=== PATIENT | female | born 1955 | race Caucasian/White ===

== ENCOUNTER 2020-08-07 00:27 | Outpatient (CLI) | payer BC, SELFPAY ==
[2020-08-07 18:26] LABS: SARS-CoV-2 RNA PCR Negative
== END 2020-08-07 00:28 | disposition home or self-care (01) ==
LOC: ANHCOVIDDT 00:27
PROVIDERS: Family Provider Family Medicine; PCP Family Medicine; Visit Provider Internal Medicine Gastroenterology
DX: Z01.812 Encounter for preprocedural laboratory examination (principal); Z20.822 Contact with and (suspected) exposure to COVID-19
CPT/HCPCS: C9803; U0003; U0005

== ENCOUNTER 2020-08-10 01:24 | Day surgery (SDC) | payer BC, SELFPAY ==
[2020-07-31 13:25] VITALS: BMI 30.2
[2020-08-10 12:37] VITALS: BP 141/86; PULSE 97; RESP 15; TEMP 36.9; O2SAT 96
[2020-08-10] MEDS: LACTATED RINGERS 1,000 ML 150 ML IV CONT (12:52)
[2020-08-10 13:03] LABS: Glucose Point of Care 240 (65-105)
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
[2020-08-10 15:33] VITALS: BP 84/48; PULSE 72; RESP 20; O2SAT 96
[2020-08-10 15:43] VITALS: BP 98/51; PULSE 72; RESP 20; O2SAT 95
[2020-08-10 15:44] LABS: Glucose Point of Care 175 (65-105)
[2020-08-10 15:53] VITALS: BP 117/73; PULSE 75; RESP 19; O2SAT 97
[2020-08-10 16:00] VITALS: BP 137/78; PULSE 74; RESP 20; O2SAT 97
== END 2020-08-10 16:08 | disposition home or self-care (01) ==
PROVIDERS: Family Provider Family Medicine; PCP Family Medicine; Visit Provider Internal Medicine Gastroenterology
PROC: 0DJD8ZZ Inspection of Lower Intestinal Tract, Via Natural or Artificial Opening Endoscopic (ICD-10-PCS; CPT 45378; principal; 2020-08-10 14:30)
DX: Z12.11 Encounter for screening for malignant neoplasm of colon (principal); D12.2 Benign neoplasm of ascending colon; K64.8 Other hemorrhoids; I10 Essential (primary) hypertension; E11.9 Type 2 diabetes mellitus without complications; K21.9 Gastro-esophageal reflux disease without esophagitis; K58.9 Irritable bowel syndrome, unspecified; F32.9 Major depressive disorder, single episode, unspecified; Z79.4 Long term (current) use of insulin; Z79.84 Long term (current) use of oral hypoglycemic drugs; F17.210 Nicotine dependence, cigarettes, uncomplicated
CPT/HCPCS: 45385; 88305; J2704; J7120

== ENCOUNTER 2020-09-27 15:10 | Outpatient (CLI) | payer BC, SELFPAY | END 2020-09-27 15:11 | disposition home or self-care (01) | LOC: ANHCOVIDVC 15:10 | PROVIDERS: PCP Family Medicine | DX: Z23 Encounter for immunization (principal) | CPT/HCPCS: 0001A; 91300 ==

== ENCOUNTER 2020-10-18 14:41 | Outpatient (CLI) | payer BC, SELFPAY | END 2020-10-18 14:42 | disposition home or self-care (01) | LOC: ANHCOVIDVC 14:41 | PROVIDERS: PCP Family Medicine | DX: Z23 Encounter for immunization (principal) | CPT/HCPCS: 0002A; 91300 ==

== ENCOUNTER 2022-01-17 13:56 | Outpatient (CLI) | payer SELFPAY ==
[2022-01-17 14:24] LABS: Alanine Aminotransferase 29 U/L (6-35); Albumin Level 4.6 g/dL (3.5-5.1); Alkaline Phosphatase 107 U/L (38-126); Anion Gap 6 mmol/L (8-16); Aspartate Amino Transferase 28 U/L (14-36); Bilirubin,Total 0.2 mg/dL (0.2-1.3); Blood Urea Nitrogen 12 mg/dL (7-17); Calcium 9.3 mg/dL (8.4-10.2); Carbon Dioxide 29 mmol/L (22-30); Chloride 103 mmol/L (98-107); Cholesterol 185 mg/dL (0-200); Estimated Glomerular Filt Rate 38; Glucose 197 mg/dL (65-110); HDL Direct 39 mg/dL; Potassium 3.8 mmol/L (3.4-5.0); Sodium 138 mmol/L (137-145); Triglycerides 178 mg/dL (<150)
[2022-01-17 14:36] LABS: LDL Cholesterol Direct 95 mg/dL
[2022-01-17 14:41] LABS: Creatinine Urine 80.4 mg/dL
[2022-01-17 14:50] LABS: MALB Creatinine Ratio 56.3 mg/g (0-30); Microalbumin Urine Random 45.3 mg/L (0-16.7)
[2022-01-17 18:13] LABS: Hemoglobin A1C 8.3 % (<5.7)
== END 2022-01-17 13:57 | disposition home or self-care (01) ==
LOC: ANHLAB 13:58
PROVIDERS: PCP Family Medicine; Visit Provider Physician Assistant
DX: Z13.1 Encounter for screening for diabetes mellitus (principal); E11.9 Type 2 diabetes mellitus without complications; Z79.4 Long term (current) use of insulin; I10 Essential (primary) hypertension; Z13.220 Encounter for screening for lipoid disorders
CPT/HCPCS: 36415; 80053; 80061; 82043; 83036

== ENCOUNTER 2023-05-21 14:45 | Outpatient (RCR) | payer MEDICARE, MEDICAID, SELFPAY ==
[2023-04-16 13:25] VITALS: BMI 32.6
[2023-04-16 13:30] VITALS: BMI 32.6
[2023-05-06 13:30] VITALS: BMI 32.3
[2023-05-06 13:41] VITALS: BMI 32.3
[2023-05-21 14:05] VITALS: BMI 31.6; BMI 32.3
== END 2023-06-30 09:34 | disposition home or self-care (01) ==
LOC: ANHDMC 14:45
PROVIDERS: PCP Family Medicine; Visit Provider Family Medicine
DX: E11.9 Type 2 diabetes mellitus without complications (principal); Z71.89 Other specified counseling; Z71.3 Dietary counseling and surveillance
CPT/HCPCS: 97802; 97803; G0108

== ENCOUNTER 2024-01-29 10:08 | Outpatient (CLI) | payer MEDICARE, SELFPAY ==
--- NOTE | ~2024-01-29 | MMUS_ITS ---
EXAMINATION: MM diagnostic troy RT w ken, US axilla RT HISTORY: Palpable right axillary mass. TECHNIQUE: Additional 3-D tomosynthesis images of the right breast were performed and synthetic 2-D i mages were generated. CAD analysis was submitted and interpreted. High resolution right axillary ultr asound was performed. COMPARISON: Screening mammogram dated 03/12/2010 BREAST PARENCHYMAL COMPOSITION: Not dense: There are scattered areas of fibroglandular density. FINDINGS: MAMMOGRAPHIC FINDINGS: There are 2 masses in the axillary tail of the right breast the largest of which located superiorly a nd laterally contains spiculations and measures approximately 2.7 cm. ULTRASOUND: Right axillary ultrasound: At 10:00, 10 cm from the nipple, there is an irregular shaped heterogeneou s hypoechoic mass measuring 2.9 x 2.2 x 2.3 cm with internal vascularity and mixed posterior attenuat ion. There is a nearby 2 x 1.4 x 1.1 cm hypoechoic vascular mass at 10:00, 8 cm from the nipple with parallel orientation, mixed posterior attenuation. IMPRESSION: 1. Masses in the right axillary tail, the largest of which measures 2.9 cm with spiculated margins. 2. Ultrasound-guided right breast biopsies recommended. BI-RADS category 5, highly suggestive of malignancy. Reviewed, dictated and finalized at location B. IMPRESSION: 1. Masses in the right axillary tail, the largest of which measures 2.9 cm with spiculated margins. 2. Ultrasound-guided right breast biopsies recommended. BI-RADS category 5, highly suggestive of malignancy.
== END 2024-01-29 10:09 ==
LOC: MICIMG 10:15
PROVIDERS: PCP Family Medicine; Visit Provider Student in an Organized Health Care Education/Training Program
DX: R92.8 Other abnormal and inconclusive findings on diagnostic imaging of breast (principal); N63.0 Unspecified lump in unspecified breast
CPT/HCPCS: 76882; 77061; 77065; G0279

== ENCOUNTER 2024-02-17 14:08 | Outpatient (CLI) | payer MEDICARE, SELFPAY ==
--- NOTE | ~2024-02-17 | MM_ITS ---
MM post biopsy diagnostic RT 02/17/2024 15:56 Indication: Status post right axillary biopsies Procedure: Digital diagnostic right mammogram Comparison: 01/29/2024 Findings: Status post recent right breast biopsy with tissue marker placement and 2 separate masses i n the right axillary tail located at 10:00, 10 cm from the nipple and 10:00, 8 cm from the nipple. Impression: 1: Status post recent right axillary biopsies. Please refer to procedural report for details. Reviewed, dictated and finalized at location B. Impression: 1: Status post recent right axillary biopsies. Please refer to procedural repor t for details.
--- NOTE | 2024-02-18 14:03 | W.PM.PROC2 ---
Procedure Note - Detailed Date of Procedure 02/18/24 Pre-op Diagnosis palpable right breast mass Post-op Diagnosis Same Procedure Performed US guided biopsy of right breast mass at 10 o'clock 10cm from the nipple US guided biopsy of right breast mass at 10 o'clock 8cm from the nipple Surgeon Jackie Moreira MD Anesthesia Other (lidocaine with epinephrine) Description of Procedure Risk of the procedure were discussed with the patient which included but not limited to risk of bleeding, infection, possible need for repeat biopsy or additional procedures in the future, bruising, hematoma,etc. Benefits and alternatives to procedure were discussed as well. Consent was obtained and a time out was performed. The right breast mass number 1 was identified using the US at 10 o'clock position 10 cm from the nipple, and lidocaine with epinephrine was used to anesthetize the skin and tissue surrounding the mass under US guidance. A 10g vacuum assisted device was used to obtain 4 core biopsy specimens under US guidance. An Inrad tissue marker clip was then placed at the biopsy site under US guidance. Pressure was held over the area for 10 minutes with excellent hemostasis. The right breast mass number 2 was identified using the US at 10 o'clock position 8 cm from the nipple, and lidocaine with epinephrine was used to anesthetize the skin and tissue surrounding the mass under US guidance. A 10g vacuum assisted device was used to obtain 4 core biopsy specimens under US guidance. An Inrad tissue marker clip was then placed at the biopsy site under US guidance. Pressure was held over the area for 10 minutes with excellent hemostasis. Core needle specimens were sent to pathology in formalin. Patient tolerated the procedure well with no immediate complications. A post-procedure right mammogram was obtained to confirm the tissue marker clip placement. Estimated Blood Loss 3 Pathology Yes Complications No immediate complications [facility] Billing Surgery - Charge Forward: Surgery Billing (CPT 78046, 13450)
== END 2024-02-17 14:09 | disposition home or self-care (01) ==
LOC: ANHIMG 14:08
PROVIDERS: PCP Family Medicine; Visit Provider Surgery
DX: D05.11 Intraductal carcinoma in situ of right breast (principal)
CPT/HCPCS: 19083; 19084; 77065; 88305; 88360; 88365; A4648

== ENCOUNTER 2024-03-16 12:01 | Outpatient (CLI) | payer MEDICARE, SELFPAY ==
--- NOTE | ~2024-03-16 | MR_ITS ---
MR breast BI wo/w con 03/16/2024 13:24 CDT INDICATION: Malignant neoplasm of the right breast TECHNIQUE: MRI of the breasts perform using standard protocol pre-and post IV contrast with the follo wing sequences: Axial T2 STIR, axial T1, axial vibrant T1 with fat suppression precontrast and multip hasic postcontrast. 15 cc of MultiHance administered intravenously. COMPARISON: Comparison to multiple prior studies sequentially, with oldest reviewed study dated 01/28. FINDINGS: Precontrast sequences demonstrate abnormal conglomerate mass in the left axillary tail with heterogeneous appearance characterize is T1 hypointense with areas of septated T2 hypointensity. The re is brisk rapid washout enhancement. This conglomerate mass measures 5.6 x 3.7 x 4.9 cm located upp er outer quadrant at 11:00 posteriorly 8 cm posterior to the nipple. Margins are irregular with multi ple satellite nodules nearby, likely representing metastatic lymph nodes. There is mild background pa renchymal enhancement. LEFT BREAST: No signal abnormalities on precontrast sequences. There is mild background parenchymal enhancement. No enhancing lesions following contrast administration. No areas of enhancement meeti ng threshold criteria on CAD analysis. No evidence of signal abnormalities in the axillary or inter nal mammary node distributions.] IMPRESSION: 1: Right breast: Large conglomerate mass upper outer quadrant of the right breast posteriorly at 11: 00 measuring 5.6 x 3.7 x 4.9 cm, consistent with known malignancy. Multiple small enhancing satellite nodules are noted, likely metastatic lymph nodes. BI-RADS category 6- Known biopsy proven malignancy : Appropriate action should be taken. 2: Left breast: Negative. No evidence of malignancy. BI-RADS category 1. Recommend annual mammogr aphy follow-up. Reviewed, dictated and finalized at location B. IMPRESSION: 1: Right breast: Large conglomerate mass upper outer quadrant of the right arcelia ast posteriorly at 11:00 measuring 5.6 x 3.7 x 4.9 cm, consistent with known ma lignancy. Multiple small enhancing satellite nodules are noted, likely metastat ic lymph nodes. BI-RADS category 6- Known biopsy proven malignancy: Appropriate action should be taken. 2: Left breast: Negative. No evidence of malignancy. BI-RADS category 1. Re commend annual mammography follow-up.
== END 2024-03-16 12:02 | disposition home or self-care (01) ==
PROVIDERS: PCP Family Medicine; Visit Provider Surgery
DX: N63.11 Unspecified lump in the right breast, upper outer quadrant (principal)
CPT/HCPCS: 77049; 99212; A9577; C8908; G0463

== ENCOUNTER 2024-04-07 10:14 | Outpatient (CLI) | payer MEDICARE, SELFPAY ==
[2024-04-07 11:09] LABS: Anion Gap 8 mmol/L (4-12); Blood Urea Nitrogen 19 mg/dL (7-17); Calcium 9.4 mg/dL (8.4-10.2); Carbon Dioxide 33 mmol/L (22-30); Chloride 94 mmol/L (98-107); Estimated Glomerular Filt Rate 38; Glucose 275 mg/dL (65-110); Potassium 3.1 mmol/L (3.4-5.0); Sodium 135 mmol/L (137-145)
== END 2024-04-07 10:15 | disposition home or self-care (01) ==
PROVIDERS: Anesthesiology; PCP Family Medicine; Visit Provider Surgery
DX: Z01.818 Encounter for other preprocedural examination (principal); C50.911 Malignant neoplasm of unspecified site of right female breast
CPT/HCPCS: 36415; 80048; 86850; 86900; 86901

== ENCOUNTER 2024-04-12 00:10 | Day surgery (SDC) | payer MEDICARE, SELFPAY ==
[2024-04-09 13:54] VITALS: BMI 30.7
--- NOTE | 2024-04-09 14:30 | PC.NURSE ---
Report to the Outpatient Waiting Room, entrance under the green pavilion located off [facility], at time ___11:15AM__ on date _04/12/24. Planned Procedure Time: ____1:15PM____.? Time changes happen often and if your time is changed the preop area will call you the afternoon before. - You and your visitor will be asked to self-screen and do not enter if you have any COVID symptoms. Please call surgeon if you need to reschedule. - A mask is optional within the hospital at this time. Patients may have clear liquids (water, carbonated beverages, clear teas, apple juice) until 3 hours prior to surgery with a maximum of 20 ounces. - No food from midnight until time of surgery and no smoking. Take only the following medications with a SIP of water on the morning of surgery: ___AMLODIPINE, BUPROPION, CARVEDILOL, PREGABALIN, 1/2 DOSE AM INSULIN(2.5 UNITS) DO NOT STOP ANY OF YOUR OTHER PRESCRIPTION MEDICATIONS PRIOR TO SURGERY EXCEPT THE FOLLOWING Medications to discontinue per physician NONE Date to take last dose Please no make-up, nail nepali, hairspray, perfume, deodorant, or body powder the day of surgery.? No jewelry (including any body piercings) or valuables the day of surgery, leave them at home.? Please take a shower or bath the night before, or the morning of, surgery with an antibacterial soap.? Wear comfortable, loose fitting clothing.? - Jewelry must be removed prior to entering the operating room.? Rings and piercings that are not removed may be cut off. - The hospital will not accept responsibility for valuables.? - Please leave all valuables, including medications, at home the day of surgery. If you are going home after surgery, a licensed power screwdriver operator must drive you home.? - NO public transportation without another adult if you receive anesthesia. - We recommend that an adult stay with you for 24 hours following discharge. - We also recommend that you do not drive, make important decision, drink alcoholic beverages, or take any drugs that were not prescribed by your health care provider for at least 24 hours after your discharge time. Follow any additional instructions given to you from your surgeon. Telephone instructions given to PATIENT'S SISTER-PAVITHRA and asked if any additional questions and then verbalized understanding. Patient advised to call surgeon office or pre surgery nurse liaison [phone] if any additional questions.
[2024-04-12] VITALS (7 sets, daily range): BP systolic 100–121; BP diastolic 53–75; PULSE 65–72; RESP 12–18; TEMP 36.3; O2SAT 92–99
--- NOTE | ~2024-04-12 | XR_ITS ---
EXAMINATION: XR fl guide central line place DATE: 04/12/2024 15:23 INDICATION: Port placement. TECHNIQUE: A single intraoperative fluoroscopic view of the chest was obtained. I was not present. Fl uoroscopy exposure time was 41 seconds. COMPARISON: None. FINDINGS: There is a left subclavian port with tip at superior cavoatrial junction. There are changes of anterior fusion procedure in cervical spine. IMPRESSION: 1. Port tip at superior cavoatrial junction. Reviewed, dictated and finalized at location A.
--- NOTE | ~2024-04-12 | XR_ITS ---
EXAMINATION: XR chest port-a-cath/central DATE: 04/12/2024 15:56 INDICATION: Port placement. TECHNIQUE: A single frontal view of the chest was obtained. COMPARISON: None. FINDINGS: There are airspace opacities in left perihilar region and left lower lung zone. No pleural effusion or pneumothorax. The heart size is normal. There are changes of anterior fusion procedure in cervical spine. Surgical clips in the right upper quadrant are likely from cholecystectomy. There is a left subclavian port with tip in proximal right atrium. IMPRESSION: 1. Port tip in proximal right atrium. 2. Airspace opacities in left perihilar region and left lower lung zone, consistent with atelectasis versus pneumonia. Reviewed, dictated and finalized at location A. IMPRESSION: 1. Port tip in proximal right atrium. 2. Airspace opacities in left perihilar region and left lower lung zone, consis tent with atelectasis versus pneumonia.
[2024-04-12] MEDS: LACTATED RINGERS 1,000 ML 30 ML IV CONT ×2 (11:45→15:41)
[2024-04-12 12:02] LABS: Glucose Point of Care 211 mg/dl (65-105)
[2024-04-12 12:05] LABS: Basophils Absolute Auto 0.1 K/mm3 (0.0-0.1); Basophils Percent Auto 0.6 % (0.2-1.2); Eosinophils Absolute Auto 0.3 K/mm3 (0-0.3); Eosinophils Percent Auto 2.6 % (0-4.4); Hematocrit 42.3 % (37.0-47.0); Hemoglobin 14.6 g/dL (12.0-15.0); Immature Granulocyte Absolute 0.03 K/mm3 (0.00-0.031); Immature Granulocyte Percent A 0.2 % (0-0.5); Lymphocytes Absolute Auto 2.59 K/mm3 (0.9-3.2); Lymphocytes Percent Auto 21.4 % (18.3-44.2); Mean Corpuscular HGB Conc 34.5 g/dl (32-36); Mean Corpuscular Hemoglobin 31.7 pg (26-34); Mean Corpuscular Volume 91.8 fl (80-100); Mean Platelet Volume 9.4 fl (7.4-10.4); Monocytes Absolute Auto 0.9 K/mm3 (0.1-0.6); Monocytes Percent Auto 7.8 % (2.6-8.5); Neutrophils Absolute Auto 8.2 K/mm3 (1.3-6.7); Neutrophils Percent Auto 67.4 % (45.5-73.1); Platelet Count Result 231 k/mm3 (150-375); Red Blood Count 4.61 M/mm3 (4.2-5.4); Red Cell Distribution Width 13.3 % (11.5-14.5); White Blood Count 12.1 K/mm3 (4.5-10.0)
[2024-04-12 12:16] LABS: INR 0.9; Prothrombin Time 12.9 Seconds (11.1-14.7)
[2024-04-12 12:17] LABS: Partial Thromboplastin Time 24.9 Seconds (22.3-36.8)
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
--- NOTE | 2024-04-12 12:45 | WPDHPUPDATE1 ---
History and Physical Update Update Date/Time: 04/12/24 12:45 History and Physical has been reviewed, including an updated exam of the patient. There are NO changes in the patient's condition. Risks, benefits, and alternatives have been discussed and questions answered. Patient agrees to proceed with procedure.
--- NOTE | 2024-04-12 13:36 | WPDANESEPPF ---
Anes - Initial Pre Proc Eval Procedure: Operation Date: 04/12/24 13:15 Proposed Procedures p Insertion Lizeth Cath - Mumtaz Thompson MD Date/Time: 04/12/24 13:36 Surgeon: Mumtaz Thompson MD Pre Op Diagnosis: malignant neoplasm of upper outer Patient Data Age: 68 Gender: F Height: 1.5 m Weight: 69 kg Last Vital Signs Temp 36.3 C L 04/12/24 12:54 Pulse 72 04/12/24 12:54 BP 116/75 04/12/24 12:54 Pulse Ox 99 04/12/24 12:54 O2 Del Method Room Air 04/12/24 12:54 Allergies Allergy/AdvReac Type Severity Reaction Status Date / Time lisinopril Allergy Severe Swelling Verified 04/09/24 13:43 of Lip/Tongue/Throat codeine Allergy Unknown Agitated Verified 04/09/24 13:43 ramipril Allergy Unknown Swelling Verified 04/09/24 13:43 of Lip/Tongue/Throat Sulfa (Sulfonamide Allergy Unknown Agitated Verified 04/09/24 13:43 Antibiotics) adhesive AdvReac Intermediate rash, Verified 04/09/24 13:43 redness at site Home Medications Medication Instructions Recorded Confirmed Type blood-glucose meter #1 ea 03/06/23 04/08/24 Rx lancets #200 ea 03/06/23 04/08/24 Rx simvastatin 40 mg tablet (Zocor) 40 mg PO DAILY #90 tabs 06/30/23 04/09/24 Rx amlodipine 10 mg tablet See Rx Instructions .Route 07/02/23 04/09/24 Rx .COMPLEX #30 ea bupropion HCl 150 mg 24 hr tablet, 150 mg PO QAM #30 tabs 07/02/23 04/09/24 Rx extended release (Wellbutrin XL) insulin lispro-aabc 100 unit/mL 5 unit (0.05 mL) subcut TID #15 mL 08/06/23 04/09/24 Rx subcutaneous pen (Lyumjelamine NazarioikPen U-100 Insulin) pen needle, diabetic 31 gauge x #100 ea 08/06/23 04/08/24 Rx 1/4 (1st Tier Unifine Pentips) blood-glucose meter,continuous #1 ea 12/24/23 04/08/24 Rx (FreeStyle Triston 3 [place]) blood-glucose sensor ([place]ibernateryle #6 ea 02/02/24 04/08/24 Rx Triston 3 Sensor device) blood sugar diagnostic (OneTouch #100 ea 03/17/24 04/08/24 Rx Verio test strips) tolnaftate 1 % topical solution 1 drp topical QHS #45 mL 03/17/24 04/09/24 Rx insulin glargine 100 unit/mL 50 unit subcut HS 04/05/24 04/09/24 History subcutaneous solution (Lantus U-100 Insulin) potassium chloride 20 mEq 20 meq PO DAILY #30 tabs 04/07/24 04/09/24 Rx tablet,extended release carvedilol 6.25 mg tablet 6.25 mg PO BID 04/09/24 04/09/24 History hydrochlorothiazide 25 mg tablet 25 mg PO QAM 04/09/24 04/09/24 History pregabalin 50 mg capsule 50 mg PO TID 04/09/24 04/09/24 History quetiapine 25 mg tablet 50 mg PO HS 04/09/24 04/09/24 History Laboratory Tests 04/12/24 04/12/24 11:58 12:02 WBC 12.1 H K/mm3 (4.5-10.0) RBC 4.61 M/mm3 (4.2-5.4) Hgb 14.6 g/dL (12.0-15.0) Hct 42.3 % (37.0-47.0) MCV 91.8 fl (80-100) MCH 31.7 pg (26-34) MCHC 34.5 g/dl (32-36) RDW 13.3 % (11.5-14.5) Plt Count 231 k/mm3 (150-375) MPV 9.4 fl (7.4-10.4) Immature Gran % (Auto) 0.2 % (0-0.5) Neut % (Auto) 67.4 % (45.5-73.1) Lymph % (Auto) 21.4 % (18.3-44.2) Centre % (Auto) 7.8 % (2.6-8.5) Eos % (Auto) 2.6 % (0-4.4) Baso % (Auto) 0.6 % (0.2-1.2) Lymph # (Auto) 2.59 K/mm3 (0.9-3.2) Centre # (Auto) 0.9 H K/mm3 (0.1-0.6) Eos # (Auto) 0.3 K/mm3 (0-0.3) Baso # (Auto) 0.1 K/mm3 (0.0-0.1) Abs Immat Gran (auto) 0.03 K/mm3 (0.00-0.031) Absolute Neuts (auto) 8.2 H K/mm3 (1.3-6.7) Absolute Nucleated RBC 0.000 K/mm3 (0.0-0.012) Nucleated RBC % 0.0 % (0.0-0.2) PT 12.9 Seconds (11.1-14.7) INR 0.9 APTT 24.9 Seconds (22.3-36.8) POC Capillary Glucose 211 H mg/dl (65-105) Patient hx anesthesia problems: none Family hx anesthesia problems: none Results Review: All pre-operative results and documents have been reviewed as part of the pre-operative evaluation. [facility] Past Medical History Medical History (Reviewed
[2024-04-12] MEDS: ceFAZolin 2 GM/D5W 50 ML 2 GM/50 ML BAG IVPB (14:27)
[2024-04-12] MEDS: HEPARIN SODIUM 5,000 UNITS/ML VIAL 5000 UNITS IRRIGATION (15:01)
[2024-04-12] MEDS: HEPARIN SODIUM 1,000 UNITS/ML VIAL 1000 UNITS IV PUSH (15:01)
[2024-04-12] MEDS: LIDO 1%/EPINEPHRINE 1:100,000 20 ML VIAL 30 ML INFILTRATE (15:19)
--- NOTE | 2024-04-12 15:35 | W.PM.PROC2 ---
Procedure Note - Detailed Date of Procedure 04/12/24 Pre-op Diagnosis Invasive right breast cancer Post-op Diagnosis Same Procedure Performed Placement of left subclavian vein single-lumen port a catheter with intraoperative fluoroscopy Surgeon Mumtaz Thompson MD Director Corporate Communications Malathi Stark, CERTIFIED MEDICAL TECHNICIAN ASSISTANT Anesthesia MAC Indications Patient is a 68-year-old female who recently was diagnosed with invasive right breast cancer. The tumor is fairly large and so after Oncotype testing it was recommend that she get neoadjuvant chemotherapy before definitive surgical management. She presents now for placement of a marina catheter to administer chemotherapy. Findings None significant Description of Procedure After informed consent was obtained patient brought to the operating room she was placed supine position and LMA anesthesia was administered. The bilateral upper anterior neck and chest was then prepped and draped usual sterile fashion. Time-out was then performed correctly identifying the patient as well as the procedure to be performed. She was given perioperative IV antibiotics. Approach placement of the marina catheter in the left subclavian vein due to the fact that her breast cancer is the right side. 1% lidocaine mixed with 0.5% Marcaine with epinephrine was injected below the medial 3rd of the left clavicle. A transverse incision was then made this area the scalpel the dissection was carried down through the subcu tissues with electrocautery. I then created a subcutaneous port pocket just below the incision in the subcutaneous tissues. Then with the patient in the head-down Trendelenburg position I then used a long 18gauge needle to cannulate the left subclavian vein without any difficulty. There was prompt return of dark venous appearing blood. A guidewire was advanced through the needle into the left subclavian vein subsequent down into the superior vena cava. Intraoperative fluoroscopy was then used to verify that the tip of the guidewire was in the proper position in the right atrium. I then advanced a dilator and breakaway sheath over the guidewire. The guidewire and dilator were removed leaving the sheath in place a single-lumen 9.6 [place] silastic catheter was then advanced through the sheath into the left subclavian vein subsequent down into the superior vena cava. The sheath was then torn away leaving the catheter in place. Intraoperative fluoroscopy was used to visualize the tip of the catheter and then I pulled back on the catheter externals the chest wall to the catheter tip was in the distal superior vena cava. The catheter was then cut to the appropriate length at the skin level and then attached to the titanium Smart Port. The Smart port was then secured the subcutaneous port pocket on 3 sides utilizing 3-0 Prolene sutures. The port pocket was then irrigated sterile saline solution hemostasis was good. I then accessed the port and aspirated blood easily and was flushed with heparinized saline solution. I then close incision utilizing interrupted 3-0 Vicryl sutures in the subcutaneous tissues. The skin edges were then approximated utilizing a running subcuticular 4-0 Monocryl suture. The incision was then cleaned the skin glue was applied. The port was then accessed percutaneously and again edwadr back blood easily and was flushed with 5000units of IV heparin. The patient tolerated the procedure well no complications. All sponges, needles, and instrument counts were correct at the end procedure. EBL was _10_cc. The patient was awakened and taken to recovery in stable and satisfactory condition. Chest x-ray to verify final placement the tip of the catheter and rule out iatrogenic pneumothorax is pending at time of dictation. Implants 9.6 [place] single-lumen silastic catheter attached to titanium Smart port via left subclavian vein. Estimated Blood Loss 10 Drains No Packing No Pathology None sent Complications No immediate complications C
[2024-04-12 16:13] LABS: Glucose Point of Care 220 mg/dl (65-105)
--- NOTE | 2024-04-12 16:14 | SUR.PHASEII ---
Dr. Alexander notified of BGL of 220; no new orders
--- NOTE | 2024-04-12 16:32 | SUR.PHASEII ---
This RN spoke with Dr. Thompson regarding CXR results. Per Jay placement of port tip in proximal right atrium is okay since patient had no ectopy in OR and that RN may proceed with discharge. Dr Thompson also notified of CXR results stating air space opacities in left perihilar region and left lower lung zone, consistent with atelectesis vs pneumonia . Per Jay, patient is to follow up with PCP for any related pulmonary symptoms.
== END 2024-04-12 17:50 | disposition home or self-care (01) ==
PROVIDERS: PCP Family Medicine; Visit Provider Surgery
PROC: (CPT 36561; principal; 2024-04-12 13:15)
DX: C50.411 Malignant neoplasm of upper-outer quadrant of right female breast (principal); R91.8 Other nonspecific abnormal finding of lung field; I10 Essential (primary) hypertension; E11.9 Type 2 diabetes mellitus without complications; K21.9 Gastro-esophageal reflux disease without esophagitis; K58.9 Irritable bowel syndrome, unspecified; F39 Unspecified mood [affective] disorder; F32.A Depression, unspecified; F17.210 Nicotine dependence, cigarettes, uncomplicated; E66.9 Obesity, unspecified; Z68.30 Body mass index [BMI] 30.0-30.9, adult; Z79.4 Long term (current) use of insulin; Z98.890 Other specified postprocedural states; Z98.51 Tubal ligation status; Z90.49 Acquired absence of other specified parts of digestive tract; Z86.010 Personal history of colon polyps; Z80.3 Family history of malignant neoplasm of breast; Z82.49 Family history of ischemic heart disease and other diseases of the circulatory system
CPT/HCPCS: 36561; 36415; 77001; 80048; 82948; 85025; 85610; 85730; 86850; 86900; 86901; C1788; J0690; J1100; J1644; J1885; J2003; J2405; J2704; J3010; J7030; J7120

== ENCOUNTER 2024-04-27 10:56 | Outpatient (RCR) | payer MEDICARE, SELFPAY | END 2024-07-12 09:37 | disposition home or self-care (01) | LOC: ANHDMC 10:56 | PROVIDERS: PCP Family Medicine; Visit Provider Family Medicine | DX: E11.22 Type 2 diabetes mellitus with diabetic chronic kidney disease (principal); Z71.89 Other specified counseling | CPT/HCPCS: G0108 ==

== ENCOUNTER 2024-07-22 14:58 | Outpatient (CLI) | payer MEDICARE, SELFPAY ==
[2024-07-22 16:53] LABS: Add Urine Microscopic? YES; Appearance Urine Cloudy (Clear); Bacteria Urine 3+ /hpf; Bilirubin Urine Negative (Negative); Blood Urine Negative (Negative); Color Urine Yellow (Yellow); Glucose Urine UA Negative (Negative); Ketones Urine Negative (Negative); Leukocyte Esterase Ur 2+ LEU/UL (Negative); Nitrate Urine Negative (Negative); Non Pathogenic Casts 0-2; Protein Urine Negative (Negative); RBC Urine 0-2 /hpf (0-2); Specific Grav Ur 1.013 (1.001-1.035); Squamous Epithelial Cell Urine Moderate /hpf (Few); Urobilinogen Urine 0.2 mg/dL (<2.0); WBC Urine >100 /hpf (0-3); pH Urine 5.5 (5.0-9.0)
== END 2024-07-22 14:59 | disposition home or self-care (01) ==
LOC: ANHLAB 14:59
PROVIDERS: PCP Family Medicine; Visit Provider Internal Medicine Hematology & Oncology
DX: R30.0 Dysuria (principal)
CPT/HCPCS: 81001; 87086

== ENCOUNTER 2024-08-01 17:43 | Emergency (ER) | payer MEDICARE, SELFPAY ==
--- NOTE | ~2024-08-01 | XR_ITS ---
EXAM: XR foot LT min 3V DATE: 08/01/2024 19:06 HISTORY: Left dorsal foot pain . COMPARISON: None available. FINDINGS: Normal mineralization. No fracture or dislocation. No lytic or blastic lesion. Mild degene rative change at the first MTP joint. Mild plantar and moderate Achilles enthesopathy. No erosion or periosteal change. Soft tissues within normal limits. IMPRESSION: No acute osseous finding in the left foot. Reviewed, dictated and finalized at location K. LANE CHARTER CLERK
[2024-08-01 17:47] VITALS: BP 98/50; PULSE 94; RESP 18; TEMP 36.4; O2SAT 97
[2024-08-01] MEDS: ACETAMINOPHEN 500 MG TABLET 1000 MG PO (19:18)
[2024-08-01 19:20] VITALS: BP 121/74; PULSE 90; RESP 16; O2SAT 97
[2024-08-01 19:20] LABS: Hematocrit 31.6 % (37.0-47.0); Hemoglobin 10.2 g/dL (12.0-15.0); Mean Corpuscular HGB Conc 32.3 g/dl (32-36); Mean Corpuscular Hemoglobin 32.2 pg (26-34); Mean Corpuscular Volume 99.7 fl (80-100); Mean Platelet Volume 10.7 fl (7.4-10.4); Platelet Count Result 183 k/mm3 (150-375); Red Blood Count 3.17 M/mm3 (4.2-5.4); Red Cell Distribution Width 18.8 % (11.5-14.5); White Blood Count 29.4 K/mm3 (4.5-10.0)
[2024-08-01 19:32] LABS: Alanine Aminotransferase 22 U/L (6-35); Albumin Level 3.9 g/dL (3.5-5.1); Alkaline Phosphatase 104 U/L (38-126); Anion Gap 9 mmol/L (4-12); Aspartate Amino Transferase 30 U/L (14-36); Bilirubin,Total 0.4 mg/dL (0.2-1.3); Blood Urea Nitrogen 18 mg/dL (7-17); Calcium 8.9 mg/dL (8.4-10.2); Carbon Dioxide 30 mmol/L (22-30); Chloride 97 mmol/L (98-107); Estimated Glomerular Filt Rate 47; Glucose 246 mg/dL (65-110); Potassium 3.3 mmol/L (3.4-5.0); Sodium 136 mmol/L (137-145); Uric Acid 8.3 mg/dL (2.5-7.5)
[2024-08-01 19:48] LABS: Band Neutrophils Percent 6 % (0-6); Eosinophils Absolute Manual 0.29 K/mm3 (0.02-0.50); Eosinophils Percent Manual 1 % (0-4); Lymphocytes Absolute Manual 1.76 K/mm3 (1.1-4.5); Monocytes Absolute Manual 3.23 K/mm3 (0.1-0.90); Monocytes Percent Manual 11 % (3-9); Neutrophils Percent Manual 76 % (46-73); Platelet Estimate Adequate (Adequate); Schistocytes None Seen; Total Cells Counted 100
[2024-08-01 19:49] LABS: Anisocytosis 3+; Polychromasia 1+
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
[2024-08-01] MEDS: CLINDAMYCIN HCL 150 MG CAP 450 MG PO (20:49)
--- OUTSIDE RECORDS SUMMARY | 2024-08-05 10:51 | XMS_ITS | CONTINUITY OF CARE DOCUMENT ---
Author Name joselo, joselo Address Unknown Organization [facility] Address [address] [address] [address] [facility] [address] [place] [address] Phone [phone] Care Team Providers Care Blogs Manager Name Role Phone Iftikhar KEE, Nirav Unavailable MAGEN HERZOG MD Unavailable MAGEN HERZOG MD Unavailable [phone] PROBLEMS Condition Status Date Provider Notes Breast cancer active Tru Le Renal insufficiency active Elezaar Kimbrough Carotid bruits, bilateral completed 09/01 - Nirav Buitrago MD PVC's rare completed - Nirav Buitrago MD Hyperlipidemia active Eleazar Kimbrough Hypokalemia 3.0 07/2020 completed 9 - Nirav Buitrago MD Diabetes mellitus, type 2 active Albania valladares MD Obesity active Albania Lopes MD Shortness of breath--stress nuc nl, echo ef nl, 02/2024 active Tru Le Palpitations active Albania Lopes MD Leg pain, bilateral completed - Nirav Buitrago MD Fibromyalgia active Albania Lopes MD Headaches active Albania Lopes MD Fatigue active Albania Lopes MD Tobacco abuse active Albania Lopes MD Family history of CAD active Albania grant MD Hypertension active Albania Lopes MD ENCOUNTERS Date Type Provider Location Encounter Diag nosis 03/08 - 03/08 In-person encounter Office Visit Nirav Buitrago MD [facility] Shortness of breath--stress nuc nl, echo ef nl, reast cancer 02/10 - 02/10 In-person encounter Office Visit Nirav Buitrago MD [facility] Leg pain, bilateralHypokalemia 3.0 1PVC's rareCarotid bruits, bilateral 09/01 - 09/01 In-person encounter Office Visit Albania Lopes MD [facility] HyperlipidemiaRenal insufficiency 08/11 - 08/11 In-person encounter Office Visit Albania Lopes MD [facility] Shortness of breath--stress nuc nl, echo ef nl, 02/2024 - 11/01 In-person encounter Office Visit Albania Lopes MD [facility] HypertensionShortness of breath--stress nuc nl, echo ef nl, 02/2024ObesityDiabetes mellitus, type 2 09/27 - 10/03 In-person encounter Office Visit Albania Lopes MD [facility] HypertensionFamily history of CADTobacco abuseFatigueHeadachesFibromyalgiaPalpitations VITAL SIGNS Date Observation Value Provider Body Mass Index (Ratio) 30.90 kg/m2 Iliana ssa Puhse pulse rate 76 /min Genesis Hinojosa oxygen saturation, oximetry 96 % Genesis Hinojosa blood pressure, cuff size regular Nas Hinojosa blood pressure, diastolic 72 mm[Hg] Nas Hinojosa blood pressure, systolic 110 mm[Hg] Surendra Hinojosa weight E&M 153 [lb_av] Genesis Hinojosa respiratory rate E&M 12 /min Genesis Hinojosa height E&M 59 [in_i] Genesis Hinojosa Body Mass Index (Ratio) 31.50 kg/m2 Ascencion Buitrago MD blood pressure, diastolic 94 mm[Hg] Lisa nkLogic blood pressure, systolic 130 mm[Hg] Autumn kLogic weight E&M 156 [lb_av] Zuleyka Isauro height E&M 59 [in_i] Zuleyka Isauro blood pressure, cuff size regular Va lersharonda Isauro blood pressure, diastolic 94 mm[Hg] Va lerie Isauro blood pressure, systolic 130 mm[Hg] Tory maddi Isauro pulse rate 77 /min Zuleyka Isauro oxygen saturation, oximetry 96 % Zuleyka Isauro respiratory rate E&M 12 /min Zuleyka Isauro Body Mass Index (Ratio) 30.49 kg/m2 Taew on blood pressure, cuff size regular Ke rri Sladeuelauren blood pressure, diastolic 66 mm[Hg] Ke rri Sladeuenenfelder blood pressure, systolic 120 mm[Hg] Mckay ri Nnamdi oxygen saturation, oximetry 96 % Sobia Nnamdi respiratory rate E&M 16 /min Sobia Benedict leone pulse rate 71 /min Sobia Christy mehtaer weight E&M 151 [lb_av] Sobia Christy mehtaer height E&M 59 [in_i] Sobia Christy lder Body Mass Index (Ratio) 30.70 kg/m2 Taew on blood pressure, diastolic 85 mm[Hg] Fe leonarda Donnelly blood pressure, systolic 126 mm[Hg] Chin icia Donnelly oxygen saturation, oximetry 97 % Wendy Donnelly pulse rate 72 /min Wendy Donnelly respiratory rate E&M 16 /min Wendy Donnelly temperature E&M 97.3 [degF] Wendy Donnelly weight E&M 152 [lb_av] Wendy Andrzej height E&M 59 [in_i] Wendy Donnelly Body Mass Index (Ratio) 30.90 kg/m2 Wilian Webber blood pressure, cuff size regular Amanda gambino Josh blood pressure, diastolic 80 mm[Hg] Lara Josh blood pressure, systolic 140 mm[Hg] Kathleen jhonny Moreno oxygen saturation, oximetry 97 % Cha Josh respiratory rate E&M 16 /min Chaolinda Moreno pulse rate 92 /min Cha Josh weight E&M 153 [lb_av] Cha Moreno height E&M 59 [in_i] Cha Josh Body Mass Index (Ratio) 29.65 kg/m2 Wilian Webber blood pressure, resting Yes Katherine Najera blood pressure, diastolic 89 mm[Hg] Chiquita Najera blood pressure, systolic 163 mm[Hg] Kelly Najera oxygen saturation, oximetry 98 % Sylvia Najera respiratory rate E&M 18 /min Emerald Najera pulse rate 88 /min Sylvia kirkland weight E&M 146.8 [lb_av] Sylvia hawthorne height E&M 59 [in_i] Sylvia kirkland ALLERGIES Allergy Name Onset Date Reaction Criticality Status RAMIPRIL High Criticality active LISINOPRIL High Criticality active WET GRASS High Criticality active ADHESIVE TAPE High Criticality activ e CODEINE High Criticality active ARB Angioedema Angioedema High Criticali ty active BRANDON INHIBITORS Angioedema Angioedema High Criti cality active RESULTS Date Observation Value Provider Reference Range Interpretation Location 0 alanine aminotransferase (SGPT), serum 19 1/L [facility] 0-32 0 aspartate aminotransferase (SGOT), serum 21 1/L [facility] 0-40 0 alkaline phosphatase, serum 99 1/L [facility] 39-117 0 bilirubin, serum, total <0.2 mg/dL [facility] 0.0-1.2 0 albumin/globulin ratio, serum 2.0 [facility] 1.2-2.2 0 globulin, serum 2.2 [facility] 1.5-4.5 0 albumin, serum 4.4 g/dL [facility] 3.8-4.8 0 protein, total, serum 6.6 g/dL [facility] 6.0-8.5 0 calcium, serum 9.9 mg/dL [facility] 8.7-10.3 0 carbon dioxide, venous blood 26 mmol/L [facility] 20-29 0 chloride, serum 97 mmol/L [facility] 96-106 0 potassium, serum 3.9 mmol/L [facility] 3.5-5.2 0 sodium, serum 141 mmol/L [facility] 046-811 5832/02/2 0 urea nitrogen/creatinine ratio, serum 9 [facility] 12-28 Low 0 eGFR if 38 mL/min/{1 .73_m2} [facility] >59 Low 0 eGFR if not 33 mL/min/{1 .73_m2} [facility] >59 Low 0 creatinine, serum 1.67 mg/dL [facility] 0.57-1.00 High 0 urea nitrogen, blood 15 mg/dL [facility] 8-27 0 blood glucose, random 254 mg/dL [facility] 65-99 High 0 lipoprotein, beta, serum, point, quantitative, calculated 143 mg/dL [facility] 0-99 High 0 HDL cholesterol, serum 41 mg/dL [facility] >39 0 triglyceride, serum, random 145 mg/dL [facility] 0-149 0 cholesterol, serum 210 mg/dL [facility] 100-199 High 0 free thyroxine index 2.6 [facility] 1.2-4.9 0 triiodothyronine resin uptake 27 % [facility] 24-39 0 thyroxine, serum, total 9.5 ug/dL [facility] 4.5-12.0 0 thyroid stimulating hormone, serum 1.530 u[IU]/mL [facility] 0.450-4.500 0 hemoglobin A1C, blood, as % of total hemoglobin 9.4 % [facility] 4.8-5.6 High 0 lipoprotein, beta, serum, point, quantitative, calculated 167 mg/dL [facility] 0-99 High 0 HDL cholesterol, serum 34 mg/dL [facility] >39 Low 0 triglyceride, serum, random 368 mg/dL [facility] 0-149 High 0 cholesterol, serum 272 mg/dL [facility] 100-199 High 0 platelet count 311 X10E3/UL [facility] 132-024 3677/01/3 0 red blood cell distribution width 14.2 % [facility] 11.7-15.4 0 mean corpuscular hemoglobin concentration, RBC 34.4 G/DL [facility] 31.5-35.7 0 mean corpuscular hemoglobin, RBC 29.2 pg [facility] 26.6-33.0 0 mean corpuscular volume, RBC 85 fL [facility] 79-97 0 hematocrit, blood 42.2 % [facility] 34.0-46.6 0 hemoglobin, blood 14.5 g/dL [facility] 11.1-15.9 0 erythrocyte (RBC) count 4.97 X10E6/UL [facility] 3.77-5.28 0 leukocyte count, blood 10.5 X10E3/UL [facility] 3.4-10.8 0 alanine aminotransferase (SGPT), serum 20 1/L [facility] 0-32 0 aspartate aminotransferase (SGOT), serum 24 1/L [facility] 0-40 0 alkaline phosphatase, serum 97 1/L [facility] 39-117 0 bilirubin, serum, total 0.3 mg/dL [facility] 0.0-1.2 0 albumin/globulin ratio, serum 1.5 [facility] 1.2-2.2 0 globulin, serum 2.8 [facility] 1.5-4.5 0 albumin, serum 4.3 g/dL [facility] 3.8-4.8 0 protein, total, serum 7.1 g/dL [facility] 6.0-8.5 0 calcium, serum 9.2 mg/dL [facility] 8.7-10.3 0 carbon dioxide, venous blood 25 mmol/L [facility] 20-29 0 chloride, serum 95 mmol/L [facility] 96-106 Low 0 potassium, serum 3.0 mmol/L [facility] 3.5-5.2 Low 0 sodium, serum 138 mmol/L [facility] 098-965 6374/01/3 0 urea nitrogen/creatinine ratio, serum 12 [facility] 12-28 0 eGFR if 47 mL/min/{1 .73_m2} [facility] >59 Low 0 eGFR if not 41 mL/min/{1 .73_m2} [facility] >59 Low 0 creatinine, serum 1.39 mg/dL [facility] 0.57-1.00 High 0 urea nitrogen, blood 16 mg/dL [facility] 8-27 0 blood glucose, random 277 mg/dL [facility] 65-99 High HISTORY OF MEDICATION USE Medication Status Instructions Dates Provider Indications Com ments Easy Touch 31 gauge x 1/4 needle active USE THREE TIMES DAILY WITH INSULIN PEN Tru Ahmedzai hydrochlorothiazide 25 mg tablet active Tru Ahmedzai Lantus U-100 Insulin 100 unit/mL solution active 45 units daily Zuleyka Isauro Lyumjev KwikPen U-100 Insulin 100 unit/mL insulin pen active 5 units three times a day Zuleyka Isauro bupropion HCl 150 mg tablet extended release 24 hr active 1 pill daily Zuleyka Isauro simvastatin 40 mg tablet active 1 pill daily Zuleyka Isauro Klor-Con M20 20 mEq tablet,ER particles/crystals active Take 1 tablet by mouth once a day 10/12 Albania Lopes MD magnesium oxide 400 mg (241.3 mg magnesium) tablet completed Take 1 tablet by mouth twice a day 10/12 - 02/10 Zuleyka Isauro atorvastatin 40 mg tablet completed Take 1 tablet by mouth once daily 07/23 - 10/07 Abiola Bañuelos NP carvedilol 6.25 mg tablet active Take 1 twice a day Sobia Coto #180, 90 days supply, Filled 1 quetiapine 50 mg tablet completed Take 1 once a day 08/17 - 02/10 Zuleyka Isauro #30, 30 days supply, Filled 1 escitalopram oxalate 10 mg tablet completed Take 1.5 once a day 08/17 - 02/10 Zuleyka Isauro #45, 32 days supply, Filled MULTIVITAMINS ORAL CAPSULE completed 1 tablet once a day 09/01 - 02/10 Zuleyka Isauro Vitamin B-12 1,000 mcg tablet completed 1 tablet once a day 09/01 - 02/10 Zuleyka Box cholecalciferol (vitamin D3) 125 mcg (5,000 unit) capsule completed 1 tablet by mouth once a day 09/01 - 02/10 Zuleyka Box atorvastatin 40 mg tablet completed one tab daily 08/14 - 07/23 Albania Lopes MD Klor-Con M20 20 mEq tablet,ER particles/crystals completed 1 tablet once a day 08/14 - 10/12 Albania Lopes MD magnesium oxide 400 mg (241.3 mg magnesium) tablet completed 1 tablet twice a day 08/11 - 10/12 Eleazar Kimbrough DILTIAZEM HCL 90 MG ORAL TABLET completed One tablet three times daily 09/27 - 08/11 Eleazar Kimbrough CLONIDINE HCL TABLET completed One tablet at bedtime 09/27 - 07/23 Cha Moreno aspirin 81 mg tablet,delayed release (DR/EC) active 1 tablet by mouth once a day Sylvia Najera MELOXICAM 15 MG ORAL TABLET completed once daily - 08/14 Albania Lopes MD Lyrica 50 mg capsule active 1 capsule b y mouth three times a day Zuleyka Box venlafaxine 75 mg capsule,extended release 24hr completed 2 tablet once a day 10/18 - 02/10 Zuleyka Box amlodipine 10 mg tablet active 1 tablet once a day 10/18 Albania Lopes MD OMEPRAZOLE 20 MG ORAL CAPSULE DELAYED RELEASE completed ONE TAB. DAILY - 07/23 Sobia Coto hydrochlorothiazide 25 mg tablet completed 1 tablet once a day - 02/10 Zuleyka Box metformin 500 mg tablet completed 2 once a day - 02/10 Zuleyka Box SOCIAL HISTORY Date Observation Value Provider smoking/tobacco cess ation, patient education and counseling yes Tru Le number of years as a smoker 30 a Tru Le smoking, date started 1986 Tru garcia smoking history, tot al pack/day 1 Tru Le cigarette use yes Tru Le smoking status Current every day smoker R lexy Le smoking/tobacco cess ation, patient education and counseling yes Tru Le number of years as a smoker 30 a Tru Le smoking, date started 1986 Tru garcia smoking history, tot al pack/day 1 Tru Le cigarette use yes Tru Le smoking status Current every day smoker R lexy Le social history E&M S moking History: P atelias currently smokes every day. P atient has been counseled to quit. Eleazar Kimbrough social history reviewed E&M revi ewed - no changes required Eleazar Kimbrough smoking/tobacco cess ation, patient education and counseling yes Sobia Coto number of years as a smoker 30 a Sobia Coto smoking, date started 1986 Sobia Coto smoking history, tot al pack/day 1 Sobia Coto cigarette use yes Sobia Gallegos dion smoking status Current every day smoker K henrry Coto social history E&M S moking History: P atient currently smokes every day. P atient has been counseled to quit. Eleazar Kimbrough social history reviewed E&M revi ewed - no changes required Eleazar Kimbrough smoking/tobacco cess ation, patient education and counseling yes Wendy Donnelly number of years as a smoker 30 a Wendy Donnelly smoking, date started 1986 Felici a Donnelly smoking history, tot al pack/day 1 Wendy Donnelly cigarette use yes Wendy Donnelly smoking status Current every day smoker Luz Donnelly social history reviewed E&M revi ewed - no changes required Carlos Webber smoking/tobacco cess ation, patient education and counseling yes Cha Moreno number of years as a smoker 30 a Cha Moreno smoking, date started 1986 Cha Moreno smoking history, tot al pack/day 1 Cha Moreno cigarette use yes Cha Moreno smoking status Current every day smoker L micha Moreno smoking, date started 1986 Gillian Lopez social history reviewed E&M revi ewed - no changes required Carlos [facility] social history E&M Smoking Histo ry: P atient currently smokes every day. P atient has been counseled to quit. Carlos Webber smoking/tobacco cess ation, patient education and counseling yes Carlos [facility] number of years as a smoker 30 a Sylvia Najera smoking history, tot al pack/day 1 SylviaDior Najera cigarette use yes Sylvia Fernandez christoph smoking status Current every day smoker Juan Carlos Najera FAMILY HISTORY Family Member Condition Father Family History of Co ronary Artery Disease: Full Brother Family History of Co ronary Artery Disease: Full Brother Family History of Di abetes: INSURANCE PROVIDERS Payer name Policy type / Coverage type [place] [employer] ID [facility] Other [facility] Other [facility] Other [id number] (PPO C-SNP) Commercial insurance company [id number] ADVANCE DIRECTIVES Name Date DISCUSSED - NO DECISION MADE TREATMENT PLAN Date Name Performer Cardiology:This visi t has been a part of the consistent, comprehensive, and ongoing management of the chronic medical condition(s) listed above for the patient. BP today: 110/72 P rior BP: 130/94 (02/11/2024) Labs Reviewed: C reat: 1.67 (09/02/2020) C hol: 210 (09/02/2020) HDL: 41 (09/02/2020) LDL: 143 (09/02/2020) T (09/02/2020) Her updated medication list for this problem includes: Hydrochlorothiazide 25 Mg Tablet (Hydrochlorothiazide) Carvedilol 6.25 Mg Tablet (Carvedilol) ..... Take 1 twice a day Amlodipine 10 Mg Tablet (Amlodipine) ..... 1 tablet once a day Aspirin 81 Mg Tablet,delayed Release (dr/ec) (Aspirin) ..... 1 tablet by mouth once a day Nirav Buitrago MD Cardiology Tru elbert Cardiology: H er updated medication list for this problem includes: Lantus U-100 Insulin 100 Unit/ml Solution (Insulin glargine) ..... 45 units daily Kiara Patel U-100 Insulin 100 Unit/ml Insulin Pen (Insulin lispro-[facility]) ..... 5 units three times a day Aspirin 81 Mg Tablet,delayed Release (dr/ec) (Aspirin) ..... 1 tablet by mouth [facility] a [facility]: H er updated medication list for this problem includes: Simvastatin 40 Mg Tablet (Simvastatin) ..... [address] [facility] Cardiology: H er updated medication list for this problem includes: Hydrochlorothiazide 25 Mg Tablet (Hydrochlorothiazide) Carvedilol 6.25 Mg Tablet (Carvedilol) ..... Take 1 twice a day Amlodipine 10 Mg Tablet (Amlodipine) ..... 1 tablet once a day Aspirin 81 Mg Tablet,delayed Release (dr/ec) (Aspirin) ..... 1 tablet by mouth once a day [facility] Cardiology: B P today: 110/72 P rior BP: 130/94 (02/11/2024) Labs Reviewed: C reat: 1.67 (09/02/2020) C hol: 210 (09/02/2020) HDL: 41 (09/02/2020) LDL: 143 (09/02/2020) T (09/02/2020) Her updated medication list for this problem includes: Hydrochlorothiazide 25 Mg Tablet (Hydrochlorothiazide) Carvedilol 6.25 Mg Tablet (Carvedilol) ..... Take 1 twice a day Amlodipine 10 Mg Tablet (Amlodipine) ..... 1 tablet once a day Aspirin 81 Mg Tablet,delayed Release (dr/ec) (Aspirin) ..... 1 tablet by mouth once a day [facility]: H er updated medication list for this problem includes: Simvastatin 40 Mg Tablet (Simvastatin) ..... [address] [facility] Card[facility]: B P today: 130/94 P rior BP: 120/66 (09/01/2020) Labs Reviewed: C reat: 1.67 (09/02/2020) C hol: 210 (09/02/2020) HDL: 41 (09/02/2020) LDL: 143 (09/02/2020) T (09/02/2020) The following medications were removed from the medication list: Hydrochlorothiazide 25 Mg Tablet (Hydrochlorothiazide) ..... 1 tablet once a day Her updated medication list for this problem includes: Hydrochlorothiazide 25 Mg Tablet (Hydrochlorothiazide) Carvedilol 6.25 Mg Tablet (Carvedilol) ..... Take 1 twice a day Amlodipine 10 Mg Tablet (Amlodipine) ..... 1 tablet once a day Aspirin 81 Mg Tablet,delayed Release (dr/ec) (Aspirin) ..... 1 tablet by mouth once a [facility]: O rders: C omplete Echo (05765) S tress Regadenoson (CPT-10383) H gb: 14.5 (08/12/2020) HCT: 42.2 (08/12/2020) Platelets: 311 X10E3/UL (08/12/2020) R BC: 4.97 X10E6/UL (08/12/2020) WBC: 10.5 X10E3/UL (08/12/2020) B UN: 15 (09/02/2020) Creat: 1.67 (09/02/2020) Glucose: 254 (09/02/2020) N a+: 141 (09/02/2020) K+: 3.9 (09/02/2020) Cl: 97 (09/02/2020) SGOT (AST): 21 (09/02/2020) SGPT (ALT): 19 (09/02/2020) TSH: 1.530 (08/12/2020) T4 (total): 9.5 (08/12/2020) Truuday Herrera Cardiology: H er updated medication list for this problem includes: Lantus U-100 Insulin 100 Unit/ml Solution (Insulin glargine) ..... 45 units daily Lyumjelamine Kwikpen U-100 Insulin 100 Unit/ml Insulin Pen (Insulin lispro-aabc) ..... 5 units three times a day Aspirin 81 Mg Tablet,delayed Release (dr/ec) (Aspirin) ..... 1 tablet by mouth once a day Truuday Le [facility] Electrophysiology Fo llow up 12: O rders: C arotid Duplex Bilateral (CPT-71223) 9 9212 Minor 10-19min (CPT-38830) Eleazar Kimbrough Electrophysiology Fo llow up 12: H er updated medication list for this problem includes: Atorvastatin Calcium 40 Mg Oral Tablet (Atorvastatin calcium) ..... One tab daily Orders: L IPID PANEL (9138) M AGNESIUM (622) Eleazar Kimbrough Electrophysiology Fo llow up 12: S he is allergic to BRANDON/ARB, angioedema. H er updated medication list for this problem includes: Aspirin Adult Low Dose 81 Mg Oral Tablet Delayed Release (Aspirin) ..... One tab by mouth daily Metformin Hcl 500 Mg Oral Tablet (Metformin hcl) ..... 2 in am, 2 in pm Eleazar Kimbrough Electrophysiology Fo llow up 12: O rders: C OMPREHENSIVE METABOLIC PANEL, W/EGFR (51111) K idney Ultrasound (CPT-80249) Eleazar Kimbrough Electrophysiology Fo llow up 12:Rhythm: Sinus Rhythm M inimum Heart Rate was 53bpm, Average Heart Rate was 68bpm, and Maximum Heart RAte was 103bpm. V entricular Ectopy was noted as 975 isolated beats, 3 episodes of Ventricular Trigeminy was noted. S upraVentricular Ectopy was noted as 28 beats, with 2 SV-Runs, the longest lasting 13 beats. N o event diary was submitted. Report Date 08.24.2020.//tm Her updated medication list for this problem includes: Amlodipine Besylate 10 Mg Oral Tablet (Amlodipine besylate) ..... One tablet daily Carvedilol 6.25 Mg Oral Tablet (Carvedilol) ..... Take one pill twice a day Aspirin Adult Low Dose 81 Mg Oral Tablet Delayed Release (Aspirin) ..... One tab by mouth daily Eleazar Kimbrough Electrophysiology Follow up 12 T [facility] Luis E Electrophysiology 05 : O rders: F VC - 51086 (47158) F - 59244 (02290) D O - 91904 (49886) The following medications were removed from the medication list: Diltiazem Hcl 90 Mg Oral Tablet (Diltiazem hcl) ..... One tablet three times daily Her updated medication list for this problem includes: Aspirin Adult Low Dose 81 Mg Oral Tablet Delayed Release (Aspirin) ..... One tab by mouth daily Amlodipine Besylate 10 Mg Oral Tablet (Amlodipine besylate) ..... One tablet daily Hydrochlorothiazide 25 Mg Oral Tablet (Hydrochlorothiazide) ..... One tab daily [facility] Electrophysiology 05 : p follows p keenan does note some problems affording lyrica for neuropathy H er updated medication list for this problem includes: Aspirin Adult Low Dose 81 Mg Oral Tablet Delayed Release (Aspirin) ..... One tab by mouth daily Metformin Hcl 500 Mg Oral Tablet (Metformin hcl) ..... 2 in am, 2 in pm [facility] 05 : B P today: 126/85 P rior BP: 140/80 (10/18/2016) The following medications were removed from the medication list: Diltiazem Hcl 90 Mg Oral Tablet (Diltiazem hcl) ..... One tablet three times daily Her updated medication list for this problem includes: Aspirin Adult Low Dose 81 Mg Oral Tablet Delayed Release (Aspirin) ..... One tab by mouth daily Amlodipine Besylate 10 Mg Oral Tablet (Amlodipine besylate) ..... One tablet daily Hydrochlorothiazide 25 Mg Oral Tablet (Hydrochlorothiazide) ..... One tab daily Eleazar Luis E Electrophysiology 05 : O rders: L IPID PANEL (8060) C OMPREHENSIVE METABOLIC PANEL, W/EGFR (65090) C BC (H/H, RBC, INDICES, WBC, PLT) (1759) T SH, free T4, total T3 (3844) C omplete Echo (CPT-77193) E KG (CPT-85476) M onitor - Telemetry (Mobile Cardiac) (CPT-34568) The following medications were removed from the medication list: Diltiazem Hcl 90 Mg Oral Tablet (Diltiazem hcl) ..... One tablet three times daily Her updated medication list for this problem includes: Aspirin Adult Low Dose 81 Mg Oral Tablet Delayed Release (Aspirin) ..... One tab by mouth daily Amlodipine Besylate 10 Mg Oral Tablet (Amlodipine besylate) ..... One tablet daily Eleazar Luis E Electrophysiology 05 :STRONGLY ENCOURAGED TO STOP SMOKING; SMOKING CESSATION TECHNIQUES DISCUSSED. Eleazar Kimbrough Cardiology Follow up faxed 11/04/16 0850:Her updated medication list for this problem includes: Aspirin Adult Low Dose 81 Mg Oral Tbec (Aspirin) ..... One tab by mouth daily Metformin Hcl 500 Mg Tabs (Metformin hcl) ..... 2 in am, 2 in pm Carlos Webber Cardiology Follow up faxed 11/04/16 0850:Event monitor is normal. Carlos Webber Cardiology Follow up faxed 11/04/16 0850:Weight loss and exercise advised. Albania Lopes MD Cardiology Follow up faxed 11/04/16 0850:No renal artery stenosis by duplex. BP today: 140/80 P rior BP: 163/89 (09/27/2016) The following medications were removed from the medication list: Clonidine Hcl Tabs (Clonidine hcl tabs) ..... One tablet at bedtime Her updated medication list for this problem includes: Diltiazem Hcl 60 Mg Oral Tabs (Diltiazem hcl) ..... One tablet three times daily Aspirin Adult Low Dose 81 Mg Oral Tbec (Aspirin) ..... One tab by mouth daily Amlodipine Besylate 10 Mg Tabs (Amlodipine besylate) ..... 2 tabs once daily Hydrochlorothiazide 25 Mg Tabs (Hydrochlorothiazide) ..... One tab daily Albania Lopes MD Cardiology Follow up faxed 11/04/16 0850:Event monitor report pending. Her updated medication list for this problem includes: Diltiazem Hcl 60 Mg Oral Tabs (Diltiazem hcl) ..... One tablet three times daily Aspirin Adult Low Dose 81 Mg Oral Tbec (Aspirin) ..... One tab by mouth daily Amlodipine Besylate 10 Mg Tabs (Amlodipine besylate) ..... 2 tabs once daily Albania Lopes MD Cardiology Follow up faxed 11/04/16 0850:Tobacco use cessation advised. PFT's are unremarkable. Albania Lopes MD Cardiology Follow up faxed 11/04/16 0850:STRONGLY ENCOURAGED TO STOP SMOKING; SMOKING CESSATION TECHNIQUES DISCUSSED. [facility]:STRONGLY ENCOURAGED TO STOP SMOKING; SMOKING CESSATION TECHNIQUES DISCUSSED. Orders: F - 86429 (55446) F - 22469 (59502) D O - 95161 (83259) [facility]:Orders: M obile Cardiac Tele ([id number]) [facility]:BP today: 163/89 Her updated medication list for this problem includes: Diltiazem Hcl 60 Mg Oral Tabs (Diltiazem hcl) ..... One tablet three times daily <--- Starting today Clonidine Hcl Tabs (Clonidine hcl tabs) ..... One tablet at bedtime Aspirin Adult Low Dose 81 Mg Oral Tbec (Aspirin) ..... One tab by mouth daily Amlodipine Besylate 10 Mg Tabs (Amlodipine besylate) ..... 2 tabs once daily Hydrochlorothiazide 25 Mg Tabs (Hydrochlorothiazide) ..... One tab daily Orders: R enal Artery Duplex ([id number]) C omplete Echo (CPT-60564) W ill do pharmacogenetic testing to assess patient's response to medications. Carlos Webber Date Name Stress Regadenoson Complete Echo Carotid Duplex Bilat eral MAGNESIUM Carotid Duplex Bilat eral Kidney Ultrasound LIPID PANEL COMPREHENSIVE METABO LIC PANEL, W/EGFR Monitor - Telemetry (Mobile Cardiac) DLCO - 85421 FRC - 08443 FVC - 54435 Complete Echo TSH, free T4, total T3 CBC (H/H, RBC, INDIC ES, WBC, PLT) COMPREHENSIVE METABO LIC PANEL, W/EGFR LIPID PANEL HEMOGLOBIN A1c Mobile Cardiac Tele DLCO - 73897 FRC - 12685 FVC - 85905 Renal Artery Duplex Complete Echo HISTORY OF PROCEDURES Procedure Date Procedure Name Provider Procedure Notes S tatus Complex e/m visit add on Nirav Buitrago MD completed EKG Nirav Buitrago MD completed Event Monitor [place] chacon MD completed Holter, 24 or 48 Albania pérez MD completed Schedule Followup [place] grant MD in 1 year completed Ultrasound, retroperitoneal, complete [place]ia Lopes MD completed EKG Albania chacon MD completed FVC / MVV - 16358 Albania grant MD completed FRC - 32803 Albania chacon MD completed SpO2 w/o 6min walk/titration Albania Lopes MD completed DLCO - 76236 Albania chacon MD completed EKG Albania chacon MD completed SNOMED-CT: [id number] Physical Exam, Performed: Pulse Exam of Foot Albania Lopes MD completed SNOMED-CT: [id number] Smoking Cessation Counseling Albania Lopes MD completed EKG Albania chacon MD completed SNOMED-CT: [id number] Current Medications Documented Albania Lopes MD completed FVC / MVV - 04458 Albania grant MD completed FRC - 10127 Albania chacon MD completed SpO2 - 80336 Albania chacon MD completed DLCO - 87401 Albania chacon MD completed Event Monitor Carey Farrar completed SNOMED-CT: 479901021 Smoking Cessation Counseling Albania Lopes MD completed EKG Albania chacon MD completed SNOMED-CT: [id number] Current Medications Documented Albania Lopes MD completed
--- OUTSIDE RECORDS SUMMARY | 2024-08-05 10:51 | XMS_ITS | Patient Health Summary ---
Author Organization [facility] Address [address] [place] [address] Care Team Providers Care Superintendent [employer] Name Role Phone Giselle Ramirez MD Primary Care Provider [phone] Note from [facility],non-owned Affiliates and Associated Physician Practices is amultiple site organization consisting of ambulatory clinics and hospital sitesin [place], [place], [place] and [place]. This disclosure is being madepursuant to the Care Everywhere program and may not contain all information available regarding this patient. Last updated 18.[facility] Social History Tobacco Use Types Packs/Day Years Used Date Smoking Tobacco: Never Assessed Sex and Gender Information Value Date Recorded Sex Assigned at Not on file Gender Identity Not on file Sexual Orientation Not on file Procedures * MRI LUMBAR SPINE WO CONTRAST(Performed 06/14/2019) Performed for Polyarticular psoriatic arthritis (HCC), Acute hip pain, left * XR PELVIS W BILAT HIP 2VW(Performed 05/12/2019) Performed for Polyarticular psoriatic arthritis (HCC) * XR KNEE BILAT 4VW OR MORE(Performed 10/11/2016) Performed for Inflammatory polyarthritis (HCC), Chronic fatigue fibromyalgia syndrome * XR LUMBAR SPINE 4VW OR MORE(Performed 10/11/2016) Performed for Inflammatory polyarthritis (HCC), Chronic fatigue fibromyalgia syndrome * XR FOOT BILAT WT BEARING 2VW(Performed 10/11/2016) Performed for Inflammatory polyarthritis (HCC), Chronic fatigue fibromyalgia syndrome * TSH(Performed 11/20/2010) * CYCLIC CITRULLINATED PEPTIDE(CCP) AB IGG(Performed 11/20/2010) * CBC W AUTO DIFFERENTIAL(Performed 11/20/2010) * COMPREHENSIVE METABOLIC PANEL(Performed 11/20/2010) * CK BLOOD(Performed 11/20/2010) * ERYTHROCYTE SEDIMENTATION RATE(Performed 11/20/2010) * ALDOLASE(Performed 11/20/2010) * SS-B (SJOGREN'S) ANTIBODY(Performed 11/20/2010) * SS-A (SJOGREN'S) ANTIBODY(Performed 11/20/2010) * MORENO (SM) ANTIBODY ANTOINETTE(Performed 11/20/2010) * MOTO MIX OPERATOR ANTIBODY(Performed 11/20/2010) * HIRAL BLOOD SCREEN(Performed 11/20/2010) * DNA ANTIBODY DOUBLE STRANDED(Performed 11/20/2010) * VITAMIN D 25-HYDROXY(Performed 11/20/2010) * RHEUMATOID FACTOR BLOOD QUANTITATIVE(Performed 11/20/2010) * C-REACTIVE PROTEIN(Performed 11/20/2010) * HEPATITIS C ANTIBODY(Performed 11/20/2010) * HEPATITIS B SURFACE ANTIGEN W RFLX CONFIRMATION(Performed 11/20/2010) * URINALYSIS W/MICROSCOPIC NO CULTURE(Performed 11/20/2010) Results * MRI LUMBAR SPINE WO CONTRAST (06/14/2019 3:04 PM CRACKER SPRAYER) Anatomical Region Laterality Modality Spine Magnetic Resonan ce 06/14/2019 3:29 PM CRACKER SPRAYER Impressions 06/14/2019 4:11 PM CRACKER SPRAYER 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 Diffuse disc bulge at L2-L3 extends into the neural foramina resulting in a minimal central canal stenosis, mild right and mild to moderate left lateral recess stenosis. Disc bulge and facet arthropathy result in mild bilateral lateral recess stenosis at L3-L4 and L4-L5. Edited by Dona Grier on 06/14/2019 4:08 PM Reading Radiologist: Iliana Bartlett MD on 06/14/2019 at 4:11 PM Narrative 06/14/2019 4:11 PM CRACKER SPRAYER MRI LUMBAR SPINE INDICATION: Low back pain with radiculopathy to left hip. Psoriatic arthritis. COMPARISON: Radiographic examination of the lumbar spine October 11, 2016. TECHNIQUE: Sagittal and axial T1 and T2. Sagittal STIR, 3-D lumbar myelogram. FINDINGS: There are no comparison radiographs of the lumbar spine available at this time. For the purposes of this examination, it should be assumed that this patient has five lumbar vertebral bodies. Careful correlation between this and the subsequent radiographic examinations of the lumbar spine is recommended to ensure consistent numbering of disc spaces. This is particularly important if surgery is considered. Alignment: There is straightening of the normal lumbar lordosis. This is a nonspecific finding which may be secondary to muscle spasm or patient positioning. Marrow: Normal. There is no evidence of compression or other vertebral fracture. Spinal cord: Normal in signal intensity. Spinal cord terminates at T12-L1. The spinal cord is displaced posteriorly by a disc herniation at T12-L1. The spinal cord is displaced anteriorly by facet arthropathy and ligamentous hypertrophy at T10-11. Disc spaces: There is moderate loss of disc height at L2-3 with a disc bulge at this level. Mild loss of disc height is present at L4-5. Posterior disc bulges are noted from L2-3 through L5-S1. The following levels were directly imaged in the axial plane: T12-L1: There is a broad-based disc protrusion in midline and extending to the left of midline. This contacts and displaces the spinal cord resulting in a mild central canal stenosis. Herniated disc measures approximately 3.5 mm AP by 8 mm transverse by 11 mm cephalocaudal. L1-L2: Normal. L2-L3: A diffuse disc bulge extends into the neural foramina bilaterally, left greater than right. This results in a minimal central canal stenosis, mild right and mild to moderate left lateral recess stenosis. Neural foramina are mildly narrowed bilaterally. L3-L4: Diffuse disc bulge and bilateral facet arthropathy result in a mild bilateral lateral recess stenosis, right greater than left. L4-L5: Disc bulge and facet arthropathy result in a mild bilateral lateral recess stenosis. L5-S1: There is a mild diffuse disc bulge at this level, but the thecal sac is small, and there is no significant stenosis. Procedure Note Iliana Bartlett MD - 06/14/2019 MRI LUMBAR SPINE INDICATION: Low back pain with radiculopathy to left hip. Psoriatic arthritis. COMPARISON: Radiographic examination of the lumbar spine October 11, 2016. TECHNIQUE: Sagittal and axial T1 and T2. Sagittal STIR, 3-D lumbar myelogram. FINDINGS: There are no comparison radiographs of the lumbar spine available at this time. For the purposes of this examination, it should be assumed that this patient has five lumbar vertebral bodies. Careful correlation between this and the subsequent radiographic examinations of the lumbar spine is recommended to ensure consistent numbering of disc spaces. This is particularly important if surgery is considered. Alignment: There is straightening of the normal lumbar lordosis. This is a nonspecific finding which may be secondary to muscle spasm or patient positioning. Marrow: Normal. There is no evidence of compression or other vertebral fracture. Spinal cord: Normal in signal intensity. Spinal cord terminates at T12-L1. The spinal cord is displaced posteriorly by a disc herniation at T12-L1. The spinal cord is displaced anteriorly by facet arthropathy and ligamentous hypertrophy at T10-11. Disc spaces: There is moderate loss of disc height at L2-3 with a disc bulge at this level. Mild loss of disc height is present at L4-5. Posterior disc bulges are noted from L2-3 through L5-S1. The following levels were directly imaged in the axial plane: T12-L1: There is a broad-based disc protrusion in midline and extending to the left of midline. This contacts and displaces the spinal cord resulting in a mild central canal stenosis. Herniated disc measures approximately 3.5 mm AP by 8 mm transverse by 11 mm cephalocaudal. L1-L2: Normal. L2-L3: A diffuse disc bulge extends into the neural foramina bilaterally, left greater than right. This results in a minimal central canal stenosis, mild right and mild to moderate left lateral recess stenosis. Neural foramina are mildly narrowed bilaterally. L3-L4: Diffuse disc bulge and bilateral facet arthropathy result in a mild bilateral lateral recess stenosis, right greater than left. L4-L5: Disc bulge and facet arthropathy result in a mild bilateral lateral recess stenosis. L5-S1: There is a mild diffuse disc bulge at this level, but the thecal sac is small, and there is no significant stenosis. 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 Diffuse disc bulge at L2-L3 extends into the neural foramina resulting in a minimal central canal stenosis, mild right and mild to moderate left lateral recess stenosis. Disc bulge and facet arthropathy result in mild bilateral lateral recess stenosis at L3-L4 and L4-L5. Edited by Dona Grier on 06/14/2019 4:08 PM Reading Radiologist: Iliana Bartlett MD on 06/14/2019 at 4:11 PM Thompson Martinez MD MR ORDERABLES * XR HIPS BILATERAL 2 VW W AP PELVIS (05/12/2019 1:40 PM CDT) Anatomical Region Laterality Modality Pelvis, Lower Extremity Radiogra phic Imaging 05/12/2019 1:59 PM CDT Narrative 05/12/2019 2:00 PM CDT EXAM: XR PELVIS W BILAT HIP 2VW*[id number] INDICATION: Other psoriatic arthropathy, bilateral hip pain, pelvic pain COMPARISON: none available FINDINGS: There is no fracture, dislocation or osseous destruction. Significant hypertrophic or erosive changes are not identified. Reading Radiologist: Stevie Monahan MD on 05/12/2019 at 2:00 PM Procedure Note Stevie Monahan MD - 05/12/2019 EXAM: XR PELVIS W BILAT HIP 2VW*[id number] INDICATION: Other psoriatic arthropathy, bilateral hip pain, pelvic pain COMPARISON: none available FINDINGS: There is no fracture, dislocation or osseous destruction. Significant hypertrophic or erosive changes are not identified. Reading Radiologist: Stevie Monahan MD on 05/12/2019 at 2:00 PM Thompson Martinez MD DIAGNOSTIC IMAGING O RDERABLES * XR FOOT BILAT WEIGHT BEARING (10/11/2016 2:20 PM CDT) Anatomical Region Laterality Modality Ankle / Foot, Lower Extremity Ra diographic Imaging 10/11/2016 4:09 PM CDT Impressions 10/11/2016 4:24 PM CDT No bony erosions are seen on the right or left. Mild degenerative change is present at the first metatarsophalangeal joint. Enthesopathy is present at the insertion of the Achilles tendon bilaterally. Edited by Jocelynn Loo on 10/11/2016 4:16 PM Narrative 10/11/2016 4:24 PM CDT BILATERAL FEET WITH WEIGHTBEARING INDICATION: Inflammatory polyarthritis, foot pain. FINDINGS: Three views each of the right and left foot are submitted. There is mild hypertrophy of the median eminence bilaterally, left greater than right. Joint space narrowing and osteophytosis are present at the first metatarsophalangeal joint on the left. This is consistent with degenerative change. No bony erosions are seen. Plantar arch is in normal alignment on weightbearing lateral views. There are small enthesophytes at the insertion of the Achilles tendons bilaterally, larger on the left than the right. Procedure Note Iliana Bartlett MD - 10/11/2016 BILATERAL FEET WITH WEIGHTBEARING INDICATION: Inflammatory polyarthritis, foot pain. FINDINGS: Three views each of the right and left foot are submitted. There is mild hypertrophy of the median eminence bilaterally, left greater than right. Joint space narrowing and osteophytosis are present at the first metatarsophalangeal joint on the left. This is consistent with degenerative change. No bony erosions are seen. Plantar arch is in normal alignment on weightbearing lateral views. There are small enthesophytes at the insertion of the Achilles tendons bilaterally, larger on the left than the right. IMPRESSION No bony erosions are seen on the right or left. Mild degenerative change is present at the first metatarsophalangeal joint. Enthesopathy is present at the insertion of the Achilles tendon bilaterally. Edited by Jocelynn Loo on 10/11/2016 4:16 PM Thompson Martinez MD DIAGNOSTIC IMAGING O RDERABLES * XR KNEE BILAT MIN 4 VIEWS (10/11/2016 2:20 PM CDT) Anatomical Region Laterality Modality Lower Extremity Radiographic Gloria ging 10/11/2016 3:14 PM CDT Impressions 10/11/2016 3:18 PM CDT Bony demineralization. Edited by Jocelynn Loo on 10/11/2016 3:16 PM Narrative 10/11/2016 3:18 PM CDT BILATERAL KNEES FOUR VIEWS EACH Indication: Bilateral knee pain. Findings: Four views of each knee without prior show bony demineralization. There is no evidence of acute fracture, subluxation or dislocation. If symptoms persist, follow up exam may be of further use to exclude an occult process. Procedure Note Shyam Reno MD - 10/11/2016 BILATERAL KNEES FOUR VIEWS EACH Indication: Bilateral knee pain. Findings: Four views of each knee without prior show bony demineralization. There is no evidence of acute fracture, subluxation or dislocation. If symptoms persist, follow up exam may be of further use to exclude an occult process. IMPRESSION Bony demineralization. Edited by Jocelynn Loo on 10/11/2016 3:16 PM Thompson Martinez MD DIAGNOSTIC IMAGING O RDERABLES * XR LUMBAR SPINE 4+ VW (10/11/2016 2:20 PM CDT) Anatomical Region Laterality Modality Spine Radiographic Gloria ging 10/11/2016 3:07 PM CDT Impressions 10/11/2016 3:18 PM CDT Degenerative changes. Bony demineralization. Edited by Katherine Schaffer on 10/11/2016 3:10 PM Narrative 10/11/2016 3:18 PM CDT LUMBAR SPINE 5 VIEWS INDICATION: Low back pain and lumbar spine pain. FINDINGS: Five views of the lumbar spine show endplate degenerative changes with intervertebral disc space narrowing L2-3. There is no acute fracture or subluxation. Bony demineralization is present. Surgical clips overlie the right upper quadrant of the abdomen. Procedure Note Shyam Reno MD - 10/11/2016 LUMBAR SPINE 5 VIEWS INDICATION: Low back pain and lumbar spine pain. FINDINGS: Five views of the lumbar spine show endplate degenerative changes with intervertebral disc space narrowing L2-3. There is no acute fracture or subluxation. Bony demineralization is present. Surgical clips overlie the right upper quadrant of the abdomen. IMPRESSION Degenerative changes. Bony demineralization. Edited by Katherine Schaffer on 10/11/2016 3:10 PM Thompson Martinez MD DIAGNOSTIC IMAGING O RDERABLES * (ABNORMAL) URINALYSIS W/MICROSCOPIC NO CULTURE (11/20/2010 11:20 AM CDT) Color UA YELLOW STRW,YELLOW [facility] Clarity UA CLEAR CLEAR [facility] Specific [place] Urine 1.005 1.001 - 1.030 [facility] pH UA 6.5 5.0 - 8.0 [facility] Protein UA NEGATIVE <20 mg/dL [facility] Glucose UA NEGATIVE NEGATIVE mg/dL [facility] Ketones NEGATIVE NEGATIVE mg/dL [facility] Bilirubin UA NEGATIVE NEGATIVE mg/dL [facility] Blood UA NEGATIVE NEGATIVE [facility] Nitrite UA NEGATIVE NEGATIVE [facility] Leukocyte Esterase NEGATIVE NEGATIVE [facility] Urobilinogen UA < 2.0 <2.0 mg/dL [facility] WBC Urine < 1 0 - 2 /HPF [facility] Squamous Epithelial Cells UA 2(H) 0 - 1 /HPF [facility] 11/20/2010 11:2 0 AM CDT 11/20/2010 12:33 PM CDT Historical Provider LAB - URINALYSIS ORDERABLES Performing Organization Address [facility] Phone Number [address] [phone] * HIRAL BLOOD SCREEN (11/20/2010 11:20 AM CDT) HIRAL NONE DETECTED NONE DETECT [facility] 11/20/2010 11:2 0 AM CDT 11/20/2010 12:33 PM CDT Historical Provider LAB - CHEMISTRY O RAY Performing Organization Address [facility] Phone Number [address] [phone] * MORENO (SM) ANTIBODY ANTOINETTE (11/20/2010 11:20 AM CDT) ANTOINETTE Moreno (SM) Antibody 2.6 0.0 - 19.9 Units [facility] Comment: REFERENCE RANGE/INTERPRETATION ?< 20.0 Units: ??Negative 20.0 - 39.0 Units: ??Weak Positive ?> 39.0 Units: ??Positive 11/20/2010 11:2 0 AM CDT 11/20/2010 12:33 PM CDT Historical Provider LAB - CHEMISTRY O RAY Performing Organization Address [facility] Co de Phone Number [place] [id number], [place] [phone] * MOTO MIX OPERATOR ANTIBODY (11/20/2010 11:20 AM CDT) Ribonucleic Protein Antibody 4.1 0.0 - 19.9 Units [facility] Comment: REFERENCE RANGE/INTERPRETATION ?< 20.0 Units: ??Negative 20.0 - 39.0 Units: ??Weak Positive ?> 39.0 Units: ??Positive 11/20/2010 11:2 0 AM CDT 11/20/2010 12:33 PM CDT Historical Provider LAB - CHEMISTRY O RAY Performing Organization Address City/[facility]/ZIP Co de Phone Number [address] [phone] * RHEUMATOID FACTOR BLOOD QUANTITATIVE (11/20/2010 11:20 AM CDT) Rheumatoid Factor < 7 <14 IU/mL [facility] 11/20/2010 11:2 0 AM CDT 11/20/2010 12:33 PM CDT Historical Provider LAB - CHEMISTRY O RAY Performing Organization Address [facility] Co de Phone Number [address] [phone] * C-REACTIVE PROTEIN (11/20/2010 11:20 AM CDT) C-Reactive Protein 0.7 <0.8 mg/dL [facility] 11/20/2010 11:2 0 AM CDT 11/20/2010 12:33 PM CDT Historical Provider LAB - CHEMISTRY O RAY Performing Organization Address [facility]/ZIP Co de Phone Number [address] [phone] * SS-B (SJOGRENS'S) ANTIBODY (11/20/2010 11:20 AM CDT) SS-B LA Antibody 3.0 0.0 - 19.9 Units [facility] Comment: REFERENCE RANGE/INTERPRETATION ?< 20.0 Units: ??Negative 20.0 - 39.0 Units: ??Weak Positive ?> 39.0 Units: ??Positive 11/20/2010 11:2 0 AM CDT 11/20/2010 12:33 PM CDT Historical Provider LAB - CHEMISTRY O RDERABLES Performing Organization Address [facility] de Phone Number [address] [phone] * SS-A (SJOGREN'S) ANTIBODY (11/20/2010 11:20 AM CDT) SS-A Antibody 3.0 0.0 - 19.9 Units [facility] Comment: REFERENCE RANGE/INTERPRETATION ?< 20.0 Units: ??Negative 20.0 - 39.0 Units: ??Weak Positive ?> 39.0 Units: ??Positive 11/20/2010 11:2 0 AM CDT 11/20/2010 12:33 PM CDT Historical Provider LAB - CHEMISTRY O RDERABLES Performing Organization Address [facility] de Phone Number [address] [phone] * DNA ANTIBODY DOUBLE STRANDED (11/20/2010 11:20 AM CDT) Anti-dsDNA Quantitative 10 0 - 29 IU/mL [facility] Comment: INTERPRETATION/REFERENCE RANGE ??0 - 29 IU/mL: ??NEGATIVE 30 - 75 IU/mL: ??BORDERLINE ? >75 IU/mL: ??POSITIVE 11/20/2010 11:2 0 AM CDT 11/20/2010 12:33 PM CDT Historical Provider LAB - HEMATOLOGY ORDERABLES Performing Organization Address [facility] Co de Phone Number [address] [phone] * VITAMIN D 25-HYDROXY (11/20/2010 11:20 AM CDT) Vitamin D, 25 Hydroxy 35.5 30 - 100 ng/mL [facility] Comment: The recommendations for 25-Hydroxy Vitamin D clinical decision points are as follows: Deficient: ?< 10 ng/mL Insufficient: ?10 - 29 ng/mL Sufficient: ? 30 - 100 ng/mL Potential Toxicity: ??> 100 ng/mL 11/20/2010 11:2 0 AM CDT 11/20/2010 12:33 PM CDT Historical Provider LAB - CHEMISTRY O RAY Performing Organization Address [facility] de Phone Number [address] [phone] * (ABNORMAL) ALDOLASE (11/20/2010 11:20 AM CDT) Pathologist [facility] Aldolase 7.7(H) 1.2 - 7.6 U/L [facility] Comment: Performed at: ?? - [facility] [address] ??[id number] Shipping Packer: Jackie Hatch MD, Phone: ??[phone] 11/20/2010 11:2 0 AM CDT 11/20/2010 12:33 PM CDT Historical Provider LAB - CHEMISTRY O RAY Performing Organization Address [facility] Co de Phone Number [address] [phone] * CYCLIC CITRUL PEPTIDE AB IGG (CCP) (11/20/2010 11:20 AM CDT) CCP Antibody IgG < 0.5 0.5 - 5.0 U/mL [facility] 11/20/2010 11:2 0 AM CDT 11/20/2010 12:33 PM CDT Historical Provider LAB - CHEMISTRY O RDERABLES [address] [phone] * (ABNORMAL) ERYTHROCYTE SEDIMENTATION RATE (11/20/2010 11:20 AM CDT) Erythrocyte Sedimentation Rate Westergren 22(H) 0 - 20 MM/HR [facility] 11/20/2010 11:2 0 AM CDT 11/20/2010 12:33 PM CDT Historical Provider LAB - HEMATOLOGY ORDERABLES Performing Organization Address [facility] Co de Phone Number [address] [phone] * (ABNORMAL) CBC W AUTO DIFFERENTIAL (11/20/2010 11:20 AM CDT) WBC 12.0(H) 3.5 - 10.5 10^3/uL [facility] RBC 4.76 3.90 - 5.00 10^6/uL [facility] Hemoglobin 14.5 12.0 - 15.5 g/dL [facility] Hematocrit 43.0 35.0 - 45.0 % [facility] MCV 90.3 82.0 - 97.0 FL [facility] MCH 30.5 28.0 - 34.0 PG [facility] MCHC 33.7 32.0 - 36.0 G/DL [facility] Platelet 326 150 - 400 10^3/uL [facility] RDW 13.5 11.2 - 14.8 % [facility] RDW-SD 44.5 37 - 50 FL [facility] MPV 10.1 9.3 - 12.8 FL [facility] Neutrophils % 55.7 35.0 - 70.0 % [facility] Lymphocytes % 32.1 19.7 - 55.1 % [facility] Monocytes % 6.9 3 - 15 % [facility] Eosinophils % 4.7 0.0 - 6.0 % [facility] Basophils % 0.6 0.0 - 1.5 % [facility] Neutrophils Absolute 6.7 1.7 - 7.0 10^3/uL [facility] Lymphocyte Absolute 3.9(H) 0.9 - 2.9 10^3/uL [facility] Monocytes Absolute 0.8(H) 0.14 - 0.66 10^3/uL [facility] Eosinophils Absolute 0.56(H) 0.00 - 0.22 10^3/uL [facility] Basophils Absolute 0.07(H) 0.02 - 0.06 10^3/uL [facility] Differential Type AUTO DIFFERENTIAL [facility] 11/20/2010 11:2 0 AM CDT 11/20/2010 12:33 PM CDT Historical Provider LAB - HEMATOLOGY ORDERABLES Performing Organization Address City/State/[facility] Co de Phone Number [address] [phone] * (ABNORMAL) COMPREHENSIVE METABOLIC PANEL (11/20/2010 11:20 AM CDT) BUN 8 5 - 25 mg/dL [facility] Creatinine 0.7 0.3 - 1.3 mg/dL [facility] eGFR by MDRD > 60 ML/MIN [facility] Sodium 143 135 - 145 mmol/L [facility] Potassium 3.4(L) 3.5 - 5.5 mmol/L [facility] Chloride 101 96 - 111 mmol/L [facility] CO2 30(H) 20 - 28 mmol/L [facility] Glucose 153(H) 70 - 115 mg/dL [facility] Calcium 9.9 8.4 - 10.5 mg/dL [facility] Protein Total 6.9 6.0 - 8.3 g/dL [facility] Albumin 4.4 3.4 - 5.5 g/dL [facility] Bilirubin Total 0.2 0.2 - 1.3 mg/dL [facility] Alkaline Phosphatase 72 33 - 133 Units/L [facility] ALT 59(H) 5 - 45 Units/L [facility] AST 45 12 - 50 Units/L [facility] Anion Gap 15 8 - 18 [facility] BUN/Creatinine Ratio 11 7 - 23 [facility] Osmolality Calculation 281 270 - 300 mOsm/kg [facility] Albumin/Globulin Ratio 1.8 1.1 - 2.3 [facility] 11/20/2010 11:2 0 AM CDT 11/20/2010 12:33 PM CDT Historical Provider LAB - CHEMISTRY O RAY [address] [phone] * HEPATITIS B SURFACE ANTIGEN W RFLX CONFIRMATION (11/20/2010 11:20 AM CDT) Hepatitis B Virus Surface Antigen NEGATIVE NEGATIVE [facility] 11/20/2010 11:2 0 AM CDT 11/20/2010 12:33 PM CDT Historical Provider LAB - CHEMISTRY O PHYLLISERATAVON [address] [address] [phone] * CK BLOOD (11/20/2010 11:20 AM CDT) CK Total 43 20 - 170 Units/L [facility] 11/20/2010 11:2 0 AM CDT 11/20/2010 12:33 PM CDT Historical Provider LAB - CHEMISTRY O PHYLLISERATAVON [address] [phone] * TSH (11/20/2010 11:20 AM CDT) TSH 2.310 0.350 - 5.500 uIU/mL [facility] 11/20/2010 11:2 0 AM CDT 11/20/2010 12:33 PM CDT Historical Provider LAB - CHEMISTRY O RAY [address] [phone] * HEPATITIS C ANTIBODY (11/20/2010 11:20 AM CDT) Hepatitis C Antibody NEGATIVE NEGATIVE [facility] Comment: Anti-HCV screen indicates no serologic evidence of past or current infection with Hepatitis C Virus. 11/20/2010 11:2 0 AM CDT 11/20/2010 12:33 PM CDT Historical Provider LAB - CHEMISTRY O RAY Performing Organization Address City/[facility]/ZIP Co de Phone Number [address] [phone] Care Teams Superintendent Ammunition Storage Relationship Specialty Start Date End Date Giselle Ramirez MD [address] [place] [address] PCP - General 08/14/20
--- OUTSIDE RECORDS SUMMARY | 2024-08-05 10:51 | XMS_ITS | Clinical Summary ---
Author Organization [facility] Address [address] [place] [address] Care Team Providers Care Pet Adoption Counselor Name Role Phone Giselle Ramirez MD Primary Care Provider [phone] Allergies Active Allergy Reactions Criticality Noted Date Comments Codeine Rash Low 03/04/2024 Lisinopril Swelling Low 03/04/2024 Ramipril Swelling Low 03/04/2024 Medications buPROPion HCL (WELLBUTRIN XL) 150 mg Extended Release 24 hour tablet Take 150 mg by mouth daily in the morning. 02/11/20 24 Active carvediloL (COREG) 6.25 mg tablet Take 6.25 mg by mouth 2 times daily with meals. 02/11/20 24 Active hydroCHLOROthi azide 25 mg tablet Take 25 mg by mouth daily. 02/17/20 24 Active Lantus U-100 Insulin 100 unit/mL vial 03/03/20 24 Active potassium chloride (KLOR-CON M20) 20 mEq Extended Release tablet TAKE ONE TABLET BY MOUTH DAILY AT 9 AM 12/11/19 24 Active pregabalin (LYRICA) 50 mg Capsule TAKE ONE CAPSULE (50 MG) BY MOUTH THREE TIMES DAILY 02/11/20 24 Active QUEtiapine (SEROquel) 25 mg tablet TAKE TWO TABLETS BY MOUTH DAILY AT 9 PM AT BEDTIME 02/11/20 24 Active simvastatin (ZOCOR) 40 mg tablet TAKE ONE TABLET BY MOUTH DAILY AT 5 PM 02/11/20 24 Active Lyumjev KwikPen U-100 Insulin 100 unit/mL Insulin Pen INJECT 5 UNITS (0.05mL) SUBCUTANEOUSLY THREE TIMES DAILY 02/03/20 24 Active AMLODIPINE BESYLATE, BULK, MISC by [employer].(Non-Drug; Combo Route) route. Besylate 10 mg tablet Active lidocaine-pril ocaine (EMLA) 2.5-2.5 % Cream Apply a quarter size amount to port site 30 minutes before access. 30 Gram 1 04/15/20 24 Active ondansetron (ZOFRAN ODT) 8 mg Tablet, Rapid Dissolve DISSOLVE ONE TABLET BY MOUTH ON THE TONGUE EVERY 8 HOURS NEEDED FOR NAUSEA AND VOMITING 30 Tablet 1 06/25/20 24 Active dexAMETHasone (DECADRON) 2 mg tablet Take 1 tablet by mouth BID day before treatment, day of treatment, and day after treatment of Paclitaxel. 6 Tablet 4 07/22/19 25 Active HYDROcodone-ac etaminophen (NORCO) 5-325 mg tabletIndicati ons:Malignant neoplasm of upper-outer quadrant of right breast in female, estrogen receptor positive (CMS/HCC) Take 1 Tablet by mouth every 6 hours as needed for Pain, Moderate. Max Daily Amount: 4 Tablets 60 Tablet 07/22/19 25 Active sulfamethoxazo le-trimethopri m (BACTRIM DS) 800-160 mg tablet Take 1 tablet my mouth daily for 3 days. 3 Tablet 07/23/19 25 Active clindamycin (CLEOCIN) 150 mg capsule TAKE 3 CAPSULES BY MOUTH EVERY 8 HOURS FOR 14 DAYS 08/01/19 25 Active CALCIUM CARBONATE-RAFITA MIN D3 ORAL Take by mouth. Act carrie POTASSIUM CITRATE ORAL Take by mouth. Ac tive CYANOCOBALAMIN , VITAMIN B-12, ORAL Take by mouth. Acti ve IRON, CARBONYL ORAL Take by mouth. Activ e dexAMETHasone (DECADRON) 2 mg tablet Take 1 tablet by mouth BID day before treatment, day of treatment, and day after treatment of Paclitaxel. 6 Tablet 4 06/14/20 24 025 Discontin ued(Reord er) HYDROcodone-ac etaminophen (NORCO) 5-325 mg tabletIndicati ons:Malignant neoplasm of upper-outer quadrant of right breast in female, estrogen receptor positive (CMS/HCC) Take 1 Tablet by mouth every 4 hours as needed for Pain, Moderate. Max Daily Amount: 6 Tablets 60 Tablet 06/28/20 24 024 Discontin ued(Reord er) HYDROcodone-ac etaminophen (NORCO) 5-325 mg tabletIndicati ons:Malignant neoplasm of upper-outer quadrant of right breast in female, estrogen receptor positive (CMS/HCC) Take 1 Tablet by mouth every 4 hours as needed for Pain, Moderate. Max Daily Amount: 6 Tablets 60 Tablet 07/13/20 24 025 Discontin ued(Reord er) Active Problems No known active problems Encounters Date Type Department Care Team Description 08/05/2024 9:30 AM MARKING MACHINE TENDER Office Visit [facility] Oncology and Hematology - [address] Julius Robledo MD Malignant neoplasm of upper-outer quadrant of right breast in female, estrogen receptor positive (CMS/HCC) (Primary Dx) 08/02/2024 Orders Only [facility] Hematology - [address] [place] [id number] Julius Robledo MD Malignant neoplasm of upper-outer quadrant of right breast in female, estrogen receptor positive (CMS/HCC) 07/26/2024 Orders Only [facility]ology - [address] [place] [id number] Scanning, Provider 07/23/2024 Refill [facility]ology - [address] [place] [id number] Julius Robledo MD 07/19/2024 Orders Only [facility] Hematology - [address] [place] [address] Julius Robledo MD Malignant neoplasm of upper-outer quadrant of right breast in female, estrogen receptor positive (CMS/HCC) 07/15/2024 Orders Only [facility] Hematology - [address] [place] [id number] Julius Robledo MD 07/13/2024 Refill [facility] Hematology - [address] [place] [id number] Amanda Wise MD Malignant neoplasm of upper-outer quadrant of right breast in female, estrogen receptor positive (CMS/HCC) (Primary Dx) 07/09/2024 Orders Only [facility] On[facility] Hematology - [address] [place] [address] Julius Robledo MD 07/05/2024 Orders Only [facility]cology [facility] Hematology - [address] [place] [address] Julius Robledo MD Malignant neoplasm of upper-outer quadrant of right breast in female, estrogen receptor positive (CMS/HCC) 06/29/2024 Orders Only [facility] Hematology - [address] [place] [address] Julius Robledo MD 06/25/2024 Orders Only [facility] Hematology - [address] [place] [id number] Julius Robledo MD Malignant neoplasm of upper-outer quadrant of right breast in female, estrogen receptor positive (CMS/HCC) (Primary Dx) 06/25/2024 Refill [facility] Hematology - [address] [place] [address] Julius Robledo MD 06/24/2024 8:30 AM MARKING MACHINE TENDER Office Visit [facility] On[facility] and Hematology - [address] [place] [address] Julius Robledo MD Malignant neoplasm of upper-outer quadrant of right breast in female, estrogen receptor positive (CMS/HCC) (Primary Dx) 06/21/2024 Orders Only [facility] Hematology - [address] [place] [address] Julius Robledo MD Malignant neoplasm of upper-outer quadrant of right breast in female, estrogen receptor positive (CMS/HCC) 06/14/2024 Refill [facility] Hematology - [address] [place] [address] Julius Robledo MD 06/09/2024 Orders Only [facility] Oncology and Hematology - [address] [place] [phone] Julius Robledo MD 06/07/2024 Orders Only [facility] On[facility] Hematology - [address] [place] [id number] Julius Robledo MD Malignant neoplasm of upper-outer quadrant of right breast in female, estrogen receptor positive (CMS/HCC) 06/03/2024 Orders Only [facility] Oncology and Hematology - [address] [place] [phone] Julius Robledo MD 06/01/2024 9:15 AM MARKING MACHINE TENDER Office Visit [facility] Oncology and Hematology - [address] [place] [id number] Julius Robledo MD Malignant neoplasm of upper-outer quadrant of right breast in female, estrogen receptor positive (CMS/HCC) (Primary Dx) 05/24/2024 Orders Only [facility] Oncology and Hematology - [address] [place] [address] Julius Robledo MD Malignant neoplasm of upper-outer quadrant of right breast in female, estrogen receptor positive (CMS/HCC) 05/19/2024 Orders Only [facility] Oncology and Hematology - [address] [place] [id number] Julius Robledo MD 05/18/2024 10:00 AM MARKING MACHINE TENDER Office Visit [facility] Oncology and Hematology - [address] [place] [address] Virginia Irizarry MD Malignant neoplasm of right breast in female, estrogen receptor positive, unspecified site of breast (CMS/HCC) (Primary Dx) 05/18/2024 Orders Only [facility] On[facility] and Hematology - [address] [place] [phone] Virginia Irizarry MD Difficult or painful urination (Primary Dx) 05/18/2024 Orders Only [facility] Oncology and Hematology - [address] [place] [phone] Virginia Irizarry MD Difficult or painful urination (Primary Dx) 05/10/2024 Orders Only [facility]cology and Hematology - [address] [place] [phone] Julius Robledo MD Malignant neoplasm of upper-outer quadrant of right breast in female, estrogen receptor positive (CMS/HCC) 05/07/2024 Orders Only [facility] Oncology and Hematology - [address] [place] [address] Julius Robledo MD from Last 3 Months Family History Medical History Relation Name Comments Heart Disease Brother 1 saurabh No Known Problems Brother 2 lois Heart Disease Brother 3 daniel Skin Cancer Brother 3 daniel Heart Disease Father No Known Problems Mother Breast Cancer Sister 1 pauline Diabetes Sister 1 pauline Heart Disease Sister 2 Diabetes Sister 3 angelica Stroke Sister 3 angelica SLE Sister 4 susu No Known Problems Sister 5 Relation Name Status Comments Brother 1 saurabh Brother 2 lois Alive Brother 3 daniel Alive Father Mother Sister 1 pauline Sister 2 Alive Sister 3 angelica Alive Sister 4 susu Alive Sister 5 Alive Social History Tobacco Use Types Packs/Day Years Used Date Smoking Tobacco: Former Cigarettes 1 45.1 0 03/04/1979 - 04/04/2024 Tobacco Cessation:Counseling Given: Not Answered Alcohol Use Standard Drinks/Week Comments Never 0 (1 standard drink = 0.6 oz pur e alcohol) Comments Unknown Sex and Gender Information Value Date Recorded Sex Assigned at Not on file Legal Sex Female 11:44 AM CDT Gender Identity Not on file Sexual Orientation Not on file Last Filed Vital Signs Vital Sign Reading Time Taken Comments Blood Pressure 134/82 08/05/2024 9:19 AM MARKING MACHINE TENDER Pulse 87 08/05/2024 9:19 AM MARKING MACHINE TENDER Temperature 35.8 ??C (96.5 ??F) 08/05/2024 9:19 AM CS T Respiratory Rate 18 08/05/2024 9:19 AM MARKING MACHINE TENDER Oxygen Saturation 97% 08/05/2024 9:19 AM MARKING MACHINE TENDER Inhaled Oxygen Concentration - - Weight 64 kg (141 lb) 08/05/2024 9:19 AM MARKING MACHINE TENDER Height 149.9 cm (4' 11 ) 03/04/2024 9:11 AM CDT Body Mass Index 28.48 03/04/2024 9:11 AM CDT Plan of Treatment Upcoming Encounters Date Type Department Care Team (Late st Contact Info) Description 09/16/2024 9:45 AM MARKING MACHINE TENDER Office Visit [facility] Oncology and Hematology - [place] [address] [facility] [address] [place] [address] Julius Robledo MD [address] [facility] [address] [place] [address] Health Maintenance Due Date Last Done Comments DIABETES ANNUAL FOOT EXAM 09/22/1975 DIABETES ANNUAL RETINAL EXAM 09/22/1975 DIABETES HBA1C Q 6 MONTHS 09/22/1975 DIABETES MICROALBUMIN ANNUAL SCREEN 09/22/1975 LDL CHOLESTEROL ANNUAL 09/22/1975 DTAP/TDAP/TD VACCINES (1 - Tdap) 1976 PNEUMOCOCCAL VACCINE 65+ YEARS (1 of 2 - PCV) 09/21/18 77 BREAST CANCER SCREENING 1997 COLORECTAL SCREENING 2002 Colorectal Cancer Screening 2002 FIT-DNA Q 3 years 2002 FIT/FOBT Q 1 year 2002 Flex Sig/CT Colonography Q 5 years 2002 ZOSTER VACCINE (1 of 2) 09/22/2007 RSV VACCINE (60+ or ) (1 - Risk 60-74 years 1-dose series) 2017 OSTEOPOROSIS SCREENING 2022 INFLUENZA VACCINE (#1) 2024 Medicare Advantage (DC) Prev entative Visit/Annual Wellness Visit 07/14/2024 Procedures Procedure Name Priority Date/Time Associated Diagnosis Comments URINE CULTURE Routine 07/22/2024 3:29 PM MARKING MACHINE TENDER COMPREHENSIVE METABOLIC PANEL Routine 07/22/2024 1:28 PM MARKING MACHINE TENDER BASIC METABOLIC PANEL Routine 07/22/2024 1:18 PM MARKING MACHINE TENDER CBC WITH AUTODIFFERENTIAL Routine 2024 1:09 PM MARKING MACHINE TENDER URINE CULTURE Routine 07/22/2024 11:49 AM MARKING MACHINE TENDER BASIC METABOLIC PANEL Routine 07/08/2024 3:06 PM MARKING MACHINE TENDER CBC WITH DIFFERENTIAL Routine 07/08/2024 2:58 PM MARKING MACHINE TENDER COMPREHENSIVE METABOLIC PANEL Routine 07/08/2024 1:47 PM MARKING MACHINE TENDER CBC WITH DIFFERENTIAL Routine 06/28/2024 11:06 AM MARKING MACHINE TENDER BASIC METABOLIC PANEL Routine 06/24/2024 2:06 PM MARKING MACHINE TENDER COMPREHENSIVE METABOLIC PANEL Routine 06/24/2024 1:59 PM MARKING MACHINE TENDER BASIC METABOLIC PANEL Routine 06/08/2024 10:27 AM MARKING MACHINE TENDER CBC WITH DIFFERENTIAL Routine 06/08/2024 10:21 AM MARKING MACHINE TENDER COMPREHENSIVE METABOLIC PANEL Routine 06/01/2024 3:10 PM MARKING MACHINE TENDER BASIC METABOLIC PANEL Routine 06/01/2024 2:02 PM MARKING MACHINE TENDER CBC WITH DIFFERENTIAL Routine 06/01/2024 2:01 PM MARKING MACHINE TENDER BASIC METABOLIC PANEL Routine 05/18/2024 11:54 AM MARKING MACHINE TENDER CBC WITH DIFFERENTIAL Routine 05/18/2024 11:52 AM MARKING MACHINE TENDER COMPREHENSIVE METABOLIC PANEL Routine 05/18/2024 8:35 AM MARKING MACHINE TENDER CBC WITH DIFFERENTIAL Routine 05/05/2024 11:57 AM CDT from Last 3 Months Results * URINE CULTURE (07/22/2024 3:29 PM MARKING MACHINE TENDER) Only the most recent of2 resultswithin the time period is included. Urine us Julius Robledo MD MICROBIOLOGY - GENERAL ORDERABL ES Final Result * COMPREHENSIVE METABOLIC PANEL (07/22/2024 1:28 PM MARKING MACHINE TENDER) Only the most recent of5 resultswithin the time period is included. Blood us Julius Robledo MD CHEMISTRY ORDERABLES Final Resu lt * BASIC METABOLIC PANEL (07/22/2024 1:18 PM MARKING MACHINE TENDER) Only the most recent of6 resultswithin the time period is included. Blood us Julius Robledo MD CHEMISTRY ORDERABLES Final Resu lt * CBC WITH AUTODIFFERENTIAL (07/22/2024 1:09 PM MARKING MACHINE TENDER) Blood Julius Robledo MD HEMATOLOGY ORDERABLES Final Res ult * CBC WITH DIFFERENTIAL (07/08/2024 2:58 PM MARKING MACHINE TENDER) Only the most recent of6 resultswithin the time period is included. Blood Julius Robledo MD HEMATOLOGY ORDERABLES Final Res ult from Last 3 Months Insurance Care Teams Pet Adoption Counselor Relationship Specialty Start Date End Date Giselle Ramirez MD [address] [place] [address] PCP - General Family Practice 05/04/24
--- OUTSIDE RECORDS SUMMARY | 2024-08-05 10:51 | XMS_ITS | Referral Summary ---
Author Organization [facility] Address [address] [facility] [place] [address] Care Team Providers Care Slab Depiler Operator Name Role Phone Giselle Ramirez MD Primary Care Provider [phone] Source Comments [facility],non-owned Affiliates and Associated Physician Practices is amultiple site organization consisting of ambulatory clinics and hospital sitesin [place], [place], [place] and [place]. This disclosure is being madepursuant to the Care Everywhere program and may not contain all information available regarding this patient. Last updated 18.[facility] [employer] Social History Tobacco Use Types Packs/Day Years Used Date Smoking Tobacco: Never Assessed Sex and Gender Information Value Date Recorded Sex Assigned at Not on file Gender Identity Not on file Sexual Orientation Not on file Plan of Treatment Not on file Procedures Procedure Name Priority Date/Time Associated Diagnosis Comments HEPATITIS C ANTIBODY Routine 11/20/2010 11:20 AM CDT from Last 3 Months or Most Recently Relevant to Health Maintenance Results * HEPATITIS C ANTIBODY (11/20/2010 11:20 AM CDT) Hepatitis C Antibody NEGATIVE NEGATIVE [facility] Comment: Anti-HCV screen indicates no serologic evidence of past or current infection with Hepatitis C Virus. 11/20/2010 11:2 0 AM CDT 11/20/2010 12:33 PM CDT Historical Provider LAB - CHEMISTRY O RDERATAVON [address] [phone] from Last 3 Months or Most Recently Relevant to Health Maintenance Care Teams Slab Depiler Operator Relationship Specialty Start Date End Date Giselle Ramirez MD [address] [place] [address] PCP - General 08/14/20
--- OUTSIDE RECORDS SUMMARY | 2024-08-05 10:51 | XMS_ITS | Clinical Summary ---
Author Organization [facility] [employer] Address [address] [facility] [place] [address] Care Team Providers Care Nanosystems Engineer Name Role Phone Giselle Ramirez MD Primary Care Provider [phone] Source Comments [facility],non-owned Affiliates and Associated Physician Practices is amultiple site organization consisting of ambulatory clinics and hospital sitesin [place], [place], [place] and [place]. This disclosure is being madepursuant to the Care Everywhere program and may not contain all information available regarding this patient. Last updated 18.[facility] [employer] Social History Tobacco Use Types Packs/Day Years Used Date Smoking Tobacco: Never Assessed Sex and Gender Information Value Date Recorded Sex Assigned at Not on file Gender Identity Not on file Sexual Orientation Not on file Plan of Treatment Health Maintenance Due Date Last Done Comments BONE DENSITY TESTING 1957 COLOGUARD (AGES 45-75) - COL ON CA SCREENING 1957 COLON MONITORING 1957 COLONOSCOPY - COLON CA SCREENING 1957 CT COLONOGRAPHY - COLON CA SCREENING 1957 Colorectal Cancer Screening 1957 FIT - COLON CA SCREENING 1957 FLEX SIG - COLON CA SCREENING 1957 LIPID TESTING 1957 MAMMOGRAM 1957 DTAP/TDAP/TD VACCINES (1 - Tdap) 1976 PNEUMOCOCCAL VACCINE 50+ (1 of 1 - PCV) 09/22/2007 ZOSTER VACCINE (1 of 2) 09/22/2007 COVID-19 VACCINE ( - 2023-2 5 season) 2024 INFLUENZA VACCINE (#1) 2024 DEPRESSION SCREENING 07/14/2024 MEDICARE AWV ? CALENDAR YEAR 2024 Respiratory Syncytial Virus (RSV) Vaccine Pt: or over 60 yrs (1 - 1-dose 75+ series) 2032 HEPATITIS C SCREENING Completed 11/20/2010 HEPATITIS B VACCINE Aged Out No longe r eligible based on patient's age to complete this topic HIB VACCINE Aged Out No longer eligi ble based on patient's age to complete this topic HPV VACCINE Aged Out No longer eligi ble based on patient's age to complete this topic MENINGOCOCCAL (Group B) VACCINE Aged Out No longer eligible based on patient's age to complete this topic MENINGOCOCCAL VACCINE Aged Out No juve uysef eligible based on patient's age to complete this topic Procedures Procedure Name Priority Date/Time Associated Diagnosis Comments HEPATITIS C ANTIBODY Routine 11/20/2010 11:20 AM CDT from Last 3 Months or Most Recently Relevant to Health Maintenance Results * HEPATITIS C ANTIBODY (11/20/2010 11:20 AM CDT) Hepatitis C Antibody NEGATIVE NEGATIVE [facility] Comment: Anti-HCV screen indicates no serologic evidence of past or current infection with Hepatitis C Virus. 11/20/2010 11:2 0 AM CDT 11/20/2010 12:33 PM CDT Historical Provider LAB - CHEMISTRY O RDERABLES [address] [phone] from Last 3 Months or Most Recently Relevant to Health Maintenance Care Teams Nanosystems Engineer Relationship Specialty Start Date End Date Giselle Ramirez MD [address] [place], [place] [phone] PCP - General 08/14/20
== END 2024-08-01 20:56 | disposition home or self-care (01) ==
PROVIDERS: Emergency Provider Preventive Medicine Aerospace Medicine; PCP Family Medicine
DX: S90.425A Blister (nonthermal), left lesser toe(s), initial encounter (principal); L03.116 Cellulitis of left lower limb; C50.919 Malignant neoplasm of unspecified site of unspecified female breast; I10 Essential (primary) hypertension; E11.9 Type 2 diabetes mellitus without complications; G31.84 Mild cognitive impairment of uncertain or unknown etiology; K21.9 Gastro-esophageal reflux disease without esophagitis; K58.9 Irritable bowel syndrome, unspecified; Z86.0100 Personal history of colon polyps, unspecified; Z87.891 Personal history of nicotine dependence; Z90.710 Acquired absence of both cervix and uterus; Z90.722 Acquired absence of ovaries, bilateral; Z90.79 Acquired absence of other genital organ(s); Z79.899 Other long term (current) drug therapy; Z79.60 Long term (current) use of unspecified immunomodulators and immunosuppressants; Z79.4 Long term (current) use of insulin; X58.XXXA Exposure to other specified factors, initial encounter
CPT/HCPCS: 36415; 73630; 80053; 84550; 85025; 99283; A9270

== ENCOUNTER 2024-09-13 09:42 | Outpatient (CLI) | payer MEDICARE, SELFPAY ==
[2024-09-13 10:58] LABS: Prothrombin Time 13.1 Seconds (11.1-14.7)
[2024-09-13 10:59] LABS: Partial Thromboplastin Time 24.1 Seconds (22.3-36.8)
== END 2024-09-13 09:43 | disposition home or self-care (01) ==
PROVIDERS: Anesthesiology; PCP Family Medicine; Visit Provider Surgery
DX: R94.31 Abnormal electrocardiogram [ECG] [EKG] (principal); C50.911 Malignant neoplasm of unspecified site of right female breast; M18.30 Unilateral post-traumatic osteoarthritis of first carpometacarpal joint, unspecified hand; I10 Essential (primary) hypertension; Z01.818 Encounter for other preprocedural examination
CPT/HCPCS: 36415; 85610; 85730; 86850; 86900; 86901; 93005

== ENCOUNTER 2024-09-16 16:09 | Observation (INO) | payer MEDICARE, SELFPAY ==
--- NOTE | 2024-09-03 15:07 | PC.NURSE ---
Report to the Outpatient Waiting Room, entrance under the green pavilion located off [facility], at time 7:30 am on date __09/15/24 . Planned Procedure Time: __9:30 am .? nuc med at 8:30 am Time changes happen often and if your time is changed the preop area will call you the afternoon before. - You and your visitor will be asked to self-screen and do not enter if you have any COVID symptoms. Please call surgeon if you need to reschedule. - A mask is optional within the hospital at this time. Patients may have clear liquids (water, carbonated beverages, clear teas, apple juice) until 3 hours prior to surgery ( 6:30 am)with a maximum of 20 ounces. - No food from midnight until time of surgery and no smoking, or chewing tobacco (or any form of nicotine). No chewing gum, candy or mints. - Infants may have breast milk until 4 hours before surgery, infant formula 6 hours prior to surgery. - Children will be allowed to drink immediately following surgery.? If applicable, please bring a bottle or sippy cup to assist with drinking. Juice, water, soda, and popsicles are readily available.? For infants on formula, please bring formula the day of surgery.? Pacifiers are allowed. Take only the following medications with a SIP of water on the morning of surgery: AMLODIPINE,BUPROPION,,CARVEDILOL,PREGABALIN, HYDROCODONE IF NEEDED FOR PAIN DO NOT STOP ANY OF YOUR OTHER PRESCRIPTION MEDICATIONS PRIOR TO SURGERY EXCEPT THE FOLLOWING Hold all vitamins and supplements for 3 days per anesthesiologist.LAST DOSE 09/11/24 Medications to discontinue per physician NONE Please no make-up, nail wolof, hairspray, perfume, deodorant, or body powder the day of surgery.? No jewelry (including any body piercings) or valuables the day of surgery, leave them at home.? Please take a shower or bath the night before, or the morning of, surgery with an antibacterial soap.? Wear comfortable, loose fitting clothing.? Children are encouraged to wear pajamas. - Jewelry must be removed prior to entering the operating room.? Rings and piercings that are not removed may be cut off. - The hospital will not accept responsibility for valuables.? - Please leave all valuables, including medications, at home the day of surgery. If you are going home after surgery, a licensed residential recycle driver must drive you home.? - NO public transportation without another adult if you receive anesthesia. - We recommend that an adult stay with you for 24 hours following discharge. - We also recommend that you do not drive, make important decision, drink alcoholic beverages, or take any drugs that were not prescribed by your health care provider for at least 24 hours after your discharge time. For Pediatric surgeries, we recommend two adults accompany the child home. Follow any additional instructions given to you from your surgeon. Telephone instructions given to __PATIENT AND SISTER PAVITHRA and asked if any additional questions and then verbalized understanding. Patient advised to call surgeon office or pre surgery nurse liaison [phone] if any additional questions.
[2024-09-03 15:30] VITALS: BMI 30.2
[2024-09-15] VITALS (22 sets, daily range): BP systolic 130–163; BP diastolic 70–92; PULSE 71–86; RESP 9–20; TEMP 36.2–36.9; O2SAT 91–100; BMI 27.1
--- OUTSIDE RECORDS SUMMARY | 2024-09-15 00:28 | XMS_ITS | Referral Summary ---
Author Organization [facility] Address [address] [place] [address] Care Team Providers Care Community Living Coach Name Role Phone Giselle Ramirez MD Primary Care Provider [phone] Source Comments [facility],non-owned Affiliates and Associated Physician Practices is amultiple site organization consisting of ambulatory clinics and hospital sitesin [place], [place], [place] and [place]. This disclosure is being madepursuant to the Care Everywhere program and may not contain all information available regarding this patient. Last updated 18.[facility] Social History Tobacco Use Types Packs/Day Years [...] AM CDT) Hepatitis C Antibody NEGATIVE NEGATIVE [facility] Comment: Anti-HCV screen indicates no serologic evidence of past or current infection with Hepatitis C Virus. 11/20/2010 11:2 0 AM CDT 11/20/2010 12:33 PM CDT Historical Provider LAB - CHEMISTRY O R[place]ATAV[place] [address] [phone] from Last 3 Months or Most Recently Relevant to Health Maintenance Care Teams Community Living Coach Relationship Specialty Start Date End Date Giselle Ramirez MD [address] [place] [address] PCP - General 08/14/20
--- OUTSIDE RECORDS SUMMARY | 2024-09-15 00:28 | XMS_ITS | Encounter Summary ---
Author Organization [facility] Address [address] [place] [address] Care Team Providers Care Liquid Compounder Name Role Phone Giselle Ramirez MD Primary Care Provider [phone] Reason for Visit * Reason Onset Date Comments Medication Refill 09/14/2024 Encounter Details Date Type Department Care Team (Late st Contact Info) Description 09/14/2024 Refill [facility] Oncology and Hematology - [address] [facility] [address] [address] Julius Robledo MD [address] [facility] [address] [place] [address] Malignant neoplasm of upper-outer quadrant of right breast in female, estrogen receptor positive (CMS/HCC) Social History Tobacco Use Types Packs/Day Years Used Date Smoking Tobacco: Former Cigarettes 1 45.1 0 03/04/1979 - 04/04/2024 Alcohol Use Standard Drinks/Week Comments Never 0 (1 standard drink = 0.6 oz pur e alcohol) Comments Unknown Sex and Gender Information Value Date Recorded Sex Assigned at Not on file Legal Sex Female 11:44 AM CDT Gender Identity Not on file Sexual Orientation Not on file documented as of this encounter Plan of Treatment Not on file documented as of this encounter Visit Diagnoses Diagnosis Malignant neoplasm of upper-outer quadrant of right breast in female, estrogen receptor positive (CMS/HCC) documented in this encounter Care Teams Liquid Compounder Relationship Specialty Start Date End Date Giselle Ramirez MD [address] [place] [address] PCP - General Family Practice 05/04/24 documented as of this encounter
--- OUTSIDE RECORDS SUMMARY | 2024-09-15 00:28 | XMS_ITS | Clinical Summary ---
Author Organization [facility] Address [address] [place] [address] Care Team Providers Care K 9 Handler/ Deputy Name Role Phone Giselle Ramirez MD Primary Care Provider [phone] Allergies Active Allergy Reactions Criticality Noted Date [...] 24 Active AMLODIPINE BESYLATE, BULK, MISC by [facility].(Non-Drug; Combo Route) route. Besylate 10 mg tablet [...] Paclitaxel. 6 Tablet 4 07/22/19 25 Active sulfamethoxazo le-trimethopri m (BACTRIM [...] CARBONYL ORAL Take by mouth. Activ e HYDROcodone-ac etaminophen (NORCO) 5-325 mg tabletIndicati ons:Malignant neoplasm of upper-outer quadrant of right breast in female, estrogen receptor positive (CMS/HCC) Take 1 Tablet by mouth every 6 hours as needed for Pain, Moderate. Max Daily Amount: 4 Tablets 60 Tablet 09/15/19 25 Active HYDROcodone-ac etaminophen (NORCO) 5-325 mg tabletIndicati ons:Malignant neoplasm of upper-outer quadrant of right breast in female, estrogen receptor positive (CMS/HCC) Take 1 Tablet by mouth every 6 hours as needed for Pain, Moderate. Max Daily Amount: 4 Tablets 60 Tablet 08/09/19 25 025 Discontin ued(Reord er) HYDROcodone-ac etaminophen (NORCO) 5-325 mg tabletIndicati ons:Malignant neoplasm of upper-outer quadrant of right breast in female, estrogen receptor positive (CMS/HCC) Take 1 Tablet by mouth every 6 hours as needed for Pain, Moderate. Max Daily Amount: 4 Tablets 60 Tablet 02 025 Discontin ued(Reord er) Active Problems No known active problems Encounters Date Type Department Care Team Description 09/14/2024 Refill [facility] Oncology and Hematology - [address] [place] [id number] Julius Robledo MD Malignant neoplasm of upper-outer quadrant of right breast in female, estrogen receptor positive (CMS/HCC) 09/13/2024 Orders Only [facility] Oncology and Hematology - [address] [place] [id number] Julius Robledo MD Malignant neoplasm of upper-outer quadrant of right breast in female, estrogen receptor positive (CMS/HCC) 09/01/2024 External Device Data STL ABSTRACTION Provider, Abstract 09/01/2024 External Device Data STL ABSTRACTION Provider, Abstract 08/30/2024 Refill [facility] Oncology and Hematology - [address] [place] [id number] Julius Robledo MD Malignant neoplasm of upper-outer quadrant of right breast in female, estrogen receptor positive (CMS/HCC) 08/30/2024 Orders Only [facility] Oncology and Hematology - [address] [place] [address] Julius Robledo MD Malignant neoplasm of upper-outer quadrant of right breast in female, estrogen receptor positive (CMS/HCC) 08/16/2024 Orders Only [facility] Oncology and Hematology - [address] [place] [id number] Julius Robledo MD Malignant neoplasm of upper-outer quadrant of right breast in female, estrogen receptor positive (CMS/HCC) 08/09/2024 Refill [facility] Oncology and Hematology - [address] [place] [address] Julius Robledo MD Malignant neoplasm of upper-outer quadrant of right breast in female, estrogen receptor positive (CMS/HCC) 08/05/2024 9:[address]ICIAN Office Visit [facility] Oncology and Hematology - [address] [place] [address] Julius Robledo MD Malignant neoplasm of upper-outer quadrant of right breast in female, estrogen receptor positive (CMS/HCC) (Primary Dx) 08/05/2024 Orders Only [facility] Oncology and Hematology - [address] [place] [address] Julius Robledo MD 08/04/2024 External Device Data STL ABSTRACTION Provider, Abstract 08/02/2024 Orders Only [facility] Oncology and Hematology - [address] [place] [id number] Julius Robledo MD Malignant neoplasm of upper-outer quadrant of right breast in female, estrogen receptor positive (CMS/HCC) 07/26/2024 Orders Only [facility] Oncology and Hematology - [address] [place] [address] Scanning, Provider 07/23/2024 Refill [facility] Oncology and Hematology - [address] [place] [address] Julius Robledo MD 07/19/2024 Orders Only [facility] Oncology and Hematology - [address] [place] [address] Julius Robledo MD Malignant neoplasm of upper-outer quadrant of right breast in female, estrogen receptor positive (CMS/HCC) 07/15/2024 Orders Only [facility] Oncology and Hematology - [address] [place] [address] Julius Robledo MD 07/13/2024 Refill [facility] Oncology and Hematology - [address] [place] [address] Amanda Wise MD Malignant neoplasm of upper-outer quadrant of right breast in female, estrogen receptor positive (CMS/HCC) (Primary Dx) 07/09/2024 Orders Only [facility] Oncology and Hematology - [address] [place] [id number] Julius Robledo MD 07/05/2024 Orders Only [facility] Oncology and Hematology [facility] [address] [place] [address] Julius Robledo MD Malignant neoplasm of upper-outer quadrant of right breast in female, estrogen receptor positive (CMS/HCC) 06/29/2024 Orders Only [facility] Oncology and Hematology - [address] [place] [id number] Julius Robledo MD 06/25/2024 Orders Only [facility] Oncology and Hematology - [place] [address] [place] [address] Julius Robledo MD Malignant neoplasm of upper-outer quadrant of right breast in female, estrogen receptor positive (CMS/HCC) (Primary Dx) 06/25/2024 Refill [facility] Oncology and Hematology [facility] [address] [place] [address] Julius Robledo MD 06/24/2024 8:[address]CHNICIAN Office Visit [facility] Oncology and Hematology [facility] [address] [place] [address] Julius Robledo MD Malignant neoplasm of upper-outer quadrant of right breast in female, estrogen receptor positive (CMS/HCC) (Primary Dx) 06/21/2024 Orders Only [facility] Oncology and Hematology - [address] [place] [address] Julius Robledo MD Malignant neoplasm of upper-outer quadrant of right breast in female, estrogen receptor positive (CMS/HCC) from Last 3 Months Family History Medical [...] Comments Blood Pressure 134/82 08/05/2024 9:[address]CHNICIAN Pulse 87 08/05/2024 9:[address]CHNICIAN Temperature 35.8 C (96.5 F) 08/05/2024 9:[address]CHNICIAN Respiratory Rate 18 08/05/2024 9:[address]CHNICIAN Oxygen Saturation 97% 08/05/2024 9:[address]CHNICIAN Inhaled Oxygen Concentration - - Weight 64 kg (141 lb) 08/05/2024 9:[address]CHNICIAN Height 149.9 cm (4' 11 ) 03/04/2024 9:11 AM CDT Body Mass Index 28.48 03/04/2024 9:11 AM CDT Plan of Treatment Health Maintenance Due Date Last Done Comments DIABETES ANNUAL FOOT EXAM 09/22/1975 DIABETES ANNUAL RETINAL EXAM 09/22/1975 DIABETES HBA1C Q 6 MONTHS 09/22/1975 DIABETES MICROALBUMIN ANNUAL SCREEN 09/22/1975 LDL CHOLESTEROL ANNUAL 09/22/1975 DTAP/TDAP/TD VACCINES (1 - Tdap) 1976 PNEUMOCOCCAL VACCINE 50+ YEARS (1 of 2 - PCV) 09/21/18 77 BREAST CANCER SCREENING 1997 COLORECTAL SCREENING 2002 Colorectal Cancer Screening 2002 FIT-DNA Q 3 years 2002 FIT/FOBT Q 1 year 2002 Flex Sig/CT Colonography Q 5 years 2002 Lung Cancer Screening 09/22/2007 ZOSTER VACCINE (1 of 2) 09/22/2007 RSV VACCINE (60+ or ) (1 - Risk 60-74 years 1-dose series) 2017 OSTEOPOROSIS SCREENING 2022 INFLUENZA VACCINE (#1) 2024 [place] Prev entative Visit/Annual Wellness Visit 07/14/2024 Procedures Procedure Name Priority Date/Time Associated Diagnosis Comments BASIC METABOLIC PANEL Routine 08/05/2024 3:[address]CHNICIAN COMPREHENSIVE METABOLIC PANEL Routine 08/05/2024 12:[address]CHNICIAN URINE CULTURE Routine 07/22/2024 3:[address]CHNICIAN COMPREHENSIVE METABOLIC PANEL Routine 07/22/2024 1:[address]CHNICIAN BASIC METABOLIC PANEL Routine 07/22/2024 1:[address]CHNICIAN CBC WITH AUTODIFFERENTIAL Routine 2024 1:[address]CHNICIAN URINE CULTURE Routine 07/22/2024 11:[address]CHNICIAN BASIC METABOLIC PANEL Routine 07/08/2024 3:[address]CHNICIAN CBC WITH DIFFERENTIAL Routine 07/08/2024 2:[address]CHNICIAN COMPREHENSIVE METABOLIC PANEL Routine 07/08/2024 1:[address]CHNICIAN CBC WITH DIFFERENTIAL Routine 06/28/2024 11:[address]CHNICIAN BASIC METABOLIC PANEL Routine 06/24/2024 2:[address]CHNICIAN COMPREHENSIVE METABOLIC PANEL Routine 06/24/2024 1:[address]CHNICIAN from Last 3 Months Results * BASIC METABOLIC PANEL (08/05/2024 3:[address]CHNICIAN) Only the most recent of4 resultswithin the time period is included. Blood us Julius Robledo MD CHEMISTRY ORDERABLES Final Resu lt * COMPREHENSIVE METABOLIC PANEL (08/05/2024 12:[address]CHNICIAN) Only the most recent of4 resultswithin the time period is included. Blood us Julius Robledo MD CHEMISTRY ORDERABLES Final Resu lt * URINE CULTURE (07/22/2024 3:[address]CHNICIAN) Only the most recent of2 resultswithin the time period is included. Urine us Julius Robledo MD MICROBIOLOGY - GENERAL ORDERABL ES Final Result * CBC WITH AUTODIFFERENTIAL (07/22/2024 1:[address]CHNICIAN) Blood us Julius Robledo MD HEMATOLOGY ORDERABLES Final Res ult * CBC WITH DIFFERENTIAL (07/08/2024 2:[address]CHNICIAN) Only the most recent of2 resultswithin the time period is included. Blood us Julius Robledo MD HEMATOLOGY ORDERABLES Final Res ult from Last 3 Months Insurance Care Teams K 9 Handler/ Deputy Relationship Specialty Start Date End Date Giselle Ramirez MD [address] [place] [address] PCP - General Family Practice 05/04/24
--- OUTSIDE RECORDS SUMMARY | 2024-09-15 00:28 | XMS_ITS | Clinical Summary ---
Author Organization [facility] [employer] Address [address] [address] Care Team Providers Care Manager Agency Name Role Phone Giselle Ramirez MD Primary Care Provider [phone] Source Comments [facility],non-owned Affiliates and Associated Physician Practices is amultiple site organization consisting of ambulatory clinics and hospital sitesin [place], [place], [place] and [place]. This disclosure is being madepursuant to the Care Everywhere program and may not contain all information available regarding this patient. Last updated 18.[facility] [employer] Social History Tobacco Use Types Packs/Day Years [...] (#1) 2024 DEPRESSION SCREENING 07/14/2024 MEDICARE AWV CALENDAR YEAR 2024 Respiratory Syncytial Virus (RSV) [...] topic MENINGOCOCCAL VACCINE Aged Out No juve yusef eligible based on patient's age to complete this topic Procedures Procedure Name Priority Date/Time Associated Diagnosis Comments HEPATITIS C ANTIBODY Routine 11/20/2010 11:20 AM CDT from Last 3 Months or Most Recently Relevant to Health Maintenance Results * HEPATITIS C ANTIBODY (11/20/2010 11:20 AM CDT) Hepatitis C Antibody NEGATIVE NEGATIVE [facility] Comment: Anti-HCV screen indicates no serologic evidence of past or current infection with Hepatitis C Virus. 11/20/2010 11:2 0 AM CDT 11/20/2010 12:33 PM CDT Historical Provider LAB - CHEMISTRY O RDERABLES [address] [phone] from Last 3 Months or Most Recently Relevant to Health Maintenance Care Teams Manager Agency Relationship Specialty Start Date End Date Giselle Ramirez MD [address] [place], [place] [id number] PCP - General 08/14/20
--- OUTSIDE RECORDS SUMMARY | 2024-09-15 00:28 | XMS_ITS | Patient Health Summary ---
Author Organization [facility] [employer] Address [address] [place] [address] Care Team Providers Care Home Health Nurse Name Role Phone Giselle Ramirez MD Primary Care Provider [phone] Note from [facility],non-owned Affiliates and Associated Physician Practices is amultiple site organization consisting of ambulatory clinics and hospital sitesin [place], [place], [place] and [place]. This disclosure is being madepursuant to the Care Everywhere program and may not contain all information available regarding this patient. Last updated 18.[facility] Social History Tobacco Use Types Packs/Day Years [...] * MORENO (SM) ANTIBODY ANTOINETTE(Performed 11/20/2010) * PRESS MAINTAINER ANTIBODY(Performed 11/20/2010) * HIRAL BLOOD SCREEN(Performed 11/20/2010) * DNA ANTIBODY DOUBLE STRANDED(Performed 11/20/2010) * VITAMIN D 25-HYDROXY(Performed 11/20/2010) * RHEUMATOID FACTOR BLOOD QUANTITATIVE(Performed 11/20/2010) * C-REACTIVE PROTEIN(Performed 11/20/2010) * HEPATITIS C ANTIBODY(Performed 11/20/2010) * HEPATITIS B SURFACE ANTIGEN W RFLX CONFIRMATION(Performed 11/20/2010) * URINALYSIS W/MICROSCOPIC NO CULTURE(Performed 11/20/2010) Results * MRI LUMBAR SPINE WO CONTRAST (06/14/2019 3:04 PM DYE CAN OPERATOR) Anatomical Region Laterality Modality Spine Magnetic Resonan ce 06/14/2019 3:29 PM DYE CAN OPERATOR Impressions 06/14/2019 4:11 PM DYE CAN OPERATOR 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 Significant hypertrophic or erosive changes are not identified. Reading Radiologist: Stevie Monahan MD on 05/12/2019 at 2:00 PM Procedure Note Stevie Monahan MD - 05/12/2019 EXAM: XR PELVIS W BILAT HIP 2VW*[id number] INDICATION: Other psoriatic arthropathy, bilateral hip pain, [...] 11:20 AM CDT) Color UA YELLOW STRW,YELLOW [facility] Clarity UA CLEAR CLEAR [facility] Specific [place] Urine 1.005 1.001 - 1.030 [facility] pH UA 6.5 5.0 - 8.0 [facility] Protein UA NEGATIVE <20 mg/dL [facility] Glucose UA NEGATIVE NEGATIVE mg/dL [facility] Ketones NEGATIVE NEGATIVE mg/dL [facility] Bilirubin UA NEGATIVE NEGATIVE mg/dL [facility] Blood UA NEGATIVE NEGATIVE [facility] Nitrite UA NEGATIVE NEGATIVE [facility] Leukocyte Esterase NEGATIVE NEGATIVE [facility] Urobilinogen UA < 2.0 <2.0 mg/dL [facility] WBC Urine < 1 0 - 2 /HPF [facility] Squamous Epithelial Cells UA 2(H) 0 - 1 /HPF [facility] 11/20/2010 11:2 0 AM CDT 11/20/2010 12:33 PM CDT Historical Provider LAB - URINALYSIS ORDERABLES Performing Organization Address [facility]/ZIP Co de Phone Number [address] [phone] * HIRAL BLOOD SCREEN (11/20/2010 11:20 AM CDT) HIRAL NONE DETECTED NONE DETECT [facility] 11/20/2010 11:2 0 AM CDT 11/20/2010 12:33 PM CDT Historical Provider LAB - CHEMISTRY O RAY Performing Organization Address [facility] Co de Phone Number [address] [phone] * MORENO (SM) ANTIBODY ANTOINETTE (11/20/2010 11:20 AM CDT) ANTOINETTE Moreno (SM) Antibody 2.6 0.0 - 19.9 Units [facility] Comment: REFERENCE RANGE/INTERPRETATION < 20.0 Units: Negative 20.0 - 39.0 Units: Weak Positive > 39.0 Units: Positive 11/20/2010 11:2 0 AM CDT 11/20/2010 12:33 PM CDT Historical Provider LAB - CHEMISTRY O RAY Performing Organization Address [facility] Co de Phone Number [address] [phone] * PRESS MAINTAINER ANTIBODY (11/20/2010 11:20 AM CDT) Ribonucleic Protein Antibody 4.1 0.0 - 19.9 Units [facility] Comment: REFERENCE RANGE/INTERPRETATION < 20.0 Units: Negative 20.0 - 39.0 Units: Weak Positive > 39.0 Units: Positive 11/20/2010 11:2 0 AM CDT 11/20/2010 12:33 PM CDT Historical Provider LAB - CHEMISTRY O RDERABLES [address] [phone] * RHEUMATOID FACTOR BLOOD QUANTITATIVE (11/20/2010 11:20 AM CDT) Pathologist [facility] Rheumatoid Factor < 7 <14 IU/mL [facility] 11/20/2010 11:2 0 AM CDT 11/20/2010 12:33 PM CDT Historical Provider LAB - CHEMISTRY O RDERABLES Performing Organization Address City/[facility]/ZIP Co de Phone Number [address] [phone] * C-REACTIVE PROTEIN (11/20/2010 11:20 AM CDT) Pathologist [facility] C-Reactive Protein 0.7 <0.8 mg/dL [facility] 11/20/2010 11:2 0 AM CDT 11/20/2010 12:33 PM CDT Historical Provider LAB - CHEMISTRY O RDERABLES Performing Organization Address [facility] Co de Phone Number [address] [phone] * SS-B (SJOGRENS'S) ANTIBODY (11/20/2010 11:20 AM CDT) SS-B LA Antibody 3.0 0.0 - 19.9 Units [facility] Comment: REFERENCE RANGE/INTERPRETATION < 20.0 Units: Negative 20.0 - 39.0 Units: Weak Positive > 39.0 Units: Positive 11/20/2010 11:2 0 AM CDT 11/20/2010 12:33 PM CDT Historical Provider LAB - CHEMISTRY O RDERABLES Performing Organization Address [facility]/ZIP Co de Phone Number [address] [phone] * SS-A (SJOGREN'S) ANTIBODY (11/20/2010 11:20 AM CDT) SS-A Antibody 3.0 0.0 - 19.9 Units [facility] Comment: REFERENCE RANGE/INTERPRETATION < 20.0 Units: Negative 20.0 - 39.0 Units: Weak Positive > 39.0 Units: Positive 11/20/2010 11:2 0 AM CDT 11/20/2010 12:33 PM CDT Historical Provider LAB - CHEMISTRY O RDERABLES Performing Organization Address [facility] Co de Phone Number [address] [phone] * DNA ANTIBODY DOUBLE STRANDED (11/20/2010 11:20 AM CDT) Anti-dsDNA Quantitative 10 0 - 29 IU/mL [facility] Comment: INTERPRETATION/REFERENCE RANGE 0 - 29 IU/mL: NEGATIVE 30 - 75 IU/mL: BORDERLINE >75 IU/mL: POSITIVE 11/20/2010 11:2 0 AM CDT 11/20/2010 12:33 PM CDT Historical Provider LAB - HEMATOLOGY ORDERABLES Performing Organization Address [facility] Co de Phone Number [address] [phone] * VITAMIN D 25-HYDROXY (11/20/2010 11:20 AM CDT) Vitamin D, 25 Hydroxy 35.5 30 - 100 ng/mL [facility] Comment: The recommendations for 25-Hydroxy Vitamin D clinical decision points are as follows: Deficient: < 10 ng/mL Insufficient: 10 - 29 ng/mL Sufficient: 30 - 100 ng/mL Potential Toxicity: > 100 ng/mL 11/20/2010 11:2 0 AM CDT 11/20/2010 12:33 PM CDT Historical Provider LAB - CHEMISTRY Reji BELL [address] [phone] * (ABNORMAL) ALDOLASE (11/20/2010 11:20 AM CDT) Aldolase 7.7(H) 1.2 - 7.6 U/L [facility] Comment: Performed at: [address] [id number] Architectural Project Manager: Jackie Hatch MD, Phone: [phone] 11/20/2010 11:2 0 AM CDT 11/20/2010 12:33 PM CDT Historical Provider LAB - CHEMISTRY Reji BELL Performing Organization Address City/[facility]/ZIP Co de Phone Number [address] [phone] * CYCLIC CITRUL PEPTIDE AB IGG (CCP) (11/20/2010 11:20 AM CDT) CCP Antibody IgG < 0.5 0.5 - 5.0 U/mL [facility] 11/20/2010 11:2 0 AM CDT 11/20/2010 12:33 PM CDT Historical Provider LAB - CHEMISTRY Reji BELL Performing Organization Address [facility]/State/ZIP Co de Phone Number [address] [phone] * (ABNORMAL) ERYTHROCYTE SEDIMENTATION RATE (11/20/2010 11:20 AM CDT) Erythrocyte Sedimentation Rate Westergren 22(H) 0 - 20 MM/HR [facility] 11/20/2010 11:2 0 AM CDT 11/20/2010 12:33 PM CDT Historical Provider LAB - HEMATOLOGY ORDERABLES [facility] [address] [phone] * (ABNORMAL) CBC W AUTO DIFFERENTIAL (11/20/2010 11:20 AM CDT) WBC 12.0(H) 3.5 - 10.5 10^3/uL [facility] RBC 4.76 3.90 - 5.00 10^6/uL [facility] Hemoglobin 14.5 12.0 - 15.5 g/dL [facility] Hematocrit 43.0 35.0 - 45.0 % [facility] MCV 90.3 82.0 - 97.0 FL [facility] MCH 30.5 28.0 - 34.0 PG [facility] MCHC 33.7 32.0 - 36.0 G/DL [facility] Platelet 326 150 - 400 10^3/uL [facility] RDW 13.5 11.2 - 14.8 % [facility] RDW-SD 44.5 37 - 50 FL [facility] MPV 10.1 9.3 - 12.8 FL [facility] Neutrophils % 55.7 35.0 - 70.0 % [facility] Lymphocytes % 32.1 19.7 - 55.1 % [facility] Monocytes % 6.9 3 - 15 % [facility] Eosinophils % 4.7 0.0 - 6.0 % [facility] Basophils % 0.6 0.0 - 1.5 % [facility] Neutrophils Absolute 6.7 1.7 - 7.0 10^3/uL [facility] Lymphocyte Absolute 3.9(H) 0.9 - 2.9 10^3/uL [facility] Monocytes Absolute 0.8(H) 0.14 - 0.66 10^3/uL [facility] Eosinophils Absolute 0.56(H) 0.00 - 0.22 10^3/uL [facility] Basophils Absolute 0.07(H) 0.02 - 0.06 10^3/uL [facility] Differential Type AUTO DIFFERENTIAL [facility] 11/20/2010 11:2 0 AM CDT 11/20/2010 12:33 PM CDT Historical Provider LAB - HEMATOLOGY ORDERABLES [address] [phone] * (ABNORMAL) COMPREHENSIVE METABOLIC PANEL (11/20/2010 11:20 AM CDT) BUN 8 5 - 25 mg/dL [facility] Creatinine 0.7 0.3 - 1.3 mg/dL [facility] eGFR by MDRD > 60 ML/MIN [facility] Sodium 143 135 - 145 mmol/L [facility] Potassium 3.4(L) 3.5 - 5.5 mmol/L [facility] Chloride 101 96 - 111 mmol/L [facility] CO2 30(H) 20 - 28 mmol/L [facility] Glucose 153(H) 70 - 115 mg/dL [facility] Calcium 9.9 8.4 - 10.5 mg/dL [facility] Protein Total 6.9 6.0 - 8.3 g/dL [facility] Albumin 4.4 3.4 - 5.5 g/dL [facility] Bilirubin Total 0.2 0.2 - 1.3 mg/dL [facility] Alkaline Phosphatase 72 33 - 133 Units/L [facility] ALT 59(H) 5 - 45 Units/L [facility] AST 45 12 - 50 Units/L [facility] Anion Gap 15 8 - 18 [facility] BUN/Creatinine Ratio 11 7 - 23 [facility] Osmolality Calculation 281 270 - 300 mOsm/kg [facility] Albumin/Globulin Ratio 1.8 1.1 - 2.3 [facility] 11/20/2010 11:2 0 AM CDT 11/20/2010 12:33 PM CDT Historical Provider LAB - CHEMISTRY O RDERABLES [address] [phone] * HEPATITIS B SURFACE ANTIGEN W RFLX CONFIRMATION (11/20/2010 11:20 AM CDT) [facility] Hepatitis B Virus Surface Antigen NEGATIVE NEGATIVE [facility] 11/20/2010 11:2 0 AM CDT 11/20/2010 12:33 PM CDT Historical Provider LAB - CHEMISTRY O RDERABLES [address] [phone] * CK BLOOD (11/20/2010 11:20 AM CDT) [facility] CK Total 43 20 - 170 Units/L [facility] 11/20/2010 11:2 0 AM CDT 11/20/2010 12:33 PM CDT Historical Provider LAB - CHEMISTRY O RDERABLES Performing Organization Address City/[facility]/ZIP Co de Phone Number [address] [phone] * TSH (11/20/2010 11:20 AM CDT) [facility] TSH 2.310 0.350 - 5.500 uIU/mL [facility] 11/20/2010 11:2 0 AM CDT 11/20/2010 12:33 PM CDT Historical Provider LAB - CHEMISTRY O RDERABLES [address] [phone] * HEPATITIS C ANTIBODY (11/20/2010 11:20 AM CDT) [facility] Hepatitis C Antibody NEGATIVE NEGATIVE [facility] Comment: Anti-HCV screen indicates no serologic evidence of past or current infection with Hepatitis C Virus. 11/20/2010 11:2 0 AM CDT 11/20/2010 12:33 PM CDT Historical Provider LAB - CHEMISTRY O RDERABLES [facility] [address] [phone] Care Teams Home Health Nurse Relationship Specialty Start Date End Date Giselle Ramirez MD [address] [place] [address] PCP - General 08/14/20
--- OUTSIDE RECORDS SUMMARY | 2024-09-15 00:28 | XMS_ITS | Encounter Summary ---
Author Organization [facility] Address [address] [place] [address] Care Team Providers Care Manager Transplant Name Role Phone Giselle Ramirez MD Primary Care Provider [phone] Encounter Details Date Type Department Care Team (Late st Contact Info) Description 09/13/2024 Orders Only [facility] Oncology and Hematology - Juma [address] [facility] [address] [place] [address] Julius Robledo MD [address] [place] [address] Malignant neoplasm of upper-outer quadrant [...] (CMS/HCC) documented in this encounter Care Teams Manager Transplant Relationship Specialty Start Date End Date Giselle Ramirez MD [address] [place] [address] PCP - General Family Practice 05/04/24 documented as of this encounter
--- OUTSIDE RECORDS SUMMARY | 2024-09-15 00:28 | XMS_ITS | CONTINUITY OF CARE DOCUMENT ---
Author Name joselo, joselo Address Unknown Organization [facility] Address [address] [place] [address] Phone [phone] Care Team Providers Care Wheel Worker Name Role Phone Iftikhar KEE, Nirav Unavailable MAGEN HERZOG MD Unavailable MAGEN HERZOG MD Unavailable PROBLEMS Condition Status Date Provider Notes Hypertension active Albania Lopes MD Family history of CAD active Albania grant MD Tobacco abuse active Albania Lopes MD Fatigue active Albania Lopes MD Headaches active Albania Lopes MD Fibromyalgia active Albania Lopes MD Leg pain, bilateral completed - Nirav Buitrago MD Palpitations active Albania Lopes MD Shortness of breath--stress nuc nl, echo ef nl, 02/2024 active Tru Le Obesity active Albania Lopes MD Diabetes mellitus, type 2 active Albania valladares MD Hypokalemia 3.0 07/2020 completed - Nirav Buitrago MD Hyperlipidemia active Eleazar Kimbrough PVC's rare completed - Nirav Buitrago MD Carotid bruits, bilateral completed 09/01 - Nirav Buitrago MD Renal insufficiency active Eleazar Kimbrough Breast cancer active Tru Le ENCOUNTERS Date Type Provider Location Encounter Diag nosis 03/08 - 03/08 In-person encounter Office Visit Nirav Buitrago MD [facility] Shortness of breath--stress nuc nl, echo ef nl, reast cancer 02/10 - 02/10 In-person encounter Office Visit Nirav Buitrago MD [facility] Leg pain, bilateralHypokalemia 3.0 1PVC's rareCarotid bruits, bilateral 09/01 - 09/01 In-person encounter Office Visit Albania Lopes MD [facility] HyperlipidemiaRenal insufficiency 08/11 - 08/11 In-person encounter Office Visit Albania Lopes MD [facility] Shortness of breath--stress nuc nl, echo ef nl, 02/2024 - 11/01 In-person encounter Office Visit Albania Lopes MD [facility] HypertensionShortness of breath--stress nuc nl, echo ef nl, 02/2024ObesityDiabetes mellitus, type 2 09/27 - 10/03 In-person encounter Office Visit Albania Lopes MD [facility] HypertensionFamily history of CADTobacco abuseFatigueHeadachesFibromyalgiaPalpitations VITAL [...] Chaolinda Moreno pulse rate 92 /min Cha Johs weight E&M 153 [lb_av] Cha Moreno height [...] 3.5-5.2 0 sodium, serum 141 mmol/L [employer] [phone]/02/2 0 urea nitrogen/creatinine ratio, serum 9 [employer] [...] High 0 platelet count 311 X10E3/UL [employer] [phone]/01/3 0 red blood cell distribution width 14.2 [...] Low 0 sodium, serum 138 mmol/L [employer] [phone]/01/3 0 urea nitrogen/creatinine ratio, serum 12 [employer] [...] revi ewed - no changes required [facility] social history E&M Smoking Histo ry: P atient currently smokes every day. P atient has been counseled to quit. Carlos Webber smoking/tobacco cess ation, patient education and counseling yes [facility] number of years as a smoker 30 [...] Payer name Policy type / Coverage type [place] [employer] ID [facility] Other [facility] Other [facility] Other [id number] (PPO C-SNP) Commercial insurance company [id number] ADVANCE DIRECTIVES Name Date DISCUSSED - NO [...] U-100 Insulin 100 Unit/ml Insulin Pen (Insulin lispro-[facility]) ..... 5 units three times a day Aspirin 81 Mg Tablet,delayed Release (dr/ec) (Aspirin) ..... 1 tablet by mouth once a day [facility]: H er updated medication list for this problem includes: Simvastatin 40 Mg Tablet (Simvastatin) ..... 1 pill daily [facility] Cardiology: H er updated medication list for this problem includes: Hydrochlorothiazide 25 Mg Tablet (Hydrochlorothiazide) Carvedilol 6.25 Mg Tablet (Carvedilol) ..... Take 1 twice a day Amlodipine 10 Mg Tablet (Amlodipine) ..... 1 tablet once a day Aspirin 81 Mg Tablet,delayed Release (dr/ec) (Aspirin) ..... 1 tablet by mouth once a day [facility] Cardiology: B P today: 110/72 P rior [...] 1 tablet by mouth once a day [facility] Card[facility]: H er updated medication list for this problem includes: Simvastatin 40 Mg Tablet (Simvastatin) ..... 1 pill daily [facility] Card[facility]: B P today: 130/94 P rior [...] 1 tablet by mouth once a day [facility] Card[facility]: O rders: C omplete Echo (85770) S tress Regadenoson (CPT-90350) H gb: 14.5 (08/12/2020) HCT: 42.2 (08/12/2020) [...] mouth once a day Truuday Le Cardiology [facility] Electrophysiology Fo llow up 12: O rders: C arotid Duplex Bilateral (CPT-33153) 9 9212 Minor 10-19min (CPT-67295) Eleazar Kimbrough Electrophysiology Fo llow up 12: H er updated medication list for this problem includes: Atorvastatin Calcium 40 Mg Oral Tablet (Atorvastatin calcium) ..... One tab daily Orders: L IPID PANEL (7522) M AGNESIUM (622) Eleazar Kimbrough Electrophysiology Fo [...] O rders: C OMPREHENSIVE METABOLIC PANEL, W/EGFR (11587) K idney Ultrasound (CPT-35559) Eleazar Kimbrough Electrophysiology Fo llow up 12:Rhythm: [...] Eleazar Kimbrough Electrophysiology Follow up 12 [facility] Luis E Electrophysiology 05 : O rders: F VC - 15534 (86685) F - 87037 (82301) D O - 93370 (52020) The following medications were removed from the [...] Oral Tablet (Hydrochlorothiazide) ..... One tab daily [facility] Electrophysiology 05 : p follows p keenan does note some problems affording lyrica for neuropathy H er updated medication list for this problem includes: Aspirin Adult Low Dose 81 Mg Oral Tablet Delayed Release (Aspirin) ..... One tab by mouth daily Metformin Hcl 500 Mg Oral Tablet (Metformin hcl) ..... 2 in am, 2 in pm [facility] Luis E Electrophysiology 05 : B P [...] 05 : O rders: L IPID PANEL (1920) C OMPREHENSIVE METABOLIC PANEL, W/EGFR (86071) C BC (H/H, RBC, INDICES, WBC, PLT) (1759) T SH, free T4, total T3 (7344) C omplete Echo (CPT-42011) E KG (CPT-67923) M onitor - Telemetry (Mobile Cardiac) (CPT-34095) The following medications were removed from the [...] SMOKING CESSATION TECHNIQUES DISCUSSED. Orders: F - 49317 (53848) F - 78883 (03807) D O - 51099 (37263) Carlos Webber Cardiology:Orders: M obile Cardiac Tele (CPT-20307) Carlos Akbar Cardiology:BP today: 163/89 Her updated [...] tab daily Orders: R enal Artery Duplex (CPT-90055) C omplete Echo (CPT-10733) W ill do pharmacogenetic testing to assess patient's response to medications. Carlos Webber Date Name Stress Regadenoson Complete Echo Carotid Duplex Bilat eral MAGNESIUM Carotid Duplex Bilat eral Kidney Ultrasound LIPID PANEL COMPREHENSIVE METABO LIC PANEL, W/EGFR Monitor - Telemetry (Mobile Cardiac) DLCO - 85662 FRC - 82336 FVC - 77639 Complete Echo TSH, free T4, total T3 CBC (H/H, RBC, INDIC ES, WBC, PLT) COMPREHENSIVE METABO LIC PANEL, W/EGFR LIPID PANEL HEMOGLOBIN A1c Mobile Cardiac Tele DLCO - 01780 FRC - 54943 FVC - 34515 Renal Artery Duplex Complete Echo HISTORY OF [...] chacon MD completed FVC / MVV - 91251 Albania grant MD completed FRC - 27029 Albania chacon MD completed SpO2 w/o 6min walk/titration Albania Lopes MD completed DLCO - 11910 Albania chacon MD completed EKG Albania chacon MD completed SNOMED-CT: 92860835 Physical Exam, Performed: Pulse Exam of Foot Albania Lopes MD completed SNOMED-CT: 161006286 Smoking Cessation Counseling Albania Lopes MD completed EKG Albania chacon MD completed SNOMED-CT: 926322756280560 Current Medications Documented Albania Lopes MD completed FVC / MVV - 60871 Albania grant MD completed FRC - 02538 Albania chacon MD completed SpO2 - 27597 Albania chacon MD completed DLCO - 97806 Albania chacon MD completed Event Monitor Carey Farrar completed SNOMED-CT: 992554955 Smoking Cessation Counseling Albania Lopes MD completed EKG Albania chacon MD completed SNOMED-CT: 106709726884585 Current Medications Documented Albania Lopes MD completed
[2024-09-15] MEDS: LIDOCAINE/PRILOCAINE CREAM 2.5-2.5% TUBE 1 EACH TOPICAL (07:30)
[2024-09-15] MEDS: ACETAMINOPHEN 500 MG TABLET 1000 MG PO (08:30)
[2024-09-15] MEDS: LACTATED RINGERS 1,000 ML 30 ML IV CONT ×2 (09:22→13:05)
--- NOTE | 2024-09-15 10:33 | WPDHPUPDATE1 ---
History and Physical Update Update Date/Time: 09/15/24 10:33 - right total mastectomy with right sentinel lymph node biopsy and possible adjacent tissue transfer. History and Physical has been reviewed, including an updated exam of the patient. There are NO changes in the patient's condition. Risks, benefits, and alternatives have been discussed and questions answered. Patient agrees to proceed with procedure.
[2024-09-15 10:55] LABS: Glucose Point of Care 187 mg/dl (65-105)
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
[2024-09-15] MEDS: ceFAZolin 2 GM/D5W 50 ML 2 GM/50 ML BAG IVPB (11:42)
[2024-09-15] MEDS: BUPIVACAINE/EPINEPHRINE 0.5% 30 ML VIAL INFILTRATE (11:50)
--- NOTE | 2024-09-15 12:10 | SUR.OPER ---
Specimen [place] Lymph Node # 1 Right side sent with LISETH De and received in pathology by Swapnil
--- NOTE | 2024-09-15 12:41 | SUR.OPER ---
Luisa Breast mastectomy sent with Jeffrey Us, PCT @ [phone] and received in pathology by Swapnil @ [phone]
--- NOTE | 2024-09-15 12:45 | SUR.OPER ---
Specimen right breast mastectomy skin inferior sent with EYRN Paulson @ [phone] and received in pathology by Nelson @ [phone]
--- NOTE | 2024-09-15 12:58 | W.PM.PROC2 ---
Procedure Note - Detailed Date of Procedure 09/15/24 Pre-op Diagnosis Invasive Ductal Carcinoma Rt Breast Post-op Diagnosis Same Procedure Performed 1. Right total mastectomy 2. Right sentinel lymph node biopsy 3. Lymphoseek injection for sentinel lymph node mapping 4. Methylene blue injection as dual tracer for sentinel lymph node mapping 5. Adjacent tissue transfer 17 cm x 4 cm Surgeon Jackie Moreira MD Resaw Operator Peggy Pandya PA-C Anesthesia General Description of Procedure Patient was identified in the preoperative holding area brought to the operating room suite.?I injected lymphoseek in the periareola area of the right breast in the subdermal plane in nuclear Medicine prior to presentation to preoperative area. Patient was taken to the operating room and sequential compression devices were applied. General anesthesia was induced without difficulty.?Right chest and right axillary areas were prepped draped in sterile fashion.? Diluted methylene blue 50:50 with saline was injected into the subdermal plane in the periareolar area of the right breast for dual tracing. The Neoprobe probe was used to find the area of highest radio activity in the axilla, and an incision was made overlying this area that was incorporated into the mastectomy incision.? Dissection was carried down through the subcutaneous tissue and the clavipectoral fascia was incised.? I was able to identify a node that was hot and blue.? This was gently grasped and excised using the LigaSure device.? The Neoprobe was used to obtain an ex-vivo count which was approximately 20,306.? The node was sent to pathology as a fresh specimen.? The Neoprobe was again used to scan the axilla trying to identify another node that was at least 10% of the original sentinel lymph node count. No other node was found and the axilla was irrigated and hemostasis was assured. Attention was then turned to the right breast. An elliptical incision encompassing the nipple areolar complex was made and dissection was carried down through the subcutaneous tissue and continued through the thin areolar tissue plane between the subcutaneous tissue with the breast tissue superiorly to the inferior border of the clavicle.? We then continued our dissection medially to the lateral aspect of the sternum, inferiorly to the inframammary fold and laterally to latissimus.? Once this was performed the breast tissue along with the pectoralis fascia was dissected off the pectoralis muscle posteriorly.? The mastectomy specimen was then marked short stitch superior long stitch lateral stitch lateral for orientation.? The specimen was then sent to pathology as a fresh specimen.? Hemostasis was assured. A 15Fr flat drain was placed above the pectoralis muscle and secured to the skin with silk suture. ?Given the redundant skin flap inferiorly, decision was made to use the inferior skin flaps to create a lazcano inferior mound and give a better contour to the chest.? The defect for the left side was 17 cm x 4cm.? The inferior skin flap was de-epithelialized bilaterally and carefully tacked to the pectoralis muscle with interrupted 2-0 Vicryl.? The superior mastectomy flap was then advanced over the inferior flap and secured to the inferior flap using 3-0 Vicryl interrupted for the deep dermal layer followed by a 4-0 Monocryl in a subcuticular running fashion.? Dermabond was applied followed by sterile compression dressing. All needles counts were correct as reported by the operating room staff. Patient tolerated the procedure well with no immediate complications. Peggy Pandya PA-C assisted with retraction and positioning for the entirety of the case Estimated Blood Loss 10 Drains Yes Pathology Yes Complications No immediate complications Condition Stable Disposition PACU [facility] Billing Surgery - Charge Forward: Surgery Billing (CPT 75005, [id number] - 59, [id number] - 59, [id number] - 59, [id number] - 59, [id number] - 59)
[2024-09-15 13:13] LABS: Glucose Point of Care 178 mg/dl (65-105)
[2024-09-15] MEDS: fentaNYL CITRATE INJ (*CRX) 100 MCG/2 ML VIAL 25 MCG IV PUSH ×7 (13:58→15:36)
[2024-09-15] MEDS: HYDROmorphone HCL INJ (*CRX) 1 MG/ML SYR 0.5 MG IV PUSH (16:47)
--- NOTE | 2024-09-15 17:07 | PM.IMCN ---
Assessment and Plan Assessment and plan (1) Invasive ductal carcinoma of right breast in female: Code(s): C50.911 - Malignant neoplasm of unspecified site of right female breast Status: Acute Assessment and Plan: - underwent a right total mastectomy, right sentinel lymph node biopsy, Lymphoseek injection for sentinel lymph node mapping, methylene blue injection as dual tracer for sentinel lymph node mapping, adjacent tissue transfer on 09/15 with Harish KEE - primary management through breast surgery - analgesics p.r.n. - drain management Q4H - IS Q2H - patient reports chemo has been causing her to have dizziness w/increased number of falls. currently lives at her sister's. (2) Diabetes mellitus: Qualifiers: Diabetes mellitus complication status: without complication Diabetes mellitus termite exterminator helper insulin use: with intermediate use Diabetes mellitus type: type 2 Qualified Code(s): E11.9 - Type 2 diabetes mellitus without complications; Z79.4 - intermediate designer (current) use of insulin Code(s): E11.9 - Type 2 diabetes mellitus without complications Status: Chronic Assessment and Plan: - hypoglycemia protocol - POC blood glucose ACHS - home medication: Lantus 50 units HS, lispro 5 units subQ t.i.d. - correct regimen ordered - moderate dose TIDWM - A1C 10.5% on 06/17/2024, update (3) Chronic kidney disease, stage 3b: Code(s): N18.32 - Chronic kidney disease, stage 3b Status: Chronic Assessment and Plan: - creatinine 1.2 and GFR 45 on 08/05/2024, previously 1.15 and GFR 47 on 08/01/2024 - trend renal function - trend electrolytes, correct as needed (4) HTN (hypertension): Qualifiers: Hypertension type: primary hypertension Qualified Code(s): I10 - Essential (primary) hypertension Code(s): I10 - Essential (primary) hypertension Status: Chronic Assessment and Plan: - chronic, currently 138/84 - continue home medications: amlodipine 10 mg daily, carvedilol 6.25 mg b.i.d., hydrochlorothiazide 25 mg daily - monitor Plan Patient has been getting PT 2-3 days a week at home, will continue while inpatient. PT/OT eval and treat ordered. Diet: Diabetic GI Prophylaxis: Not currently indicated DVT Prophylaxis: SCDs Lines: Peripheral Code Status: Full code HPI Date of Consult Consult date: 09/15/24 Requesting Physician: Jackie Moreira MD Primary Care Provider: Giselle Ramirez MD Consult Narrative Reason for consult: DM, CKD Narrative: 68 y/o F presents here for a right total mastectomy, lymph node biopsy, and sentinel lymph node mapping with PM of invasive ductal carcinoma of the right breast, 3 pressure crew via ox, diabetes, GERD, hypertension, and CKD. The patient presents here for surgical management of her right-sided invasive ductal carcinoma of the breast. She underwent a right total mastectomy, right sentinel lymph node biopsy, lymph seek injection of the sentinel lymph node for mapping, methylene blue injection for sentinel lymph node mapping, and adjacent tissue transfer on 09/15 with Harish KEE. Postoperatively she reports fatigued. Denies nausea, vomiting, or signfiicant. She denies any recent changes to her past medical history or home medications. Preop VS: 97.5? F, HR 78, RR 19, 130/84, and 100% on RA. Previous lab work, 08/05/2024: WBC 24.4, hemoglobin 10.9, normal coags, sodium 135, creatinine 1.2 and GFR 45, most recent UA unremarkable. Review of Systems Review of Systems: All systems reviewed & are unremarkable except as noted in HPI and below PMFSH Past Medical History Medical History Depression Mood disorder MCI (mild cognitive impairment) Memory changes Diabetic polyneuropathy Fibromyalgia Anxiety Chronic kidney disease, stage 3b Sleep apnea intolerant of CPAP per patient Invasive ductal carcinoma of right breast in female Colon polyp GERD (gastroesophageal reflux disease) Hyperlipidemia IBS (irritable bowel syndrome) Diabetes mellitus HTN (hypertension) Surgical History Surgical History History of appendectomy S/P total hysterectomy and BSO (bilateral salpingo-oophorectomy) History of tubal ligation History of cholecystectomy Family History Family History Sibling Family history of diabetes mellitus in first degree relative Patient's sister is in good health Patient's brother is in good health Father Family history of heart disease in male family member before age 55 Patient's father is in good health Other Asthma Depression Diabetes mellitus Family history of alcoholism Family history of anemia Family history of arthritis Family history of atrial fibrillation Family history of attention deficit hyperactivity disorder (ADHD) Family history of cardiovascular disease Family history of coronary artery disease Family history of malignant neoplasm of breast in first degree relative Family history of mental disorder Family history of obesity Hypertension Social History Social History Social History: Living with daughter and son in law. Smoking packs per day: 1 Smoking cigarettes per day: 20.0 Years smoked: 45 Smoking pack-years: 45.00 Smoking status: Former smoker Tobacco type: cigarettes Second hand tobacco smoke exposure: No Smoking end date: 08/13/24 Alcohol intake: never Substance use: current Substance use type: painkillers Do You Feel Safe in your Home?: No Lack of Transportation: No Lack of Food: Sometimes True Current Housing: I Have Housing Concerned About Future Housing: No Difficulty Paying Gas/Electric Bills: YES Difficulty Paying for Meds: No Currently Unemployed: No Education: High School Diploma/GED Difficulty w/ Childcare or Family Care: No Living arrangements: with family Additional living arrangements comments: DAUGHTER LIVES W/ PATIENT Occupation/Education: unemployed Gender identity (if verbalized by the patient): Female Spiritual care concerns: No Meds Home Medications and Allergies Home Medications ?Medication ?Instructions ?Recorded ?Confirmed ?Type blood-glucose meter #1 ea 03/06/23 09/03/24 Rx lancets #200 ea 03/06/23 09/03/24 Rx simvastatin 40 mg tablet (Zocor) 40 mg PO DAILY #90 tabs 06/30/23 09/03/24 Rx blood-glucose meter,continuous #1 ea 12/24/23 09/03/24 Rx (FreeStyle Triston 3 [place]) blood-glucose sensor (FreeStyle #6 ea 02/02/24 09/03/24 Rx Triston 3 Sensor device) blood sugar diagnostic (OneTouch #100 ea 03/17/24 09/03/24 Rx Verio test strips) tolnaftate 1 % topical solution 1 drp topical QHS #45 mL 03/17/24 09/03/24 Rx quetiapine 25 mg tablet 50 mg PO HS 04/09/24 09/03/24 History insulin glargine 100 unit/mL 50 unit (0.5 mL) subcut HS #45 mL 06/16/24 09/03/24 Rx subcutaneous solution (Lantus U-100 Insulin) amlodipine 10 mg tablet See Rx Instructions .Route 06/17/24 09/03/24 Rx .COMPLEX #30 ea bupropion HCl 150 mg 24 hr tablet, 150 mg PO QAM #30 tabs 06/17/24 09/03/24 Rx extended release (Wellbutrin XL) insulin lispro-aabc 100 unit/mL 5 unit (0.05 mL) subcut TID #45 mL 06/28/24 09/03/24 Rx subcutaneous pen (Lyumjev KwikPen U-100 Insulin) carvedilol 6.25 mg tablet 6.25 mg PO BID #90 tabs 07/19/24 09/03/24 Rx hydrochlorothiazide 25 mg tablet 25 mg PO QAM #90 tabs 07/19/24 09/03/24 Rx pregabalin 50 mg capsule 50 mg PO TID #90 caps 07/20/24 09/03/24 Rx ferrous sulfate 325 mg (65 mg 325 mg PO DAILY 07/29/24 09/03/24 History iron) tablet (FeroSul) food supplemt, lactose-reduced 1 ea PO BIDWMEAL 07/29/24 09/03/24 History (Ensure High Protein oral liquid) mecobalamin (vitamin B12) 500 mcg 1,000 mcg PO DAILY 07/29/24 09/03/24 History chewable tablet pen needle, diabetic 31 gauge x #300 ea 08/09/24 09/03/24 Rx 1/4 (1st Tier Unifine Pentips) potassium chloride 20 mEq 20 meq PO DAILY #30 tabs 08/24/24 09/03/24 Rx tablet,extended release hydrocodone 5 mg-acetaminophen 325 1 tablet PO PRN PRN pain 09/03/24 09/03/24 History mg tablet mupirocin 2 % topical ointment 1 applic topical TID #50 grams 09/03/24 09/03/24 Rx (Centany) Allergies Allergy/AdvReac Type Severity Reaction Status Date / Time lisinopril Allergy Severe Swelling Verified 09/15/24 17:52 of Lip/Tongue/Throat codeine Allergy Unknown Agitated Verified 09/15/24 17:52 ramipril Allergy Unknown Swelling Verified 09/15/24 17:52 of Lip/Tongue/Throat Sulfa (Sulfonamide Allergy Unknown Agitated Verified 09/15/24 17:52 Antibiotics) adhesive AdvReac Intermediate rash, Verified 09/15/24 17:52 redness at site Vital Signs Vital Signs - 24 hr 09/15/24 09:24 09/15/24 13:05 09/15/24 13:20 Temperature 97.5 F L 97.8 F Pulse Rate 78 71 73 Respiratory Rate 19 14 Blood Pressure 130/84 147/78 H 155/83 H Pulse Oximetry 100 100 100 Oxygen Delivery Room Air Simple Face Mask Simple Face Mask Oxygen Flow Rate 6 10 09/15/24 13:30 09/15/24 13:45 09/15/24 14:00 Temperature Pulse Rate 76 78 77 Respiratory Rate 14 14 13 Blood Pressure 153/80 H 155/82 H 148/90 H Pulse Oximetry 100 99 96 Oxygen Delivery Simple Face Mask Simple Face Mask Room Air Oxygen Flow Rate 8 8 09/15/24 14:15 09/15/24 14:19 09/15/24 14:30 Temperature Pulse Rate 74 71 Respiratory Rate 18 9 L Blood Pressure 131/77 133/72 Pulse Oximetry 93 91 99 Oxygen Delivery Room Air Nasal Cannula Nasal Cannula Oxygen Flow Rate 2 2 09/15/24 14:45 09/15/24 15:00 09/15/24 15:30 Temperature Pulse Rate 72 72 74 Respiratory Rate 15 11 L 20 Blood Pressure 139/76 143/75 H 153/82 H Pulse Oximetry 99 99 99 Oxygen Delivery Nasal Cannula Nasal Cannula Nasal Cannula Oxygen Flow Rate 2 2 2 09/15/24 15:45 09/15/24 16:00 09/15/24 16:29 Temperature 97.2 F L Pulse Rate 71 74 77 Respiratory Rate 13 13 13 Blood Pressure 151/87 H 163/88 H 142/92 H Pulse Oximetry 99 100 99 Oxygen Delivery Nasal Cannula Nasal Cannula Nasal Cannula Oxygen Flow Rate 2 2 2 09/15/24 16:34 09/15/24 16:56 Temperature Pulse Rate 77 75 Respiratory Rate 11 L 10 L Blood Pressure 154/86 H 138/84 Pulse Oximetry 99 100 Oxygen Delivery Nasal Cannula Nasal Cannula Oxygen Flow Rate 2 2 Exam Const: General: comfortable and no acute distress Other: , female, modestly ill-appearing, +alopecia, fatigued HENMT: Face/Nose/Sinus: Normal nares present Mouth: Yes moist mucous membranes Eyes: General: appearance normal, both eyes and all related structures Sclera: sclerae normal Pupils: Equal, round and reactive pupils present EOM: EOMs intact bilaterally Resp: Effort & Inspection: normal respiratory effort Auscultation: clear to auscultation bilaterally Cardio: Rate: regular rate Rhythm: regular rhythm Other: S1-S2 present without murmur, rub, ectopy GI: Other: Abdomen soft, nondistended, nontender. Skin: General skin exam: normal color and no rashes or lesions noted Other: Postoperative incision to right chest, dressing CDI. Drain in place, sanguinous output. mild bruising to right posterior heel and slight swelling noted to anterior foot. No point tenderness or pain with range of motion. Neuro: Speech: normal speech Motor exam (neuro): 5/5 motor strength present throughout Sensory Exam: normal sensation Other: A&O x4 Extrem: General: normal to inspection Psych: Mental Status: mental status grossly normal Affect: Sad affect present Other: Good insight and judgment, pleasant Quality VTE Prophylaxis VTE prophylaxis: mechanical ordered Hospitalist [facility] Advance Care Plan I have confirmed that the patient's Advanced Care Plan is present, code status is documented, or surrogate decision maker is listed in patient medical record.: Yes Medication Reconciliation I have utilized all available resources to obtain, update and review the patients current medications (includes all prescriptions, OTC, herbals, cannabis, and nutritional supplements).: Yes
--- NOTE | 2024-09-15 17:10 | ADMGEN ---
This patient, Angelia Baum, was admitted to Medical Room 249-01. Patient/family oriented to hospital policies and general routines including ID bracelet, bed and alarms, visiting hours, pain management, procedures, bathroom and other care routines, personal items, smoking policy, room service/diet, and visiting hours. Information on how to activate the Rapid Response Team has been discussed. Patient/Family are encouraged to report perceived risks to care and to ask questions if they do not understand what they are told or what they should do.
[2024-09-15] MEDS: PREGABALIN (*CRX) 50 MG CAPSULE PO (17:44)
[2024-09-15] MEDS: DOCUSATE SODIUM 100 MG CAPSULE PO (17:44)
[2024-09-15] MEDS: ACETAMINOPHEN 325 MG TABLET 650 MG PO (17:44)
[2024-09-15] MEDS: LACTATED RINGERS 1,000 ML 100 ML IV CONT (17:45)
[2024-09-15] MEDS: carvediloL 6.25 MG TABLET PO (20:54)
[2024-09-15] MEDS: QUEtiapine FUMARATE 25 MG TABLET 50 MG PO (20:54)
[2024-09-15] MEDS: INSULIN GLARGINE (*BKC) 100 UNITS/ML 50 UNITS SUB-Q (20:55)
[2024-09-15 22:03] LABS: Glucose Point of Care 194 mg/dl (65-105)
[2024-09-16] VITALS (8 sets, daily range): BP systolic 129–139; BP diastolic 62–71; PULSE 60–91; RESP 14–16; TEMP 36.6–37; O2SAT 94–97; BMI 27.1
--- NOTE | ~2024-09-16 | NM_ITS ---
EXAMINATION: NM sentinel node inject only DATE: 09/15/2024 12:33 INDICATION: Right breast cancer TECHNIQUE: 0.972 mCi Tc-99m filtered sulfur colloid was injected in the anterior breast near the areo la by Dr. Moreira. No images were obtained. IMPRESSION: 1. Right breast sentinel lymph node radiopharmaceutical injection by Dr. Moreira. Reviewed, dictated and finalized at location A. ETING OPERATIONS ANALYST IMPRESSION: 1. Right breast sentinel lymph node radiopharmaceutical injection by Dr. Brandon carter.
[2024-09-16] MEDS: ACETAMINOPHEN 325 MG TABLET 650 MG PO ×4 (00:05→17:31)
[2024-09-16 05:48] LABS: Basophils Absolute Auto 0.1 K/mm3 (0.0-0.1); Basophils Percent Auto 0.6 % (0.2-1.2); Eosinophils Absolute Auto 0.2 K/mm3 (0-0.3); Hematocrit 35.3 % (37.0-47.0); Hemoglobin 11.9 g/dL (12.0-15.0); Immature Granulocyte Absolute 0.03 K/mm3 (0.00-0.031); Immature Granulocyte Percent A 0.4 % (0-0.5); Lymphocytes Absolute Auto 0.71 K/mm3 (0.9-3.2); Lymphocytes Percent Auto 8.9 % (18.3-44.2); Mean Corpuscular HGB Conc 33.7 g/dl (32-36); Mean Corpuscular Hemoglobin 31.6 pg (26-34); Mean Corpuscular Volume 93.9 fl (80-100); Mean Platelet Volume 8.5 fl (7.4-10.4); Monocytes Absolute Auto 0.7 K/mm3 (0.1-0.6); Monocytes Percent Auto 9.2 % (2.6-8.5); Neutrophils Absolute Auto 6.2 K/mm3 (1.3-6.7); Neutrophils Percent Auto 77.9 % (45.5-73.1); Platelet Count Result 215 k/mm3 (150-375); Red Blood Count 3.76 M/mm3 (4.2-5.4); Red Cell Distribution Width 14.2 % (11.5-14.5)
[2024-09-16 06:05] LABS: Anion Gap 7 mmol/L (4-12); Blood Urea Nitrogen 15 mg/dL (7-17); Calcium 8.9 mg/dL (8.4-10.2); Carbon Dioxide 33 mmol/L (22-30); Chloride 98 mmol/L (98-107); Estimated Glomerular Filt Rate 57; Glucose 106 mg/dL (65-110); Potassium 2.6 mmol/L (3.4-5.0); Sodium 138 mmol/L (137-145)
[2024-09-16] MEDS: POTASSIUM CHLORIDE INJ 40 MEQ in SODIUM CHLORIDE 0.9% IV 500 ML 130 MEQ IVPB (06:44)
[2024-09-16] MEDS: HYDROcodone/acetaminophen (*CRX) 10-325 MG TABLET 1 TAB PO ×3 (06:51→18:32)
--- NOTE | 2024-09-16 07:49 | P.CONIM_ITS ---
Assessment and Plan Assessment and plan (1) Invasive ductal carcinoma of right breast in female: Code(s): C50.911 - Malignant neoplasm of unspecified site of right female breast Status: Acute Assessment and Plan: - underwent a right total mastectomy, right sentinel lymph node biopsy, Lymphoseek injection for sentinel lymph node mapping, methylene blue injection as dual tracer for sentinel lymph node mapping, adjacent tissue transfer on 09/15 with Harish KEE - primary management through breast surgery - analgesics p.r.n. - drain management Q4H - IS Q2H - patient reports chemo has been causing her to have dizziness w/increased number of falls. currently lives at her sister's. (2) Diabetes mellitus: Qualifiers: Diabetes mellitus complication status: without complication Diabetes mellitus director work insulin use: with penitentiary use Diabetes mellitus type: type 2 Qualified Code(s): E11.9 - Type 2 diabetes mellitus without complications; Z79.4 - literacy specialist (current) use of insulin Code(s): E11.9 - Type 2 diabetes mellitus without complications Status: Chronic Assessment and Plan: - hypoglycemia protocol - POC blood glucose ACHS - home medication: Lantus 50 units HS, lispro 5 units subQ t.i.d. - correct regimen ordered - moderate dose TIDWMm, lantus 50 units, AccuCheck tid-reviewed and stable - A1C 10.5% on 06/17/2024, update - bs this am 106 (3) Chronic kidney disease, stage 3b: Code(s): N18.32 - Chronic kidney disease, stage 3b Status: Chronic Assessment and Plan: - creatinine 1.2 and GFR 45 on 08/05/2024, previously 1.15 and GFR 47 on 08/01/2024 - trend renal function - trend electrolytes, correct as needed -improve today- ct/bun; 0.97/15 (4) HTN (hypertension): Qualifiers: Hypertension type: primary hypertension Qualified Code(s): I10 - Essential (primary) hypertension Code(s): I10 - Essential (primary) hypertension Status: Chronic Assessment and Plan: - chronic, currently 138/84 - continue home medications: amlodipine 10 mg daily, carvedilol 6.25 mg b.i.d., hydrochlorothiazide 25 mg daily - monitor Plan Patient has been getting PT 2-3 days a week at home, will continue while inpatient. PT/OT eval and treat ordered. Diet: Diabetic GI Prophylaxis: Not currently indicated DVT Prophylaxis: SCDs Lines: Peripheral Code Status: Full code HPI Date of Consult Consult date: 09/16/24 Requesting Physician: Jackie Moreira MD Primary Care Provider: Giselle Ramirez MD Consult Narrative Reason for consult: t2dm, ckd Narrative: 68 y/o F here for a right total mastectomy, lymph node biopsy, and sentinel lymph node mapping with PMH of invasive ductal carcinoma of the right breast, 3 pressure crew via ox, diabetes, GERD, hypertension, and CKD. The patient underwent a right total mastectomy, right sentinel lymph node biopsy, lymph seek injection of the sentinel lymph node for mapping, methylene blue injection for sentinel lymph node mapping, and adjacent tissue transfer on 09/15 with Harish KEE. She is tired but denies nausea, vomiting,chest pain. She denies any recent changes to her past medical history or home medications. VS, labs reviewed. VS stable, wbc, hg/hct reviewed and stable. Review of Systems 2 Review of Systems: All systems reviewed & are unremarkable except as noted in HPI and below PMFSH Past Medical History Medical History Depression Mood disorder MCI (mild cognitive impairment) Memory changes Diabetic polyneuropathy Fibromyalgia Anxiety Chronic kidney disease, stage 3b Sleep apnea intolerant of CPAP per patient Invasive ductal carcinoma of right breast in female Colon polyp GERD (gastroesophageal reflux disease) Hyperlipidemia IBS (irritable bowel syndrome) Diabetes mellitus HTN (hypertension) Surgical History Surgical History History of appendectomy S/P total hysterectomy and BSO (bilateral salpingo-oophorectomy) History of tubal ligation History of cholecystectomy Family History Family History Sibling Family history of diabetes mellitus in first degree relative Patient's sister is in good health Patient's brother is in good health Father Family history of heart disease in male family member before age 55 Patient's father is in good health Other Asthma Depression Diabetes mellitus Family history of alcoholism Family history of anemia Family history of arthritis Family history of atrial fibrillation Family history of attention deficit hyperactivity disorder (ADHD) Family history of cardiovascular disease Family history of coronary artery disease Family history of malignant neoplasm of breast in first degree relative Family history of mental disorder Family history of obesity Hypertension Social History Social History Social History: Living with daughter and son in law. Smoking packs per day: 1 Smoking cigarettes per day: 20.0 Years smoked: 45 Smoking pack-years: 45.00 Smoking status: Former smoker Tobacco type: cigarettes Second hand tobacco smoke exposure: No Smoking end date: 08/13/24 Alcohol intake: never Substance use: current Substance use type: painkillers Do You Feel Safe in your Home?: No Lack of Transportation: No Lack of Food: Sometimes True Current Housing: I Have Housing Concerned About Future Housing: No Difficulty Paying Gas/Electric Bills: YES Difficulty Paying for Meds: No Currently Unemployed: No Education: High School Diploma/GED Difficulty w/ Childcare or Family Care: No Living arrangements: with family Additional living arrangements comments: DAUGHTER LIVES W/ PATIENT Occupation/Education: unemployed Gender identity (if verbalized by the patient): Female Spiritual care concerns: No Meds Home Medications and Allergies Home Medications ?Medication ?Instructions ?Recorded ?Confirmed ?Type blood-glucose meter #1 ea 03/06/23 09/03/24 Rx lancets #200 ea 03/06/23 09/03/24 Rx simvastatin 40 mg tablet (Zocor) 40 mg PO DAILY #90 tabs 06/30/23 09/03/24 Rx blood-glucose meter,continuous #1 ea 12/24/23 09/03/24 Rx (FreeStyle Triston 3 Serafina) blood-glucose sensor (FreeStyle #6 ea 02/02/24 09/03/24 Rx Triston 3 Sensor device) blood sugar diagnostic (OneTouch #100 ea 03/17/24 09/03/24 Rx Verio test strips) tolnaftate 1 % topical solution 1 drp topical QHS #45 mL 03/17/24 09/03/24 Rx quetiapine 25 mg tablet 50 mg PO HS 04/09/24 09/03/24 History insulin glargine 100 unit/mL 50 unit (0.5 mL) subcut HS #45 mL 06/16/24 09/03/24 Rx subcutaneous solution (Lantus U-100 Insulin) amlodipine 10 mg tablet See Rx Instructions .Route 06/17/24 09/03/24 Rx .COMPLEX #30 ea bupropion HCl 150 mg 24 hr tablet, 150 mg PO QAM #30 tabs 06/17/24 09/03/24 Rx extended release (Wellbutrin XL) insulin lispro-aabc 100 unit/mL 5 unit (0.05 mL) subcut TID #45 mL 06/28/24 09/03/24 Rx subcutaneous pen (Lyumjev KwikPen U-100 Insulin) carvedilol 6.25 mg tablet 6.25 mg PO BID #90 tabs 07/19/24 09/03/24 Rx hydrochlorothiazide 25 mg tablet 25 mg PO QAM #90 tabs 07/19/24 09/03/24 Rx pregabalin 50 mg capsule 50 mg PO TID #90 caps 07/20/24 09/03/24 Rx ferrous sulfate 325 mg (65 mg 325 mg PO DAILY 07/29/24 09/03/24 History iron) tablet (FeroSul) food supplemt, lactose-reduced 1 ea PO BIDWMEAL 07/29/24 09/03/24 History (Ensure High Protein oral liquid) mecobalamin (vitamin B12) 500 mcg 1,000 mcg PO DAILY 07/29/24 09/03/24 History chewable tablet pen needle, diabetic 31 gauge x #300 ea 08/09/24 09/03/24 Rx 1/4 (1st Tier Unifine Pentips) potassium chloride 20 mEq 20 meq PO DAILY #30 tabs 08/24/24 09/03/24 Rx tablet,extended release hydrocodone 5 mg-acetaminophen 325 1 tablet PO PRN PRN pain 09/03/24 09/03/24 History mg tablet mupirocin 2 % topical ointment 1 applic topical TID #50 grams 09/03/24 09/03/24 Rx (Centany) Allergies Allergy/AdvReac Type Severity Reaction Status Date / Time lisinopril Allergy Severe Swelling Verified 09/15/24 17:52 of Lip/Tongue/Throat codeine Allergy Unknown Agitated Verified 09/15/24 17:52 ramipril Allergy Unknown Swelling Verified 09/15/24 17:52 of Lip/Tongue/Throat Sulfa (Sulfonamide Allergy Unknown Agitated Verified 09/15/24 17:52 Antibiotics) adhesive AdvReac Intermediate rash, Verified 09/15/24 17:52 redness at site Vital Signs Vital Signs - 24 hr 09/15/24 09:24 09/15/24 13:05 09/15/24 13:20 Temperature 97.5 F L 97.8 F Pulse Rate 78 71 73 Respiratory Rate 19 14 Blood Pressure 130/84 147/78 H 155/83 H Pulse Oximetry 100 100 100 Oxygen Delivery Room Air Simple Face Mask Simple Face Mask Oxygen Flow Rate 6 10 09/15/24 13:30 09/15/24 13:45 09/15/24 14:00 Temperature Pulse Rate 76 78 77 Respiratory Rate 14 14 13 Blood Pressure 153/80 H 155/82 H 148/90 H Pulse Oximetry 100 99 96 Oxygen Delivery Simple Face Mask Simple Face Mask Room Air Oxygen Flow Rate 8 8 09/15/24 14:15 09/15/24 14:19 09/15/24 14:30 Temperature Pulse Rate 74 71 Respiratory Rate 18 9 L Blood Pressure 131/77 133/72 Pulse Oximetry 93 91 99 Oxygen Delivery Room Air Nasal Cannula Nasal Cannula Oxygen Flow Rate 2 2 09/15/24 14:45 09/15/24 15:00 09/15/24 15:30 Temperature Pulse Rate 72 72 74 Respiratory Rate 15 11 L 20 Blood Pressure 139/76 143/75 H 153/82 H Pulse Oximetry 99 99 99 Oxygen Delivery Nasal Cannula Nasal Cannula Nasal Cannula Oxygen Flow Rate 2 2 2 09/15/24 15:45 09/15/24 16:00 09/15/24 16:29 Temperature 97.2 F L Pulse Rate 71 74 77 Respiratory Rate 13 13 13 Blood Pressure 151/87 H 163/88 H 142/92 H Pulse Oximetry 99 100 99 Oxygen Delivery Nasal Cannula Nasal Cannula Nasal Cannula Oxygen Flow Rate 2 2 2 09/15/24 16:34 09/15/24 16:56 09/15/24 17:10 Temperature 97.8 F Pulse Rate 77 75 76 Respiratory Rate 11 L 10 L 16 Blood Pressure 154/86 H 138/84 156/77 H Pulse Oximetry 99 100 100 Oxygen Delivery Nasal Cannula Nasal Cannula Oxygen Flow Rate 2 2 09/15/24 17:25 09/15/24 17:56 09/15/24 18:16 Temperature 98.3 F 98.5 F Pulse Rate 77 76 Respiratory Rate 16 16 Blood Pressure 140/70 138/74 Pulse Oximetry 98 96 Oxygen Delivery Room Air Oxygen Flow Rate 09/15/24 19:57 09/15/24 20:00 09/15/24 20:54 Temperature 98.3 F Pulse Rate 86 86 Respiratory Rate 16 Blood Pressure 143/77 H Pulse Oximetry 97 Oxygen Delivery Room Air Oxygen Flow Rate 09/16/24 00:09 09/16/24 06:08 Temperature 98.6 F 98.5 F Pulse Rate 91 81 Respiratory Rate 16 14 Blood Pressure 139/67 138/66 Pulse Oximetry 96 94 Oxygen Delivery Oxygen Flow Rate Exam 2 Narrative: drain with sanignous output. tired. +alopecia. a/o4 slight ecchymosis to posterior heel. slight swelling to top of foot. No point tenderness or pain with ROM. Const: General: comfortable and no acute distress Other: , female, modestly ill-appearing, +alopecia, fatigued HENMT: Mouth: Yes moist mucous membranes Eyes: General: appearance normal, both eyes and all related structures S clera: sclerae normal Pupils: Equal, round and reactive pupils present E OM: EOMs intact bilaterally Resp: Effort & Inspection: normal respiratory effort Auscultation: clear to auscultation bilaterally Cardio: Rate: regular rate Rhythm: regular rhythm Other: S1-S2 present without murmur, rub, ectopy GI: Other: Abdomen soft, nondistended, nontender. Skin: General skin exam: normal color and no rashes or lesions noted Other: Postoperative incision to right chest, dressing CDI. Drain in place, sanguinous output. mild bruising to right posterior heel and slight swelling noted to anterior foot. No point tenderness or pain with range of motion. Neuro: Cranial nerves: Yes Equal, round and reactive pupils present Speech: normal speech Motor exam (neuro): 5/5 motor strength present throughout S ensory Exam: normal sensation Other: A&O x4 Extrem: General: normal to inspection Psych: Mental Status: mental status grossly normal Affect: Sad affect present Other: Good insight and judgment, pleasant Results Labs 09/16/24 05:35 09/16/24 05:35 Labs: Short CBC 09/16/24 Range/Units 05:35 WBC 8.0 (4.5-10.0) K/mm3 Hgb 11.9 L (12.0-15.0) g/dL Hct 35.3 L (37.0-47.0) % Plt Count 215 (150-375) k/mm3 [facility] 09/16/24 05:35 Sodium 138 Potassium 2.6 L* Chloride 98 Carbon Dioxide 33 H BUN 15 D Creatinine 0.97 Glucose 106 Calcium 8.9 Quality VTE Prophylaxis VTE prophylaxis: mechanical ordered
[2024-09-16 08:11] LABS: Glucose Point of Care 108 mg/dl (65-105)
[2024-09-16] MEDS: buPROPion HCL XL (24 HR) 150 MG TABCR PO (08:38)
[2024-09-16] MEDS: hydroCHLOROthiazide 25 MG TABLET PO (08:38)
[2024-09-16] MEDS: POTASSIUM CHLORIDE 20 MEQ ER TABLET PO (08:38)
[2024-09-16] MEDS: carvediloL 6.25 MG TABLET PO ×2 (08:38→21:14)
[2024-09-16] MEDS: amLODIPine BESYLATE 5 MG TABLET BY MOUTH (08:39)
[2024-09-16] MEDS: PREGABALIN (*CRX) 50 MG CAPSULE PO ×3 (08:39→17:31)
[2024-09-16] MEDS: INSULIN ASPART (*BKC) 100 UNITS/ML SUB-Q ×3 (08:39→17:32)
[2024-09-16] MEDS: FERROUS SULFATE 325 MG TABLET DR PO (08:39)
[2024-09-16] MEDS: DOCUSATE SODIUM 100 MG CAPSULE PO ×2 (08:39→17:31)
[2024-09-16] MEDS: CYANOCOBALAMIN 1,000 MCG TABLET 1000 MCG PO (08:39)
[2024-09-16 11:48] LABS: Glucose Point of Care 129 mg/dl (65-105)
[2024-09-16 12:37] LABS: Magnesium 1.6 mg/dL (1.6-2.3); Potassium 3.4 mmol/L (3.4-5.0)
--- NOTE | 2024-09-16 12:39 | P.PNAN_ITS ---
Anes - Prog Note Post-Op Date/Time: 09/16/24 12:39 Cardiovascular status: normal Respiratory status: normal Airway patency: baseline Mental status: baseline Post-Op hydration status: normal Vital Signs: Last Vital Signs Temp 36.9 C 09/16/24 06:08 Pulse 82 09/16/24 08:38 Resp 14 09/16/24 06:08 BP 131/62 09/16/24 08:36 Pulse Ox 94 09/16/24 06:08 O2 Del Method Room Air 09/15/24 20:00 O2 Flow Rate 2 09/15/24 16:56 Pain Score (VAS): 1 I/O: Intake & Output 09/15/24 09/16/24 09/16/24 23:59 07:59 15:59 Intake Total 1000 1400 240 Output Total 1040 850 Balance -40 550 240 Laboratory Tests 09/16/24 05:35 09/16/24 11:51 09/15/24 09/15/24 09/16/24 13:09 19:52 05:35 WBC 8.0 RBC 3.76 L Hgb 11.9 L Hct 35.3 L MCV 93.9 MCH 31.6 MCHC 33.7 RDW 14.2 Plt Count 215 MPV 8.5 Immature Gran % (Auto) 0.4 Neut % (Auto) 77.9 H Lymph % (Auto) 8.9 L [place] % (Auto) 9.2 H Eos % (Auto) 3.0 Baso % (Auto) 0.6 Lymph # (Auto) 0.71 L [place] # (Auto) 0.7 H Eos # (Auto) 0.2 Baso # (Auto) 0.1 Abs Immat Gran (auto) 0.03 Absolute Neuts (auto) 6.2 Absolute Nucleated RBC 0.000 Nucleated RBC % 0.0 Sodium 138 Potassium 2.6 L* Chloride 98 Carbon Dioxide 33 H Anion Gap 7 BUN 15 D Creatinine 0.97 Estim Creat Clear Calc Not Reportable Estimated GFR 57 L Glucose 106 POC Capillary Glucose 178 H 194 H Calcium 8.9 Magnesium 09/16/24 09/16/24 09/16/24 08:02 11:43 11:51 WBC RBC Hgb Hct MCV MCH MCHC RDW Plt Count MPV Immature Gran % (Auto) Neut % (Auto) Lymph % (Auto) [place] % (Auto) Eos % (Auto) Baso % (Auto) Lymph # (Auto) [place] # (Auto) Eos # (Auto) Baso # (Auto) Abs Immat Gran (auto) Absolute Neuts (auto) Absolute Nucleated RBC Nucleated RBC % Sodium Potassium 3.4 Chloride Carbon Dioxide Anion Gap BUN Creatinine Estim Creat Clear Calc Estimated GFR Glucose POC Capillary Glucose 108 H 129 H Calcium Magnesium 1.6 Post-procedural complaints: none Patient Feedback: Patient satisfied with anesthetic care.
--- NOTE | 2024-09-16 12:45 | PM.PNGS ---
Progress Note: A&P Assessment and Plan (1) Invasive ductal carcinoma of right breast in female: Code(s): C50.911 - Malignant neoplasm of unspecified site of right female breast Status: Acute (2) S/P right mastectomy: Code(s): Z90.11 - Acquired absence of right breast and nipple Status: Acute Assessment and Plan: 68-year-old female status post right total mastectomy with right sentinel lymph node biopsy for right breast IDC postop day 1. Patient is doing okay from a surgical perspective, an incision is closed with no evidence of infection. The flap is viable. Patient is currently pending disposition to possible sniff versus home with home health. Plan Continue physical therapy and occupational therapy while inpatient. If patient is still in the hospital tomorrow, we will plan to start DVT prophylaxis. Pending disposition. Time Spent With Patient Time with patient: less than 15 minutes Subjective Subjective Date/Time Seen: 09/16/24 12:45 Post Op day: 1 Interval history: Reports overall ok. Only complaint is neuropathy pain in hands and feet. Denies any pain over mastectomy site. Review of Systems Review of Systems: All systems reviewed & are unremarkable except as noted in HPI and below Exam Const: General: comfortable HENMT: Mouth: Yes moist mucous membranes Neck: Neck: supple Resp: Effort & Inspection: normal respiratory effort Cardio: Rate: regular rate Skin: General skin exam: normal color Other: mastectomy flap is viable and well perfused. Incision is closed with no open wounds, bleeding or drainage noted. No erythema induration noted. Extrem: General: normal to inspection Psych: Mental Status: mental status grossly normal Objective Data Vital Signs Vital Signs: Vital Signs - 24 hr 09/15/24 13:05 09/15/24 13:20 09/15/24 13:30 Temperature 36.6 C Pulse Rate 71 73 76 Respiratory Rate 19 14 14 Blood Pressure 147/78 H 155/83 H 153/80 H Pulse Oximetry 100 100 100 Oxygen Delivery Simple Face Mask Simple Face Mask Simple Face Mask Oxygen Flow Rate 6 10 8 09/15/24 13:45 09/15/24 14:00 09/15/24 14:15 Temperature Pulse Rate 78 77 74 Respiratory Rate 14 13 18 Blood Pressure 155/82 H 148/90 H 131/77 Pulse Oximetry 99 96 93 Oxygen Delivery Simple Face Mask Room Air Room Air Oxygen Flow Rate 8 09/15/24 14:19 09/15/24 14:30 09/15/24 14:45 Temperature Pulse Rate 71 72 Respiratory Rate 9 L 15 Blood Pressure 133/72 139/76 Pulse Oximetry 91 99 99 Oxygen Delivery Nasal Cannula Nasal Cannula Nasal Cannula Oxygen Flow Rate 2 2 2 09/15/24 15:00 09/15/24 15:30 09/15/24 15:45 Temperature 36.2 C L Pulse Rate 72 74 71 Respiratory Rate 11 L 20 13 Blood Pressure 143/75 H 153/82 H 151/87 H Pulse Oximetry 99 99 99 Oxygen Delivery Nasal Cannula Nasal Cannula Nasal Cannula Oxygen Flow Rate 2 2 2 09/15/24 16:00 09/15/24 16:29 09/15/24 16:34 Temperature Pulse Rate 74 77 77 Respiratory Rate 13 13 11 L Blood Pressure 163/88 H 142/92 H 154/86 H Pulse Oximetry 100 99 99 Oxygen Delivery Nasal Cannula Nasal Cannula Nasal Cannula Oxygen Flow Rate 2 2 2 09/15/24 16:56 09/15/24 17:10 09/15/24 17:25 Temperature 36.6 C 36.8 C Pulse Rate 75 76 77 Respiratory Rate 10 L 16 16 Blood Pressure 138/84 156/77 H 140/70 Pulse Oximetry 100 100 98 Oxygen Delivery Nasal Cannula Oxygen Flow Rate 2 09/15/24 17:56 09/15/24 18:16 09/15/24 19:57 Temperature 36.9 C 36.8 C Pulse Rate 76 86 Respiratory Rate 16 16 Blood Pressure 138/74 143/77 H Pulse Oximetry 96 97 Oxygen Delivery Room Air Oxygen Flow Rate 09/15/24 20:00 09/15/24 20:54 09/16/24 00:09 Temperature 37.0 C Pulse Rate 86 91 Respiratory Rate 16 Blood Pressure 139/67 Pulse Oximetry 96 Oxygen Delivery Room Air Oxygen Flow Rate 09/16/24 06:08 09/16/24 08:36 09/16/24 08:38 Temperature 36.9 C Pulse Rate 81 82 82 Respiratory Rate 14 Blood Pressure 138/66 131/62 Pulse Oximetry 94 Oxygen Delivery Oxygen Flow Rate Intake/Output Intake/Output: Intake & Output 09/13/24 09/14/24 09/15/24 09/16/24 23:59 23:59 23:59 23:59 Intake Total 1000 1640 Output Total 1040 850 Balance -40 790 Meds/Results Medications: Active Medications Generic Name Dose Route Start Last Admin Trade Name Rickq PRN Reason Stop Dose Admin Acetaminophen 650 mg 09/15/24 18:00 09/16/24 12:37 Acetaminophen 325 Mg Tablet PO 650 mg Q6HR KAMI Administration Hydrocodone Bitart/Acetaminophen 1 tab 09/15/24 16:59 Hydrocodone/Acetaminophen (*Crx) 5-325 Mg Tablet PO Q4H PRN Pain Rated 4-6 Hydrocodone Bitart/Acetaminophen 1 tab 09/15/24 16:59 09/16/24 11:16 Hydrocodone/Acetaminophen (*Crx) 10-325 Mg Tablet PO 1 tab Q4H PRN Administration Pain Rated 7-10 Amlodipine Besylate 5 mg 09/16/24 09:00 09/16/24 08:39 Amlodipine Besylate 5 Mg Tablet BY MOUTH 5 mg DAILY KAMI Administration Bupropion HCl 150 mg 09/16/24 09:00 09/16/24 08:38 Bupropion Hcl Xl (24 Hr) 150 Mg Tabcr PO 150 mg QAM KAMI Administration Carvedilol 6.25 mg 09/15/24 21:00 09/16/24 08:38 Carvedilol 6.25 Mg Tablet PO 6.25 mg Q12HR KAMI Administration Cyanocobalamin 1,000 mcg 09/16/24 09:00 09/16/24 08:39 Cyanocobalamin 1,000 Mcg Tablet PO 1,000 mcg QAM KAMI Administration Dextrose 12.5 gm 09/15/24 17:24 Dextrose 50% 25 Gm/50 Ml Syringe IV PUSH PRN PRN Hypoglycemia Protocol Diphenhydramine HCl 25 mg 09/15/24 16:59 Diphenhydramine Hcl Inj 50 Mg/Ml Vial IV PUSH Q6H PRN Itching Docusate Sodium 100 mg 09/15/24 17:00 09/16/24 08:39 Docusate Sodium 100 Mg Capsule PO 100 mg BID KAMI Administration Ferrous Sulfate 325 mg 09/16/24 09:00 09/16/24 08:39 Ferrous Sulfate [address] PO 325 mg DAILY KAMI Administration Glucagon 1 mg 09/15/24 17:24 Glucagon For Inj 1 Mg Vial IM PRN PRN Hypoglycemia Protocol Glucose 15 gm 09/15/24 17:24 Glucose Oral Gel 15 Gm Of Glucse In 37.5 Gm Tube PO PRN PRN Hypoglycemia Protocol Hydrochlorothiazide 25 mg 09/16/24 09:00 09/16/24 08:38 Hydrochlorothiazide 25 Mg Tablet PO 25 mg QAM KAMI Administration Hydromorphone HCl 0.5 mg 09/15/24 16:44 09/15/24 16:47 Hydromorphone Hcl Inj (*Crx) 1 Mg/Ml Syr IV PUSH 0.5 mg Q2H PRN Administration Breakthrough Pain Rated 4-6 or NPO Hydromorphone HCl 1 mg 09/15/24 16:59 Hydromorphone Hcl Inj (*Crx) 1 Mg/Ml Syr IV PUSH Q2H PRN Breakthrough Pain Rated 7-10 or NPO Dextrose 1,000 mls @ 100 mls/hr 09/15/24 17:24 Dextrose 5% 1,000 Ml IVPB PRN PRN Hypoglycemia Protocol Insulin Aspart 5 units 09/16/24 08:00 09/16/24 12:39 Insulin Aspart (*Bkc) 100 Units/Ml SUB-Q 5 units TIDWM KAMI Administration Insulin Aspart 3 - 6 units 09/16/24 08:00 09/16/24 11:59 Insulin Aspart (*Bkc) 100 Units/Ml SUB-Q Not Given TIDWM KAMI Protocol Insulin Glargine 50 units 09/15/24 21:00 09/15/24 20:55 Insulin Glargine (*Bkc) 100 Units/Ml SUB-Q 50 units HS KAMI Administration Naloxone HCl 0.1 mg 09/15/24 16:59 Naloxone Hcl 0.4 Mg/Ml Vial IV PUSH Q2M PRN Opiate Reversal Ondansetron HCl 4 mg 09/15/24 16:59 Ondansetron Inj 4 Mg/2 Ml Vial IV PUSH Q4H PRN Nausea And Vomiting Potassium Chloride 20 meq 09/16/24 09:00 09/16/24 08:38 Potassium Chloride 20 Meq Er Tablet PO 20 meq DAILY KAMI Administration Pregabalin 50 mg 09/15/24 17:00 09/16/24 12:37 Pregabalin (*Crx) 50 Mg Capsule PO 50 mg TID KAMI Administration Quetiapine Fumarate 50 mg 09/15/24 21:00 09/15/24 20:54 Quetiapine Fumarate 25 Mg Tablet PO 50 mg HS KAMI Administration Tramadol HCl 50 mg 09/15/24 16:59 Tramadol Hcl (*Crx) 50 Mg Tablet PO Q4H PRN Pain Rated 1-3 Radiology Results: ITS Impressions [place] Node 09/15/24 13:38 IMPRESSION: 1. Right breast sentinel lymph node radiopharmaceutical injection by Dr. Moreira. Labs Labs: Laboratory Results - last 24 hr 09/15/24 09/15/24 09/16/24 13:09 19:52 05:35 WBC 8.0 RBC 3.76 L Hgb 11.9 L Hct 35.3 L MCV 93.9 MCH 31.6 MCHC 33.7 RDW 14.2 Plt Count 215 MPV 8.5 Immature Gran % (Auto) 0.4 Neut % (Auto) 77.9 H Lymph % (Auto) 8.9 L [place] % (Auto) 9.2 H Eos % (Auto) 3.0 Baso % (Auto) 0.6 Lymph # (Auto) 0.71 L [place] # (Auto) 0.7 H Eos # (Auto) 0.2 Baso # (Auto) 0.1 Abs Immat Gran (auto) 0.03 Absolute Neuts (auto) 6.2 Absolute Nucleated RBC 0.000 Nucleated RBC % 0.0 Sodium 138 Potassium 2.6 L* Chloride 98 Carbon Dioxide 33 H Anion Gap 7 BUN 15 D Creatinine 0.97 Estim Creat Clear Calc Not Reportable Estimated GFR 57 L Glucose 106 POC Capillary Glucose 178 H 194 H Calcium 8.9 Magnesium 09/16/24 09/16/24 09/16/24 08:02 11:43 11:51 WBC RBC Hgb Hct MCV MCH MCHC RDW Plt Count MPV Immature Gran % (Auto) Neut % (Auto) Lymph % (Auto) [place] % (Auto) Eos % (Auto) Baso % (Auto) Lymph # (Auto) [place] # (Auto) Eos # (Auto) Baso # (Auto) Abs Immat Gran (auto) Absolute Neuts (auto) Absolute Nucleated RBC Nucleated RBC % Sodium Potassium 3.4 Chloride Carbon Dioxide Anion Gap BUN Creatinine Estim Creat Clear Calc Estimated GFR Glucose POC Capillary Glucose 108 H 129 H Calcium Magnesium 1.6
[2024-09-16 16:57] LABS: Glucose Point of Care 119 mg/dl (65-105)
[2024-09-16 21:15] LABS: Glucose Point of Care 171 mg/dl (65-105)
[2024-09-16] MEDS: INSULIN GLARGINE (*BKC) 100 UNITS/ML 50 UNITS SUB-Q (21:16)
[2024-09-16] MEDS: QUEtiapine FUMARATE 25 MG TABLET 50 MG PO (21:16)
[2024-09-17] MEDS: ACETAMINOPHEN 325 MG TABLET 650 MG PO ×3 (00:24→12:35)
[2024-09-17 00:27] VITALS: BP 145/72; PULSE 82; RESP 16; TEMP 36.9; O2SAT 96
[2024-09-17] MEDS: HYDROcodone/acetaminophen (*CRX) 10-325 MG TABLET 1 TAB PO ×2 (05:40→10:13)
[2024-09-17 05:48] VITALS: BP 135/63; PULSE 80; RESP 14; TEMP 37.2; O2SAT 94
[2024-09-17 08:07] LABS: Glucose Point of Care 124 mg/dl (65-105)
--- NOTE | 2024-09-17 08:56 | P.DS_ITS ---
DS: Admitting Diagnosis Discharge Date 09/17/2024 Admitting Diagnosis Right breast invasive ductal carcinoma DS: Discharge Diagnosis Discharge Diagnosis (1) S/P right mastectomy: Code(s): Z90.11 - Acquired absence of right breast and nipple Status: Acute (2) Invasive ductal carcinoma of right breast in female: Code(s): C50.911 - Malignant neoplasm of unspecified site of right female breast Status: Acute (3) HTN (hypertension): Qualifiers: Hypertension type: primary hypertension Qualified Code(s): I10 - Essential (primary) hypertension Code(s): I10 - Essential (primary) hypertension Status: Chronic (4) Diabetes mellitus, insulin dependent (IDDM), uncontrolled: Status: Acute (5) Chronic kidney disease, stage 3b: Code(s): N18.32 - Chronic kidney disease, stage 3b Status: Chronic (6) Muscular deconditioning: Code(s): R29.898 - Other symptoms and signs involving the musculoskeletal system Status: Acute Plan 68 year old female with right breast invasive ductal carcinoma s/p right total mastectomy with right sentinel lymph node, admitted post-op for observation. DS: Summary Hospital Course Reason for hospitalization: Observation after right total mastectomy Hospital Course: Patient admitted post-op after right total mastectomy. She had severe d econditioning from previous chemotherapy, and qualified for SNF after hospital discharge. Her hospital course was unremarkable. She is tolerating diet well, no nausea/emesis. Her surgical site pain is well controlled on po pain medication. She was evaluated by PT, and will continue working with PT at SNF for severe deconditioning. She is being discharge to SNF today in stable condition. Status at Discharge Functional status at discharge: uses cane/walker Overall status at discharge: patient is progressing back to baseline Time Spent with Patient Time attestation: Total time spent providing and/or coordinating discharge services: Time spent: Less than 30 minutes Exam Const: General: comfortable and no acute distress HENMT: Mouth: Yes moist mucous membranes Eyes: General: appearance normal, both eyes and all related structures Resp: Effort & Inspection: normal respiratory effort Cardio: Rate: regular rate Skin: General skin exam: normal color Other: Mastectomy flap/incision is closed, with no open wounds, no bleeding or drainage. Skin is viable and well perfused. No ecchymosis, crepitus or fluctuance noted. Extrem: General: normal to inspection DS: Data Data Completed and Pending Pending studies at discharge: Pending at discharge 09/15/24 12:08 Surgical [PTH] Routine Surgical [PTH] Routine Surgical [PTH] Routine Labs on day of discharge: Labs from last 24 hours 09/17/24 09/16/24 09/16/24 08:03 20:45 16:54 Potassium POC Capillary Glucose 124 H 171 H 119 H Magnesium 09/16/24 09/16/24 11:51 11:43 Potassium 3.4 POC Capillary Glucose 129 H Magnesium 1.6 Discharge Plan Discharge Attending physician on discharge: Jackie Moreira Consulting providers: Makayla Mcelroy Discharging Clinician: Jackie Moreira Anticipated Discharge Date/Time: 09/17/24 08:46 Patient Disposition: SNF Activity: no shower Diet: diabetic Wound Care Instructions: follow printed instructions Discharge Instructions: Jackie Moreira MD [facility] [address] [place], [place] [id number] Post-operative Discharge Instructions Diet: As tolerated Activity: Avoid overhead movements with the affected arm/side for 2 weeks. You should walk at least 3-4 times daily, but do not exert yourself. Ok to go up and down stairs. Dressing: Wear the compression bandage or compression bra at all times, including at night while sleeping. Showering: No showers or baths while drain is in place. Ok for sponge baths. Keep surgical site, drain bulb, and drain tubing covered and away from water. Drain Care: Strip the drain tubing at least once a day, and empty drain. Record the drain output and bring record to your follow up visit. Keep drain bulb on suction at all times. Follow Up: Return to the office in 1 week for post-op follow up visit. Call the office with any questions or concerns in the meantime. If after hours, please call the amusement equipment operator to be connected to the surgeon. If you have an emergency , call 911 or go to the nearest ER. Patient Language: Northern Irish Stand Alone Forms: General Discharge Information, General Discharge Instructions Follow-up/Referrals: Jackie Moreira MD [Physician] - (in 1 week) Discharge Medications: New tramadol 50 mg Tablet 50 mg PO Q4H PRN (Reason: Pain Rated 1-3) Qty: 20 0RF hydrocodone-acetaminophen 5-325 mg Tablet 1 tablet PO Q4H PRN (Reason: Pain Rated 4-6) Qty: 20 0RF docusate sodium [Colace] 100 mg capsule 100 mg PO DAILY Qty: 14 0RF Continued (DME) FreeStyle Triston 3 [place] Misc See Rx Instructions .Route Qty: 1 0RF Rx Instructions: Check blood glucose 5 x daily tolnaftate 1 % solution 1 drp topical QHS Qty: 45 0RF Rx Instructions: rub into affected area (DME) OneTouch Verio test strips Strip See Rx Instructions .Route Qty: 100 7RF Rx Instructions: use TID to monitor glucose ferrous sulfate [FeroSul] 325 mg (65 mg iron) tablet 325 mg PO DAILY Ensure High Protein Liquid 1 ea PO BIDWMEAL mecobalamin (vitamin B12) 500 mcg tablet,chewable 1,000 mcg PO DAILY mupirocin [Centany] 2 % ointment 1 applic topical TID Qty: 50 0RF quetiapine 25 mg tablet 50 mg PO HS (DME) blood-glucose meter Misc See Rx Instructions .Route Qty: 1 0RF Rx Instructions: As directed to monitor glucose TID (DME) lancets Misc See Rx Instructions .Route Qty: 200 11RF Rx Instructions: As directed TID check glucose simvastatin [Zocor] 40 mg tablet 40 mg PO DAILY Qty: 90 3RF (DME) FreeStyle Triston 3 Sensor Device See Rx Instructions .Route Qty: 6 3RF Rx Instructions: Check blood glucose 5 x daily insulin glargine [Lantus U-100 Insulin] 100 unit/mL solution 50 unit SUB-Q HS Qty: 45 3RF bupropion HCl [Wellbutrin XL] 150 mg tablet extended release 24 hr 150 mg PO QAM Qty: 30 11RF Patient Comments: . amlodipine 10 mg tablet See Rx Instructions .ROUTE .COMPLEX Qty: 30 11RF Dose Instruction: Take 1 tablet by mouth once daily Patient Comments: . Rx Instructions: Take 1 tablet by mouth once daily Lyumjev KwikPen U-100 Insulin 100 unit/mL insulin pen 5 unit subcut TID Qty: 45 3RF hydrochlorothiazide 25 mg tablet 25 mg PO QAM Qty: 90 3RF carvedilol 6.25 mg tablet 6.25 mg PO BID Qty: 90 3RF Patient Comments: . Rx Instructions: TAKE 1 TABLET BY MOUTH EVERY 12 HOURS WITH FOOD pregabalin 50 mg capsule 50 mg PO TID Qty: 90 3RF (DME) pen needle, diabetic [1st Tier Unifine Pentips] 31 gauge x 1/4 needle See Rx Instructions .Route Qty: 300 12RF Rx Instructions: As directed TID potassium chloride 20 mEq tablet extended release 20 meq PO DAILY Qty: 30 3RF Discontinued hydrocodone-acetaminophen 5-325 mg tablet 1 tablet PO PRN PRN (Reason: pain) Date of admission: 09/16/24 16:09 Primary Care Provider: Giselle Ramirez Admitting Provider: Jackie Moreira Attending physician on admission: Jackie Moreira Condition: Stable
[2024-09-17 08:58] VITALS: PULSE 80
[2024-09-17] MEDS: hydroCHLOROthiazide 25 MG TABLET PO (08:58)
[2024-09-17] MEDS: buPROPion HCL XL (24 HR) 150 MG TABCR PO (08:58)
[2024-09-17] MEDS: FERROUS SULFATE 325 MG TABLET DR PO (08:58)
[2024-09-17] MEDS: POTASSIUM CHLORIDE 20 MEQ ER TABLET PO (08:58)
[2024-09-17] MEDS: DOCUSATE SODIUM 100 MG CAPSULE PO (08:58)
[2024-09-17] MEDS: amLODIPine BESYLATE 5 MG TABLET BY MOUTH (08:58)
[2024-09-17] MEDS: PREGABALIN (*CRX) 50 MG CAPSULE PO ×2 (08:58→12:35)
[2024-09-17] MEDS: carvediloL 6.25 MG TABLET PO (08:58)
[2024-09-17] MEDS: CYANOCOBALAMIN 1,000 MCG TABLET 1000 MCG PO (08:58)
[2024-09-17] MEDS: INSULIN ASPART (*BKC) 100 UNITS/ML SUB-Q ×3 (08:59→12:36)
--- NOTE | 2024-09-17 11:26 | P.PNIM_ITS ---
Progress Note: A&P Assessment and Plan (1) Invasive ductal carcinoma of right breast in female: Code(s): C50.911 - Malignant neoplasm of unspecified site of right female breast Status: Acute Assessment and Plan: - underwent a right total mastectomy, right sentinel lymph node biopsy, Lymphoseek injection for sentinel lymph node mapping, methylene blue injection as dual tracer for sentinel lymph node mapping, adjacent tissue transfer on 09/15 with Harish KEE - primary management through breast surgery - analgesics p.r.n. - drain management Q4H - IS Q2H - patient reports chemo has been causing her to have dizziness w/increased number of falls. currently lives at her sister's. (2) Diabetes mellitus: Qualifiers: Diabetes mellitus complication status: without complication Diabetes mellitus continuous churn buttermaker insulin use: with continuous churn buttermaker use Diabetes mellitus type: type 2 Qualified Code(s): E11.9 - Type 2 diabetes mellitus without complications; Z79.4 - rodent exterminator (current) use of insulin Code(s): E11.9 - Type 2 diabetes mellitus without complications Status: Chronic Assessment and Plan: - hypoglycemia protocol - POC blood glucose ACHS - home medication: Lantus 50 units HS, lispro 5 units subQ t.i.d. - correct regimen ordered - moderate dose TIDWMm, lantus 50 units, AccuCheck tid-reviewed and stable - A1C 10.5% on 06/17/2024, update - bs this am 106 (3) Chronic kidney disease, stage 3b: Code(s): N18.32 - Chronic kidney disease, stage 3b Status: Chronic Assessment and Plan: - creatinine 1.2 and GFR 45 on 08/05/2024, previously 1.15 and GFR 47 on 08/01/2024 - trend renal function - trend electrolytes, correct as needed - ct/bun; 0.97/15 09/16/24 (4) HTN (hypertension): Qualifiers: Hypertension type: primary hypertension Qualified Code(s): I10 - Essential (primary) hypertension Code(s): I10 - Essential (primary) hypertension Status: Chronic Assessment and Plan: - chronic, currently 138/84 - continue home medications: amlodipine 10 mg daily, carvedilol 6.25 mg b.i.d., hydrochlorothiazide 25 mg daily - monitor (5) Neuropathy: Code(s): G62.9 - Polyneuropathy, unspecified Status: Acute Assessment and Plan: chemo induced on lyrica. will icnrease to 75 mg tid at discharge. fu with pcp for ongoing management Plan Patient has been getting PT 2-3 days a week at home, will continue while inpatient. PT/OT eval and treat ordered. planned to go a short term rehab Diet: Diabetic GI Prophylaxis: Not currently indicated DVT Prophylaxis: SCDs Lines: Peripheral Code Status: Full code Subjective Date/time seen: 09/17/24 11:26 Interval history: complains of pain in her hand due to neuropathy. this is ongoing since the chemotherapy. she is planned to go to rehab. no sob, chest pain. Review of Systems Review of Systems: All systems reviewed & are unremarkable except as noted in HPI and below Exam Narrative: GENERAL: The patient is well developed, not in acute distress HEENT: Nonicteric sclerae, PERRLA, EOMI. Oropharynx clear. Moist mucous mem branes. Conjunctivae appear well perfused. CHEST: Chest wall wrapped with dressing HEART: Regular rate and rhythm without murmur, rubs, or gallops LUNGS: Clear to auscultation bilaterally. no respiratory distress ABDOMEN: Soft, positive bowel sounds, non-tender, no organomegaly. SKIN: No rash, no excessive bruising, petechiae, or purpura. NEUROLOGIC: Cranial nerves II-XII intact, alert and oriented x 3, no gross motor deficits EXTREMITIES: no edema, cyanosis or clubbing Objective Data Vital Signs Vital Signs: Vital Signs - 24 hr 09/16/24 14:00 09/16/24 20:00 09/16/24 20:40 Temperature 97.8 F 98.5 F Pulse Rate 81 60 60 Respiratory Rate 15 16 16 Blood Pressure 131/70 129/71 Pulse Oximetry 97 96 96 Oxygen Delivery Room Air 09/16/24 21:14 09/17/24 00:27 09/17/24 05:48 Temperature 98.4 F 98.9 F Pulse Rate 60 82 80 Respiratory Rate 16 14 Blood Pressure 145/72 H 135/63 Pulse Oximetry 96 94 Oxygen Delivery 09/17/24 08:00 09/17/24 08:58 Temperature Pulse Rate 80 Respiratory Rate Blood Pressure Pulse Oximetry Oxygen Delivery Room Air Intake/Output Intake/Output: Intake & Output 09/14/24 09/15/24 09/16/2407/25 23:59 23:59 23:59 23:59 Intake Total 1000 2238 240 Output Total 1042 5565 10 Balance -40 353 230 Meds/Results Medications: Active Medications Generic Name Dose Route Start Last Admin Trade Name Freq PRN Reason Stop Dose Admin Acetaminophen 650 mg 09/15/24 18:00 09/17/24 05:32 Acetaminophen 325 Mg Tablet PO 650 mg Q6HR KAMI Administration Hydrocodone Bitart/Acetaminophen 1 tab 09/15/24 16:59 Hydrocodone/Acetaminophen (*Crx) 5-325 Mg Tablet PO Q4H PRN Pain Rated 4-6 Hydrocodone Bitart/Acetaminophen 1 tab 09/15/24 16:59 09/17/24 10:13 Hydrocodone/Acetaminophen (*Crx) 10-325 Mg Tablet PO 1 tab Q4H PRN Administration Pain Rated 7-10 Amlodipine Besylate 5 mg 09/16/24 09:00 09/17/24 08:58 Amlodipine Besylate 5 Mg Tablet BY MOUTH 5 mg DAILY KAMI Administration Bupropion HCl 150 mg 09/16/24 09:00 09/17/24 08:58 Bupropion Hcl Xl (24 Hr) 150 Mg Tabcr PO 150 mg QAM KAMI Administration Carvedilol 6.25 mg 09/15/24 21:00 09/17/24 08:58 Carvedilol 6.25 Mg Tablet PO 6.25 mg Q12HR KAMI Administration Cyanocobalamin 1,000 mcg 09/16/24 09:00 09/17/24 08:58 Cyanocobalamin 1,000 Mcg Tablet PO 1,000 mcg QAM KAMI Administration Dextrose 12.5 gm 09/15/24 17:24 Dextrose 50% 25 Gm/50 Ml Syringe IV PUSH PRN PRN Hypoglycemia Protocol Diphenhydramine HCl 25 mg 09/15/24 16:59 Diphenhydramine Hcl Inj 50 Mg/Ml Vial IV PUSH Q6H PRN Itching Docusate Sodium 100 mg 09/15/24 17:00 09/17/24 08:58 Docusate Sodium 100 Mg Capsule PO 100 mg BID KAMI Administration Ferrous Sulfate 325 mg 09/16/24 09:00 09/17/24 08:58 Ferrous Sulfate [address] PO 325 mg DAILY KAMI Administration Glucagon 1 mg 09/15/24 17:24 Glucagon For Inj 1 Mg Vial IM PRN PRN Hypoglycemia Protocol Glucose 15 gm 09/15/24 17:24 Glucose Oral Gel 15 Gm Of Glucse In 37.5 Gm Tube PO PRN PRN Hypoglycemia Protocol Hydrochlorothiazide 25 mg 09/16/24 09:00 09/17/24 08:58 Hydrochlorothiazide 25 Mg Tablet PO 25 mg QAM KAMI Administration Hydromorphone HCl 0.5 mg 09/15/24 16:44 09/15/24 16:47 Hydromorphone Hcl Inj (*Crx) 1 Mg/Ml Syr IV PUSH 0.5 mg Q2H PRN Administration Breakthrough Pain Rated 4-6 or NPO Hydromorphone HCl 1 mg 09/15/24 16:59 Hydromorphone Hcl Inj (*Crx) 1 Mg/Ml Syr IV PUSH Q2H PRN Breakthrough Pain Rated 7-10 or NPO Dextrose 1,000 mls @ 100 mls/hr 09/15/24 17:24 Dextrose 5% 1,000 Ml IVPB PRN PRN Hypoglycemia Protocol Insulin Aspart 5 units 09/16/24 08:00 09/17/24 08:59 Insulin Aspart (*Bkc) 100 Units/Ml SUB-Q 5 units TIDWM KAMI Administration Insulin Aspart 3 - 6 units 09/16/24 08:00 09/17/24 08:58 Insulin Aspart (*Bkc) 100 Units/Ml SUB-Q Not Given TIDWM [facility] Protocol Insulin Glargine 50 units 09/15/24 21:00 09/16/24 21:16 Insulin Glargine (*Bkc) 100 Units/Ml SUB-Q 50 units HS KAMI Administration Naloxone HCl 0.1 mg 09/15/24 16:59 Naloxone Hcl 0.4 Mg/Ml Vial IV PUSH Q2M PRN Opiate Reversal Ondansetron HCl 4 mg 09/15/24 16:59 Ondansetron Inj 4 Mg/2 Ml Vial IV PUSH Q4H PRN Nausea And Vomiting Potassium Chloride 20 meq 09/16/24 09:00 09/17/24 08:58 Potassium Chloride 20 Meq Er Tablet PO 20 meq DAILY KAMI Administration Pregabalin 50 mg 09/15/24 17:00 09/17/24 08:58 Pregabalin (*Crx) 50 Mg Capsule PO 50 mg TID KAMI Administration Quetiapine Fumarate 50 mg 09/15/24 21:00 09/16/24 21:16 Quetiapine Fumarate 25 Mg Tablet PO 50 mg HS KAMI Administration Tramadol HCl 50 mg 09/15/24 16:59 Tramadol Hcl (*Crx) 50 Mg Tablet PO Q4H PRN Pain Rated 1-3 Radiology Results: ITS Impressions [place] Node 09/15/24 13:38 IMPRESSION: 1. Right breast sentinel lymph node radiopharmaceutical injection by Dr. Moreira. Labs Labs: Laboratory Results - last 24 hr 09/16/24 09/16/24 09/16/24 11:43 11:51 16:54 Potassium 3.4 POC Capillary Glucose 129 H 119 H Magnesium 1.6 09/16/24 09/17/24 20:45 08:03 Potassium POC Capillary Glucose 171 H 124 H Magnesium
[2024-09-17 11:44] LABS: SARS-CoV-2 RNA PCR Negative (Negative)
[2024-09-17 12:01] LABS: Glucose Point of Care 213 mg/dl (65-105)
[2024-09-17 13:00] VITALS: BP 126/73; PULSE 84; RESP 18; TEMP 36.5; O2SAT 97
== END 2024-09-17 13:44 ==
LOC: ANHSURGERY 16:11 → ANH2MED 16:11
PROVIDERS: Physician Assistant; Student in an Organized Health Care Education/Training Program; Admitting Provider Surgery; PCP Family Medicine; Visit Provider Surgery
PROC: (CPT 19303; principal; 2024-09-15 10:30)
DX: C50.911 Malignant neoplasm of unspecified site of right female breast (principal); Z17.0 Estrogen receptor positive status [ER+]; Z17.21 Progesterone receptor positive status; Z17.32 Human epidermal growth factor receptor 2 negative status; R29.898 Other symptoms and signs involving the musculoskeletal system; E11.42 Type 2 diabetes mellitus with diabetic polyneuropathy; E11.22 Type 2 diabetes mellitus with diabetic chronic kidney disease; I12.9 Hypertensive chronic kidney disease with stage 1 through stage 4 chronic kidney disease, or unspecified chronic kidney disease; N18.32 Chronic kidney disease, stage 3b; K21.9 Gastro-esophageal reflux disease without esophagitis; K58.9 Irritable bowel syndrome, unspecified; F39 Unspecified mood [affective] disorder; Z11.52 Encounter for screening for COVID-19; Z87.891 Personal history of nicotine dependence; Z79.4 Long term (current) use of insulin; Z79.899 Other long term (current) drug therapy; Z88.2 Allergy status to sulfonamides; Z88.8 Allergy status to other drugs, medicaments and biological substances; Z90.710 Acquired absence of both cervix and uterus; Z90.79 Acquired absence of other genital organ(s); Z90.721 Acquired absence of ovaries, unilateral; Z98.51 Tubal ligation status; Z90.49 Acquired absence of other specified parts of digestive tract
CPT/HCPCS: 19303; 38525; 38900; 14301; 14302; 36415; 38792; 80048; 82948; 83735; 84132; 85025; 87635; 88305; 88307; 88342; 97163; 97166; A9270; A9520; G0378; J0690; J1171; J1815; J2003; J2250; J2405; J2704; J3010; J7040; J7120

== ENCOUNTER 2024-10-04 12:53 | Observation (INO) | payer MEDICARE, SELFPAY ==
--- NOTE | ~2024-10-04 | CT_ITS ---
CT brain wo con Ordering provider: John Loaiza MD History: 69 years Female with . fall, hit head . Comparison: September 18, 2016 Technique: CT of the head without contrast. Radiation reduction technique utilized.The dose-length product was 605.33 mGy-cm. FINDINGS: BRAIN PARENCHYMA AND CSF SPACES: Moderate leukoaraiosis and diffuse cortical atrophy. Moderate athero matous disease. 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 N o midline shift, mass effect or hemorrhage. The brain parenchyma and CSF spaces are otherwise normal . VISUALIZED PARANASAL SINUSES: Left ethmoid sinus disease. Otherwise, Well aerated. MASTOIDS: Well aerated. BONES: The bones appear intact. SOFT TISSUES: Visualized nasopharynx is normal. Superficial soft tissues are normal. IMPRESSION: No acute intracranial findings. Reviewed, dictated and finalized at location A.
--- NOTE | ~2024-10-04 | CT_ITS ---
EXAMINATION: CT cervical spine wo con DATE: 10/04/2024 14:30 INDICATION: Neck injury. Fall. TECHNIQUE: Computed tomography (CT) of the cervical spine was performed without intravenous contrast. Automated exposure control and iterative reconstruction technique were employed. The dose-length pro duct was 373.45 mGy-cm. COMPARISON: None FINDINGS: Bone alignment is normal. Vertebral body heights are normal. There are changes of anterior fusion procedure from C5 to C7 with healed interbody bone graft and anterior plate and screws. Verteb ral body heights are normal. There is mildly decreased disc height at C4-C5. The following disc level s are specifically discussed: C2-C3: There is no uncovertebral joint osteoarthritis. There is severe right and moderate left facet joint osteoarthritis. There is no neural foraminal stenosis. There is no central canal stenosis. C3-C4: There is mild bilateral uncovertebral joint osteoarthritis. There is mild right and moderate l eft facet joint osteoarthritis. There is mild left neural foraminal stenosis. There is mild central c anal stenosis. C4-C5: There is no uncovertebral joint osteoarthritis. There is mild right and moderate left facet amor int osteoarthritis. There is mild left neural foraminal stenosis. There is mild central canal stenosi s. C5-C6: There is mild right and moderate left uncovertebral joint hypertrophy. There is mild bilateral facet joint hypertrophy. There is mild left neural foraminal stenosis. There is mild central canal s tenosis. C6-C7: There is mild bilateral uncovertebral joint hypertrophy. There is moderate and severe left fac et joint osteoarthritis. There is mild bilateral neural foraminal stenosis. There is mild central can al stenosis. C7-T1: There is no uncovertebral joint osteoarthritis. There is severe bilateral facet joint osteoart hritis. There is no neural foraminal stenosis. There is no central canal stenosis. IMPRESSION: 1. No fracture. 2. Mild cervical spondylosis. 3. Anterior fusion procedure from C5 to C7. Reviewed, dictated and finalized at location A.
[2024-10-04 13:03] VITALS: BP 123/72; PULSE 81; RESP 20; TEMP 36.6; O2SAT 99
--- OUTSIDE RECORDS SUMMARY | 2024-10-04 14:38 | XMS_ITS | Clinical Summary ---
Author Organization [facility] Address [address] [place] [address] Care Team Providers Care Recruitment Internship Name Role Phone Giselle Ramirez MD Primary Care Provider [phone] Source Comments [facility],non-owned Affiliates and Associated Physician Practices is amultiple site organization consisting of ambulatory clinics and hospital sitesin [place], [place], [place] and [place]. This disclosure is being madepursuant to the Care Everywhere program and may not contain all information available regarding this patient. Last updated 18.[facility] Social History Tobacco Use Types Packs/Day Years [...] to complete this topic MENINGOCOCCAL (Group B) VACC INE SHARED DECISION-MAKING Aged Out No longer eligibl e based on patient's age to complete this topic MENINGOCOCCAL GROUPS A/C/Y/W VACCINE Aged Out No longer eligible b ased on patient's age to complete this topic Procedures Procedure Name Priority Date/Time Associated Diagnosis Comments HEPATITIS C ANTIBODY Routine 11/20/2010 11:20 AM CDT from Last 3 Months or Most Recently Relevant to Health Maintenance Results * HEPATITIS C ANTIBODY (11/20/2010 11:20 AM CDT) Hepatitis C Antibody NEGATIVE NEGATIVE [facility] Comment: Anti-HCV screen indicates no serologic evidence of past or current infection with Hepatitis C Virus. 11/20/2010 11:2 0 AM CDT 11/20/2010 12:33 PM CDT Historical Provider LAB - CHEMISTRY O RDERABLES [address] [phone] from Last 3 Months or Most Recently Relevant to Health Maintenance Care Teams Recruitment Internship Relationship Specialty Start Date End Date Giselle Ramirez MD [address] [place] [address] PCP - General 08/14/20
--- OUTSIDE RECORDS SUMMARY | 2024-10-04 14:38 | XMS_ITS | Clinical Summary ---
Author Organization [facility] Address [address] [place] [address] Care Team Providers Care Game Farm Helper Name Role Phone Giselle Ramirez MD Primary Care Provider [phone] Allergies Active Allergy Reactions Criticality Noted Date [...] 24 Active AMLODIPINE BESYLATE, BULK, MISC by Misc.(Non-Drug; Combo Route) route. Besylate 10 mg tablet [...] Max Daily Amount: 4 Tablets 60 Tablet 08/30/19 25 025 Discontin ued(Reord er) Active Problems No known active problems Encounters Date Type Department Care Team Description 09/29/2024 External Device Data STL ABSTRACTION Provider, Abstract 09/27/2024 Orders Only [facility] H[facility]ology - [place] [address] [place] [id number] Julius Robledo MD Malignant neoplasm of upper-outer quadrant of right breast in female, estrogen receptor positive (CMS/HCC) 09/18/2024 External Device Data STL ABSTRACTION Provider, Abstract 09/17/2024 External Device Data [facility] ABSTRACTION Provider, Abstract 09/15/2024 External Device Data [facility] ABSTRACTION Provider, Abstract 09/14/2024 Refill [facility] - [place] [address] Julius Robledo MD Malignant neoplasm of upper-outer quadrant of right breast in female, estrogen receptor positive (CMS/HCC) 09/13/2024 Orders Only [facility]ology - [place] [address] [place] [address] Julius Robledo MD Malignant neoplasm of upper-outer quadrant of right breast in female, estrogen receptor positive (CMS/HCC) 09/01/2024 External Device Data STL ABSTRACTION Provider, Abstract 09/01/2024 External Device Data ST[facility] ABSTRACTION Provider, Abstract 08/30/2024 Refill [facility]ology - [place] [address] [place] [address] Julius Robledo MD Malignant neoplasm of upper-outer quadrant of right breast in female, estrogen receptor positive (CMS/HCC) 08/30/2024 Orders Only [facility]ology - [place] [address] [place] [address] Julius Robledo MD Malignant neoplasm of upper-outer quadrant of right breast in female, estrogen receptor positive (CMS/HCC) 08/16/2024 Orders Only [facility]ology - [place] [address] [place] [address] Julius Robledo MD Malignant neoplasm of upper-outer quadrant of right breast in female, estrogen receptor positive (CMS/HCC) 08/09/2024 Refill [facility] - [place] [address] [place] [address] Julius Robledo MD Malignant neoplasm of upper-outer quadrant of right breast in female, estrogen receptor positive (CMS/HCC) 08/05/2024 9:30 AM ANALYTICAL CHEMIST Office Visit [facility] - [place] [address] [place] [address] Julius Robledo MD Malignant neoplasm of upper-outer quadrant of right breast in female, estrogen receptor positive (CMS/HCC) (Primary Dx) 08/05/2024 Orders Only [facility]ology - [place] [address] [place] [address] Julius Robledo MD 08/04/2024 External Device Data STL ABSTRACTION Provider, Abstract 08/02/2024 Orders Only [facility]ology - [place] [address] [place] [address] Julius Robledo MD Malignant neoplasm of upper-outer quadrant of right breast in female, estrogen receptor positive (CMS/HCC) 07/26/2024 Orders Only [facility]ology - [place] [address] [place] [address] Scanning, Provider 07/23/2024 Refill [facility] - [place] [address] [place] [address] Julius Robledo MD 07/19/2024 Orders Only [facility]ology - [place] [address] [place] [address] Julius Robledo MD Malignant neoplasm of upper-outer quadrant of right breast in female, estrogen receptor positive (CMS/HCC) 07/15/2024 Orders Only [facility]ology - [place] [address] [place] [address] Julius Robledo MD 07/13/2024 Refill [facility]ology - [place] [address] [place] [address] Amanda Wise MD Malignant neoplasm of upper-outer quadrant of right breast in female, estrogen receptor positive (CMS/HCC) (Primary Dx) 07/09/2024 Orders Only [facility] Hematology - [place] [address] [place] [address] Jluius Robledo MD from Last 3 Months Family [...] Comments Blood Pressure 134/82 08/05/2024 9:19 AM ANALYTICAL CHEMIST Pulse 87 08/05/2024 9:19 AM ANALYTICAL CHEMIST Temperature 35.8 C (96.5 F) 08/05/2024 9:19 AM ANALYTICAL CHEMIST Respiratory Rate 18 08/05/2024 9:19 AM ANALYTICAL CHEMIST Oxygen Saturation 97% 08/05/2024 9:19 AM ANALYTICAL CHEMIST Inhaled Oxygen Concentration - - Weight 64 kg (141 lb) 08/05/2024 9:19 AM ANALYTICAL CHEMIST Height 149.9 cm (4' 11 ) 03/04/2024 [...] 2022 INFLUENZA VACCINE (#1) 2024 Medicare Advantage (CT) Prev entative Visit/Annual Wellness Visit 07/14/2024 Procedures Procedure Name Priority Date/Time Associated Diagnosis Comments BASIC METABOLIC PANEL Routine 08/05/2024 3:51 PM ANALYTICAL CHEMIST COMPREHENSIVE METABOLIC PANEL Routine 08/05/2024 12:07 PM ANALYTICAL CHEMIST URINE CULTURE Routine 07/22/2024 3:29 PM ANALYTICAL CHEMIST COMPREHENSIVE METABOLIC PANEL Routine 07/22/2024 1:28 PM ANALYTICAL CHEMIST BASIC METABOLIC PANEL Routine 07/22/2024 1:18 PM ANALYTICAL CHEMIST CBC WITH AUTODIFFERENTIAL Routine 2024 1:09 PM ANALYTICAL CHEMIST URINE CULTURE Routine 07/22/2024 11:49 AM ANALYTICAL CHEMIST BASIC METABOLIC PANEL Routine 07/08/2024 3:06 PM ANALYTICAL CHEMIST CBC WITH DIFFERENTIAL Routine 07/08/2024 2:58 PM ANALYTICAL CHEMIST COMPREHENSIVE METABOLIC PANEL Routine 07/08/2024 1:47 PM ANALYTICAL CHEMIST from Last 3 Months Results * BASIC METABOLIC PANEL (08/05/2024 3:51 PM ANALYTICAL CHEMIST) Only the most recent of3 resultswithin the time period is included. Blood Julius Robledo MD CHEMISTRY ORDERABLES Final Resu lt * COMPREHENSIVE METABOLIC PANEL (08/05/2024 12:07 PM ANALYTICAL CHEMIST) Only the most recent of3 resultswithin the time period is included. Blood us Julius Robledo MD CHEMISTRY ORDERABLES Final Resu lt * URINE CULTURE (07/22/2024 3:29 PM ANALYTICAL CHEMIST) Only the most recent of2 resultswithin the time period is included. Urine Result Krissy Robledo MD MICROBIOLOGY - GENERAL ORDERABL ES Final Result * CBC WITH AUTODIFFERENTIAL (07/22/2024 1:09 PM ANALYTICAL CHEMIST) Blood Result Krissy Robledo MD HEMATOLOGY ORDERABLES Final Res ult * CBC WITH DIFFERENTIAL (07/08/2024 2:58 PM ANALYTICAL CHEMIST) Blood Result Krissy Robledo MD HEMATOLOGY ORDERABLES Final Res ult from Last 3 Months Insurance Care Teams Game Farm Helper Relationship Specialty Start Date End Date Giselle Ramirez MD [address] [place] [phone] PCP - General Family Practice 05/04/24
--- OUTSIDE RECORDS SUMMARY | 2024-10-04 14:38 | XMS_ITS | CONTINUITY OF CARE DOCUMENT ---
Author Name joselo, joselo Address Unknown Organization [facility] Address [address] [place] [address] Phone [phone] Care Team Providers Care Staff Interpreter Name Role Phone Iftikhar KEE, Nirav Unavailable [phone] MAGEN HERZOG MD Unavailable MAGEN HERZOG MD Unavailable PROBLEMS Condition Status Date Provider Notes Hypertension active Albania Lopes MD Family history of CAD active Albania garnt MD Tobacco abuse active Albania Lopes MD [...] In-person encounter Office Visit Nirav Buitrago MD [facility] Shortness of breath--stress nuc nl, echo ef nl, reast cancer 02/10 - 02/10 In-person encounter Office Visit Nirav Buitrago MD [facility] Leg pain, bilateralHypokalemia 3.0 1PVC's rareCarotid bruits, bilateral 09/01 - 09/01 In-person encounter Office Visit Albania Lopes MD [facility] HyperlipidemiaRenal insufficiency 08/11 - 08/11 In-person encounter Office Visit Albania Lopes MD [facility] Shortness of breath--stress nuc nl, echo ef nl, 02/2024 - 11/01 In-person encounter Office Visit Albania Lopes MD [facility] HypertensionShortness of breath--stress nuc nl, echo ef nl, 02/2024ObesityDiabetes mellitus, type 2 09/27 - 10/03 In-person encounter Office Visit Albania Lopes MD [facility] HypertensionFamily history of CADTobacco abuseFatigueHeadachesFibromyalgiaPalpitations VITAL [...] Benedict leone pulse rate 71 /min Sobia Crhisty mehtaer weight E&M 151 [lb_av] Sobia Christy [...] 3.5-5.2 0 sodium, serum 141 mmol/L [employer] [phone]/02/2 0 urea nitrogen/creatinine ratio, serum 9 [employer] [...] High 0 platelet count 311 X10E3/UL [employer] 497-533 3448/01/3 0 red blood cell distribution width 14.2 [...] Low 0 sodium, serum 138 mmol/L [employer] [phone]/01/3 0 urea nitrogen/creatinine ratio, serum 12 [employer] [...] revi ewed - no changes required [facility] social history E&M Smoking Histo ry: P atient currently smokes every day. P atient has been counseled to quit. [facility] smoking/tobacco cess ation, patient education and counseling yes [facility] number of years as a smoker 30 [...] Payer name Policy type / Coverage type [place] [employer] [facility] Other [facility] Other [facility] Other [facility] COMPLETE [facility]ARE [id number] (PPO C-SNP) Commercial insurance company [id number] ADVANCE DIRECTIVES Name Date DISCUSSED - NO [...] U-100 Insulin 100 Unit/ml Insulin Pen (Insulin lispro-[facility]) ..... 5 units three times a day Aspirin 81 Mg Tablet,delayed Release (dr/ec) (Aspirin) ..... 1 tablet by mouth once a day [facility]: H er updated medication list for this problem includes: Simvastatin 40 Mg Tablet (Simvastatin) ..... 1 pill daily [facility] Cardiology: H er updated medication list for this problem includes: Hydrochlorothiazide 25 Mg Tablet (Hydrochlorothiazide) Carvedilol 6.25 Mg Tablet (Carvedilol) ..... Take 1 twice a day Amlodipine 10 Mg Tablet (Amlodipine) ..... 1 tablet once a day Aspirin 81 Mg Tablet,delayed Release (dr/ec) (Aspirin) ..... 1 tablet by mouth once a day [facility] Cardiology: B P today: 110/72 P rior [...] 1 tablet by mouth once a day [facility]: H er updated medication list for this problem includes: Simvastatin 40 Mg Tablet (Simvastatin) ..... 1 pill daily [facility] Card[facility]: B P today: 130/94 P rior [...] 1 tablet by [facility] a day [facility]: O rders: C omplete Echo (36812) S tress Regadenoson (CPT-92089) H gb: 14.5 (08/12/2020) HCT: 42.2 (08/12/2020) [...] mouth once a day Truuday Le Cardiology [facility] Electrophysiology Fo llow up 12: O rders: C arotid Duplex Bilateral (CPT-15794) 9 9212 Minor 10-19min (CPT-50638) Eleazar Kimbrough Electrophysiology Fo llow up 12: H er updated medication list for this problem includes: Atorvastatin Calcium 40 Mg Oral Tablet (Atorvastatin calcium) ..... One tab daily Orders: L IPID PANEL (8771) M AGNESIUM (622) Eleazar Kimbrough Electrophysiology Fo [...] O rders: C OMPREHENSIVE METABOLIC PANEL, W/EGFR (86157) K idney Ultrasound (CPT-85831) Eleazar Kimbrough Electrophysiology Fo llow up 12:Rhythm: [...] Eleazar Kimbrough Electrophysiology Follow up 12 T [facility] Luis E Electrophysiology 05 : O rders: F VC - 97491 (87069) F - 95756 (47149) D O - 33958 (12677) The following medications were removed from the [...] Oral Tablet (Hydrochlorothiazide) ..... One tab daily [facility] Electrophysiology 05 : p follows p keenan does note some problems affording lyrica for neuropathy H er updated medication list for this problem includes: Aspirin Adult Low Dose 81 Mg Oral Tablet Delayed Release (Aspirin) ..... One tab by mouth daily Metformin Hcl 500 Mg Oral Tablet (Metformin hcl) ..... 2 in am, 2 [facility] pm [facility] 05 : B P [...] 05 : O rders: L IPID PANEL (5810) C OMPREHENSIVE METABOLIC PANEL, W/EGFR (63547) C BC (H/H, RBC, INDICES, WBC, PLT) (1759) T SH, free T4, total T3 (2044) C omplete Echo (CPT-11875) E KG (CPT-29236) M onitor - Telemetry (Mobile Cardiac) (CPT-08852) The following medications were removed from the [...] SMOKING CESSATION TECHNIQUES DISCUSSED. Orders: F - 75278 (31039) F - 72047 (29693) D O - 38819 (32269) [facility] Cardiology:Orders: M obile Cardiac Tele (CPT-50450) Carlos Akbar Cardiology:BP today: 163/89 Her updated [...] tab daily Orders: R enal Artery Duplex (CPT-89641) C omplete Echo (CPT-98083) W ill do pharmacogenetic testing to assess patient's response to medications. Carlos Webber Date Name Stress Regadenoson Complete Echo Carotid Duplex Bilat eral MAGNESIUM Carotid Duplex Bilat eral Kidney Ultrasound LIPID PANEL COMPREHENSIVE METABO LIC PANEL, W/EGFR Monitor - Telemetry (Mobile Cardiac) DLCO - 81051 FRC - 93098 FVC - 22948 Complete Echo TSH, free T4, total T3 CBC (H/H, RBC, INDIC ES, WBC, PLT) COMPREHENSIVE METABO LIC PANEL, W/EGFR LIPID PANEL HEMOGLOBIN A1c Mobile Cardiac Tele DLCO - 06779 FRC - 92530 FVC - 48794 Renal Artery Duplex Complete Echo HISTORY OF [...] chacon MD completed FVC / MVV - 06721 Albania grant MD completed FRC - 84862 Albania chacon MD completed SpO2 w/o 6min walk/titration Albania Lopes MD completed DLCO - 52820 Albania chacon MD completed EKG Albania chacon MD completed SNOMED-CT: 85909578 Physical Exam, Performed: Pulse Exam of Foot Albaina Lopes MD completed SNOMED-CT: 898128780 Smoking Cessation Counseling Albania Lopes MD completed EKG Albania chacon MD completed SNOMED-CT: 601679466841166 Current Medications Documented Albania Lopes MD completed FVC / MVV - 69444 Albania grant MD completed FRC - 04257 Albania chacon MD completed SpO2 - 35142 Albania chacon MD completed DLCO - 86577 Albania chacon MD completed Event Monitor Carey Farrar completed SNOMED-CT: 717450360 Smoking Cessation Counseling Albania Lopes MD completed EKG Albania chacon MD completed SNOMED-CT: 129148541762904 Current Medications Documented Albania Lopes MD completed
--- NOTE | 2024-10-04 15:39 | ED_ITS ---
HPI - General Adult General Chief complaint: Unspecified Stated complaint: they kicked her out of her NH we need a new one Time Seen by Provider: 10/04/24 14:28 History of Present Illness HPI narrative: Pt was just discharged from [facility] after rehab stay after her mastectomy. Pt was getting in her sister's car and her arms were too weak to hole her and she fell striking her head on the car door frame. Pt denies LOC. Pt has used up her insurance for rehab but says she is too weak for family to care for her. [facility] told her to come to ER. Related Data Home Medications ?Medication ?Instructions ?Recorded ?Confirmed ?Last Taken ?Type ferrous sulfate 325 mg (65 mg 325 mg PO DAILY 07/29/24 10/04/24 Unknown History iron) tablet (FeroSul) food supplemt, lactose-reduced 1 ea PO BIDWMEAL 07/29/24 09/03/24 Unknown History (Ensure High Protein oral liquid) mecobalamin (vitamin B12) 500 mcg 1,000 mcg PO DAILY 07/29/24 10/04/24 Unknown History chewable tablet polyethylene glycol 3350 17 17 g PO DAILY 10/04/24 10/04/24 Unknown History gram/dose oral powder (ClearLax) pregabalin 75 mg capsule 100 mg PO TID 10/04/24 10/04/24 Unknown History Allergies Allergy/AdvReac Type Severity Reaction Status Date / Time lisinopril Allergy Severe Swelling Verified 10/04/24 15:17 of Lip/Tongue/Throat codeine Allergy Unknown Agitated Verified 10/04/24 15:17 ramipril Allergy Unknown Swelling Verified 10/04/24 15:17 of Lip/Tongue/Throat Sulfa (Sulfonamide Allergy Unknown Agitated Verified 10/04/24 15:17 Antibiotics) adhesive AdvReac Intermediate rash, Verified 10/04/24 15:17 redness at site Review of Systems Review of Systems: All systems reviewed & are unremarkable except as noted in HPI and below PMFSH Past Medical History Medical History Depression Mood disorder MCI (mild cognitive impairment) Memory changes Diabetic polyneuropathy Fibromyalgia Anxiety Chronic kidney disease, stage 3b Sleep apnea intolerant of CPAP per patient Invasive ductal carcinoma of right breast in female Colon polyp GERD (gastroesophageal reflux disease) Hyperlipidemia IBS (irritable bowel syndrome) Diabetes mellitus HTN (hypertension) Surgical History Surgical History History of appendectomy S/P total hysterectomy and BSO (bilateral salpingo-oophorectomy) History of tubal ligation History of cholecystectomy Family History Family History Sibling Family history of diabetes mellitus in first degree relative Patient's sister is in good health Patient's brother is in good health Father Family history of heart disease in male family member before age 55 Patient's father is in good health Other Asthma Depression Diabetes mellitus Family history of alcoholism Family history of anemia Family history of arthritis Family history of atrial fibrillation Family history of attention deficit hyperactivity disorder (ADHD) Family history of cardiovascular disease Family history of coronary artery disease Family history of malignant neoplasm of breast in first degree relative Family history of mental disorder Family history of obesity Hypertension Social History Social History Social History: Living with daughter and son in law. Smoking packs per day: 1 Smoking cigarettes per day: 20.0 Years smoked: 45 Smoking pack-years: 45.00 Smoking status: Former smoker Tobacco type: cigarettes Second hand tobacco smoke exposure: No Smoking end date: 08/13/24 Alcohol intake: never Substance use: current Substance use type: painkillers Do You Feel Safe in your Home?: No Lack of Transportation: No Lack of Food: Sometimes True Current Housing: I Have Housing Concerned About Future Housing: No Difficulty Paying Gas/Electric Bills: YES Difficulty Paying for Meds: No Currently Unemployed: No Education: High School Diploma/GED Difficulty w/ Childcare or Family Care: No Living arrangements: with family Additional living arrangements comments: DAUGHTER LIVES W/ PATIENT Occupation/Education: unemployed Gender identity (if verbalized by the patient): Female Spiritual care concerns: No Exam Const: General: cooperative, healthy appearing and no acute distress Nutritional Appearance: average body habitus Orientation/consciousness: patient oriented x3 Limitations: no limitations HENMT: Head: normal to inspection Eyes: General: appearance normal, both eyes and all related structures Visual Rey: normal visual rey by confrontation Alignment and Position: alignment normal Neck: Neck: normal visual inspection Resp: Effort & Inspection: normal respiratory effort and able to speak in complete sentences Auscultation: clear to auscultation bilaterally Cardio: Rate: regular rate Rhythm: regular rhythm GI: Inspection: normal to inspection GI Palp: No abdominal tenderness and Yes Soft to palpation Auscultation: normal bowel sounds Back/Spine/Pelvis: Back: no CVA tenderness Skin: General skin exam: normal color and no rashes or lesions noted Neuro: General: patient oriented x3, moves all extremities, no focal motor deficits and normal sensation to monofilament Cranial nerves: Yes CN's II-XII intact bilaterally Cognition (Neuro): normal cognition Speech: normal speech Extrem: General: normal to inspection and no clubbing, cyanosis or edema Course Vital Signs Vital signs: Vital Signs Temperature 98 F 10/04/24 13:03 Pulse Rate 81 10/04/24 13:03 Respiratory Rate 20 10/04/24 13:03 Blood Pressure 123/72 10/04/24 13:03 Pulse Oximetry 99 10/04/24 13:03 Oxygen Delivery Room Air 10/04/24 13:03 Temperature 97.6 F 10/04/24 17:54 Pulse Rate 84 10/04/24 17:54 Respiratory Rate 16 10/04/24 17:54 Blood Pressure 123/70 10/04/24 17:54 Pulse Oximetry 99 10/04/24 17:54 Oxygen Delivery Room Air 10/04/24 15:47 Medical Decision Making MDM Narrative Medical decision making narrative: Pt just released from [facility] and today fell while trying to get in car. Pt denies LOC. will CT head and neck and get social service consult. CT's neg. awaiting PT OT consult. Pt has unsteady gait per PT/OT. [facility] contacted but unable to make diecision on placement before tomorrow. discussed with Roxanna Chu and agrees to admit. Vital Signs Vital Signs: Vital Signs Temperature 98 F 10/04/24 13:03 Pulse Rate 81 10/04/24 13:03 Respiratory Rate 20 10/04/24 13:03 Blood Pressure 123/72 10/04/24 13:03 Pulse Oximetry 99 10/04/24 13:03 Oxygen Delivery Room Air 10/04/24 13:03 Temperature 97.6 F 10/04/24 17:54 Pulse Rate 84 10/04/24 17:54 Respiratory Rate 16 10/04/24 17:54 Blood Pressure 123/70 10/04/24 17:54 Pulse Oximetry 99 10/04/24 17:54 Oxygen Delivery Room Air 10/04/24 15:47 Discharge Plan Discharge Clinical Impression: Weakness, Gait instability Patient Disposition: Still a Patient Condition: Stable Patient Language: Turkmen Prescriptions: No Action (DME) FreeStyle Triston 3 [place] Misc See Rx Instructions .Route Qty: 1 0RF Rx Instructions: Check blood glucose 5 x daily tolnaftate 1 % solution 1 drp topical QHS Qty: 45 0RF Rx Instructions: rub into affected area (DME) OneTouch Verio test strips Strip See Rx Instructions .Route Qty: 100 7RF Rx Instructions: use TID to monitor glucose ferrous sulfate [FeroSul] 325 mg (65 mg iron) tablet 325 mg PO DAILY Ensure High Protein Liquid 1 ea PO BIDWMEAL mecobalamin (vitamin B12) 500 mcg tablet,chewable 1,000 mcg PO DAILY mupirocin [Centany] 2 % ointment 1 applic topical TID Qty: 50 0RF polyethylene glycol 3350 [ClearLax] 17 gram/dose powder 17 g PO DAILY pregabalin 75 mg capsule 100 mg PO TID tramadol 50 mg Tablet 50 mg PO Q4H PRN (Reason: Pain Rated 1-3) Qty: 20 0RF docusate sodium [Colace] 100 mg capsule 100 mg PO DAILY Qty: 14 0RF hydrocodone-acetaminophen 5-325 mg Tablet 1 tablet PO Q4H PRN (Reason: Pain Rated 4-6) Qty: 20 0RF (DME) blood-glucose meter Misc See Rx Instructions .Route Qty: 1 0RF Rx Instructions: As directed to monitor glucose TID (DME) lancets Misc See Rx Instructions .Route Qty: 200 11RF Rx Instructions: As directed TID check glucose simvastatin [Zocor] 40 mg tablet 40 mg PO DAILY Qty: 90 3RF (DME) FreeStyle Triston 3 Sensor Device See Rx Instructions .Route Qty: 6 3RF Rx Instructions: Check blood glucose 5 x daily insulin glargine [Lantus U-100 Insulin] 100 unit/mL solution 50 unit SUB-Q HS Qty: 45 3RF bupropion HCl [Wellbutrin XL] 150 mg tablet extended release 24 hr 150 mg PO QAM Qty: 30 11RF Patient Comments: . amlodipine 10 mg tablet See Rx Instructions .ROUTE .COMPLEX Qty: 30 11RF Dose Instruction: Take 1 tablet by mouth once daily Patient Comments: . Rx Instructions: Take 1 tablet by mouth once daily Trinityumramya Ugarte U-100 Insulin 100 unit/mL insulin pen 5 unit subcut TID Qty: 45 3RF hydrochlorothiazide 25 mg tablet 25 mg PO QAM Qty: 90 3RF carvedilol 6.25 mg tablet 6.25 mg PO BID Qty: 90 3RF Patient Comments: . Rx Instructions: TAKE 1 TABLET BY MOUTH EVERY 12 HOURS WITH FOOD (DME) pen needle, diabetic [1st Tier Unifine Pentips] 31 gauge x 1/4 needle See Rx Instructions .Route Qty: 300 12RF Rx Instructions: As directed TID potassium chloride 20 mEq tablet extended release 20 meq PO DAILY Qty: 30 3RF quetiapine 25 mg tablet 50 mg PO HS Qty: 180 0RF Follow-up/Referrals: Giselle Ramirez MD [Primary Care Provider] -
--- NOTE | 2024-10-04 15:45 | PC.NURSE ---
1436 Nurse from [facility] called to state pt was discharged from their facility today and had a fall in their parking lot. Pts insurance stopped paying for her stay yesterday. 1459 Janeth, pts daughter called for an update. Janeth then talked to Gely from care coordination.
--- OUTSIDE RECORDS SUMMARY | 2024-10-04 17:02 | XMS_ITS | Clinical Summary ---
Author Organization [facility] [employer] Address [address] [address] Care Team Providers Care Adjunct Philosophy Faculty Name Role Phone Giselle Ramirez MD Primary Care Provider [phone] Source Comments [facility],non-owned Affiliates and Associated Physician Practices is amultiple site organization consisting of ambulatory clinics and hospital sitesin [place], [place], [place] and [place]. This disclosure is being madepursuant to the Care Everywhere program and may not contain all information available regarding this patient. Last updated 18.[facility] [employer] Social History Tobacco Use Types Packs/Day Years [...] AM CDT) Hepatitis C Antibody NEGATIVE NEGATIVE [facility] Comment: Anti-HCV screen indicates no serologic evidence of past or current infection with Hepatitis C Virus. 11/20/2010 11:2 0 AM CDT 11/20/2010 12:33 PM CDT Historical Provider LAB - CHEMISTRY O RDERABLES [address] [phone] from Last 3 Months or Most Recently Relevant to Health Maintenance Care Teams Adjunct Philosophy Faculty Relationship Specialty Start Date End Date Giselle Ramirez MD [address] [place] [address] PCP - General 08/14/20
--- OUTSIDE RECORDS SUMMARY | 2024-10-04 17:02 | XMS_ITS | Clinical Summary ---
Author Organization [facility] Grant Peña Address [address] [place] [address] Care Team Providers Care Plastic Printer Name Role Phone Giselle Ramirez MD Primary Care Provider [phone] Allergies Active Allergy Reactions Criticality Noted Date [...] STL ABSTRACTION Provider, Abstract 09/27/2024 Orders Only [facility] Oncology [facility] Hematology - [address] [place] [id number] Julius Robledo MD Malignant neoplasm of upper-outer quadrant of right breast in female, estrogen receptor positive (CMS/HCC) 09/18/2024 External Device Data STL ABSTRACTION Provider, Abstract 09/17/2024 External Device Data STL ABSTRACTION Provider, Abstract 09/15/2024 External Device Data STL ABSTRACTION Provider, Abstract 09/14/2024 Refill [facility]ology - Juma [address] Julius Robledo MD Malignant neoplasm of upper-outer quadrant of right breast in female, estrogen receptor positive (CMS/HCC) 09/13/2024 Orders Only [facility]ology - Juma [address] [place] [address] Julius Robledo MD Malignant neoplasm of upper-outer quadrant of right breast in female, estrogen receptor positive (CMS/HCC) 09/01/2024 External Device Data STL ABSTRACTION Provider, Abstract 09/01/2024 External Device Data STL ABSTRACTION Provider, Abstract 08/30/2024 Refill [facility] - Juma [address] [place] [address] Julius Robledo MD Malignant neoplasm of upper-outer quadrant of right breast in female, estrogen receptor positive (CMS/HCC) 08/30/2024 Orders Only [facility]ematology - Juma [address] [place] [address] Julius Robledo MD Malignant neoplasm of upper-outer quadrant of right breast in female, estrogen receptor positive (CMS/HCC) 08/16/2024 Orders Only [facility]ematology - Juma [address] [place] [address] Julius Robledo MD Malignant neoplasm of upper-outer quadrant of right breast in female, estrogen receptor positive (CMS/HCC) 08/09/2024 Refill [facility]ematology - Juma [address] [place] [address] Julius Robledo MD Malignant neoplasm of upper-outer quadrant of right breast in female, estrogen receptor positive (CMS/HCC) 08/05/2024 9:30 AM CONSUMER EXPERIENCE CONSULTANT Office Visit [facility]ematology - Juma [address] [place] [address] Julius Robledo MD Malignant neoplasm of upper-outer quadrant of right breast in female, estrogen receptor positive (CMS/HCC) (Primary Dx) 08/05/2024 Orders Only [facility]ematology - Juma [address] [place] [address] Julius Robledo MD 08/04/2024 External Device Data STL ABSTRACTION Provider, Abstract 08/02/2024 Orders Only [facility]ematology - [address]uma [address] [place] [address] Julius Robledo MD Malignant neoplasm of upper-outer quadrant of right breast in female, estrogen receptor positive (CMS/HCC) 07/26/2024 Orders Only [facility]ematology - [address]uma [address] [place] [address] Scanning, Provider 07/23/2024 Refill [facility]ology - Juma [address] [place] [address] Julius Robledo MD 07/19/2024 Orders Only [facility]ematology - Juma [address] [place] [address] Julius Robledo MD Malignant neoplasm of upper-outer quadrant of right breast in female, estrogen receptor positive (CMS/HCC) 07/15/2024 Orders Only [facility] Hematology - Juma [address] [place] [address] Julius Robledo MD 07/13/2024 Refill [facility] Hematology - [address]uma [address] [place] [address] Amanda Wise MD Malignant neoplasm of upper-outer quadrant of right breast in female, estrogen receptor positive (CMS/HCC) (Primary Dx) 07/09/2024 Orders Only [facility] On[facility] Hematology - [address] [place] [address] Julius Robledo MD from Last 3 Months [...] Comments Blood Pressure 134/82 08/05/2024 9:19 AM CONSUMER EXPERIENCE CONSULTANT Pulse 87 08/05/2024 9:19 AM CONSUMER EXPERIENCE CONSULTANT Temperature 35.8 C (96.5 F) 08/05/2024 9:19 AM CONSUMER EXPERIENCE CONSULTANT Respiratory Rate 18 08/05/2024 9:19 AM CONSUMER EXPERIENCE CONSULTANT Oxygen Saturation 97% 08/05/2024 9:19 AM CONSUMER EXPERIENCE CONSULTANT Inhaled Oxygen Concentration - - Weight 64 kg (141 lb) 08/05/2024 9:19 AM CONSUMER EXPERIENCE CONSULTANT Height 149.9 cm (4' 11 ) 03/04/2024 [...] 2022 INFLUENZA VACCINE (#1) 2024 [place]) Prev entative Visit/Annual Wellness Visit 07/14/2024 Procedures Procedure Name Priority Date/Time Associated Diagnosis Comments BASIC METABOLIC PANEL Routine 08/05/2024 3:51 PM CONSUMER EXPERIENCE CONSULTANT COMPREHENSIVE METABOLIC PANEL Routine 08/05/2024 12:07 PM CONSUMER EXPERIENCE CONSULTANT URINE CULTURE Routine 07/22/2024 3:29 PM CONSUMER EXPERIENCE CONSULTANT COMPREHENSIVE METABOLIC PANEL Routine 07/22/2024 1:28 PM CONSUMER EXPERIENCE CONSULTANT BASIC METABOLIC PANEL Routine 07/22/2024 1:18 PM CONSUMER EXPERIENCE CONSULTANT CBC WITH AUTODIFFERENTIAL Routine 2024 1:09 PM CONSUMER EXPERIENCE CONSULTANT URINE CULTURE Routine 07/22/2024 11:49 AM CONSUMER EXPERIENCE CONSULTANT BASIC METABOLIC PANEL Routine 07/08/2024 3:06 PM CONSUMER EXPERIENCE CONSULTANT CBC WITH DIFFERENTIAL Routine 07/08/2024 2:58 PM CONSUMER EXPERIENCE CONSULTANT COMPREHENSIVE METABOLIC PANEL Routine 07/08/2024 1:47 PM CONSUMER EXPERIENCE CONSULTANT from Last 3 Months Results * BASIC METABOLIC PANEL (08/05/2024 3:51 PM CONSUMER EXPERIENCE CONSULTANT) Only the most recent of3 resultswithin the time period is included. Blood Julius Robledo MD CHEMISTRY ORDERABLES Final Resu lt * COMPREHENSIVE METABOLIC PANEL (08/05/2024 12:07 PM CONSUMER EXPERIENCE CONSULTANT) Only the most recent of3 resultswithin the time period is included. Blood us Julius Robledo MD CHEMISTRY ORDERABLES Final Resu lt * URINE CULTURE (07/22/2024 3:29 PM CONSUMER EXPERIENCE CONSULTANT) Only the most recent of2 resultswithin the time period is included. Urine Result Krissy Robledo MD MICROBIOLOGY - GENERAL ORDERABL ES Final Result * CBC WITH AUTODIFFERENTIAL (07/22/2024 1:09 PM CONSUMER EXPERIENCE CONSULTANT) Blood Result Krissy Robledo MD HEMATOLOGY ORDERABLES Final Res ult * CBC WITH DIFFERENTIAL (07/08/2024 2:58 PM CONSUMER EXPERIENCE CONSULTANT) Blood Result Krissy Robledo MD HEMATOLOGY ORDERABLES Final Res ult from Last 3 Months Insurance Care Teams Plastic Printer Relationship Specialty Start Date End Date Giselle Ramirez MD [address] [place] [phone] PCP - General Family Practice 05/04/24
--- OUTSIDE RECORDS SUMMARY | 2024-10-04 17:02 | XMS_ITS | CONTINUITY OF CARE DOCUMENT ---
Author Name joselo, joselo Address Unknown Organization [facility] Address [address] [place] [address] Phone [phone] Care Team Providers Care Credit Analyst Name Role Phone Iftikhar KEE, Nirav Unavailable [phone] MAGEN HERZOG MD Unavailable MAGEN HERZOG MD Unavailable PROBLEMS Condition Status Date Provider Notes Hypertension active Albania Lopes MD Family history of CAD active Albania grant MD Tobacco abuse active Albania Lopes MD Fatigue active [place]ia Lopes MD Headaches active [place]ia Lopes MD Fibromyalgia active [place]ia Lopes MD Leg pain, bilateral completed - Nirva Buitrago MD Palpitations active [place]ia Lopes MD [...] In-person encounter Office Visit Nirav Buitrago MD [place] Shortness of breath--stress nuc nl, echo ef nl, reast cancer 02/10 - 02/10 In-person encounter Office Visit Nirav Buitrago MD [facility] Leg pain, bilateralHypokalemia 3.0 1PVC's rareCarotid bruits, bilateral 09/01 - 09/01 In-person encounter Office Visit Albania Lopes MD [facility] HyperlipidemiaRenal insufficiency 08/11 - 08/11 In-person encounter Office Visit Albania Lopes MD [facility] Shortness of breath--stress nuc nl, echo ef nl, 02/2024 - 11/01 In-person encounter Office Visit Albania Lopes MD [facility] HypertensionShortness of breath--stress nuc nl, echo ef nl, 02/2024ObesityDiabetes mellitus, type 2 09/27 - 10/03 In-person encounter Office Visit Albania Lopes MD [facility] HypertensionFamily history of CADTobacco abuseFatigueHeadachesFibromyalgiaPalpitations VITAL [...] 3.5-5.2 0 sodium, serum 141 mmol/L [employer] [phone]/02/2 0 urea nitrogen/creatinine ratio, serum 9 [employer] [...] High 0 platelet count 311 X10E3/UL [employer] [phone]/01/3 0 red blood cell distribution width 14.2 [...] Low 0 sodium, serum 138 mmol/L [employer] [phone]/01/3 0 urea nitrogen/creatinine ratio, serum 12 [employer] [...] revi ewed - no changes required Carlos [facility] social history E&M Smoking Histo ry: P atient currently smokes every day. P atient has been counseled to quit. Carlos Webber smoking/tobacco cess ation, patient education and counseling yes Carlos [facility] number of years as a smoker [...] Payer name Policy type / Coverage type [place] red green party ID [facility] Other [facility] Other [facility] Other [facility] COMPLETE CARE [id number] (PPO C-SNP) Commercial insurance company [id number] ADVANCE DIRECTIVES Name Date DISCUSSED - NO [...] U-100 Insulin 100 Unit/ml Insulin Pen (Insulin lispro-[facility]) ..... 5 units three times a day Aspirin 81 Mg Tablet,delayed Release (dr/ec) (Aspirin) ..... 1 tablet by mouth once a day [facility]: H er updated medication list for this problem includes: Simvastatin 40 Mg Tablet (Simvastatin) ..... 1 pill daily [facility] Cardiology: H er updated medication list for this problem includes: Hydrochlorothiazide 25 Mg Tablet (Hydrochlorothiazide) Carvedilol 6.25 Mg Tablet (Carvedilol) ..... Take 1 twice a day Amlodipine 10 Mg Tablet (Amlodipine) ..... 1 tablet once a day Aspirin 81 Mg Tablet,delayed Release (dr/ec) (Aspirin) ..... 1 tablet by mouth once a day [facility] Cardiology: B P today: 110/72 [...] 1 tablet by mouth once a day [facility]: H er updated medication list for this problem includes: Simvastatin 40 Mg Tablet (Simvastatin) ..... 1 pill daily [facility] Card[facility]: B P today: 130/94 P rior [...] 1 tablet by mouth once a day [facility]: O rders: C omplete Echo (48912) S tress Regadenoson (CPT-72894) H gb: 14.5 (08/12/2020) HCT: 42.2 (08/12/2020) [...] mouth once a day Truuday Le Cardiology [facility] Electrophysiology Fo llow up 12: O rders: C arotid Duplex Bilateral (CPT-16994) 9 9212 Minor 10-19min (CPT-60056) Eleazar Kimbrough Electrophysiology Fo llow up 12: H er updated medication list for this problem includes: Atorvastatin Calcium 40 Mg Oral Tablet (Atorvastatin calcium) ..... One tab daily Orders: L IPID PANEL (5011) M AGNESIUM (622) Eleazar Kimbrough Electrophysiology Fo [...] O rders: C OMPREHENSIVE METABOLIC PANEL, W/EGFR (78165) K idney Ultrasound (CPT-43761) Eleazar Kimbrough Electrophysiology Fo llow up 12:Rhythm: [...] Eleazar Kimbrough Electrophysiology Follow up 12 T [facility] Luis E Electrophysiology 05 : O rders: F VC - 65340 (90315) F - 10783 (44132) D O - 80660 (71476) The following medications were removed from the [...] Oral Tablet (Hydrochlorothiazide) ..... One tab daily [facility] Electrophysiology 05 : p follows p keenan does note some problems affording lyrica for neuropathy H er updated medication list for this problem includes: Aspirin Adult Low Dose 81 Mg Oral Tablet Delayed Release (Aspirin) ..... One tab by mouth daily Metformin Hcl 500 Mg Oral Tablet (Metformin hcl) ..... 2 in am, 2 in [facility] : [...] 05 : O rders: L IPID PANEL (4190) C OMPREHENSIVE METABOLIC PANEL, W/EGFR (08609) C BC (H/H, RBC, INDICES, WBC, PLT) (1759) T SH, free T4, total T3 (1344) C omplete Echo (CPT-77823) E KG (CPT-48202) M onitor - Telemetry (Mobile Cardiac) (CPT-60364) The following medications were removed from the [...] SMOKING CESSATION TECHNIQUES DISCUSSED. Orders: F - 98338 (92881) F - 79264 (60357) D O - 17725 (10681) Carlos Webber Cardiology:Orders: M obile Cardiac Tele (CPT-29309) Carlos Akbar Cardiology:BP today: 163/89 Her updated [...] tab daily Orders: R enal Artery Duplex (CPT-33545) C omplete Echo (CPT-95462) W ill do pharmacogenetic testing to assess patient's response to medications. Carlos Webber Date Name Stress Regadenoson Complete Echo Carotid Duplex Bilat eral MAGNESIUM Carotid Duplex Bilat eral Kidney Ultrasound LIPID PANEL COMPREHENSIVE METABO LIC PANEL, W/EGFR Monitor - Telemetry (Mobile Cardiac) DLCO - 20360 FRC - 66214 FVC - 17889 Complete Echo TSH, free T4, total T3 CBC (H/H, RBC, INDIC ES, WBC, PLT) COMPREHENSIVE METABO LIC PANEL, W/EGFR LIPID PANEL HEMOGLOBIN A1c Mobile Cardiac Tele DLCO - 91176 FRC - 08102 FVC - 69416 Renal Artery Duplex Complete Echo HISTORY OF PROCEDURES Procedure Date Procedure Name Provider Procedure Notes S tatus Complex e/m visit add on Nirav Buitrago MD completed EKG Nirav Buitrago MD completed Event Monitor Albania chacon MD completed Holter, 24 or 48 Albania pérez MD completed Schedule Followup Albania grant MD in 1 year completed Ultrasound, retroperitoneal, complete Albania Lopes MD completed EKG Albaina chacon MD completed FVC / MVV - 16005 Albania grant MD completed FRC - 86408 Albania chacon MD completed SpO2 w/o 6min walk/titration Albania Lopes MD completed DLCO - 23597 Albania chacon MD completed EKG Albania chacon MD completed SNOMED-CT: 80108088 Physical Exam, Performed: Pulse Exam of Foot Albania Lopes MD completed SNOMED-CT: 620489070 Smoking Cessation Counseling Albania Lopes MD completed EKG Albania chacon MD completed SNOMED-CT: 314081501897722 Current Medications Documented Albania Lopes MD completed FVC / MVV - 13100 Albania grant MD completed FRC - 37810 Albania chacon MD completed SpO2 - 05789 Albania chacon MD completed DLCO - 11236 Albania chacon MD completed Event Monitor Carey Farrar completed SNOMED-CT: 441791651 Smoking Cessation Counseling Albania Lopes MD completed EKG Albania chacon MD completed SNOMED-CT: 093558844839123 Current Medications Documented Albania Lopes MD completed
[2024-10-04] MEDS: HYDROcodone/acetaminophen (*CRX) 5-325 MG TABLET 1 TAB PO ×2 (17:50→20:34)
--- NOTE | 2024-10-04 17:50 | PC.NURSE ---
Meal tray ordered for pt.
[2024-10-04 17:54] VITALS: BP 123/70; PULSE 84; RESP 16; TEMP 36.4; O2SAT 99
--- NOTE | 2024-10-04 19:09 | PC.NURSE ---
This RN went into pts room for IV access for pts admission, pt refusing IV at this time, stating, I don't need it. This RN attempted education of IV access benefits, pt continued to refuse.
--- NOTE | 2024-10-04 19:11 | PCCCNOTE ---
1530: Called to the ED for pt that needed placement. Pt was just d/c'd from [facility] prior to coming to the ED. Her insurance was finished paying for SNF. Pt fell as she was leaving and hit her head. In the ED her scans were normal. Called [facility] to see if she could come back for more rehab, if they still had a bed. They did have availability, PT/OT evaluated pt in the ED and recommendation is for SNF, auth started on [employer]. 1830: Let ED know that the insurance called and pt may not get an answer until tomorrow, due to setting up a peer to peer. The ED was going to admit the pt to the floor. Pt. daughter updated on this. 1855: Video Production Coordinator for [facility] called back, does not need a peer to peer, the SNF auth was approved for 10/04-10/06, Auth #[id number] and fax for ongoing clinicals is [phone]. Spoke with Jeannette, at [facility], she said pt could not come until tomorrow, after they check this approval. Spoke with ED who said pt has a room and that she can go from the floor tomorrow.
--- NOTE | 2024-10-04 19:13 | P.HP_ITS ---
H&P: HPI History of Present Illness Date/Time: 10/04/24 19:13 Chief Complaint: Postop weakness Narrative: 69-year-old female who had a mastectomy on 09/15/2024 presents to the hospital with extreme weakness. Patient was at rehab was not progressing well and ran out of rehab days. Today she was going home with her sister when she fell trying to get in the car hitting her head. Patient states that she was weaker today than she has been at rehab. She was lifting her leg up to get in the car when she lost her balance falling to the ground. Patient denies fever chills nausea or vomiting or trouble breathing. Patient's lab work shows leukocytosis at 10.4, potassium of 3.3, BUN of 23, creatinine of 1.19, GFR 45, glucose of 166, magnesium of 1.4, UA pending. CT cervical spine with no acute fracture, CT head with no acute findings, patient denies injury to any where else. Review of Systems Review of Systems: 12 systems were reviewed and are negativ e except for as per HPI. [facility] Past Medical History Medical History Depression Mood disorder MCI (mild cognitive impairment) Memory changes Diabetic polyneuropathy Fibromyalgia Anxiety Chronic kidney disease, stage 3b Sleep apnea intolerant of CPAP per patient Invasive ductal carcinoma of right breast in female Colon polyp GERD (gastroesophageal reflux disease) Hyperlipidemia IBS (irritable bowel syndrome) Diabetes mellitus HTN (hypertension) Surgical History Surgical History History of appendectomy S/P total hysterectomy and BSO (bilateral salpingo-oophorectomy) History of tubal ligation History of cholecystectomy Family History Family History Sibling Family history of diabetes mellitus in first degree relative Patient's sister is in good health Patient's brother is in good health Father Family history of heart disease in male family member before age 55 Patient's father is in good health Other Asthma Depression Diabetes mellitus Family history of alcoholism Family history of anemia Family history of arthritis Family history of atrial fibrillation Family history of attention deficit hyperactivity disorder (ADHD) Family history of cardiovascular disease Family history of coronary artery disease Family history of malignant neoplasm of breast in first degree relative Family history of mental disorder Family history of obesity Hypertension Social History Social History Social History: Living with daughter and son in law. Smoking packs per day: 1 Smoking cigarettes per day: 20.0 Years smoked: 45 Smoking pack-years: 45.00 Smoking status: Former smoker Tobacco type: cigarettes Second hand tobacco smoke exposure: No Smoking end date: 08/13/24 Alcohol intake: never Substance use: never Substance use type: painkillers Do You Feel Safe in your Home?: Yes Lack of Transportation: No Lack of Food: Sometimes True Current Housing: I Have Housing Concerned About Future Housing: No Difficulty Paying Gas/Electric Bills: YES Difficulty Paying for Meds: YES Currently Unemployed: No Education: Associate Degree Difficulty w/ Childcare or Family Care: No Living arrangements: with family Additional living arrangements comments: DAUGHTER LIVES W/ PATIENT Occupation/Education: unemployed Gender identity (if verbalized by the patient): Female Spiritual care concerns: No Meds Home Medications and Allergies Home Medications ?Medication ?Instructions ?Recorded ?Confirmed ?Type blood-glucose meter #1 ea 03/06/23 10/04/24 Rx lancets #200 ea 03/06/23 10/04/24 Rx simvastatin 40 mg tablet (Zocor) 40 mg PO DAILY #90 tabs 06/30/23 10/04/24 Rx blood-glucose meter,continuous #1 ea 12/24/23 10/04/24 Rx (FreeStyle [place] 3 [place]) blood-glucose sensor (FreeStyle #6 ea 02/02/24 10/04/24 Rx Triston 3 Sensor device) blood sugar diagnostic (OneTouch #100 ea 03/17/24 10/04/24 Rx Verio test strips) tolnaftate 1 % topical solution 1 drp topical QHS #45 mL 03/17/24 10/04/24 Rx insulin glargine 100 unit/mL 50 unit (0.5 mL) subcut HS #45 mL 06/16/24 10/04/24 Rx subcutaneous solution (Lantus U-100 Insulin) amlodipine 10 mg tablet See Rx Instructions .Route 06/17/24 10/04/24 Rx .COMPLEX #30 ea bupropion HCl 150 mg 24 hr tablet, 150 mg PO QAM #30 tabs 06/17/24 10/04/24 Rx extended release (Wellbutrin XL) insulin lispro-aabc 100 unit/mL 5 unit (0.05 mL) subcut TID #45 mL 06/28/24 10/04/24 Rx subcutaneous pen (Lyumramya SantanaPen U-100 Insulin) carvedilol 6.25 mg tablet 6.25 mg PO BID #90 tabs 07/19/24 10/04/24 Rx hydrochlorothiazide 25 mg tablet 25 mg PO QAM #90 tabs 07/19/24 10/04/24 Rx ferrous sulfate 325 mg (65 mg 325 mg PO DAILY 07/29/24 10/04/24 History iron) tablet (FeroSul) mecobalamin (vitamin B12) 500 mcg 1,000 mcg PO DAILY 07/29/24 10/04/24 History chewable tablet pen needle, diabetic 31 gauge x #300 ea 08/09/24 10/04/24 Rx 1/4 (1st Tier Unifine Pentips) potassium chloride 20 mEq 20 meq PO DAILY #30 tabs 08/24/24 10/04/24 Rx tablet,extended release docusate sodium 100 mg capsule 100 mg PO DAILY #14 caps 09/17/24 10/04/24 Rx (Colace) hydrocodone 5 mg-acetaminophen 325 1 tablet PO Q4H PRN Pain Rated 4-6 09/17/24 10/04/24 Rx mg tablet #20 tabs tramadol 50 mg tablet 50 mg PO Q4H PRN Pain Rated 1-3 09/17/24 10/04/24 Rx #20 tabs quetiapine 25 mg tablet 50 mg (2 x 25 mg) PO HS #180 tabs 09/20/24 10/04/24 Rx polyethylene glycol 3350 17 17 g PO DAILY 10/04/24 10/04/24 History gram/dose oral powder (ClearLax) pregabalin 75 mg capsule 100 mg PO TID 10/04/24 10/04/24 History Allergies Allergy/AdvReac Type Severity Reaction Status Date / Time lisinopril Allergy Severe Swelling Verified 10/04/24 15:17 of Lip/Tongue/Throat codeine Allergy Unknown Agitated Verified 10/04/24 15:17 ramipril Allergy Unknown Swelling Verified 10/04/24 15:17 of Lip/Tongue/Throat Sulfa (Sulfonamide Allergy Unknown Agitated Verified 10/04/24 15:17 Antibiotics) adhesive AdvReac Intermediate rash, Verified 10/04/24 15:17 redness at site Vital Signs Vital Signs - 24 hr 10/04/24 13:03 10/04/24 15:47 10/04/24 17:54 Temperature 98 F 97.6 F Pulse Rate 81 84 Respiratory Rate 20 16 Blood Pressure 123/72 123/70 Pulse Oximetry 99 99 Oxygen Delivery Room Air Room Air Exam Narrative: General: well appearing, appears stated age. HEENT: normocephalic, atraumatic. Mucous membranes moist. EOMI, PERRLA, bilateral sclera anicteric, no conjunctival injection. Neck supple without JVD, lymphadenopathy, or bruit. Respiratory: clear to ascultation bilaterally. No rales/rhonic/wheezes. Cardiovascular: Regular rate and rhythm, normal S1-S2 upon ascultation. No murmurs, rubs, or clicks. PMI is nondisplaced, capillary refill less than 3 second. Right mastectomy surgical site with no erythema or induration, healing well, port Abdomen: Soft, round, no pulsatile masses, nondistended and nontender. No rebound, no guarding. No CVA tenderness, no hepatosplenomegaly. Bowel sounds present to all four quadrants. No high pitch or tinkling sounds, resonant to percussion. Extremities: No cyanosis, clubbing, or edema present. Pulses are palpable 2/2. Active ROM to all four extremities. Neuro: Alert and orientated x 4. PERRLA. Cranial nerves 2-12 intact without focal deficit. Skin: Warm, dry, and intact, without rash, erythema, or lesion. Psych: pleasant, cooperative, normal speech, normal affect, no hallucinations, no dysarthia Assessment and Plan Assessment and plan (1) Fall: Code(s): W19.XXXA - Unspecified fall, initial encounter Status: Acute Assessment and Plan: Head CT negative for acute process CT C-spine negative for acute process Fall precautions PT OT eval and treat Patient will likely need placement (2) Weakness: Code(s): R53.1 - Weakness Status: Acute Assessment and Plan: PT OT UA pending Orthostatic vital signs (3) Invasive ductal carcinoma of right breast in female: Code(s): C50.911 - Malignant neoplasm of unspecified site of right female breast Status: Acute Assessment and Plan: Status post mastectomy on 09/15/2024 Surgical site noninfective (4) HTN (hypertension): Qualifiers: Hypertension type: primary hypertension Qualified Code(s): I10 - Essential (primary) hypertension Code(s): I10 - Essential (primary) hypertension Status: Chronic Assessment and Plan: Restart hydrochlorothiazide, (5) Diabetes mellitus: Qualifiers: Diabetes mellitus complication status: without complication Diabetes mellitus retirement insulin use: with retirement use Diabetes mellitus type: type 2 Qualified Code(s): E11.9 - Type 2 diabetes mellitus without complications; Z79.4 - petroleum terminal plant operator (current) use of insulin Code(s): E11.9 - Type 2 diabetes mellitus without complications Status: Chronic Assessment and Plan: Diabetic diet Lantus and sliding scale (6) Neuropathy: Code(s): G62.9 - Polyneuropathy, unspecified Status: Acute Assessment and Plan: Neuropathy in hands and feet restart Lyrica (7) Hypokalemia: Code(s): E87.6 - Hypokalemia Status: Acute Assessment and Plan: Daily BMP Replete as needed (8) Hypomagnesemia: Code(s): E83.42 - Hypomagnesemia Status: Acute Assessment and Plan: Daily magnesium level Repleted as needed (9) Leukocytosis: Code(s): D72.829 - Elevated white blood cell count, unspecified Status: Acute Assessment and Plan: No signs of respiratory infection No signs of surgical site infection No signs of port infection UA pending Quality VTE Prophylaxis VTE prophylaxis: mechanical ordered and pharmacologic ordered Hospitalist MIPS Advance Care Plan I have confirmed that the patient's Advanced Care Plan is present, code status is documented, or surrogate decision maker is listed in patient medical record.: Yes Medication Reconciliation I have utilized all available resources to obtain, update and review the patients current medications (includes all prescriptions, OTC, herbals, cannabis, and nutritional supplements).: Yes
[2024-10-04 19:34] VITALS: BMI 28.0
--- NOTE | 2024-10-04 19:34 | ADMGEN ---
This patient, Angelia Baum, was admitted to Medical Room 252-. Patient/family oriented to hospital policies and general routines including ID bracelet, bed and alarms, visiting hours, pain management, procedures, bathroom and other care routines, personal items, smoking policy, room service/diet, and visiting hours. Information on how to activate the Rapid Response Team has been discussed. Patient/Family are encouraged to report perceived risks to care and to ask questions if they do not understand what they are told or what they should do.
[2024-10-04 19:53] VITALS: BP 153/69; PULSE 86; RESP 20; TEMP 36.6; O2SAT 98
[2024-10-04 20:00] LABS: Basophils Absolute Auto 0.1 K/mm3 (0.0-0.1); Basophils Percent Auto 0.8 % (0.2-1.2); Eosinophils Absolute Auto 0.5 K/mm3 (0-0.3); Eosinophils Percent Auto 5.2 % (0-4.4); Hematocrit 37.3 % (37.0-47.0); Hemoglobin 12.4 g/dL (12.0-15.0); Immature Granulocyte Absolute 0.03 K/mm3 (0.00-0.031); Immature Granulocyte Percent A 0.3 % (0-0.5); Lymphocytes Percent Auto 10.6 % (18.3-44.2); Mean Corpuscular HGB Conc 33.2 g/dl (32-36); Mean Corpuscular Hemoglobin 30.9 pg (26-34); Monocytes Absolute Auto 1.1 K/mm3 (0.1-0.6); Monocytes Percent Auto 10.3 % (2.6-8.5); Neutrophils Absolute Auto 7.5 K/mm3 (1.3-6.7); Neutrophils Percent Auto 72.8 % (45.5-73.1); Platelet Count Result 241 k/mm3 (150-375); Red Blood Count 4.01 M/mm3 (4.2-5.4); Red Cell Distribution Width 13.5 % (11.5-14.5); White Blood Count 10.4 K/mm3 (4.5-10.0)
[2024-10-04 20:21] LABS: Anion Gap 12 mmol/L (4-12); Blood Urea Nitrogen 23 mg/dL (7-17); Calcium 9.4 mg/dL (8.4-10.2); Carbon Dioxide 28 mmol/L (22-30); Chloride 98 mmol/L (98-107); Estimated Glomerular Filt Rate 45; Glucose 161 mg/dL (65-110); Magnesium 1.4 mg/dL (1.6-2.3); Phosphorus 4.4 mg/dL (2.5-4.5); Potassium 3.3 mmol/L (3.4-5.0); Sodium 138 mmol/L (137-145)
[2024-10-04] MEDS: QUEtiapine FUMARATE 25 MG TABLET 50 MG PO (20:34)
[2024-10-04] MEDS: carvediloL 6.25 MG TABLET PO (20:34)
[2024-10-04] MEDS: INSULIN GLARGINE (*BKC) 100 UNITS/ML 50 UNITS SUB-Q (20:36)
[2024-10-04 21:06] LABS: Glucose Point of Care 166 mg/dl (65-105)
[2024-10-04] MEDS: POTASSIUM CHLORIDE 20 MEQ PACKET (FOR LIQUID) 40 MEQ PO (21:35)
[2024-10-04] MEDS: PREGABALIN (*CRX) 50 MG CAPSULE 100 MG PO (21:37)
[2024-10-04] MEDS: MAGNESIUM SULF 1 GM/D5W 100 ML 1 GM/100 ML BAG IVPB (21:37)
[2024-10-04] MEDS: SODIUM CHLORIDE 0.9% IV 1,000 ML 125 ML IV CONT (21:38)
[2024-10-04 22:15] LABS: Add Urine Microscopic? YES; Appearance Urine Cloudy (Clear); Bacteria Urine 3+ /hpf; Bilirubin Urine Negative (Negative); Blood Urine 1+ (Negative); Color Urine Yellow (Yellow); Glucose Urine UA Negative (Negative); Ketones Urine Negative (Negative); Leukocyte Esterase Ur 3+ LEU/UL (Negative); Nitrate Urine Negative (Negative); Non Pathogenic Casts 0-2; Protein Urine Trace mg/dL (Negative); Specific Grav Ur 1.008 (1.001-1.035); Squamous Epithelial Cell Urine None Seen /hpf (Few); Urobilinogen Urine 0.2 mg/dL (<2.0); WBC Urine >100 /hpf (0-3); pH Urine 7.5 (5.0-9.0)
[2024-10-05] VITALS (8 sets, daily range): BP systolic 74–160; BP diastolic 42–86; PULSE 78–94; RESP 18–20; TEMP 36.5–36.9; O2SAT 93–98; BMI 28.0
[2024-10-05] MEDS: HYDROcodone/acetaminophen (*CRX) 5-325 MG TABLET 1 TAB PO ×3 (04:31→22:06)
[2024-10-05 04:45] LABS: Glucose Point of Care 93 mg/dl (65-105)
[2024-10-05] MEDS: PREGABALIN (*CRX) 50 MG CAPSULE 100 MG PO ×3 (05:14→21:01)
[2024-10-05] MEDS: SODIUM CHLORIDE 0.9% IV 1,000 ML 125 ML IV CONT ×3 (05:16→21:03)
[2024-10-05 05:33] LABS: Basophils Absolute Auto 0.1 K/mm3 (0.0-0.1); Basophils Percent Auto 1.1 % (0.2-1.2); Eosinophils Absolute Auto 0.6 K/mm3 (0-0.3); Hematocrit 36.3 % (37.0-47.0); Hemoglobin 12.1 g/dL (12.0-15.0); Immature Granulocyte Absolute 0.02 K/mm3 (0.00-0.031); Immature Granulocyte Percent A 0.3 % (0-0.5); Lymphocytes Absolute Auto 1.04 K/mm3 (0.9-3.2); Lymphocytes Percent Auto 13.9 % (18.3-44.2); Mean Corpuscular HGB Conc 33.3 g/dl (32-36); Mean Corpuscular Hemoglobin 31.3 pg (26-34); Mean Platelet Volume 9.1 fl (7.4-10.4); Monocytes Absolute Auto 0.8 K/mm3 (0.1-0.6); Monocytes Percent Auto 10.6 % (2.6-8.5); Neutrophils Absolute Auto 4.9 K/mm3 (1.3-6.7); Neutrophils Percent Auto 66.1 % (45.5-73.1); Platelet Count Result 222 k/mm3 (150-375); Red Blood Count 3.86 M/mm3 (4.2-5.4); Red Cell Distribution Width 13.4 % (11.5-14.5); White Blood Count 7.5 K/mm3 (4.5-10.0)
[2024-10-05 05:53] LABS: Anion Gap 11 mmol/L (4-12); Blood Urea Nitrogen 20 mg/dL (7-17); Calcium 9.2 mg/dL (8.4-10.2); Carbon Dioxide 24 mmol/L (22-30); Chloride 104 mmol/L (98-107); Estimated Glomerular Filt Rate 55; Glucose 78 mg/dL (65-110); Magnesium 1.8 mg/dL (1.6-2.3); Potassium 3.4 mmol/L (3.4-5.0); Sodium 139 mmol/L (137-145)
--- NOTE | 2024-10-05 07:32 | P.PNIM_ITS ---
Progress Note: A&P Assessment and Plan (1) Fall: Code(s): W19.XXXA - Unspecified fall, initial encounter Status: Acute Assessment and Plan: Patient was leaving rehab as she ran out of days and was not progressing well when she fell trying to get into her sisters car. Confirms head strike, but denies loss of consciousness. Orthostatics positive Head CT negative for acute intracranial process CT C-spine shows no fracture, mild cervical spondylosis, and anterior fusion procedure from c5-c7 Fall precautions PT OT eval and treat (2) Abnormal urinalysis: Code(s): R82.90 - Unspecified abnormal findings in urine Status: Acute Assessment and Plan: - Symptomatic with burning sensation, increased frequency, and inability to completly void - UA: cloudy appearance, 1+ blood, negative nitrates, 3+ leukocytes, 3-5 RBC, > 100 WBC, 3+ bacteria - UC obtained on 10/04/24: pending - No previous micro to be reviewed - started on Rocephin 10/04 (3) Invasive ductal carcinoma of right breast in female: Code(s): C50.911 - Malignant neoplasm of unspecified site of right female breast Status: Acute Assessment and Plan: right breast invasive ductal carcinoma status post neoadjuvant chemotherapy for high Oncotype DX score and mastectomy with right sentinel lymph node bx on 09/15/[address] 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 Diabetes mellitus type: type 2 Qualified Code(s): E11.9 - Type 2 diabetes mellitus without complications; Z79.4 - termite technician (current) use of insulin Code(s): E11.9 - Type 2 diabetes mellitus without complications Status: Chronic Assessment and Plan: - hypoglycemia protocol - POC blood glucose ACHS - home medication - 50 units lantus and 5 units TID - correct regimen ordered - 40 units lantus (20% decrease from home insulin) and low dose SSI - A1C 6.6 (6) Neuropathy: Code(s): G62.9 - Polyneuropathy, unspecified Status: Acute Assessment and Plan: Neuropathy in hands and feet restart Lyrica (7) Hypokalemia: Code(s): E87.6 - Hypokalemia Status: Acute Assessment and Plan: K 3.3 on admission Resume home potassium supplementation, resolved Continue to monitor (8) Hypomagnesemia: Code(s): E83.42 - Hypomagnesemia Status: Acute Assessment and Plan: Magnesium 1.4 on admission Daily magnesium level Repleted as needed Subjective Date/time seen: 10/05/24 07:32 Interval history: 69-year-old female with past medical history of HTN, DM, HLD, GERD, TOÑO, CKD, fibromyalgia, mild cognitive impairment, depression, and right breast invasive ductal carcinoma status post neoadjuvant chemotherapy for high Oncotype DX score and mastectomy with right sentinel lymph node bx on 09/15/[address] Moreira presents to the hospital with extreme weakness and a mechanical fall. Patient is pleasant lying comfortably in bed. She endorses burning pain with urination, increased frequency, and the feeling as though she is unable to completely void. She has no other complaints denying chest pain, palpitations, nausea/vomiting, and abdominal pain. Review of Systems Review of Systems: All systems reviewed & are unremarkable except as noted in HPI and below Exam Narrative: AF HR 86 RR 18 SPO2 93 BP 98/60 General: female in no acute respiratory distress who is nontoxic appearing, lying semi recumbent in bed. HEENT: Normocephalic. Atraumatic. Extraocular movement intact. Sclera clear and anicteric. No facial asymmetry. Chest: Lungs are clear to auscultation bilaterally. No wheezes or crackles. CV: Heart was regular rate and rhythm. S1-S2. No murmurs, gallops, or rubs. Abd: Abdomen was soft. Nontender. Nondistended. Positive bowel sounds. Ext: No clubbing, cyanosis, or edema. DP pulses bilaterally. Neuro: Patient is alert and oriented x4. Speech is clear. Skin: Well-healing right mastectomy incision without signs of infection. Objective Data Vital Signs Vital Signs: Vital Signs - 24 hr 10/04/24 13:03 10/04/24 15:47 10/04/24 17:54 Temperature 98 F 97.6 F Pulse Rate 81 84 Respiratory Rate 20 16 Blood Pressure 123/72 123/70 Pulse Oximetry 99 99 Oxygen Delivery Room Air Room Air 10/04/24 19:53 10/04/24 20:00 10/05/24 04:23 Temperature 97.8 F 97.8 F Pulse Rate 86 78 Respiratory Rate 20 20 Blood Pressure 153/69 H 144/76 H Pulse Oximetry 98 97 Oxygen Delivery Room Air Intake/Output Intake/Output: Intake & Output 10/02/24 10/03/24 10/04/24 10/05/24 23:59 23:59 23:59 23:59 Intake Total 150 1344.2 Output Total 800 Balance 150 544.2 Meds/Results Medications: Active Medications Generic Name Dose Route Start Last Admin Trade Name Freq PRN Reason Stop Dose Admin Hydrocodone Bitart/Acetaminophen 1 tab 10/04/24 19:31 10/05/24 04:31 Hydrocodone/Acetaminophen (*Crx) 5-325 Mg Tablet PO 1 tab Q4H PRN Administration Pain Rated 4-6 Amlodipine Besylate 10 mg 10/05/24 09:00 Amlodipine Besylate 5 Mg Tablet BY MOUTH DAILY KAMI Bupropion HCl 150 mg 10/05/24 09:00 Bupropion Hcl Xl (24 Hr) 150 Mg Tabcr PO QAM KAMI Carvedilol 6.25 mg 10/04/24 21:00 10/04/24 20:34 Carvedilol 6.25 Mg Tablet PO 6.25 mg Q12HR KAMI Administration Docusate Sodium 100 mg 10/05/24 09:00 Docusate Sodium 100 Mg Capsule PO DAILY KAMI Enoxaparin Sodium 40 mg 10/05/24 09:00 Enoxaparin 40 Mg/0.4 Ml Syringe SUB-Q DAILY KAMI Hydrochlorothiazide 25 mg 10/05/24 09:00 Hydrochlorothiazide 25 Mg Tablet PO QAM KAMI Sodium Chloride 1,000 mls @ 125 mls/hr 10/04/24 20:35 10/05/24 05:16 Normal Saline Iv IV CONT 125 mls/hr .Q8H KAMI Administration Ceftriaxone Sodium 1 gm in 50 mls @ 100 mls/hr 10/04/24 23:05 10/04/24 23:55 Rocephin 1 Gm/Ns 50 Ml IVPB Infused HS KAMI Infusion Insulin Glargine 50 units 10/04/24 21:00 10/04/24 20:36 Insulin Glargine (*Bkc) 100 Units/Ml SUB-Q 50 units HS KAMI Administration Polyethylene Glycol 17 gm 10/05/24 09:00 Polyethylene Glycol 3350 17 Gm Powd.Pack PO DAILY KAMI Pregabalin 100 mg 10/04/24 22:00 10/05/24 05:14 Pregabalin (*Crx) 50 Mg Capsule PO 100 mg Q8HR KAMI Administration Quetiapine Fumarate 50 mg 10/04/24 21:00 10/04/24 20:34 Quetiapine Fumarate 25 Mg Tablet PO 50 mg HS KAMI Administration Simvastatin 40 mg 10/05/24 09:00 Simvastatin 20 Mg Tablet PO DAILY [facility] Radiology Results: ITS Impressions Head CT 10/04/24 14:36 IMPRESSION: No acute intracranial findings. Cervical Spine CT 10/04/24 15:00 IMPRESSION: 1. No fracture. 2. Mild cervical spondylosis. 3. Anterior fusion procedure from C5 to C7. Labs Labs: Laboratory Results - last 24 hr 10/04/24 10/04/24 10/04/24 19:48 19:58 22:02 WBC 10.4 H RBC 4.01 L Hgb 12.4 Hct 37.3 MCV 93.0 MCH 30.9 MCHC 33.2 RDW 13.5 Plt Count 241 MPV 9.0 Immature Gran % (Auto) 0.3 Neut % (Auto) 72.8 Lymph % (Auto) 10.6 L [place] % (Auto) 10.3 H Eos % (Auto) 5.2 H Baso % (Auto) 0.8 Lymph # (Auto) 1.10 [place] # (Auto) 1.1 H Eos # (Auto) 0.5 H Baso # (Auto) 0.1 Abs Immat Gran (auto) 0.03 Absolute Neuts (auto) 7.5 H Absolute Nucleated RBC 0.000 Nucleated RBC % 0.0 Sodium 138 Potassium 3.3 L Chloride 98 Carbon Dioxide 28 Anion Gap 12 BUN 23 H Creatinine 1.19 H Estim Creat Clear Calc Not Reportable Estimated GFR 45 L Glucose 161 H POC Capillary Glucose 166 H Calcium 9.4 Phosphorus 4.4 Magnesium 1.4 L Urine Color Yellow Urine Appearance Cloudy H Urine pH 7.5 Ur Specific [place] 1.008 Urine Protein Trace Urine Glucose (UA) Negative Urine Ketones Negative Ur Blood (Man) 1+ H Urine Nitrate Negative Urine Bilirubin Negative Urine Urobilinogen 0.2 Leukocyte Esterase Rfl 3+ H Urine RBC 3-5 H Urine WBC >100 H Ur Squamous Epith Cells None seen Urine Bacteria 3+ H Urine Casts 0-2 10/05/24 10/05/24 04:33 05:28 WBC 7.5 RBC 3.86 L Hgb 12.1 Hct 36.3 L MCV 94.0 MCH 31.3 MCHC 33.3 RDW 13.4 Plt Count 222 MPV 9.1 Immature Gran % (Auto) 0.3 Neut % (Auto) 66.1 Lymph % (Auto) 13.9 L [place] % (Auto) 10.6 H Eos % (Auto) 8.0 H Baso % (Auto) 1.1 Lymph # (Auto) 1.04 [place] # (Auto) 0.8 H Eos # (Auto) 0.6 H Baso # (Auto) 0.1 Abs Immat Gran (auto) 0.02 Absolute Neuts (auto) 4.9 Absolute Nucleated RBC 0.000 Nucleated RBC % 0.0 Sodium 139 Potassium 3.4 Chloride 104 Carbon Dioxide 24 Anion Gap 11 BUN 20 H Creatinine 1.01 H Estim Creat Clear Calc Not Reportable Estimated GFR 55 L Glucose 78 POC Capillary Glucose 93 Calcium 9.2 Phosphorus Magnesium 1.8 Urine Color Urine Appearance Urine pH Ur Specific [place] Urine Protein Urine Glucose (UA) Urine Ketones Ur Blood (Man) Urine Nitrate Urine Bilirubin Urine Urobilinogen Leukocyte Esterase Rfl Urine RBC Urine WBC Ur Squamous Epith Cells Urine Bacteria Urine Casts Quality VTE Prophylaxis VTE prophylaxis: mechanical ordered and pharmacologic ordered
[2024-10-05 08:03] LABS: Glucose Point of Care 68 mg/dl (65-105)
[2024-10-05 08:29] LABS: Hemoglobin A1C 6.6 % (<5.7)
[2024-10-05] MEDS: ENOXAPARIN 40 MG/0.4 ML SYRINGE SUB-Q (08:29)
[2024-10-05] MEDS: polyethylene glycoL 3350 17 GM POWD.PACK PO (08:29)
[2024-10-05] MEDS: carvediloL 6.25 MG TABLET PO ×2 (08:29→21:01)
[2024-10-05] MEDS: DOCUSATE SODIUM 100 MG CAPSULE PO (08:29)
[2024-10-05] MEDS: amLODIPine BESYLATE 5 MG TABLET 10 MG BY MOUTH (08:30)
[2024-10-05] MEDS: SIMVASTATIN 20 MG TABLET 40 MG PO (08:30)
[2024-10-05] MEDS: hydroCHLOROthiazide 25 MG TABLET PO (08:30)
[2024-10-05] MEDS: CYANOCOBALAMIN 1,000 MCG TABLET 1000 MCG PO (08:35)
[2024-10-05] MEDS: POTASSIUM CHLORIDE 20 MEQ ER TABLET PO (08:35)
[2024-10-05] MEDS: FERROUS SULFATE 325 MG TABLET DR BY MOUTH (08:35)
[2024-10-05] MEDS: buPROPion HCL XL (24 HR) 150 MG TABCR PO (08:40)
[2024-10-05 11:50] LABS: Glucose Point of Care 161 mg/dl (65-105)
[2024-10-05 17:02] LABS: Glucose Point of Care 143 mg/dl (65-105)
[2024-10-05 21:01] LABS: Glucose Point of Care 212 mg/dl (65-105)
[2024-10-05] MEDS: QUEtiapine FUMARATE 25 MG TABLET 50 MG PO (21:01)
[2024-10-05] MEDS: INSULIN GLARGINE (*BKC) 100 UNITS/ML 40 UNITS SUB-Q (21:07)
[2024-10-05] MEDS: INSULIN ASPART (*BKC) 100 UNITS/ML SUB-Q (21:07)
[2024-10-06] VITALS (9 sets, daily range): BP systolic 107–155; BP diastolic 62–81; PULSE 74–100; RESP 18; TEMP 36.4–37.4; O2SAT 95–100
[2024-10-06] MEDS: HYDROcodone/acetaminophen (*CRX) 5-325 MG TABLET 1 TAB PO ×4 (03:52→20:01)
[2024-10-06] MEDS: PREGABALIN (*CRX) 50 MG CAPSULE 100 MG PO ×3 (05:03→22:36)
[2024-10-06] MEDS: SODIUM CHLORIDE 0.9% IV 1,000 ML 125 ML IV CONT ×2 (05:04→13:51)
[2024-10-06 07:50] LABS: Glucose Point of Care 101 mg/dl (65-105)
[2024-10-06] MEDS: CYANOCOBALAMIN 1,000 MCG TABLET 1000 MCG PO (08:00)
[2024-10-06] MEDS: polyethylene glycoL 3350 17 GM POWD.PACK PO (08:00)
[2024-10-06] MEDS: SIMVASTATIN 20 MG TABLET 40 MG PO (08:01)
[2024-10-06] MEDS: hydroCHLOROthiazide 25 MG TABLET PO (08:01)
[2024-10-06] MEDS: DOCUSATE SODIUM 100 MG CAPSULE PO (08:02)
[2024-10-06] MEDS: POTASSIUM CHLORIDE 20 MEQ ER TABLET PO (08:02)
[2024-10-06] MEDS: amLODIPine BESYLATE 5 MG TABLET 10 MG BY MOUTH (08:02)
[2024-10-06] MEDS: FERROUS SULFATE 325 MG TABLET DR BY MOUTH (08:02)
[2024-10-06] MEDS: carvediloL 6.25 MG TABLET PO ×2 (08:02→22:37)
[2024-10-06] MEDS: buPROPion HCL XL (24 HR) 150 MG TABCR PO (08:02)
[2024-10-06] MEDS: ENOXAPARIN 40 MG/0.4 ML SYRINGE SUB-Q (08:03)
--- NOTE | 2024-10-06 08:48 | P.PNIM_ITS ---
Progress Note: A&P Assessment and Plan (1) Fall: Code(s): W19.XXXA - Unspecified fall, initial encounter Status: Acute Assessment and Plan: Patient was leaving rehab as she ran out of days and was not progressing well when she fell trying to get into her sisters car. Confirms head strike, but denies loss of consciousness. Orthostatics positive Head CT negative for acute intracranial process CT C-spine shows no fracture, mild cervical spondylosis, and anterior fusion procedure from c5-c7 Fall precautions PT OT eval and treat (2) Abnormal urinalysis: Code(s): R82.90 - Unspecified abnormal findings in urine Status: Acute Assessment and Plan: - Symptomatic with burning sensation, increased frequency, and inability to completly void - UA: cloudy appearance, 1+ blood, negative nitrates, 3+ leukocytes, 3-5 RBC, > 100 WBC, 3+ bacteria - UC obtained on 10/04/24: pending - No previous micro to be reviewed - started on Rocephin 10/04 -continue-downgrade tomorrow (3) Invasive ductal carcinoma of right breast in female: Code(s): C50.911 - Malignant neoplasm of unspecified site of right female breast Status: Acute Assessment and Plan: right breast invasive ductal carcinoma status post neoadjuvant chemotherapy for high Oncotype DX score and mastectomy with right sentinel lymph node bx on 09/15/[address] Moreira Surgical site noninfective (4) HTN (hypertension): Qualifiers: Hypertension type: primary hypertension Qualified Code(s): I10 - Essential (primary) hypertension Code(s): I10 - Essential (primary) hypertension Status: Chronic Assessment and Plan: Chronic Continue amlodipine 10 mg daily, carvedilol 6.25 mg BID and HCTZ 25 mg daily Blood pressures reviewed, remain stable (5) Diabetes mellitus: Qualifiers: Diabetes mellitus complication status: without complication Diabetes mellitus retirement insulin use: with retirement use Diabetes mellitus type: type 2 Qualified Code(s): E11.9 - Type 2 diabetes mellitus without complications; Z79.4 - correction (current) use of insulin Code(s): E11.9 - Type 2 diabetes mellitus without complications Status: Chronic Assessment and Plan: - hypoglycemia protocol - POC blood glucose ACHS - home medication - 50 units lantus and 5 units TID - correct regimen ordered - 40 units lantus (20% decrease from home insulin) and low dose SSI - A1C 6.6 (6) Neuropathy: Code(s): G62.9 - Polyneuropathy, unspecified Status: Acute Assessment and Plan: Neuropathy in hands and feet restart Lyrica (7) Hypokalemia: Code(s): E87.6 - Hypokalemia Status: Acute Assessment and Plan: K 3.3 on admission Resume home potassium supplementation, resolved Continue to monitor (8) Hypomagnesemia: Code(s): E83.42 - Hypomagnesemia Status: Acute Assessment and Plan: Magnesium 1.4 on admission Daily magnesium level Repleted as needed Time Spent With Patient Time with patient: 25 - 35 minutes Subjective Date/time seen: 10/06/24 08:48 Interval history: 69-year-old female with past medical history of HTN, DM, HLD, GERD, TOÑO, CKD, fibromyalgia, mild cognitive impairment, depression, and right breast invasive ductal carcinoma status post neoadjuvant chemotherapy for high Oncotype DX score and mastectomy with right sentinel lymph node bx on 09/15/[address] Moreira presents to the hospital with extreme weakness and a mechanical fall. Assuming care. Still some burning pain with urination, increased frequency, and the feeling as though she is unable to completely void. She has no other complaints denying chest pain, palpitations, nausea/vomiting, and abdominal pain. still somewhat orthostatic with position change. IV fluids- and re assess in am. anticipate discharge in am if stable/improved. Review of Systems Review of Systems: 12 systems were reviewed and are negativ e except for as per HPI. All systems reviewed & are unremarkable except as noted in HPI and below Exam Narrative: AF HR 86 RR 18 SPO2 93 BP 98/60 General: female in no acute respiratory distress who is nontoxic appearing, lying semi recumbent in bed. HEENT: Normocephalic. Atraumatic. Extraocular movement intact. Sclera clear and anicteric. No facial asymmetry. Chest: Lungs are clear to auscultation bilaterally. No wheezes or crackles. CV: Heart was regular rate and rhythm. S1-S2. No murmurs, gallops, or rubs. Abd: Abdomen was soft. Nontender. Nondistended. Positive bowel sounds. Ext: No clubbing, cyanosis, or edema. DP pulses bilaterally. Neuro: Patient is alert and oriented x4. Speech is clear. Skin: Well-healing right mastectomy incision without signs of infection. Objective Data Vital Signs Vital Signs: Vital Signs - 24 hr 10/05/24 10:18 10/05/24 10:19 10/05/24 14:00 Temperature 98.2 F 98.2 F 97.7 F Pulse Rate 83 86 86 Respiratory Rate 18 18 18 Blood Pressure 128/63 74/42 L 98/60 L Pulse Oximetry 93 Oxygen Delivery 10/05/24 20:00 10/05/24 21:58 10/06/24 04:32 Temperature 98.4 F 99.1 F Pulse Rate 94 81 Respiratory Rate 20 18 Blood Pressure 160/86 H 134/77 Pulse Oximetry 98 98 Oxygen Delivery Room Air 10/06/24 08:02 Temperature Pulse Rate 80 Respiratory Rate Blood Pressure Pulse Oximetry Oxygen Delivery Intake/Output Intake/Output: Intake & Output 10/03/24 10/04/24 10/05/24 10/06/24 23:59 23:59 23:59 23:59 Intake Total 150 4678.8 1400 Output Total 2500 2200 Balance 150 2178.8 -800 Meds/Results Medications: Active Medications Generic Name Dose Route Start Last Admin Trade Name Freq PRN Reason Stop Dose Admin Hydrocodone Bitart/Acetaminophen 1 tab 10/04/24 19:31 10/06/24 08:01 Hydrocodone/Acetaminophen (*Crx) 5-325 Mg Tablet PO 1 tab Q4H PRN Administration Pain Rated 4-6 Amlodipine Besylate 10 mg 10/05/24 09:00 10/06/24 08:02 Amlodipine Besylate 5 Mg Tablet BY MOUTH 10 mg DAILY KAMI Administration Bupropion HCl 150 mg 10/05/24 09:00 10/06/24 08:02 Bupropion Hcl Xl (24 Hr) 150 Mg Tabcr PO 150 mg QAM KAMI Administration Carvedilol 6.25 mg 10/04/24 21:00 10/06/24 08:02 Carvedilol 6.25 Mg Tablet PO 6.25 mg Q12HR KAMI Administration Cyanocobalamin 1,000 mcg 10/05/24 09:00 10/06/24 08:00 Cyanocobalamin 1,000 Mcg Tablet PO 11/04/24 08:59 1,000 mcg DAILY KAMI Administration Dextrose 12.5 gm 10/05/24 08:00 Dextrose 50% 25 Gm/50 Ml Syringe IV PUSH PRN PRN Hypoglycemia Protocol Docusate Sodium 100 mg 10/05/24 09:00 10/06/24 08:02 Docusate Sodium 100 Mg Capsule PO 100 mg DAILY KAMI Administration Enoxaparin Sodium 40 mg 10/05/24 09:00 10/06/24 08:03 Enoxaparin 40 Mg/0.4 Ml Syringe SUB-Q 40 mg DAILY KAMI Administration Ferrous Sulfate 325 mg 10/05/24 08:15 10/06/24 08:02 Ferrous Sulfate [address] BY MOUTH 325 mg DAILY@0800 KAMI Administration Glucagon 1 mg 10/05/24 08:00 Glucagon For Inj 1 Mg Vial IM PRN PRN Hypoglycemia Protocol Glucose 15 gm 10/05/24 08:00 Glucose Oral Gel 15 Gm Of Glucse In 37.5 Gm Tube PO PRN PRN Hypoglycemia Protocol Hydrochlorothiazide 25 mg 10/05/24 09:00 10/06/24 08:01 Hydrochlorothiazide 25 Mg Tablet PO 25 mg QAM KAMI Administration Sodium Chloride 1,000 mls @ 125 mls/hr 10/04/24 20:35 10/06/24 05:04 Normal Saline Iv IV CONT 125 mls/hr .Q8H KAMI Administration Ceftriaxone Sodium 1 gm in 50 mls @ 100 mls/hr 10/04/24 23:05 10/05/24 21:33 Rocephin 1 Gm/Ns 50 Ml IVPB Infused HS KAMI Infusion Dextrose 1,000 mls @ 100 mls/hr 10/05/24 08:00 Dextrose 5% 1,000 Ml IVPB PRN PRN Hypoglycemia Protocol Insulin Aspart 1 - 2 units 10/05/24 21:00 10/05/24 21:07 Insulin Aspart (*Bkc) 100 Units/Ml SUB-Q 1 units HS KAMI Administration Protocol Insulin Glargine 40 units 10/05/24 21:00 10/05/24 21:07 Insulin Glargine (*Bkc) 100 Units/Ml SUB-Q 40 units HS KAMI Administration Polyethylene Glycol 17 gm 10/05/24 09:00 10/06/24 08:00 Polyethylene Glycol 3350 17 Gm Powd.Pack PO 17 gm DAILY KAMI Administration Potassium Chloride 20 meq 10/05/24 09:00 10/06/24 08:02 Potassium Chloride 20 Meq Er Tablet PO 20 meq DAILY KAMI Administration Pregabalin 100 mg 10/04/24 22:00 10/06/24 05:03 Pregabalin (*Crx) 50 Mg Capsule PO 100 mg Q8HR KAMI Administration Quetiapine Fumarate 50 mg 10/04/24 21:00 10/05/24 21:01 Quetiapine Fumarate 25 Mg Tablet PO 50 mg HS KAMI Administration Simvastatin 40 mg 10/05/24 09:00 10/06/24 08:01 Simvastatin 20 Mg Tablet PO 40 mg DAILY KAMI Administration Radiology Results: ITS Impressions Head CT 10/04/24 14:36 IMPRESSION: No acute intracranial findings. Cervical Spine CT 10/04/24 15:00 IMPRESSION: 1. No fracture. 2. Mild cervical spondylosis. 3. Anterior fusion procedure from C5 to C7. Labs Labs: Laboratory Results - last 24 hr 10/05/24 10/05/24 10/05/24 11:47 16:55 20:51 POC Capillary Glucose 161 H 143 H 212 H 10/06/24 07:43 POC Capillary Glucose 101 Quality VTE Prophylaxis VTE prophylaxis: mechanical ordered and pharmacologic ordered
[2024-10-06 10:24] LABS: Hematocrit 37.6 % (37.0-47.0); Hemoglobin 12.2 g/dL (12.0-15.0); Mean Corpuscular HGB Conc 32.4 g/dl (32-36); Mean Corpuscular Hemoglobin 30.8 pg (26-34); Mean Corpuscular Volume 94.9 fl (80-100); Mean Platelet Volume 9.2 fl (7.4-10.4); Platelet Count Result 234 k/mm3 (150-375); Red Blood Count 3.96 M/mm3 (4.2-5.4); Red Cell Distribution Width 13.3 % (11.5-14.5); White Blood Count 9.4 K/mm3 (4.5-10.0)
[2024-10-06 10:33] LABS: Anion Gap 11 mmol/L (4-12); Blood Urea Nitrogen 17 mg/dL (7-17); Calcium 9.5 mg/dL (8.4-10.2); Carbon Dioxide 26 mmol/L (22-30); Chloride 103 mmol/L (98-107); Estimated Glomerular Filt Rate > 60; Glucose 193 mg/dL (65-110); Potassium 3.8 mmol/L (3.4-5.0); Sodium 140 mmol/L (137-145)
[2024-10-06 12:00] LABS: Glucose Point of Care 226 mg/dl (65-105)
--- NOTE | 2024-10-06 14:23 | PCOTNOTE ---
Attempted to see Patient at this time. Patient in bed. Patient verbalized she just got back into bed, feeling exhausted and per RN, awaiting for a PICC line to be placed, must remain in bed.
[2024-10-06 16:44] LABS: Glucose Point of Care 169 mg/dl (65-105)
[2024-10-06 21:57] LABS: Glucose Point of Care 197 mg/dl (65-105)
[2024-10-06] MEDS: QUEtiapine FUMARATE 25 MG TABLET 50 MG PO (22:37)
[2024-10-06] MEDS: INSULIN GLARGINE (*BKC) 100 UNITS/ML 40 UNITS SUB-Q (22:38)
[2024-10-07] VITALS (7 sets, daily range): BP systolic 98–151; BP diastolic 56–77; PULSE 84–89; RESP 16–20; TEMP 36.4–36.9; O2SAT 96–100
[2024-10-07] MEDS: SODIUM CHLORIDE 0.9% IV 1,000 ML 125 ML IV CONT ×2 (00:10→08:29)
[2024-10-07] MEDS: HYDROcodone/acetaminophen (*CRX) 5-325 MG TABLET 1 TAB PO ×3 (00:20→12:40)
[2024-10-07] MEDS: PREGABALIN (*CRX) 50 MG CAPSULE 100 MG PO ×2 (05:56→13:22)
--- NOTE | 2024-10-07 08:18 | PM.IMPN ---
Progress Note: A&P Assessment and Plan (1) Fall: Code(s): W19.XXXA - Unspecified fall, initial encounter Status: Acute Assessment and Plan: Patient was leaving rehab as she ran out of days and was not progressing well when she fell trying to get into her sisters car. Confirms head strike, but denies loss of consciousness. Orthostatics positive Head CT negative for acute intracranial process CT C-spine shows no fracture, mild cervical spondylosis, and anterior fusion procedure from c5-c7 Fall precautions PT OT eval and treat (2) Abnormal urinalysis: Code(s): R82.90 - Unspecified abnormal findings in urine Status: Acute Assessment and Plan: - Symptomatic with burning sensation, increased frequency, and inability to completly void - UA: cloudy appearance, 1+ blood, negative nitrates, 3+ leukocytes, 3-5 RBC, > 100 WBC, 3+ bacteria - UC obtained on 10/04/24: pending - No previous micro to be reviewed - started on Rocephin 10/04 -continue-downgrade tomorrow - downgrade to PO Augmentin (3) Invasive ductal carcinoma of right breast in female: Code(s): C50.911 - Malignant neoplasm of unspecified site of right female breast Status: Acute Assessment and Plan: right breast invasive ductal carcinoma status post neoadjuvant chemotherapy for high Oncotype DX score and mastectomy with right sentinel lymph node bx on 09/15/[address] Moreira Surgical site noninfective (4) HTN (hypertension): Qualifiers: Hypertension type: primary hypertension Qualified Code(s): I10 - Essential (primary) hypertension Code(s): I10 - Essential (primary) hypertension Status: Chronic Assessment and Plan: Chronic Continue amlodipine 10 mg daily, carvedilol 6.25 mg BID and HCTZ 25 mg daily Blood pressures reviewed- somewhat elevated lately -could be due to continuos IV fluids or increased activity- gets very tired with any exhaustion -monitor closely (5) Diabetes mellitus: Qualifiers: Diabetes mellitus complication status: without complication Diabetes mellitus half-way insulin use: with half-way use Diabetes mellitus type: type 2 Qualified Code(s): E11.9 - Type 2 diabetes mellitus without complications; Z79.4 - retirement (current) use of insulin Code(s): E11.9 - Type 2 diabetes mellitus without complications Status: Chronic Assessment and Plan: - hypoglycemia protocol - POC blood glucose ACHS - home medication - 50 units lantus and 5 units TID - correct regimen ordered - 40 units lantus (20% decrease from home insulin) and low dose SSI - A1C 6.6 (6) Neuropathy: Code(s): G62.9 - Polyneuropathy, unspecified Status: Acute Assessment and Plan: Neuropathy in hands and feet restart Lyrica (7) Hypokalemia: Code(s): E87.6 - Hypokalemia Status: Acute Assessment and Plan: K 3.3 on admission Resume home potassium supplementation, resolved Continue to monitor (8) Hypomagnesemia: Code(s): E83.42 - Hypomagnesemia Status: Acute Assessment and Plan: Magnesium 1.4 on admission Daily magnesium level Repleted as needed -remains stable Time Spent With Patient Time with patient: 25 - 35 minutes Subjective Date/time seen: 10/07/24 08:18 Interval history: 69-year-old female with past medical history of HTN, DM, HLD, GERD, TOÑO, CKD, fibromyalgia, mild cognitive impairment, depression, and right breast invasive ductal carcinoma status post neoadjuvant chemotherapy for high Oncotype DX score and mastectomy with right sentinel lymph node bx on 09/15/[address] Moreira presents to the hospital with extreme weakness and a mechanical fall. Assuming care. still somewhat orthostatic with position change. Still very weak, will continue PT/OT for now. Review of Systems Review of Systems: 12 systems were reviewed and are negative except for as per HPI. All systems reviewed & are unremarkable except as noted in HPI and below Exam Narrative: General: female in no acute respiratory distress who is nontoxic appearing, lying semi recumbent in bed. HEENT: Normocephalic. Atraumatic. Extraocular movement intact. Sclera clear and anicteric. No facial asymmetry. Chest: Lungs are clear to auscultation bilaterally. No wheezes or crackles. CV: Heart was regular rate and rhythm. S1-S2. No murmurs, gallops, or rubs. Abd: Abdomen was soft. Nontender. Nondistended. Positive bowel sounds. Ext: No clubbing, cyanosis, or edema. DP pulses bilaterally. Neuro: Patient is alert and oriented x4. Speech is clear. Skin: Well-healing right mastectomy incision without signs of infection. Const: General: comfortable Objective Data Vital Signs Vital Signs: Vital Signs - 24 hr 10/06/24 10:32 10/06/24 10:40 10/06/24 14:00 Temperature 99.1 F 99.3 F 97.6 F Pulse Rate 83 74 88 Respiratory Rate 18 18 18 Blood Pressure 129/69 107/62 152/81 H Pulse Oximetry 97 97 100 10/06/24 20:19 10/06/24 22:37 10/07/24 04:41 Temperature 98.4 F 97.8 F Pulse Rate 99 100 84 Respiratory Rate 18 20 Blood Pressure 155/81 H 151/77 H Pulse Oximetry 95 96 Intake/Output Intake/Output: Intake & Output 10/04/24 10/05/24 10/06/24 10/07/24 23:59 23:59 23:59 23:59 Intake Total 150 4678.8 5250.0 500 Output Total 2500 2200 1600 Balance 150 2178.8 3050.0 -1100 Meds/Results Medications: Active Medications Generic Name Dose Route Start Last Admin Trade Name Freq PRN Reason Stop Dose Admin Hydrocodone Bitart/Acetaminophen 1 tab 10/04/24 19:31 10/07/24 00:20 Hydrocodone/Acetaminophen (*Crx) 5-325 Mg Tablet PO 1 tab Q4H PRN Administration Pain Rated 4-6 Amlodipine Besylate 10 mg 10/05/24 09:00 10/06/24 08:02 Amlodipine Besylate 5 Mg Tablet BY MOUTH 10 mg DAILY KAMI Administration Bupropion HCl 150 mg 10/05/24 09:00 10/06/24 08:02 Bupropion Hcl Xl (24 Hr) 150 Mg Tabcr PO 150 mg QAM KAMI Administration Carvedilol 6.25 mg 10/04/24 21:00 10/06/24 22:37 Carvedilol 6.25 Mg Tablet PO 6.25 mg Q12HR KAMI Administration Cyanocobalamin 1,000 mcg 10/05/24 09:00 10/06/24 08:00 Cyanocobalamin 1,000 Mcg Tablet PO 11/04/24 08:59 1,000 mcg DAILY KAMI Administration Dextrose 12.5 gm 10/05/24 08:00 Dextrose 50% 25 Gm/50 Ml Syringe IV PUSH PRN PRN Hypoglycemia Protocol Docusate Sodium 100 mg 10/05/24 09:00 10/06/24 08:02 Docusate Sodium 100 Mg Capsule PO 100 mg DAILY KAMI Administration Enoxaparin Sodium 40 mg 10/05/24 09:00 10/06/24 08:03 Enoxaparin 40 Mg/0.4 Ml Syringe SUB-Q 40 mg DAILY KAMI Administration Ferrous Sulfate 325 mg 10/05/24 08:15 10/06/24 08:02 Ferrous Sulfate [address] BY MOUTH 325 mg DAILY@0800 KAMI Administration Glucagon 1 mg 10/05/24 08:00 Glucagon For Inj 1 Mg Vial IM PRN PRN Hypoglycemia Protocol Glucose 15 gm 10/05/24 08:00 Glucose Oral Gel 15 Gm Of Glucse In 37.5 Gm Tube PO PRN PRN Hypoglycemia Protocol Hydrochlorothiazide 25 mg 10/05/24 09:00 10/06/24 08:01 Hydrochlorothiazide 25 Mg Tablet PO 25 mg QAM KAMI Administration Sodium Chloride 1,000 mls @ 125 mls/hr 10/04/24 20:35 10/07/24 05:55 Normal Saline Iv IV CONT Not Given .Q8H KAMI Ceftriaxone Sodium 1 gm in 50 mls @ 100 mls/hr 10/04/24 23:05 10/06/24 23:07 Rocephin 1 Gm/Ns 50 Ml IVPB Infused HS KAMI Infusion Dextrose 1,000 mls @ 100 mls/hr 10/05/24 08:00 Dextrose 5% 1,000 Ml IVPB PRN PRN Hypoglycemia Protocol Insulin Aspart 1 - 2 units 10/05/24 21:00 10/06/24 22:38 Insulin Aspart (*Bkc) 100 Units/Ml SUB-Q Not Given HS [facility] Protocol Insulin Glargine 40 units 10/05/24 21:00 10/06/24 22:38 Insulin Glargine (*Bkc) 100 Units/Ml SUB-Q 40 units HS KAMI Administration Polyethylene Glycol 17 gm 10/05/24 09:00 10/06/24 08:00 Polyethylene Glycol 3350 17 Gm Powd.Pack PO 17 gm DAILY KAMI Administration Potassium Chloride 20 meq 10/05/24 09:00 10/06/24 08:02 Potassium Chloride 20 Meq Er Tablet PO 20 meq DAILY KAMI Administration Pregabalin 100 mg 10/04/24 22:00 10/07/24 05:56 Pregabalin (*Crx) 50 Mg Capsule PO 100 mg Q8HR KAMI Administration Quetiapine Fumarate 50 mg 10/04/24 21:00 10/06/24 22:37 Quetiapine Fumarate 25 Mg Tablet PO 50 mg HS KAMI Administration Simvastatin 40 mg 10/05/24 09:00 10/06/24 08:01 Simvastatin 20 Mg Tablet PO 40 mg DAILY KAMI Administration Radiology Results: ITS Impressions Head CT 10/04/24 14:36 IMPRESSION: No acute intracranial findings. Cervical Spine CT 10/04/24 15:00 IMPRESSION: 1. No fracture. 2. Mild cervical spondylosis. 3. Anterior fusion procedure from C5 to C7. Labs Labs: Laboratory Results - last 24 hr 10/06/24 10/06/24 10/06/24 10:12 11:56 16:39 WBC 9.4 RBC 3.96 L Hgb 12.2 Hct 37.6 MCV 94.9 MCH 30.8 MCHC 32.4 RDW 13.3 Plt Count 234 MPV 9.2 Sodium 140 Potassium 3.8 Chloride 103 Carbon Dioxide 26 Anion Gap 11 BUN 17 Creatinine 0.85 Estim Creat Clear Calc Not Reportable Estimated GFR > 60 Glucose 193 H POC Capillary Glucose 226 H 169 H Calcium 9.5 10/06/24 20:23 WBC RBC Hgb Hct MCV MCH MCHC RDW Plt Count MPV Sodium Potassium Chloride Carbon Dioxide Anion Gap BUN Creatinine Estim Creat Clear Calc Estimated GFR Glucose POC Capillary Glucose 197 H Calcium Quality VTE Prophylaxis VTE prophylaxis: mechanical ordered and pharmacologic ordered
[2024-10-07 08:20] LABS: Glucose Point of Care 108 mg/dl (65-105)
[2024-10-07] MEDS: amLODIPine BESYLATE 5 MG TABLET 10 MG BY MOUTH (08:31)
[2024-10-07] MEDS: POTASSIUM CHLORIDE 20 MEQ ER TABLET PO (08:31)
[2024-10-07] MEDS: ENOXAPARIN 40 MG/0.4 ML SYRINGE SUB-Q (08:32)
[2024-10-07] MEDS: carvediloL 6.25 MG TABLET PO (08:32)
[2024-10-07] MEDS: FERROUS SULFATE 325 MG TABLET DR BY MOUTH (08:32)
[2024-10-07] MEDS: SIMVASTATIN 20 MG TABLET 40 MG PO (08:33)
[2024-10-07] MEDS: hydroCHLOROthiazide 25 MG TABLET PO (08:34)
[2024-10-07] MEDS: CYANOCOBALAMIN 1,000 MCG TABLET 1000 MCG PO (08:34)
[2024-10-07] MEDS: DOCUSATE SODIUM 100 MG CAPSULE PO (08:34)
[2024-10-07] MEDS: buPROPion HCL XL (24 HR) 150 MG TABCR PO (08:36)
[2024-10-07 11:40] LABS: Glucose Point of Care 230 mg/dl (65-105)
--- NOTE | 2024-10-07 14:12 | P.DS_ITS ---
DS: Admitting Diagnosis Discharge Date 10/07 Admitting Diagnosis weakness, uti DS: Discharge Diagnosis Discharge Diagnosis (1) Fall: Code(s): W19.XXXA - Unspecified fall, initial encounter Status: Acute (2) Abnormal urinalysis: Code(s): R82.90 - Unspecified abnormal findings in urine Status: Acute (3) Invasive ductal carcinoma of right breast in female: Code(s): C50.911 - Malignant neoplasm of unspecified site of right female breast Status: Acute (4) HTN (hypertension): Qualifiers: Hypertension type: primary hypertension Qualified Code(s): I10 - Essential (primary) hypertension Code(s): I10 - Essential (primary) hypertension Status: Chronic (5) Diabetes mellitus: Qualifiers: Diabetes mellitus type: type 2 Diabetes mellitus residential insulin use: with exterminator helper use Diabetes mellitus complication status: without complication Qualified Code(s): E11.9 - Type 2 diabetes mellitus without complications; Z79.4 - equipment operator intermodal yard (current) use of insulin Code(s): E11.9 - Type 2 diabetes mellitus without complications Status: Chronic (6) Neuropathy: Code(s): G62.9 - Polyneuropathy, unspecified Status: Acute (7) Hypokalemia: Code(s): E87.6 - Hypokalemia Status: Acute (8) Hypomagnesemia: Code(s): E83.42 - Hypomagnesemia Status: Acute DS: Summary Hospital Course Hospital Course: 69-year-old female with past medical history of HTN, DM, HLD, GERD, TOÑO, CKD, fibromyalgia, mild cognitive impairment, depression, and right breast invasive ductal carcinoma status post neoadjuvant chemotherapy for high Oncotype DX score and mastectomy with right sentinel lymph node bx on 09/15/[address] Moreira presents to the hospital with extreme weakness and a mechanical fall. # fall Patient was leaving rehab as she ran out of days and was not progressing well when she fell trying to get into her sisters car. Confirms head strike, but denies loss of consciousness. Orthostatics positive- received IV fluids- improved Head CT negative for acute intracranial process CT C-spine shows no fracture, mild cervical spondylosis, and anterior fusion procedure from c5-c7 Fall precautions PT OT eval and treat # uti - Symptomatic with burning sensation, increased frequency, and inability to completely void - UA: cloudy appearance, 1+ blood, negative nitrates, 3+ leukocytes, 3-5 RBC, > 100 WBC, 3+ bacteria - UC obtained on 10/04/24: pending - No previous micro to be reviewed - started on Rocephin 10/04 - downgraded to Augmentin today- 8 total more doses, 4 more days Status at Discharge Functional status at discharge: uses cane/walker Overall status at discharge: patient is progressing back to baseline Time Spent with Patient Time attestation: Total time spent providing and/or coordinating discharge services: Time spent: Greater than 30 minutes Exam Narrative: General: female in no acute respiratory distress who is nontoxic appearing, lying semi recumbent in bed. HEENT: Normocephalic. Atraumatic. Extraocular movement intact. Sclera clear and anicteric. No facial asymmetry. Chest: Lungs are clear to auscultation bilaterally. No wheezes or crackles. CV: Heart was regular rate and rhythm. S1-S2. No murmurs, gallops, or rubs. Abd: Abdomen was soft. Nontender. Nondistended. Positive bowel sounds. Ext: No clubbing, cyanosis, or edema. DP pulses bilaterally. Neuro: Patient is alert and oriented x4. Speech is clear. Skin: Well-healing right mastectomy incision without signs of infection. Const: General: comfortable DS: Data Data Completed and Pending Labs on day of discharge: Labs from last 24 hours 10/07/24 10/07/24 10/06/24 11:35 08:14 20:23 POC Capillary Glucose 230 H 108 H 197 H 10/06/24 16:39 POC Capillary Glucose 169 H Discharge Plan Discharge Attending physician on discharge: Maxx Garcia Discharging Clinician: Christine Hubbard Patient Disposition: SNF Activity: november shower Diet: heart healthy Patient Language: East Timorese Stand Alone Forms: General Discharge Information Follow-up/Referrals: Giselle Ramirez MD [Primary Care Provider] - 2 Weeks Discharge Medications: New amoxicillin-pot clavulanate 875-125 mg tablet 1 tablet PO Q12H Qty: 8 0RF Continued (DME) FreeStyle Triston 3 Burke Misc See Rx Instructions .Route Qty: 1 0RF Rx Instructions: Check blood glucose 5 x daily tolnaftate 1 % solution 1 drp topical QHS Qty: 45 0RF Rx Instructions: rub into affected area (DME) OneTouch Verio test strips Strip See Rx Instructions .Route Qty: 100 7RF Rx Instructions: use TID to monitor glucose ferrous sulfate [FeroSul] 325 mg (65 mg iron) tablet 325 mg PO DAILY mecobalamin (vitamin B12) 500 mcg tablet,chewable 1,000 mcg PO DAILY polyethylene glycol 3350 [ClearLax] 17 gram/dose powder 17 g PO DAILY pregabalin 75 mg capsule 100 mg PO TID hydrocodone-acetaminophen 5-325 mg Tablet 1 tablet PO Q4H PRN (Reason: Pain Rated 4-6) Qty: 10 0RF tramadol 50 mg Tablet 50 mg PO Q4H PRN (Reason: Pain Rated 1-3) Qty: 20 0RF docusate sodium [Colace] 100 mg capsule 100 mg PO DAILY Qty: 14 0RF (DME) blood-glucose meter Misc See Rx Instructions .Route Qty: 1 0RF Rx Instructions: As directed to monitor glucose TID (DME) lancets Misc See Rx Instructions .Route Qty: 200 11RF Rx Instructions: As directed TID check glucose simvastatin [Zocor] 40 mg tablet 40 mg PO DAILY Qty: 90 3RF (DME) FreeStyle Triston 3 Sensor Device See Rx Instructions .Route Qty: 6 3RF Rx Instructions: Check blood glucose 5 x daily insulin glargine [Lantus U-100 Insulin] 100 unit/mL solution 50 unit SUB-Q HS Qty: 45 3RF bupropion HCl [Wellbutrin XL] 150 mg tablet extended release 24 hr 150 mg PO QAM Qty: 30 11RF Patient Comments: . amlodipine 10 mg tablet See Rx Instructions .ROUTE .COMPLEX Qty: 30 11RF Dose Instruction: Take 1 tablet by mouth once daily Patient Comments: . Rx Instructions: Take 1 tablet by mouth once daily Lyumjev KwikPen U-100 Insulin 100 unit/mL insulin pen 5 unit subcut TID Qty: 45 3RF hydrochlorothiazide 25 mg tablet 25 mg PO QAM Qty: 90 3RF carvedilol 6.25 mg tablet 6.25 mg PO BID Qty: 90 3RF Patient Comments: . Rx Instructions: TAKE 1 TABLET BY MOUTH EVERY 12 HOURS WITH FOOD (DME) pen needle, diabetic [1st Tier Unifine Pentips] 31 gauge x 1/4 needle See Rx Instructions .Route Qty: 300 12RF Rx Instructions: As directed TID potassium chloride 20 mEq tablet extended release 20 meq PO DAILY Qty: 30 3RF quetiapine 25 mg tablet 50 mg PO HS Qty: 180 0RF Date of admission: 10/07/24 10:04 Primary Care Provider: Giselle Ramirez Admitting Provider: Maxx Garcia Attending physician on admission: Namrata John Condition: Stable Quality VTE Prophylaxis VTE prophylaxis: mechanical ordered and pharmacologic ordered
[2024-10-07 15:11] LABS: SARS-CoV-2 RNA PCR Negative (Negative)
[2024-10-07 16:30] LABS: Glucose Point of Care 179 mg/dl (65-105)
== END 2024-10-07 17:50 ==
LOC: ANHED 18:45 → ANH2MED 19:03
PROVIDERS: Nurse Practitioner; Nurse Practitioner Gerontology; Admitting Provider General Practice; Emergency Provider Emergency Medicine; PCP Family Medicine; Visit Provider Student in an Organized Health Care Education/Training Program
DX: N39.0 Urinary tract infection, site not specified (principal); Z98.890 Other specified postprocedural states; S19.9XXA Unspecified injury of neck, initial encounter; V48.4XXA Person boarding or alighting a car injured in noncollision transport accident, initial encounter; C50.911 Malignant neoplasm of unspecified site of right female breast; Z92.21 Personal history of antineoplastic chemotherapy; Z90.10 Acquired absence of unspecified breast and nipple; E11.22 Type 2 diabetes mellitus with diabetic chronic kidney disease; I12.9 Hypertensive chronic kidney disease with stage 1 through stage 4 chronic kidney disease, or unspecified chronic kidney disease; N18.32 Chronic kidney disease, stage 3b; E11.42 Type 2 diabetes mellitus with diabetic polyneuropathy; E87.6 Hypokalemia; E83.42 Hypomagnesemia; M47.892 Other spondylosis, cervical region; D72.829 Elevated white blood cell count, unspecified; E78.5 Hyperlipidemia, unspecified; G31.84 Mild cognitive impairment of uncertain or unknown etiology; F39 Unspecified mood [affective] disorder; F32.A Depression, unspecified; F41.9 Anxiety disorder, unspecified; M79.7 Fibromyalgia; K21.9 Gastro-esophageal reflux disease without esophagitis; G47.33 Obstructive sleep apnea (adult) (pediatric); K58.9 Irritable bowel syndrome, unspecified; Z20.822 Contact with and (suspected) exposure to COVID-19; Z79.4 Long term (current) use of insulin; Z79.899 Other long term (current) drug therapy; Z87.891 Personal history of nicotine dependence; Z90.710 Acquired absence of both cervix and uterus; Z90.79 Acquired absence of other genital organ(s); Z90.722 Acquired absence of ovaries, bilateral; Z90.49 Acquired absence of other specified parts of digestive tract; Z86.0100 Personal history of colon polyps, unspecified
CPT/HCPCS: 36415; 70450; 72125; 80048; 81001; 82948; 83036; 83735; 84100; 85025; 85027; 87086; 87186; 87635; 96361; 96365; 96367; 97110; 97161; 97166; 97530; 97535; 99285; A9270; G0378; J0696; J1650; J1815; J3475; J7030

== ENCOUNTER 2024-11-03 13:45 | Outpatient (CLI) | payer MEDICARE, SELFPAY ==
--- NOTE | ~2024-11-03 | MR_ITS ---
EXAMINATION: MR brain/brain stem wo con DATE: 11/03/2024 14:19 INDICATION: Amnesia TECHNIQUE: Magnetic resonance imaging (MRI) of the brain and brainstem was performed without intraven ous contrast. Sequences included sagittal and axial T1-weighted SE, axial diffusion-weighted FS SE, a xial T2*-weighted GRE, axial T2-weighted FLAIR, and axial T2-weighted FSE. Apparent diffusion coeffic ient (ADC) maps were created. COMPARISON: Head CT dated 10/04/2024 FINDINGS: There are no areas of restricted diffusion to suggest acute infarction. There are small old lacunar i nfarcts at the bilateral thalami and basal ganglia. No intracranial hemorrhage or abnormal intracrani al mass lesion. There are scattered areas of nonspecific increased T2-weighted signal intensity in th e cerebral white matter, predominantly involving the bilateral frontal lobe periventricular white mat ter. There are no intraparenchymal signal abnormalities seen on the other pulse sequences. The ventri cles are symmetric and normal in size. There are no abnormal extra-axial fluid collections. Flow void s are seen in the cerebral arteries on the T2-weighted sequences consistent with their expected paten cy. Visualized orbits and soft tissues are unremarkable. Mild mucosal thickening in the bilateral eth moid sinuses. IMPRESSION: 1. Small old lacunar infarcts at the bilateral basal ganglia and thalami. No acute intracranial proce ss. 2. Moderate scattered vasogenic white matter T2 hyperintensity with bilateral frontal periventricular predominance, likely sequela of chronic small vessel ischemic disease. Reviewed, dictated and finalized at location A. IMPRESSION: 1. Small old lacunar infarcts at the bilateral basal ganglia and thalami. No ac ritu intracranial process. 2. Moderate scattered vasogenic white matter T2 hyperintensity with bilateral f rontal periventricular predominance, likely sequela of chronic small vessel isc hemic disease.
== END 2024-11-03 13:46 | disposition home or self-care (01) ==
LOC: MICIMG 13:47
PROVIDERS: PCP Family Medicine; Visit Provider Psychiatry & Neurology Neurology
DX: R90.82 White matter disease, unspecified (principal); Z87.828 Personal history of other (healed) physical injury and trauma
CPT/HCPCS: 70551

== ENCOUNTER 2025-04-21 13:09 | Outpatient (CLI) | payer MEDICARE, SELFPAY ==
[2025-04-21 13:32] LABS: Add Urine Microscopic? YES; Appearance Urine Clear (Clear); Glucose Urine UA Negative (Negative); Leukocyte Esterase Ur Trace LEU/UL (Negative); Nitrate Urine Negative (Negative); Non Pathogenic Casts 0-2; Specific Grav Ur 1.009 (1.001-1.035)
[2025-04-21 13:40] LABS: Alanine Aminotransferase 19 U/L (6-35); Albumin Level 4.2 g/dL (3.5-5.1); Alkaline Phosphatase 60 U/L (38-126); Aspartate Amino Transferase 33 U/L (14-36); Bilirubin,Total 0.5 mg/dL (0.2-1.3); Cholesterol 216 mg/dL (0-200); HDL Direct 49 mg/dL; Total Protein 7.2 g/dL (6.3-8.2); Triglycerides 128 mg/dL (<150)
[2025-04-21 14:11] LABS: Hemoglobin A1C 6.4 % (<5.7)
== END 2025-04-21 13:10 | disposition home or self-care (01) ==
PROVIDERS: PCP Family Medicine; Visit Provider Student in an Organized Health Care Education/Training Program
DX: E78.5 Hyperlipidemia, unspecified (principal); E11.9 Type 2 diabetes mellitus without complications; I10 Essential (primary) hypertension; R39.9 Unspecified symptoms and signs involving the genitourinary system; Z79.4 Long term (current) use of insulin
CPT/HCPCS: 36415; 80061; 80076; 81001; 83036; 87077; 87086; 87186

== ENCOUNTER 2025-04-21 13:32 | Outpatient (CLI) | payer MEDICARE, SELFPAY ==
--- NOTE | ~2025-04-21 | MM_ITS ---
EXAMINATION: MM diagnostic troy LT w ken INDICATION: Asymptomatic, History of Right mastectomy 09/2024. COMPARISON: 01/26/2024 through 10/08/2006 TECHNIQUE: Digital Breast Tomosynthesis CC, MLO views were obtained of LEFT breast with computer-aided detection to assist in interpretation of the study. FINDINGS: There are scattered areas of fibroglandular density. No focal dominant mass, architectural distortion, or suspicious microcalcifications are identified. There are no features to suggest malignancy. IMPRESSION: 1. No mammographic evidence of malignancy. 2. Recommend routine screening mammography in one year. BI-RADS Category 1: Negative Reviewed, dictated and finalized at location B.
== END 2025-04-21 13:33 | disposition home or self-care (01) ==
LOC: ANHFOHIMG 13:34
PROVIDERS: PCP Family Medicine; Visit Provider Surgery
DX: C50.911 Malignant neoplasm of unspecified site of right female breast (principal); N63.21 Unspecified lump in the left breast, upper outer quadrant; Z90.11 Acquired absence of right breast and nipple
CPT/HCPCS: 77061; 77065; G0279

== ENCOUNTER 2025-05-09 12:00 | Outpatient (CLI) | payer MEDICARE, SELFPAY ==
[2025-05-09 13:18] LABS: INR 1.0; Prothrombin Time 13.1 Seconds (11.1-14.7)
[2025-05-09 13:19] LABS: Partial Thromboplastin Time 23.9 Seconds (22.3-36.8)
--- OUTSIDE RECORDS SUMMARY | 2025-05-09 13:32 | XMS_ITS | Clinical Summary ---
Author Organization [facility] Address [address] [place] [address] Care Team Providers Care Online Merchandising Manager Name Role Phone Giselle Ramirez MD Primary Care Provider Source Comments [facility],non-owned Affiliates and Associated Physician Practices is amultiple site organization consisting of ambulatory clinics and hospital sitesin [place], [place], [place] and [place]. This disclosure is being madepursuant to the Care Everywhere program and may not contain all information available regarding this patient. 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 11/20/2010 11:2 0 AM CDT 11/20/2010 12:33 PM CDT us Historical Provider LAB - CHEMISTRY ORDERABLE S Final Result [address] [phone] from Last 3 Months or Most Recently Relevant to Health Maintenance Insurance [facility] MANAGED MEDICARE ADV SELF PAY NO INSURANCE Member Subscriber Plan / Payer (Ef fective for All Dates) Name:Shreya Baum Member ID:Not on file Relation to Subscriber:Not on file Name:SHREYA BAUM Subscriber ID:Not on file (Home) Address: [address] [place] [id number] Payer ID:Not on file Group ID:Not on file Type:Self Pay Address: [facility] MANAGED MEDICARE ADV Care Teams Online Merchandising Manager Relationship Specialty Start Date End Date Giselle Ramirez MD [address] [place] [address] PCP - General 08/14/20
--- OUTSIDE RECORDS SUMMARY | 2025-05-09 13:32 | XMS_ITS | Clinical Summary ---
Author Organization [facility] Address [address] [place] [address] Care Team Providers Care Rag Willow Operator Name Role Phone Giselle Ramirez MD Primary Care Provider [phone] Allergies Active Allergy Reactions Criticality Noted Date Comments Codeine Rash Low 03/04/2024 Lisinopril Swelling Low 03/04/2024 Ramipril Swelling Low 03/04/2024 Medications buPROPion HCL (WELLBUTRIN XL) 150 mg Extended Release 24 hour tablet Take 150 mg by mouth daily in the morning. 4 Active carvediloL (COREG) 6.25 mg tablet Take 6.25 mg by mouth 2 times daily with meals. 4 Active Lantus U-100 Insulin 100 unit/mL vial 4 Active potassium chloride (KLOR-CON M20) 20 mEq Extended Release tablet TAKE ONE TABLET BY MOUTH DAILY AT 9 AM 4 Active pregabalin (LYRICA) 50 mg Capsule TAKE ONE CAPSULE (50 MG) BY MOUTH THREE TIMES DAILY 4 Active QUEtiapine (SEROquel) 25 mg tablet TAKE TWO TABLETS BY MOUTH DAILY AT 9 PM AT BEDTIME 4 Active simvastatin (ZOCOR) 40 mg tablet TAKE ONE TABLET BY MOUTH DAILY AT 5 PM 4 Active Lyumjev KwikPen U-100 Insulin 100 unit/mL Insulin Pen INJECT 5 UNITS (0.05mL) SUBCUTANEOUSLY THREE TIMES DAILY 4 Active AMLODIPINE BESYLATE, BULK, MISC by Misc.(Non-Drug; Combo Route) route. Besylate 10 mg tablet Active POTASSIUM CITRATE ORAL Take by mouth. Ac [...] Max Daily Amount: 4 Tablets 60 Tablet Active aspirin 81 mg Capsule Take by mouth. Activ e DULoxetine (CYMBALTA) 30 mg Capsule, Delayed Release(E.C.) Take 30 mg by mouth daily. 5 Active Active Problems No known active problems Encounters Date Type Department Care Team Description 05/04/2025 External Device Data STL ABSTRACTION Provider, Abstract 05/03/2025 External Device Data STL ABSTRACTION Provider, Abstract 04/20/2025 Telephone [facility] Oncology and Hematology [facility] [address] [place] [address] Julius Robledo MD Bone Density for appt 04/14/2025 Orders Only [facility] Oncology and [facility] [address] [place] [address] Julius Robledo MD 04/12/2025 2:45 PM CDT Office Visit [facility] Oncology and [facility] [address] [place] [address] Julius Robledo MD Osteopenia of multiple sites (Primary Dx); Malignant neoplasm of upper-outer quadrant of right breast in female, estrogen receptor positive (CMS/HCC) 04/11/2025 Orders Only [facility] Oncology and Hematology [facility] [address] [place] [address] Julius Robledo MD Malignant neoplasm of upper-outer quadrant of right breast in female, estrogen receptor positive (CMS/HCC) 03/29/2025 External Device Data STL ABSTRACTION Provider, Abstract 03/28/2025 Orders Only [facility] Oncology and Hematology [facility] [address] [place] [address] Julius Robledo MD Malignant neoplasm of upper-outer quadrant of right breast in female, estrogen receptor positive (CMS/HCC) 03/22/2025 External Device Data STL ABSTRACTION Provider, Abstract 03/14/2025 Orders Only [facility] Oncology and Hematology - [address] [place] [address] Julius Robledo MD Malignant neoplasm of upper-outer quadrant of right breast in female, estrogen receptor positive (CMS/HCC) 02/28/2025 Orders Only [facility] Oncology and Hematology - [address] [place] [address] Julius Robledo MD Malignant neoplasm of upper-outer quadrant of right breast in female, estrogen receptor positive (CMS/HCC) 02/16/2025 External Device Data STL ABSTRACTION Provider, Abstract 02/15/2025 External Device Data STL ABSTRACTION Provider, Abstract 02/14/2025 Orders Only [facility] Oncology and Hematology - [address] [place] [address] Julius Robledo MD Malignant neoplasm of upper-outer [...] Sign Reading Time Taken Comments Blood Pressure 127/79 04/12/2025 2:59 PM CDT Pulse 74 04/12/2025 2:59 PM CDT Temperature 36.6 C (97.8 F) 04/12/2025 2:59 PM CDT Respiratory Rate 15 04/12/2025 2:59 PM CDT Oxygen Saturation 96% 04/12/2025 2:59 PM CDT Inhaled Oxygen Concentration - - Weight 71.4 kg (157 lb 6.4 oz) 04/12/2025 2:59 P M CDT Height 149.9 cm (4' 11) 03/04/2024 9:11 AM CDT Body Mass Index 31.79 03/04/2024 9:11 AM CDT Plan of Treatment [...] 5 years 2002 Lung Cancer Screening 09/22/2007 RSV VACCINE (60+ or ) (1 - Risk 50-74 years 1-dose series) 09/22/2007 ZOSTER VACCINE (1 of 2) 09/22/2007 OSTEOPOROSIS SCREENING 2022 INFLUENZA VACCINE (#1) 2025 Procedures Procedure Name Priority Date/Time Associated Diagnosis Comments CHG CA 15 3 Routine 04/12/2025 1:43 PM CDT CBC WITH AUTODIFFERENTIAL Routine 2024 12:42 PM CDT from Last 3 Months Results * CHG CA 15 3 (04/12/2025 1:43 PM CDT) Julius Robledo MD [facility] - LABORATORY Final Result * CBC WITH AUTODIFFERENTIAL (04/12/2025 12:42 PM CDT) Blood Julius Robledo MD HEMATOLOGY ORDERABLES Final Res ult from Last 3 Months Insurance MEDICARE PART A AND B [facility] SUPP Care Teams Rag Willow Operator Relationship Specialty Start Date End Date Giselle Ramirez MD [address] [place] [id number] PCP - General Family Practice 05/04/24
== END 2025-05-09 12:01 | disposition home or self-care (01) ==
LOC: ANHSURGERY 12:07
PROVIDERS: Anesthesiology; PCP Student in an Organized Health Care Education/Training Program; Visit Provider Surgery
DX: Z01.818 Encounter for other preprocedural examination (principal); N18.9 Chronic kidney disease, unspecified
CPT/HCPCS: 36415; 85610; 85730

== ENCOUNTER 2025-05-11 00:52 | Day surgery (SDC) | payer MEDICARE, SELFPAY ==
[2025-05-06 09:29] VITALS: BMI 29.2
--- NOTE | 2025-05-06 09:41 | PC.NURSE ---
Addendum entered by Dona Nichols RN 05/06/25 15:00: Pt to hold Aspirin for 3 days prior per Anisha/PCP office and pt is aware GAL Original Note: [facility] has started construction of its new state of the art ER which will open Spring 2026. With this, we anticipate parking may be a challenge for some our surgical patients and families. Parking spaces are limited but are available for all Surgical, obstetrics, and ER patients sharing this lot. If you arrive and find you are having a hard time finding a parking space, please note that we understand the challenges, please drive around the hospital and park near Hospital Entrance 1. When you enter this entrance, you can ask a volunteer to direct or take you back to the surgical waiting area to check in. We appreciate everyone?s understanding of these expected challenges while we build for your future. Report to the Outpatient Waiting Room, entrance under the green pavilion located off [address], at time _1130am on date _05/11/25 . Planned Procedure Time: _130pm .? Time changes happen often and if your time is changed the preop area will call you the afternoon before. - You and your visitor will be asked to self-screen and do not enter if you have any COVID symptoms. Please call surgeon if you need to reschedule. - A mask is optional within the hospital at this time. Patients may have clear liquids (water, carbonated beverages, clear teas, apple juice) until 3 hours prior to surgery with a maximum of 20 ounces. - No food from midnight until time of surgery and no smoking, or chewing tobacco (or any form of nicotine). No chewing gum, candy or mints. (10:30am) Take only the following medications with a SIP of water on the morning of surgery: _Coreg, Duloxetine, Pregabalin, Hydrocodone if needed DO NOT STOP ANY OF YOUR OTHER PRESCRIPTION MEDICATIONS PRIOR TO SURGERY EXCEPT THE FOLLOWING Hold all vitamins and supplements for 3 days per anesthesiologist. Date of last dose is 05/07/25 Medications to discontinue per physician Aspirin to be discussed w Dr Moreira ( LM w their office to notify pt) Date to take last dose____Pending Please no make-up, nail lao, hairspray, perfume, deodorant, or body powder the day of surgery.? No jewelry (including any body piercings) or valuables the day of surgery, leave them at home.? Please take a shower or bath the night before, or the morning of, surgery with an antibacterial soap.? Wear comfortable, loose fitting clothing.? - Jewelry must be removed prior to entering the operating room.? Rings and piercings that are not removed may be cut off. - The hospital will not accept responsibility for valuables.? - Please leave all valuables, including medications, at home the day of surgery. If you are going home after surgery, a licensed hazmat truck driver must drive you home.? - NO public transportation without another adult if you receive anesthesia. - We recommend that an adult stay with you for 24 hours following discharge. - We also recommend that you do not drive, make important decision, drink alcoholic beverages, or take any drugs that were not prescribed by your health care provider for at least 24 hours after your discharge time. Follow any additional instructions given to you from your surgeon. Telephone instructions given to ___Sister Naz and asked if any additional questions and then verbalized understanding. Patient advised to call surgeon office or pre surgery nurse liaison [phone] if any additional questions.
--- OUTSIDE RECORDS SUMMARY | 2025-05-11 00:56 | XMS_ITS | Clinical Summary ---
Author Organization [facility] Address [address] [place] [address] Care Team Providers Care Senior Accounting Analyst Name Role Phone Giselle Ramirez MD Primary Care Provider [phone] Source Comments [facility],non-owned Affiliates and Associated Physician Practices is amultiple site organization consisting of ambulatory clinics and hospital sitesin [place], [place], [place] and [place]. This disclosure is being madepursuant to the Care Everywhere program and may not contain all information available regarding this patient. 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 11/20/2010 11:2 0 AM CDT 11/20/2010 12:33 PM CDT us Historical Provider LAB - CHEMISTRY ORDERABLE S Final Result [address] [phone] from Last 3 Months or Most Recently Relevant to Health Maintenance Insurance [facility] MANAGED MEDICARE ADV SELF PAY NO INSURANCE Member Subscriber Plan / Payer (Ef fective for All Dates) Name:Shreya Baum Member ID:Not on file Relation to Subscriber:Not on file Name:SHREYA BAUM Subscriber ID:Not on file (Home) Address: [address] [place] [id number] Payer ID:Not on file Group ID:Not on file Type:Self Pay Address: [facility] MANAGED MEDICARE ADV Care Teams Senior Accounting Analyst Relationship Specialty Start Date End Date Giselle Ramirez MD [address] [place] [address] PCP - General 08/14/20
[2025-05-11 10:25] VITALS: BP 124/66; PULSE 65; RESP 18; TEMP 36.4; O2SAT 98
[2025-05-11] MEDS: LACTATED RINGERS 1,000 ML 30 ML IV CONT (10:45)
--- NOTE | 2025-05-11 10:49 | WPDANESEPPF ---
Anes - Initial Pre Proc Eval Procedure: Operation Date: 05/11/25 13:30 Proposed Procedures p Removal Lizeth Cath - Jackie Moreira MD Date/Time: 05/11/25 10:49 Surgeon: Jackie Moreira MD Pre Op Diagnosis: Malignant neoplasm Rt Breast Patient Data Age: 69 Gender: F Height: 1.52 m Weight: 68 kg Allergies Allergy/AdvReac Type Severity Reaction Status Date / Time lisinopril Allergy Severe Swelling Verified 05/06/25 09:24 of Lip/Tongue/Throat codeine Allergy Unknown Agitated Verified 05/06/25 09:24 ramipril Allergy Unknown Swelling Verified 05/06/25 09:24 of Lip/Tongue/Throat Sulfa (Sulfonamide Allergy Unknown Agitated Verified 05/06/25 09:24 Antibiotics) adhesive AdvReac Intermediate rash, Verified 05/06/25 09:24 redness at site Home Medications ?Medication ?Instructions ?Recorded ?Confirmed ?Type mecobalamin (vitamin B12) 500 mcg 1,000 mcg PO DAILY 07/29/24 05/06/25 History chewable tablet hydrocodone 5 mg-acetaminophen 325 1 tablet PO Q4H PRN Pain Rated 4-6 10/07/24 05/06/25 Rx mg tablet #10 tabs insulin lispro-aabc 100 unit/mL 5 unit (0.05 mL) subcut TID #45 mL 11/25/24 05/06/25 Rx subcutaneous pen (Lyumjev KwikPen U-100 Insulin) Wheeled walker- roundabout walker #1 ea 12/22/24 05/06/25 Rx with seat potassium chloride 10 mEq 10 meq PO DAILY #30 caps 02/04/25 05/06/25 Rx capsule,extended release carvedilol 6.25 mg tablet 6.25 mg PO BID #240 tabs 02/08/25 05/06/25 Rx quetiapine 25 mg tablet 25 mg PO HS #180 tabs 02/08/25 05/06/25 Rx duloxetine 60 mg capsule,delayed 60 mg PO DAILY #90 caps 04/20/25 05/06/25 Rx release pregabalin 75 mg capsule 75 mg PO TID #90 caps 05/03/25 05/06/25 Rx aspirin 81 mg chewable tablet 81 mg PO DAILY 05/06/25 05/06/25 History (David Chewable Low Dose Aspirin) ferrous sulfate 325 mg (65 mg 325 mg PO DAILY #30 tabs 05/06/25 05/06/25 Rx iron) tablet (FeroSul) insulin glargine 100 unit/mL 55 unit subcut QPM 05/06/25 05/06/25 History subcutaneous solution (Lantus U-100 Insulin) Laboratory Tests 05/11/25 10:42 POC Capillary Glucose 93 mg/dl (65-105) Patient hx anesthesia problems: none Family hx anesthesia problems: none Results Review: All pre-operative results and documents have been reviewed as part of the pre-operative evaluation. [facility] Past Medical History Medical History Depression Breast cancer Hyperlipidemia Cerebral infarction MCI (mild cognitive impairment) MCI (mild cognitive impairment) Peripheral neuropathy Mood disorder Memory changes Diabetic polyneuropathy Fibromyalgia Anxiety Chronic kidney disease, stage 3b Sleep apnea intolerant of CPAP per patient Invasive ductal carcinoma of right breast in female Colon polyp GERD (gastroesophageal reflux disease) IBS (irritable bowel syndrome) Diabetes mellitus HTN (hypertension) Surgical History Surgical History History of appendectomy S/P total hysterectomy and BSO (bilateral salpingo-oophorectomy) History of tubal ligation History of cholecystectomy Family History Family History Sibling Family history of diabetes mellitus in first degree relative Patient's sister is in good health Patient's brother is in good health Father Family history of heart disease in male family member before age 55 Patient's father is in good health Other Asthma Depression Diabetes mellitus Family history of alcoholism Family history of anemia Family history of arthritis Family history of atrial fibrillation Family history of attention deficit hyperactivity disorder (ADHD) Family history of cardiovascular disease Family history of coronary artery disease Family history of malignant neoplasm of breast in first degree relative Family history of mental disorder Family history of obesity Hypertension Social History Social History Social History: Living with daughter and son in law. Smoking packs per day: 1 Smoking cigarettes per day: 20.0 Years smoked: 45 Smoking pack-years: 45.00 Smoking status: Former smoker Tobacco type: cigarettes and e-cigarettes/vaping Second hand tobacco smoke exposure: No Smoking end date: 08/13/24 Additional smoking assessment comments: Vapes daily but denies nicotine in it Alcohol intake: never Substance use: current Substance use type: painkillers Other substance usage details: Hydrocodone as needed few times a week Do You Feel Safe in your Home?: Yes Lack of Transportation: No Lack of Food: Sometimes True Current Housing: I Have Housing Concerned About Future Housing: No Difficulty Paying Gas/Electric Bills: YES Difficulty Paying for Meds: YES Currently Unemployed: No Education: Associate Degree Difficulty w/ Childcare or Family Care: No Living arrangements: with family Additional living arrangements comments: w Twin sister Alexsandra Occupation/Education: unemployed Gender identity (if verbalized by the patient): Female Spiritual care concerns: No Anes - Eval Final PreProcedure Day of Procedure 05/11/25 10:49 Patient weight: overweight Heart: regular rate and rhythm Lungs: clear to auscultation Airway: Mallampati scale class II Neurological: alert and oriented Last oral intake: >/= 8 hours ASA classification: IV Emergent: no Anesthetic plan: proceed Anesthesia type and monitoring: general GIVS and standard monitoring Results Review: All pre-operative results and documents have been reviewed as part of the pre-operative evaluation. Informed Consent: The patient's anesthetic plan and its attendant risks and benefits were discussed with the patient/family/POA. Questions were solicited and answers provided to the satisfaction of the patient/family/POA.
--- NOTE | 2025-05-11 11:07 | WPDHPUPDATE1 ---
History and Physical Update Update Date/Time: 05/11/25 11:07 - MediPort removal. History and Physical has been reviewed, including an updated exam of the patient. There are NO changes in the patient's condition. Risks, benefits, and alternatives have been discussed and questions answered. Patient agrees to proceed with procedure.
[2025-05-11] MEDS: BUPIVACAINE/EPINEPHRINE 0.5% 30 ML VIAL 20 ML INFILTRATE (11:47)
--- NOTE | 2025-05-11 11:57 | S_PTH ---
PATIENT: Angelia Baum LOC: [facility] U#:[id number] AGE/SX: 69/F ROOM: RE05/11/[address]: Jackie Moreira MD : 1955 BED: DIS: 05/11/2025 SPEC #: [id number] RECD: 05/11/25 12:04 STATUS: TAMARA REJeanette #: [id number] CHARLEY: 05/11/25 11:[address]: Jackie Moreira DEPT: [facility] Surgical RECD BY: Manda Jung ENTERED: 05/11/25 12:05 SP TYPE: Surgical OTHR DR: Daphne Rao, BRANDI Tissues: A - Soft Tissue B - Port A Cath Procedures: Gross Exam Level 1 Hematoxylin and Eosin Stain Gross and Microscopic Level 3
--- NOTE | 2025-05-11 12:03 | W.PM.PROC2 ---
Procedure Note - Detailed Date of Procedure 05/11/25 Pre-op Diagnosis Malignant neoplasm Rt Breast Post-op Diagnosis Same Procedure Performed Mediport removal Surgeon Jackie Moreira MD Anesthesia MAC Description of Procedure Patient was identified in the preoperative holding area brought to the operating room suite. She was laid supine in the OR table and sequential compression devices were applied. Sedation was induced without difficulty. Left upper chest area was prepped and draped in a sterile fashion. A small incision was made at the site of the previous incision and dissection was carried down through the subcutaneous tissue until the port was identified. The increased sutures were cut and removed and the port was externalized. A silk U-stitch was placed at the catheter entrance site into the subcutaneous tissue and pressure was held in the infraclavicular area while the port and the catheter were slowly removed. The U-stitch was cinched down and no bleeding was noted. The posterior capsule of the MediPort cavity was removed to expedite healing and decrease the risk of seroma formation. The cavity was irrigated with saline and hemostasis was assured. The deep dermal layer was closed with interrupted 3-0 Vicryl and the skin was then closed with 4-0 Monocryl in a subcuticular fashion. Dermabond was applied to the incision. Patient was awoken from anesthesia and taken to the recovery in stable condition. All needles, instruments, sponge counts were correct as reported by the operating room staff. Patient tolerated the procedure well with no immediate complications. Estimated Blood Loss 2 Complications No immediate complications Condition Stable Disposition PACU [facility] Billing Surgery - Charge Forward: Surgery Billing (CPT 74062)
[2025-05-11 12:10] VITALS: BP 101/57; PULSE 63; RESP 16; O2SAT 95
[2025-05-11 12:40] VITALS: BP 114/62; PULSE 65; O2SAT 96
[2025-05-11 13:10] VITALS: BP 134/68; PULSE 64; O2SAT 96
[2025-05-11 13:40] VITALS: BP 138/72; PULSE 67
[2025-05-11 14:00] VITALS: BP 138/72; PULSE 67
== END 2025-05-11 14:20 | disposition home or self-care (01) ==
PROVIDERS: PCP Student in an Organized Health Care Education/Training Program; Visit Provider Surgery
PROC: (CPT 36589; principal; 2025-05-11 13:30)
DX: Z45.2 Encounter for adjustment and management of vascular access device (principal); E78.5 Hyperlipidemia, unspecified; E11.42 Type 2 diabetes mellitus with diabetic polyneuropathy; E11.22 Type 2 diabetes mellitus with diabetic chronic kidney disease; I12.9 Hypertensive chronic kidney disease with stage 1 through stage 4 chronic kidney disease, or unspecified chronic kidney disease; N18.32 Chronic kidney disease, stage 3b; I63.9 Cerebral infarction, unspecified; K58.9 Irritable bowel syndrome, unspecified; K21.9 Gastro-esophageal reflux disease without esophagitis; M79.7 Fibromyalgia; F41.9 Anxiety disorder, unspecified; G47.30 Sleep apnea, unspecified; G62.9 Polyneuropathy, unspecified; F39 Unspecified mood [affective] disorder; F32.A Depression, unspecified; F17.290 Nicotine dependence, other tobacco product, uncomplicated; Z79.891 Long term (current) use of opiate analgesic; Z79.4 Long term (current) use of insulin; Z79.82 Long term (current) use of aspirin; Z98.890 Other specified postprocedural states; Z98.51 Tubal ligation status; Z90.49 Acquired absence of other specified parts of digestive tract; Z90.11 Acquired absence of right breast and nipple; Z86.0100 Personal history of colon polyps, unspecified; Z85.3 Personal history of malignant neoplasm of breast; Z80.3 Family history of malignant neoplasm of breast; Z82.49 Family history of ischemic heart disease and other diseases of the circulatory system
CPT/HCPCS: 36590; 82948; 88300; 88304; J2003; J2405; J2704; J7120

== ENCOUNTER 2025-05-16 12:37 | Outpatient (CLI) | payer MEDICARE, SELFPAY ==
--- NOTE | ~2025-05-16 | DEXA_ITS ---
Bone Density Report Name: SHREYA SALAZAR Age: 69 Sex: Female Ethnicity: White Date of : 1955 Indication: postmenopausal; screening for osteoporosis; cancer; Referring Provider: GARRISON BEYER Study: Bone densitometry was performed. Exam Date: May 16, 2025 Accession number: [id number] Bone Density: Region BMD T-score Z-score Classification AP Spine(L1-L4) 0.935 -1.0 0.9 Normal Femoral Neck (Left) 0.619 -2.1 -0.4 Osteopenia Total Hip (Left) 0.913 -0.2 1.1 Normal Femoral Neck (Right) 0.705 -1.3 0.4 Osteopenia Total Hip (Right) 0.897 -0.4 1.0 Normal Total Hip Mean 0.905 -0.3 1.1 Normal World Health Organization criteria for BMD impression classify patients as: Normal (T-score at or above -1.0), Osteopenia (T-score between -1.0 and -2.5), or Osteoporosis (T-score at or below -2.5). 10-year Fracture Risk(1): Major Osteoporotic Fracture 11% Hip Fracture 1.8% Reported Risk Factors: [place] (), Neck BMD=0.619, BMI=31.5 (1) FRAX(R) Version 3.08. Fracture probability calculated for an untreated patient. Fracture probability may be lower if the patient has received treatment. Clinical Information Provided by Patient: Has the following medical conditions: Cancer Patient maximum height was 59.0 Menopause Age: 48 No regular weight bearing exercise Onset of menses at age 14 Number of children 2 Impression: The patient has low bone mass, based on the Left Femoral Neck T-score. The patient has an estimated ten-year risk of hip fracture of 1.8% and an estimated ten-year risk of major fracture of 11%, based on the WHO FRAX algorithm. Discussion: BONE DENSITY IS LOW AT ONE OR MORE SKELETAL SITES. This patient's lowest T-score is low at one or more skeletal sites. It meets the World Health Organization's (WHO) criteria for ?low bone mass? (T-score between -1.0 and -2.5). The patient's 10-year risk of fracture as calculated by FRAX is less than the threshold where pharmacological therapy is recommended by the National Osteoporosis Foundation (NOF). However, all treatment decisions require clinical judgment and consideration of individual patient factors, including patient preferences, comorbidities, previous drug use, risk factors not captured in the FRAX model (e.g., frailty, falls, vitamin D deficiency, increased bone turnover, interval significant decline in bone density) and possible under or overestimation of fracture risk by FRAX. The patient should follow a healthful lifestyle (good nutrition with adequate calcium and vitamin D, and appropriate weight-bearing exercise). Follow-Up: Consider repeating this study in 2 to 3 years to reassess this patient's status, or sooner if there is some new clinical indication. Reported by: GIULIA on 05/16/2025 1:20:00 PM. Reviewed, dictated and finalized at location A.
--- OUTSIDE RECORDS SUMMARY | 2025-05-16 13:48 | XMS_ITS | Clinical Summary ---
Author Organization [facility] Grant Peña Address [address] [place] [address] Care Team Providers Care Animal Assistant Name Role Phone Giselle Ramirez MD Primary Care Provider [phone] Allergies Active Allergy Reactions Criticality Noted Date [...] Release(E.C.) Take 30 mg by mouth daily. Active Active Problems No known active problems Encounters Date Type Department Care Team Description 05/11/2025 External Device Data STL ABSTRACTION Provider, Abstract 05/11/2025 External Device Data STL ABSTRACTION Provider, Abstract 05/04/2025 External Device Data STL ABSTRACTION Provider, Abstract 05/03/2025 External Device Data STL ABSTRACTION Provider, Abstract 04/20/2025 Telephone [facility] Oncology and Hematology [facility] [address] [place] [address] Julius Robledo MD Bone Density for appt 04/14/2025 Orders Only [facility] Oncology and Hematology [facility] [address] [place] [address] Julius Robledo MD 04/12/2025 2:45 PM CDT Office Visit [facility] Oncology and Hematology [facility] [address] [place] [address] Julius Robledo MD Osteopenia of multiple sites (Primary Dx); Malignant neoplasm of upper-outer quadrant of right breast in female, estrogen receptor positive (CMS/HCC) 04/11/2025 Orders Only [facility] Oncology and Hematology [address] [place] [address] Julius Robledo MD Malignant neoplasm of upper-outer quadrant of right breast in female, estrogen receptor positive (CMS/HCC) 03/29/2025 External Device Data STL ABSTRACTION Provider, Abstract 03/28/2025 Orders Only [facility] Oncology and Hematology - [address] Julius Robledo MD Malignant neoplasm of upper-outer quadrant of right breast in female, estrogen receptor positive (CMS/HCC) 03/22/2025 External Device Data STL ABSTRACTION Provider, Abstract 03/14/2025 Orders Only [facility] Oncology and Hematology - [address] [place] [id number] Julius Robledo MD Malignant neoplasm of upper-outer quadrant of right breast in female, estrogen receptor positive (CMS/HCC) 02/28/2025 Orders Only [facility] Oncology and Hematology - [address] [place] [id number] Julius Robledo MD Malignant neoplasm of upper-outer quadrant of right breast in female, estrogen receptor positive (CMS/HCC) 02/16/2025 External Device Data STL ABSTRACTION Provider, Abstract 02/15/2025 External Device Data STL ABSTRACTION Provider, Abstract 02/14/2025 Orders Only [facility] Oncology and Hematology - [address] [place] [id number] Julius Robledo MD Malignant neoplasm of upper-outer [...] Care Team (Late st Contact Info) Description 05/23/2025 4:30 PM SELVAGE MACHINE OPERATOR Telephone Check Up [facility] Oncology and Hematology - [address] [facility] [address] [place] [address] Julius Robledo MD [address] [facility] [address] [place] [address] Health Maintenance Due Date Last Done Comments DIABETES ANNUAL FOOT EXAM 09/22/1975 DIABETES ANNUAL RETINAL EXAM 09/22/1975 DIABETES HBA1C Q 6 MONTHS 09/22/1975 DIABETES MICROALBUMIN ANNUAL SCREEN 09/22/1975 LDL CHOLESTEROL ANNUAL 09/22/1975 DTAP/TDAP/TD VACCINES (1 - Tdap) 1976 PNEUMOCOCCAL VACCINE 50+ YEARS (1 of 2 - PCV) 09/21/18 77 Traditional Medicare (ACO) Annual Wellness Visit 09/21 BREAST CANCER SCREENING 1997 COLORECTAL SCREENING 2002 [...] CA 15 3 (04/12/2025 1:43 PM CDT) us Julius Robledo MD [facility] - LABORATORY Final Result * CBC WITH AUTODIFFERENTIAL (04/12/2025 12:42 PM CDT) Blood us Julius Robledo MD HEMATOLOGY ORDERABLES Final Res ult from Last 3 Months Insurance MEDICARE PART A AND B [facility] SUPP Care Teams Animal Assistant Relationship Specialty Start Date End Date Giselle Ramirez MD [address] [place] [id number] PCP - General Family Practice 05/04/24
--- OUTSIDE RECORDS SUMMARY | 2025-05-16 13:48 | XMS_ITS | Clinical Summary ---
Author Organization [facility] Address [address] [facility] [place] [address] Care Team Providers Care Color Checker Roving Or Yarn Name Role Phone Giselle Ramirez MD Primary Care Provider [phone] Source Comments [facility],non-owned Affiliates and Associated Physician Practices is amultiple site organization consisting of ambulatory clinics and hospital sitesin [place], [place], [place] and [place]. This disclosure is being madepursuant to the Care Everywhere program and may not contain all information available regarding this patient. 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 11/20/2010 11:2 0 AM CDT 11/20/2010 12:33 PM CDT us Historical Provider LAB - CHEMISTRY ORDERABLE S Final Result [address] [phone] from Last 3 Months or Most Recently Relevant to Health Maintenance Insurance [facility] MANAGED MEDICARE ADV SELF PAY NO INSURANCE Member Subscriber Plan / Payer (Ef fective for All Dates) Name:Shreya Baum Member ID:Not on file Relation to Subscriber:Not on file Name:SHREYA BAUM Subscriber ID:Not on file (Home) Address: [address] [place] [id number] Payer ID:Not on file Group ID:Not on file Type:Self Pay Address: [facility] MANAGED MEDICARE ADV Care Teams Color Checker Roving Or Yarn Relationship Specialty Start Date End Date Giselle Ramirez MD [address] [place] [address] PCP - General 08/14/20
== END 2025-05-16 12:38 | disposition home or self-care (01) ==
LOC: ANHFOHIMG 12:40
PROVIDERS: PCP Student in an Organized Health Care Education/Training Program; Visit Provider Internal Medicine Hematology & Oncology
DX: M85.89 Other specified disorders of bone density and structure, multiple sites (principal); M85.852 Other specified disorders of bone density and structure, left thigh; M85.851 Other specified disorders of bone density and structure, right thigh
CPT/HCPCS: 77080

== ENCOUNTER 2025-05-31 14:17 | Outpatient (CLI) | payer MEDICARE, SELFPAY ==
--- NOTE | ~2025-05-31 | CT_ITS ---
EXAMINATION: CT chest, abdomen and pelvis with contrast: DATE: 05/31/2025 INDICATION: Carcinoma right breast, restaging TECHNIQUE: CT scan was performed with oral contrast and 100 cc of IV contrast and reviewed in multiple projections. Radiation dose 764 M.gy C.M. COMPARISON: No prior body imaging studies of the chest abdomen pelvis are available for comparison. FINDINGS: No evidence of supraclavicular mass are noted. Postoperative changes of right breast is noted. No evidence of axillary lymphadenopathy is seen on either side. 5 mm lymph nodes of the right axilla are noted. No chest wall mass is noted. Calcified granuloma left lower lobe is noted. No hilar or mediastinal adenopathy. No evidence of pleural effusion or pericardial effusion. No focal bone changes. Thoracic spine and sternum and ribs. Bones are osteopenic. Below the diaphragm, no focal lesions of the liver and spleen. Gallbladder is absent. Common bile duct measures 6 mm. Pancreas, adrenal glands and kidneys are unremarkable. Severe calcific atherosclerotic changes of distal abdominal aorta and common iliac arteries. No pelvic adnexal mass or fluid collections are seen. No focal bone changes of lumbar spine and pelvic bones are seen. IMPRESSION: 1. Postsurgical changes of right breast. No recurrent chest wall mass are seen. Normal-sized lymph nodes are noted in the right axilla measuring up to 7 mm in short axis. 2. No metastatic lesions to the lungs. No lymphadenopathy or effusion in the chest. 3. No evidence of metastatic disease abdomen and pelvis. No skeletal metastatic lesions. 4. Significant calcific atherosclerotic changes of abdominal aorta and iliac arteries. Reviewed, dictated and finalized at location T. RVISOR DEHYDROGENATION IMPRESSION: 1. Postsurgical changes of right breast. No recurrent chest wall mass are seen. Normal-sized lymph nodes are noted in the right axilla measuring up to 7 mm in short axis. 2. No metastatic lesions to the lungs. No lymphadenopathy or effusion in the ch est. 3. No evidence of metastatic disease abdomen and pelvis. No skeletal metastatic lesions. 4. Significant calcific atherosclerotic changes of abdominal aorta and iliac ar teries.
[2025-05-31 14:56] LABS: Estimated Glomerular Filt Rate 35
== END 2025-05-31 14:18 | disposition home or self-care (01) ==
PROVIDERS: PCP Family Medicine; Visit Provider Internal Medicine Hematology & Oncology
DX: C50.411 Malignant neoplasm of upper-outer quadrant of right female breast (principal); Z17.0 Estrogen receptor positive status [ER+]; R59.1 Generalized enlarged lymph nodes; I70.0 Atherosclerosis of aorta; Z98.890 Other specified postprocedural states
CPT/HCPCS: 71260; 74177; Q9967

== ENCOUNTER 2025-07-11 15:32 | Emergency (ER) | payer MEDICARE, SELFPAY ==
--- NOTE | ~2025-07-11 | CT_ITS ---
CT lumbar spine wo con INDICATION: Fall, back pain COMPARISON: None available. TECHNIQUE: Axial images of the lumbar spine were obtained without contrast. Additional coronal and sagittal reformatted images were rendered. FINDINGS: The axial images demonstrate mildly depressed fracture of the anterior superior endplate of L1 vertebral body. There is there are disc bulging at L2-L3 causing mild central canal narrowing. Additional sagittal and coronal reformatted images were obtained. The lumbar vertebrae are in alignment. There is no compression fracture, subluxation, or paravertebral soft tissue swelling. The disc spaces are preserved. IMPRESSION: Acute appearing fracture of the anterior superior endplate of L1 vertebral body. The patient has point tenderness follow-up MRI or bone scan can be done to determine chronicity. All CT scans at this facility are performed using low dose modulation techniques as appropriate to perform exam including the following: automated exposure control; use of iterative reconstruction technique; adjustment of the mA and/or kV according to patient size (this includes techniques or standardized protocols for targeted exams where dose is matched to indication/reason for exam). Reviewed, dictated and finalized at location S. NESS NURSE RN IMPRESSION: Acute appearing fracture of the anterior superior endplate of L1 vertebral body . The patient has point tenderness follow-up MRI or bone scan can be done to de termine chronicity. All CT scans at this facility are performed using low dose modulation techniqu es as appropriate to perform exam including the following: automated exposure c ontrol; use of iterative reconstruction technique; adjustment of the mA and/or kV according to patient size (this includes techniques or standardized protocol s for targeted exams where dose is matched to indication/reason for exam).
--- NOTE | ~2025-07-11 | CT_ITS ---
EXAMINATION: CT pelvis wo con DATE: 07/11/2025 17:00 INDICATION: Tailbone pain post fall TECHNIQUE: Computed tomography (CT) of the pelvis was performed without intravenous contrast. Automated exposure control and iterative reconstruction technique were employed.The dose-length product was 347.44 mGy-cm. COMPARISON: CT dated 05/31/2025 FINDINGS: Bone alignment is normal. No fracture. Mild bilateral hip osteoarthritis. Moderate bilateral sacroiliac osteoarthritis. Bladder is normal. The uterus and bilateral ovaries are not identified and have likely been surgically resected. Postoperative change of prior appendectomy with suture line at the tip the cecum and a few adjacent surgical clips the right pelvis. No free fluid in the pelvis. No pathologically enlarged pelvic or inguinal lymphadenopathy. IMPRESSION: 1. No acute osseous abnormality. Reviewed, dictated and finalized at location A. HARGE DOOR OPERATOR
--- OUTSIDE RECORDS SUMMARY | 2025-07-11 15:32 | XMS_ITS | Clinical Summary ---
Author Organization [facility] Grant Peña Address [address] [place] [address] Care Team Providers Care Mold Forms Builder Name Role Phone Giselle Ramirez MD Primary Care Provider [phone] Allergies Active Allergy Reactions Criticality Noted Date [...] Max Daily Amount: 4 Tablets 60 Tablet 5 Active aspirin 81 mg Capsule Take by mouth. Activ e DULoxetine (CYMBALTA) 30 mg Capsule, Delayed Release(E.C.) Take 30 mg by mouth daily. 5 Active tamoxifen (NOLVADEX) 20 mg tablet Take 1 Tablet (20 mg) by mouth daily. 90 Tablet 3 5 Active Active Problems No known active problems Encounters Date Type Department Care Team Description 07/05/2025 External Device Data STL ABSTRACTION Provider, Abstract 07/05/2025 External Device Data STL ABSTRACTION Provider, Abstract 06/14/2025 4:35 PM KILN STOKER Telephone Check Up [facility] - [place] [address] [place] [address] Julius Robledo MD Malignant neoplasm of upper-outer quadrant of right breast in female, estrogen receptor positive (CMS/HCC) (Primary Dx) 06/01/2025 Orders Only [facility] - [place] [address] [place] [address] Julius Robledo MD 05/31/2025 External Device Data STL ABSTRACTION Provider, Abstract 05/23/2025 4:30 PM KILN STOKER Telephone Check Up [facility] - [place] [address] [place] [address] Julius Robledo MD Malignant neoplasm of upper-outer quadrant of right breast in female, estrogen receptor positive (CMS/HCC) (Primary Dx) 05/18/2025 Orders Only [facility] - [place] [address] [place] [address] Julius Robledo MD 05/11/2025 External Device Data STL ABSTRACTION Provider, Abstract 05/11/2025 External Device Data STL ABSTRACTION Provider, Abstract 05/04/2025 External Device Data STL ABSTRACTION Provider, Abstract 05/03/2025 External Device Data STL ABSTRACTION Provider, Abstract 04/20/2025 Telephone [facility] [address] [place] [address] Julius Robledo MD Bone Density for appt 04/14/2025 Orders Only [facility] - [place] [address] [place] [address] Julius Robledo MD 04/12/2025 2:45 PM CDT Office Visit [facility] - [place] [address] [place] [address] Julius Robledo MD Osteopenia of multiple sites (Primary Dx); Malignant neoplasm of upper-outer quadrant of right breast in female, estrogen receptor positive (CMS/HCC) 04/11/2025 Orders Only [facility] - [place] [place] [address] Julius Robledo MD Malignant neoplasm of upper-outer [...] Care Team (Late st Contact Info) Description 08/29/2025 11:00 AM KILN STOKER Office Visit [facility] - [place] [address] [facility] [address] [place] [address] Julius Robledo MD [address] [facility] [address] [place] [address] Health Maintenance Due Date Last [...] Procedure Name Priority Date/Time Associated Diagnosis Comments CT CHEST ABDOMEN PELVIS W CONT Routine 05/31/2025 11:33 AM KILN STOKER NM BONE DENSITY Routine 05/16/2025 11:35 AM KILN STOKER CHG CA 15 3 Routine 04/12/2025 1:43 PM CDT CBC WITH AUTODIFFERENTIAL Routine 2024 12:42 PM CDT from Last 3 Months Results * CT CHEST ABDOMEN PELVIS W CONT (05/31/2025 11:33 AM KILN STOKER) Anatomical Region Laterality Modality Chest Computed Tomogra phy us Julius Robledo MD CT ORDERABLES Final Result * NM BONE DENSITY (05/16/2025 11:35 AM KILN STOKER) Anatomical Region Laterality Modality Nuclear Medicine us Julius Robledo MD NM ORDERABLES Final Result * CHG CA 15 3 (04/12/2025 1:43 PM CDT) us Julius Robledo MD CHG - LABORATORY Final Result * CBC WITH AUTODIFFERENTIAL (04/12/2025 12:42 PM CDT) Blood us Julius Robledo MD HEMATOLOGY ORDERABLES Final Res ult from Last 3 Months Insurance MEDICARE PART A AND B BCBS SUPP Care Teams Mold Forms Builder Relationship Specialty Start Date End Date Giselle Ramirez MD [address] [place] [address] PCP - General Family Practice 05/04/24
--- OUTSIDE RECORDS SUMMARY | 2025-07-11 15:32 | XMS_ITS | Clinical Summary ---
Author Organization [facility] Address [address] [facility] [place] [address] Care Team Providers Care Singe Winder Name Role Phone Giselle Ramirez MD Primary Care Provider Source Comments [facility],non-owned Affiliates and Associated Physician Practices is amultiple site organization consisting of ambulatory clinics and hospital sitesin [place], [place], [place] and [place]. This disclosure is being madepursuant to the Care Everywhere program and may not contain all information available regarding this patient. 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 11/20/2010 11:2 0 AM CDT 11/20/2010 12:33 PM CDT us Historical Provider LAB - CHEMISTRY ORDERABLE S Final Result [address] [phone] from Last 3 Months or Most Recently Relevant to Health Maintenance Insurance [facility] MANAGED MEDICARE ADV SELF PAY NO INSURANCE Member Subscriber Plan / Payer (Ef fective for All Dates) Name:Shreya Baum Member ID:Not on file Relation to Subscriber:Not on file Name:SHREYA BAUM Subscriber ID:Not on file (Home) Address: [address] [place] [id number] Payer ID:Not on file Group ID:Not on file Type:Self Pay Address: [facility] MEDICARE ADV MEDICARE Care Teams Singe Winder Relationship Specialty Start Date End Date Giselle Ramirez MD [address] [place] [address] PCP - General 08/14/20
[2025-07-11 15:44] VITALS: BP 140/75; PULSE 71; RESP 18; TEMP 36.1; O2SAT 99
--- NOTE | 2025-07-11 16:43 | ED_ITS ---
HPI - Fall General Chief Complaint: Fall <BRANDI Oliva Last Filed: 07/11/25 16:56> Stated Complaint: tailbone pain <BRANDI Oliva Last Filed: 07/11/25 16:56> Time Seen by Provider: 07/11/25 16:43 <Mary Salas PA-C - Last Filed: 07/11/25 16:56> Focused HPI: Patient is a 69-year-old female who presents the ED via EMS with report of a fall. Patient reports she was walking throughout her house when she tripped over her flip-flops and fell backwards on to her buttocks/tailb one region. C/o pain to her lower back/tailbone. Denies head injury or LOC. Is not on any blood thinners. Denies saddle anesthesia, bowel or bladder incontinence, numbness/weakness throughout lower extremities. She does have history of peripheral neuropathy, but denies changes in this. GENERAL: Well-appearing, well-nourished, and in no acute distress. HEAD: Normocephalic, atraumatic. CHEST: Clear to auscultation. ?No respiratory distress. HEART: Regular rate and rhythm.? MSK: Diffuse TTP throughout lower lumbosacral region. Sensation intact NEURO: ?Alert and oriented x3. Patient screened in triage and initial orders placed.? ?Additional care and disposition to be based upon?diagnostic testing and treatment. <Mary Salas PA-C - Last Filed: 07/11/25 16:56> Source: patient <BRANDI Oliva Last Filed: 07/11/25 16:56> Mode of arrival: EMS <BRANDI Oliva Last Filed: 07/11/25 16:56> Limitations: no limitations <BRANDI Oliva Last Filed: 07/11/25 16:56> History of Present Illness HPI Narrative: Agree with HPI. Patient reports majority of pain is over the buttock and tailbone. No numbness or tingling to lower extremities. Patient is able to ambulate and has been able to urinate. <German Navarro MD - Last Filed: 07/11/25 19:23> Related Data Home Medications: Home Medications ?Medication ?Instructions ?Recorded ?Confirmed ?Last Taken ?Type mecobalamin (vitamin B12) 500 mcg 1,000 mcg PO DAILY 0 07/29/24 05/11/25 05/08/25 History chewable tablet aspirin 81 mg chewable tablet 81 mg PO DAILY 05/06/25 05/11/25 05/07/25 History (David Chewable Low Dose Aspirin) Held on 05/11/25. Instructions: Resume on 05/13/25. Ok to restart aspirin friday insulin glargine 100 unit/mL 55 unit subcut QPM 05/11/25 05/10/25 History subcutaneous solution (Lantus U-100 Insulin) <Mary Salas PA-C - Last Filed: 07/11/25 16:56> Allergies/Adverse Reactions: Allergies Allergy/AdvReac Type Severity Reaction Status Date / Time lisinopril Allergy Severe Swelling Verified 07/11/25 15:30 of Lip/Tongue/Throat codeine Allergy Unknown Agitated Verified 07/11/25 15:30 ramipril Allergy Unknown Swelling Verified 07/11/25 15:30 of Lip/Tongue/Throat Sulfa (Sulfonamide Allergy Unknown Agitated Verified 07/11/25 15:30 Antibiotics) adhesive AdvReac Intermediate rash, Verified 07/11/25 15:30 redness at site <Mary Salas PA-C - Last Filed: 07/11/25 16:56> Review of Systems Review of Systems: All systems reviewed & are unremarkable except as noted in HPI and below <German Navarro MD - Last Filed: 07/11/25 19:23> Constitutional: Constitutional: Reports no additional constitutional complaints <German Navarro MD - Last Filed: 07/11/25 19:23> Musculoskeletal: Musculoskeletal: Reports no additional musculoskeletal complaints <German Navarro MD - Last Filed: 07/11/25 19:23> Integumentary/Breasts: Skin/Breast: Reports system reviewed and no additional complaints, except as docu <German Navarro MD - Last Filed: 07/11/25 19:23> Neurologic: Reports system reviewed and no additional complaints, except as documented <German Navarro MD - Last Filed: 07/11/25 19:23> COUNTS INCLUDE 234 BEDS AT THE [facility] Past Medical History Medical History: Medical History Depression Breast cancer Hyperlipidemia Cerebral infarction MCI (mild cognitive impairment) MCI (mild cognitive impairment) Peripheral neuropathy Mood disorder Memory changes Diabetic polyneuropathy Fibromyalgia Anxiety Chronic kidney disease, stage 3b Sleep apnea intolerant of CPAP per patient Invasive ductal carcinoma of right breast in female Colon polyp GERD (gastroesophageal reflux disease) IBS (irritable bowel syndrome) Diabetes mellitus HTN (hypertension) <Mary Salas PA-C - Last Filed: 07/11/25 16:56> Surgical History Surgical History: Surgical History History of appendectomy S/P total hysterectomy and BSO (bilateral salpingo-oophorectomy) History of tubal ligation History of cholecystectomy <Mary Salas PA-C - Last Filed: 07/11/25 16:56> Family History Family History: Family History Sibling Family history of diabetes mellitus in first degree relative Patient's sister is in good health Patient's brother is in good health Father Family history of heart disease in male family member before age 55 Patient's father is in good health Other Asthma Depression Diabetes mellitus Family history of alcoholism Family history of anemia Family history of arthritis Family history of atrial fibrillation Family history of attention deficit hyperactivity disorder (ADHD) Family history of cardiovascular disease Family history of coronary artery disease Family history of malignant neoplasm of breast in first degree relative Family history of mental disorder Family history of obesity Hypertension <Mary Salas PA-C - Last Filed: 07/11/25 16:56> Social History Social History: Social History Social History: Living with daughter and son in law. Smoking packs per day: 1 Smoking cigarettes per day: 20.0 Years smoked: 45 Smoking pack-years: 45.00 Smoking status: Former smoker Tobacco type: cigarettes and e-cigarettes/vaping Second hand tobacco smoke exposure: No Smoking end date: 08/13/24 Additional smoking assessment comments: Vapes daily but denies nicotine in it Alcohol intake: never Substance use: current Substance use type: painkillers Other substance usage details: Hydrocodone as needed few times a week Lack of Transportation: No Lack of Food: Sometimes True Current Housing: I Have Housing Concerned About Future Housing: No Difficulty Paying Gas/Electric Bills: YES Difficulty Paying for Meds: YES Currently Unemployed: No Education: Associate Degree Difficulty w/ Childcare or Family Care: No Living arrangements: with family Additional living arrangements comments: w Twin sister Alexsandra Occupation/Education: unemployed Gender identity (if verbalized by the patient): Female Spiritual care concerns: No <Mary Salas PA-C - Last Filed: 07/11/25 16:56> Exam Narrative: GENERAL: Well-appearing, well-nourished, and in no acute distress. HEAD: Normocephalic, atraumatic. ENT: Mucous membranes moist. CHEST: Clear to auscultation. No respiratory distress. HEART: Regular rate and rhythm. Normal peripheral pulses. Back: No significant midline tenderness the T/L-spine. There is tenderness near the sacrum and over bilateral upper buttock areas. No bruising or abrasion. EXTREMITIES: Normal range of motion. No edema. SKIN: Warm, dry, no rash. NEURO: Alert and oriented x3. PSYCH: Normal mood and affect. <German Navarro MD - Last Filed: 07/11/25 19:23> Course Course Emergency Course: Patient walks gingerly was able do so. She will be provided some pain medication for home. Also refer her to neurosurgery. Discussed the need for a back brace as needed and also an inflatable donut to sit on if it hurts her buttock to sit down. <German Navarro MD - Last Filed: 07/11/25 19:23> Vital Signs Vital signs: Vital Signs Temperature 96.9 F L 07/11/25 15:44 Pulse Rate 71 07/11/25 15:44 Respiratory Rate 18 07/11/25 15:44 Blood Pressure 140/75 07/11/25 15:44 Pulse Oximetry 99 07/11/25 15:44 Temperature 96.9 F L 07/11/25 15:44 Pulse Rate 78 07/11/25 18:25 Respiratory Rate 17 07/11/25 18:25 Blood Pressure 151/102 H 07/11/25 18:25 Pulse Oximetry 100 07/11/25 18:25 <Mary Salas PA-C - Last Filed: 07/11/25 16:56> Vital Signs Temperature 96.9 F L 07/11/25 15:44 Pulse Rate 71 07/11/25 15:44 Respiratory Rate 18 07/11/25 15:44 Blood Pressure 140/75 07/11/25 15:44 Pulse Oximetry 99 07/11/25 15:44 Temperature 96.9 F L 07/11/25 15:44 Pulse Rate 78 07/11/25 18:25 Respiratory Rate 17 07/11/25 18:25 Blood Pressure 151/102 H 07/11/25 18:25 Pulse Oximetry 100 07/11/25 18:25 <German Navarro MD - Last Filed: 07/11/25 19:23> MDM MDM Narrative Medical decision making narrative: MSE by LEONID in triage <Mary Salas PA-C - Last Filed: 07/11/25 16:56> Differential Diagnosis Differential Diagnosis: Spinal fracture, pelvic fracture, hematoma, contusion, head injury, cord compression, radiculopathy <German Navarro MD - Last Filed: 07/11/25 19:23> Imaging Data Radiologist's impression: ITS Impressions Pelvis CT 07/11/25 17:02 IMPRESSION: 1. No acute osseous abnormality. Lumbar Spine CT 07/11/25 17:10 IMPRESSION: Acute appearing fracture of the anterior superior endplate of L1 vertebral body. The patient has point tenderness follow-up MRI or bone scan can be done to determine chronicity. All CT scans at this facility are performed using low dose modulation techniques as appropriate to perform exam including the following: automated exposure control; use of iterative reconstruction technique; adjustment of the mA and/or kV according to patient size (this includes techniques or standardized protocols for targeted exams where dose is matched to indication/reason for exam). <Mary Salas PA-C - Last Filed: 07/11/25 16:56> ITS Impressions Pelvis CT 07/11/25 17:02 IMPRESSION: 1. No acute osseous abnormality. Lumbar Spine CT 07/11/25 17:10 IMPRESSION: Acute appearing fracture of the anterior superior endplate of L1 vertebral body. The patient has point tenderness follow-up MRI or bone scan can be done to determine chronicity. All CT scans at this facility are performed using low dose modulation techniques as appropriate to perform exam including the following: automated exposure control; use of iterative reconstruction technique; adjustment of the mA and/or kV according to patient size (this includes techniques or standardized protocols for targeted exams where dose is matched to indication/reason for exam). <German Navarro MD - Last Filed: 07/11/25 19:23> Discharge Plan Discharge Clinical Impression: Contusion of buttock, Closed lumbar vertebral fracture <Mary Salas PA-C - Last Filed: 07/11/25 16:56> Patient Disposition: Home <Mary Salas PA-C - Last Filed: 07/11/25 16:56> Condition: Stable <Mary Salas PA-C - Last Filed: 07/11/25 16:56> Instructions: Vertebral Compression Fracture (ED) <Mary Salas PA-C - Last Filed: 07/11/25 16:56> Additional Instructions: You have a superior endplate fracture of your L1 vertebrae that does not seem to be causing him much pain, the majority of your discomfort comes from your upper buttock. You may require a inflatable donut for comfort when sitting. Please return to the emergency department if you develop severe pain that is not controlled by pain medications or if you are unable to walk because of pain or weakness. Return to the emergency department immediately if you develop fevers, loss of bowel or bladder control (dribbling of urine or having accidents you wouldn't normally have), inability to urinate, numbness of your genital or anal area, or weakness/numbness of your legs or arms as these could all be signs of a serious medical emergency. <Mary Salas PA-C - Last Filed: 07/11/25 16:56> Patient Language: Ukrainian <BRANDI Oliva Last Filed: 07/11/25 16:56> Prescriptions: New naproxen 250 mg tablet 250 mg PO BID Qty: 14 0RF hydrocodone-acetaminophen 5-325 mg tablet 1 tablet PO Q6H PRN (Reason: pain) Qty: 14 0RF No Action (DME) Wheeled walker- roundabout walker with seat See Rx Instructions .Route .MEDSUPPLY Qty: 1 0RF Rx Instructions: As directed daily mecobalamin (vitamin B12) 500 mcg tablet,chewable 1,000 mcg PO DAILY carvedilol 6.25 mg tablet 6.25 mg PO BID Qty: 240 3RF Patient Comments: . Rx Instructions: TAKE 1 TABLET BY MOUTH EVERY 12 HOURS WITH FOOD hydrocodone-acetaminophen 5-325 mg Tablet 1 tablet PO Q4H PRN (Reason: Pain Rated 4-6) Qty: 10 0RF insulin glargine [Lantus U-100 Insulin] 100 unit/mL solution 55 unit subcut QPM aspirin [David Chewable Aspirin] 81 mg tablet,chewable 81 mg PO DAILY Lyumjev KwikPen U-100 Insulin 100 unit/mL insulin pen 5 unit subcut TID Qty: 45 3RF Patient Comments: SLIDING SCALE ferrous sulfate [FeroSul] 325 mg (65 mg iron) tablet 325 mg PO DAILY Qty: 30 5RF potassium chloride 10 mEq capsule, extended release See Rx Instructions .ROUTE .COMPLEX Qty: 90 0RF Dose Instruction: TAKE 1 CAPSULE BY MOUTH DAILY Rx Instructions: TAKE 1 CAPSULE BY MOUTH DAILY quetiapine 25 mg tablet See Rx Instructions .ROUTE .COMPLEX Qty: 180 0RF Dose Instruction: TAKE 2 TABLETS BY MOUTH EVERY NIGHT AT BEDTIME Rx Instructions: TAKE 2 TABLETS BY MOUTH EVERY NIGHT AT BEDTIME duloxetine 60 mg capsule,delayed release(DR/EC) See Rx Instructions .ROUTE .COMPLEX Qty: 90 0RF Dose Instruction: TAKE 1 CAPSULE BY MOUTH DAILY Rx Instructions: TAKE 1 CAPSULE BY MOUTH DAILY pregabalin 75 mg capsule 75 mg PO TID Qty: 90 0RF <Mary Salas PA-C - Last Filed: 07/11/25 16:56> Follow-up/Referrals: Bird,MD Giselle [Primary Care Provider, Family Practice] Bette Chávez MD [Physician, Neurosurgery] - 1 Week <Mary Salas PA-C - Last Filed: 07/11/25 16:56>
[2025-07-11] MEDS: HYDROcodone/acetaminophen (*CRX) 5-325 MG TABLET 1 TAB PO (18:12)
[2025-07-11 18:25] VITALS: BP 151/102; PULSE 78; RESP 17; O2SAT 100
[2025-07-11 19:13] VITALS: BP 151/80; PULSE 72; RESP 16; TEMP 36.5; O2SAT 97
== END 2025-07-11 19:46 | disposition home or self-care (01) ==
PROVIDERS: Emergency Provider Emergency Medicine; PCP Family Medicine
DX: S32.018A Other fracture of first lumbar vertebra, initial encounter for closed fracture (principal); S30.0XXA Contusion of lower back and pelvis, initial encounter; I12.9 Hypertensive chronic kidney disease with stage 1 through stage 4 chronic kidney disease, or unspecified chronic kidney disease; E11.22 Type 2 diabetes mellitus with diabetic chronic kidney disease; N18.32 Chronic kidney disease, stage 3b; E11.42 Type 2 diabetes mellitus with diabetic polyneuropathy; E78.5 Hyperlipidemia, unspecified; M79.7 Fibromyalgia; K58.9 Irritable bowel syndrome, unspecified; G47.30 Sleep apnea, unspecified; F32.A Depression, unspecified; F41.9 Anxiety disorder, unspecified; Z85.3 Personal history of malignant neoplasm of breast; Z87.891 Personal history of nicotine dependence; Z90.710 Acquired absence of both cervix and uterus; Z90.49 Acquired absence of other specified parts of digestive tract; Z79.4 Long term (current) use of insulin; Z79.82 Long term (current) use of aspirin; Z79.899 Other long term (current) drug therapy; W01.0XXA Fall on same level from slipping, tripping and stumbling without subsequent striking against object, initial encounter
CPT/HCPCS: 72131; 72192; 99284; A9270